=== PATIENT | female | born 1985 | race Two or more races ===

== ENCOUNTER 2021-04-28 13:37 | Outpatient (REF) | payer MEDICAID, SELFPAY ==
--- NOTE | ~2021-04-28 | XR_ITS ---
EXAMINATION: XR LUMBOSACRAL SPINE CLINICAL INFORMATION: Back strain, low back pain COMPARISON: None TECHNIQUE: Three views of the lumbosacral spine. FINDINGS: There is normal lumbar segmentation with 5 nonrib-bearing lumbar vertebrae of normal height and normal lumbar lordosis. There is no vertebral body compression, spondylolisthesis, or disc narrowing. No destructive process. Minor borderline anterior vertebral spurring present L3-L5. The SI joints and visualized sacrum are unremarkable. XR/XR lumbar spine 2-3V IMPRESSION: Unremarkable examination.
== END 2021-04-28 13:38 | disposition home or self-care (01) ==
LOC: HO.XRAY 13:37
PROVIDERS: PCP Internal Medicine Geriatric Medicine; Visit Provider Internal Medicine Geriatric Medicine
DX: S39.012S Strain of muscle, fascia and tendon of lower back, sequela (principal)
CPT/HCPCS: 72100

== ENCOUNTER 2022-01-18 15:03 | Emergency (ER) | payer MEDICAID, SELFPAY ==
--- NOTE | ~2022-01-18 | XR_ITS ---
EXAMINATION: XR CHEST CLINICAL INFORMATION: Chest pain, shortness of breath. COMPARISON: None TECHNIQUE: Frontal view of the chest was obtained. FINDINGS: No significant abnormality is noted involving the heart, lungs, mediastinum, bony thorax or soft tissues. XR/XR chest 1V IMPRESSION: No acute cardiopulmonary process.
--- NOTE | 2022-01-18 15:11 | ECG_ITS ---
Test Reason : CHEST PAIN Blood Pressure : / mmHG Vent. Rate : 092 BPM Atrial Rate : 092 BPM P-R Int : 140 ms QRS Dur : 080 ms QT Int : 344 ms P-R-T Axes : 056 014 001 degrees QTc Int : 425 ms Normal sinus rhythm Minimal voltage criteria for LVH, may be normal variant ( R in aVL ) RSR' or QR pattern in V1 suggests right ventricular conduction delay Borderline ECG When compared with ECG of 16-OCT-2014 18:25, No significant change was found Referred By: Gabriel Lopez Electronically Signed By:CAITLIN MCCOY MD
--- NOTE | 2022-01-18 15:12 | ED.GENADULT ---
HPI - General Adult General Chief complaint: Chest Pain <DINA Moser - Last Filed: 01/18/22 15:17> Stated complaint: CP, HIGH BP 170/[address] OFFICE PER EMS <DINA Moser - Last Filed: 01/18/22 15:17> Time Seen by Provider: 01/18/22 20:31 <DINA Moser - Last Filed: 01/18/22 15:17> Source: patient <Francine Goldstein YAEL Peña - Last Filed: 01/18/22 23:39> Mode of arrival: EMS <Francine Angelita YAEL Peña - Last Filed: 01/18/22 23:39> Limitations: no limitations <Francine Angelitanoy Peña CNP - Last Filed: 01/18/22 23:39> History of Present Illness HPI narrative: Patient is a 36-year-old female who presents to emergency department via EMS for evaluation of chest pain and hypertension coming from her doctor's office. Reports that she stopped taking her blood pressure medications during the pandemic , but recently over the past 10 days began taking them again. Received aspirin 325 mg and nitro from EMS without any change in her pain. Denies headache, dizziness, lightheadedness, vision changes, neck pain, neck stiffness, palpitations, shortness of breath, nausea, vomiting, abdominal pain, numbness or tingling of the extremities. <Francine Goldstein YAEL Peña - Last Filed: 01/18/22 23:39> Related Data Allergies/adverse reactions: Allergies Allergy/AdvReac Type Severity Reaction Status Date / Time acetaminophen [From PERCOCET] Allergy Unknown RAPID HR Verified 01/18/22 16:43 From PERCOCET Allergy Unknown RAPID HR Uncoded 01/18/22 16:43 <DINA Moser - Last Filed: 01/18/22 15:17> Review of Systems Review of Systems: Constitutional : No Weight loss, No Fever, No Chills ENT/Mouth :? No sore throat, No Rhinorrhea Eyes: No Eye Pain, No Swelling Cardiovascular : pos Chest Pain, pos SOB, no Dyspnea on Exertion, No Orthopnea, No Edema, No Palpitations Respiratory : No Cough, No Sputum Gastrointestinal : pos Nausea, No Vomiting, No Diarrhea, No abdominal Pain, No Hematochezia, No Melena Genitourinary : No Dysuria, No Urinary Frequency Musculoskeletal : No joint pain, No Myalgias, No Joint Swelling Skin : No Skin Lesions, No rash Neuro : No Weakness, No Numbness, No Dizziness, No Headache Psych : No Anxiety/Panic, No Depression Heme/Lymph: No Bruising, No Lymphadenopathy Endocrine : No Polyuria, No Polydipsia <Francine Peña CNP - Last Filed: 01/18/22 23:39> Yes all other systems are reviewed and are negative <Francine Peña CNP - Last Filed: 01/18/22 23:39> FORMERLY [facility] Past Medical History Attestation statement: The following information was validated with the patient. <Francine Peña CNP - Last Filed: 01/18/22 23:39> Source: old records reviewed <Francine Peña CNP - Last Filed: 01/18/22 23:39> Medical History: Medical History (Updated 01/18/22 @ 22:22 by Francine Peña CNP) Hypertension <DINA Moser - Last Filed: 01/18/22 15:17> Social History Social History: Social History Advance Directives: No Advance Directives Information Provided: Yes <DINA Moser - Last Filed: 01/18/22 15:17> Physical Exam ED Vital Signs: Vital Signs - 24 hr 01/18/22 16:37 01/18/22 21:28 Temperature 97.3 F 98.0 F Pulse Rate 99 85 Respiratory Rate 16 16 Blood Pressure 176/111 H 151/90 H Pulse Oximetry 100 Oxygen Delivery Method Room Air BMI result Body Mass Index 33.5 <DINA Moser - Last Filed: 01/18/22 15:17> Vital Signs - 24 hr 01/18/22 16:37 01/18/22 21:28 Temperature 97.3 F 98.0 F Pulse Rate 99 85 Respiratory Rate 16 16 Blood Pressure 176/111 H 151/90 H Pulse Oximetry 100 Oxygen Delivery Method Room Air BMI result Body Mass Index 33.5 <Francine Peña CNP - Last Filed: 01/18/22 23:39> Appearance: Alert.?Oriented to person, place and time. No acute distress.?Normal affect. Eyes: Pupils equal, round and reactive to light.? ENT: Pharynx normal.?? Neck: Normal inspection.? Neck supple.?? CVS: Heart sounds normal. Normal heart rate and rhythm.? Pulses normal.?? Respiratory: No respiratory distress.? Lung sounds clear to auscultation bilaterally?? Abdomen: Soft and non-tender. Normoactive bowel sounds. Skin: Skin warm and dry.? Normal skin color.? Extremities: No lower extremity edema.? No calf ttp? Neuro: Moves all extremities spontaneously. Sensation intact bilaterally. No focal neuro deficits. Ambulates with normal steady gait. <Francine Peña CNP - Last Filed: 01/18/22 23:39> Course Course Course Narrative: Patient is a 36-year-old female with a past medical history of HTN, presenting for evaluation from doctor's office. Review of [facility] as noted below. Labs reviewed. CBC is overall unremarkable. BMP overall unremarkable, mildly elevated LFTs with AST 34 an ALT 52. High sensitive troponin not detectable <3.5, EKG reveals normal sinus rhythm no acute ischemic findings, unlikely ACS. Chest x-ray without acute cardiopulmonary process. D-dimer remains pending at this time. Reports chest pain is still present currently 04/30 but improved. Hypertension has improved 151/90, she is due to take her evening dose of metoprolol which she will receive here. Without tachycardia, hypoxia, or tachypnea. She is overall well-appearing, nontoxic appearing. Acetaminophen ordered for pain. <Francine Peña CNP - Last Filed: 01/18/22 23:39> Reevaluation(s) Reevaluation #1: RME 36 year old female presents via ems w/ cp, sob and HTN ( pressure 179/93), coming from doctors office. Reports 08/30 substernal non radiating cp. No SOB, headache, vision changese, nausea, vomiting, abd pain, dizziness, vision changes. Reports she stopped her BP meds for a while but startted them up again regularly 10 days ago. No person or family significant cardiac hx. No hx of PE or DVT. Not on thinneres. PE: benign. Plan:labs, imaging, trop, dimer Got 325 asa and nitro prior to arrival w/o relief. <DINA Moser - Last Filed: 01/18/22 15:17> Time: 15:16 <DINA Moser - Last Filed: 01/18/22 15:17> Reevaluation #2: D-dimer <150, unlikely pulmonary embolism. Discussed with patient. Advised continue and management hypertension with current prescribed regimen, outpatient follow-up with her primary care provider. Reviewed worrisome signs and symptoms that she should return back to emergency department for. All questions were answered. She was discharged home in stable condition. <Francine Peña CNP - Last Filed: 01/18/22 23:39> Time: 22:19 <Francine Peña CNP - Last Filed: 01/18/22 23:39> Medications Administered Discontinued Medications Generic Name Dose Route Start Last Admin Trade Name Freq PRN Reason Stop Dose Admin Acetaminophen 975 mg 01/18/22 21:09 01/18/22 21:25 Acetaminophen 325 Mg Tablet PO 01/18/22 21:10 975 mg ONCE ONE Administration Metoprolol Tartrate 50 mg 01/18/22 21:16 01/18/22 21:26 Metoprolol Tartrate 50 Mg Tablet PO 01/18/22 21:17 50 mg ONCE ONE Administration Protocol <DINA Moser - Last Filed: 01/18/22 15:17> Medications Administered Discontinued Medications Generic Name Dose Route Start Last Admin Trade Name Freq PRN Reason Stop Dose Admin Acetaminophen 975 mg 01/18/22 21:09 01/18/22 21:25 Acetaminophen 325 Mg Tablet PO 01/18/22 21:10 975 mg ONCE ONE Administration Metoprolol Tartrate 50 mg 01/18/22 21:16 01/18/22 21:26 Metoprolol Tartrate 50 Mg Tablet PO 01/18/22 21:17 50 mg ONCE ONE Administration Protocol <Francine Peña CNP - Last Filed: 01/18/22 23:39> Medical Decision Making Medical Records Medical records reviewed: Yes I reviewed the patient's medical records. <Francine Peña CNP - Last Filed: 01/18/22 23:39> Lab Data Lab results reviewed: Yes I reviewed the patient's lab results. <Francine Peña CNP - Last Filed: 01/18/22 23:39> Result diagrams: : 01/18/22 18:11 01/18/22 18:22 <Gabriel Lopez PA - Last Filed: 01/18/22 15:17> Labs: Lab Results 01/18/22 01/18/22 01/18/22 Range/Units 17:18 17:18 17:18 WBC (4.8-10.8) X10*3/uL RBC (4.20-5.50) X10*6/uL Hgb (12.0-16.0) g/dl Hct (37.0-47.0) % MCV (80.0-98.0) fL MCH (27.0-33.0) pg MCHC (31.0-35.0) g/dl RDW (11.0-16.0) % Plt Count (160-400) X10*3/uL MPV (9.4-12.3) fL Immature Gran % (Auto) (0.0-0.4) % Neut % (Auto) (45-73) % Lymph % (Auto) (20-40) % Rhea % (Auto) (2-11) % Eos % (Auto) (0-4) % Baso % (Auto) (0-2) % Lymph # (Auto) (1.2-4.9) X10*3/uL Rhea # (Auto) (0.1-1.2) X10*3/uL Eos # (Auto) (0.0-0.4) X10*3/uL Baso # (Auto) (0.0-0.2) X10*3/uL Abs Immat Gran (auto) (0.00-0.03) X10*3/uL Absolute Neuts (auto) (2.0-8.3) x10*3/uL Absolute Nucleated RBC (0.0-0.012) X10*3/uL Nucleated RBC % (auto) (0.0-0.2) /100WBC D-Dimer High Sensitivty NG/ML Sodium (135-145) mmol/L Potassium (3.3-5.1) mmol/L Chloride (96-108) mmol/L Carbon Dioxide (22-29) mmol/L Anion Gap (12-20) BUN (9-16) mg/dL Creatinine (0.5-1.4) mg/dL Estim Creat Clear Calc Estimated GFR Random Glucose (60-115) mg/dL Calcium (8.4-10.2) mg/dL Total Bilirubin (0.0-1.0) mg/dL AST (5-31) U/L ALT (0-31) U/L Alkaline Phosphatase (39-117) U/L Troponin I High Sens (<3.5-17.0) ng/L Total Protein (6.5-8.0) g/dL Albumin (3.5-5.0) g/dL Urine Color Yellow Urine Appearance Clear Urine pH 7.5 (5.0-9.0) Ur Specific [place] 1.010 (1.005-1.025) Urine Protein Negative (Neg-Trace) mg/dL Urine Glucose (UA) Negative (Negative) mg/dL Urine Ketones Negative (Negative) mg/dL Urine Blood Negative (Negative) Urine Nitrite Negative (Negative) Ur Leukocyte Esterase Negative (Negative) Urine Test NEGATIVE (NEGATIVE) COVID-19 (AILYN) Negative (Negative) COVID-19 Clin Com See Note 01/18/22 01/18/22 01/18/22 Range/Units 18:11 18:22 18:32 WBC 6.4 (4.8-10.8) X10*3/uL RBC 3.97 L (4.20-5.50) X10*6/uL Hgb 13.2 (12.0-16.0) g/dl Hct 38.0 (37.0-47.0) % MCV 95.7 (80.0-98.0) fL MCH 33.2 H (27.0-33.0) pg MCHC 34.7 (31.0-35.0) g/dl RDW 11.7 (11.0-16.0) % Plt Count 259 (160-400) X10*3/uL MPV 10.8 (9.4-12.3) fL Immature Gran % (Auto) 0.3 (0.0-0.4) % Neut % (Auto) 50.2 (45-73) % Lymph % (Auto) 35.6 (20-40) % Rhea % (Auto) 9.9 (2-11) % Eos % (Auto) 2.8 (0-4) % Baso % (Auto) 1.2 (0-2) % Lymph # (Auto) 2.3 (1.2-4.9) X10*3/uL Rhea # (Auto) 0.6 (0.1-1.2) X10*3/uL Eos # (Auto) 0.2 (0.0-0.4) X10*3/uL Baso # (Auto) 0.1 (0.0-0.2) X10*3/uL Abs Immat Gran (auto) 0.02 (0.00-0.03) X10*3/uL Absolute Neuts (auto) 3.2 (2.0-8.3) x10*3/uL Absolute Nucleated RBC 0.000 (0.0-0.012) X10*3/uL Nucleated RBC % (auto) 0.0 (0.0-0.2) /100WBC D-Dimer High Sensitivty NG/ML Sodium 137 (135-145) mmol/L Potassium 4.6 (3.3-5.1) mmol/L Chloride 107 (96-108) mmol/L Carbon Dioxide 17 L (22-29) mmol/L Anion Gap 18 (12-20) BUN 11 (9-16) mg/dL Creatinine 0.68 (0.5-1.4) mg/dL Estim Creat Clear Calc 104.6 Estimated GFR > 60 Random Glucose 120 H (60-115) mg/dL Calcium 9.8 (8.4-10.2) mg/dL Total Bilirubin 0.4 (0.0-1.0) mg/dL AST 34 H (5-31) U/L ALT 52 H (0-31) U/L Alkaline Phosphatase 58 (39-117) U/L Troponin I High Sens < 3.5 (<3.5-17.0) ng/L Total Protein 8.2 H (6.5-8.0) g/dL Albumin 4.5 (3.5-5.0) g/dL Urine Color Urine Appearance Urine pH (5.0-9.0) Ur Specific [place] (1.005-1.025) Urine Protein (Neg-Trace) mg/dL Urine Glucose (UA) (Negative) mg/dL Urine Ketones (Negative) mg/dL Urine Blood (Negative) Urine Nitrite (Negative) Ur Leukocyte Esterase (Negative) Urine Test (NEGATIVE) COVID-19 (AILYN) (Negative) COVID-19 Clin Com 01/18/22 Range/Units 21:18 WBC (4.8-10.8) X10*3/uL RBC (4.20-5.50) X10*6/uL Hgb (12.0-16.0) g/dl Hct (37.0-47.0) % MCV (80.0-98.0) fL MCH (27.0-33.0) pg MCHC (31.0-35.0) g/dl RDW (11.0-16.0) % Plt Count (160-400) X10*3/uL MPV (9.4-12.3) fL Immature Gran % (Auto) (0.0-0.4) % Neut % (Auto) (45-73) % Lymph % (Auto) (20-40) % Rhea % (Auto) (2-11) % Eos % (Auto) (0-4) % Baso % (Auto) (0-2) % Lymph # (Auto) (1.2-4.9) X10*3/uL Rhea # (Auto) (0.1-1.2) X10*3/uL Eos # (Auto) (0.0-0.4) X10*3/uL Baso # (Auto) (0.0-0.2) X10*3/uL Abs Immat Gran (auto) (0.00-0.03) X10*3/uL Absolute Neuts (auto) (2.0-8.3) x10*3/uL Absolute Nucleated RBC (0.0-0.012) X10*3/uL Nucleated RBC % (auto) (0.0-0.2) /100WBC D-Dimer High Sensitivty < 150 NG/ML Sodium (135-145) mmol/L Potassium (3.3-5.1) mmol/L Chloride (96-108) mmol/L Carbon Dioxide (22-29) mmol/L Anion Gap (12-20) BUN (9-16) mg/dL Creatinine (0.5-1.4) mg/dL Estim Creat Clear Calc Estimated GFR Random Glucose (60-115) mg/dL Calcium (8.4-10.2) mg/dL Total Bilirubin (0.0-1.0) mg/dL AST (5-31) U/L ALT (0-31) U/L Alkaline Phosphatase (39-117) U/L Troponin I High Sens (<3.5-17.0) ng/L Total Protein (6.5-8.0) g/dL Albumin (3.5-5.0) g/dL Urine Color Urine Appearance Urine pH (5.0-9.0) Ur Specific [place] (1.005-1.025) Urine Protein (Neg-Trace) mg/dL Urine Glucose (UA) (Negative) mg/dL Urine Ketones (Negative) mg/dL Urine Blood (Negative) Urine Nitrite (Negative) Ur Leukocyte Esterase (Negative) Urine Test (NEGATIVE) COVID-19 (AILYN) (Negative) COVID-19 Clin Com <DINA Moser - Last Filed: 01/18/22 15:17> Lab Results 01/18/22 01/18/22 01/18/22 Range/Units 17:18 17:18 17:18 WBC (4.8-10.8) X10*3/uL RBC (4.20-5.50) X10*6/uL Hgb (12.0-16.0) g/dl Hct (37.0-47.0) % MCV (80.0-98.0) fL MCH (27.0-33.0) pg MCHC (31.0-35.0) g/dl RDW (11.0-16.0) % Plt Count (160-400) X10*3/uL MPV (9.4-12.3) fL Immature Gran % (Auto) (0.0-0.4) % Neut % (Auto) (45-73) % Lymph % (Auto) (20-40) % Rhea % (Auto) (2-11) % Eos % (Auto) (0-4) % Baso % (Auto) (0-2) % Lymph # (Auto) (1.2-4.9) X10*3/uL Rhea # (Auto) (0.1-1.2) X10*3/uL Eos # (Auto) (0.0-0.4) X10*3/uL Baso # (Auto) (0.0-0.2) X10*3/uL Abs Immat Gran (auto) (0.00-0.03) X10*3/uL Absolute Neuts (auto) (2.0-8.3) x10*3/uL Absolute Nucleated RBC (0.0-0.012) X10*3/uL Nucleated RBC % (auto) (0.0-0.2) /100WBC D-Dimer High Sensitivty NG/ML Sodium (135-145) mmol/L Potassium (3.3-5.1) mmol/L Chloride (96-108) mmol/L Carbon Dioxide (22-29) mmol/L Anion Gap (12-20) BUN (9-16) mg/dL Creatinine (0.5-1.4) mg/dL Estim Creat Clear Calc Estimated GFR Random Glucose (60-115) mg/dL Calcium (8.4-10.2) mg/dL Total Bilirubin (0.0-1.0) mg/dL AST (5-31) U/L ALT (0-31) U/L Alkaline Phosphatase (39-117) U/L Troponin I High Sens (<3.5-17.0) ng/L Total Protein (6.5-8.0) g/dL Albumin (3.5-5.0) g/dL Urine Color Yellow Urine Appearance Clear Urine pH 7.5 (5.0-9.0) Ur Specific [place] 1.010 (1.005-1.025) Urine Protein Negative (Neg-Trace) mg/dL Urine Glucose (UA) Negative (Negative) mg/dL Urine Ketones Negative (Negative) mg/dL Urine Blood Negative (Negative) Urine Nitrite Negative (Negative) Ur Leukocyte Esterase Negative (Negative) Urine Test NEGATIVE (NEGATIVE) COVID-19 (AILYN) Negative (Negative) COVID-19 Clin Com See Note 11/28/22 11/28/22 11/28/22 Range/Units 18:11 18:22 18:32 WBC 6.4 (4.8-10.8) X10*3/uL RBC 3.97 L (4.20-5.50) X10*6/uL Hgb 13.2 (12.0-16.0) g/dl Hct 38.0 (37.0-47.0) % MCV 95.7 (80.0-98.0) fL MCH 33.2 H (27.0-33.0) pg MCHC 34.7 (31.0-35.0) g/dl RDW 11.7 (11.0-16.0) % Plt Count 259 (160-400) X10*3/uL MPV 10.8 (9.4-12.3) fL Immature Gran % (Auto) 0.3 (0.0-0.4) % Neut % (Auto) 50.2 (45-73) % Lymph % (Auto) 35.6 (20-40) % Rhea % (Auto) 9.9 (2-11) % Eos % (Auto) 2.8 (0-4) % Baso % (Auto) 1.2 (0-2) % Lymph # (Auto) 2.3 (1.2-4.9) X10*3/uL Rhea # (Auto) 0.6 (0.1-1.2) X10*3/uL Eos # (Auto) 0.2 (0.0-0.4) X10*3/uL Baso # (Auto) 0.1 (0.0-0.2) X10*3/uL Abs Immat Gran (auto) 0.02 (0.00-0.03) X10*3/uL Absolute Neuts (auto) 3.2 (2.0-8.3) x10*3/uL Absolute Nucleated RBC 0.000 (0.0-0.012) X10*3/uL Nucleated RBC % (auto) 0.0 (0.0-0.2) /100WBC D-Dimer High Sensitivty NG/ML Sodium 137 (135-145) mmol/L Potassium 4.6 (3.3-5.1) mmol/L Chloride 107 (96-108) mmol/L Carbon Dioxide 17 L (22-29) mmol/L Anion Gap 18 (12-20) BUN 11 (9-16) mg/dL Creatinine 0.68 (0.5-1.4) mg/dL Estim Creat Clear Calc 104.6 Estimated GFR > 60 Random Glucose 120 H (60-115) mg/dL Calcium 9.8 (8.4-10.2) mg/dL Total Bilirubin 0.4 (0.0-1.0) mg/dL AST 34 H (5-31) U/L ALT 52 H (0-31) U/L Alkaline Phosphatase 58 (39-117) U/L Troponin I High Sens < 3.5 (<3.5-17.0) ng/L Total Protein 8.2 H (6.5-8.0) g/dL Albumin 4.5 (3.5-5.0) g/dL Urine Color Urine Appearance Urine pH (5.0-9.0) Ur Specific [place] (1.005-1.025) Urine Protein (Neg-Trace) mg/dL Urine Glucose (UA) (Negative) mg/dL Urine Ketones (Negative) mg/dL Urine Blood (Negative) Urine Nitrite (Negative) Ur Leukocyte Esterase (Negative) Urine Test (NEGATIVE) COVID-19 (AILYN) (Negative) COVID-19 Clin Com 01/18/22 Range/Units 21:18 WBC (4.8-10.8) X10*3/uL RBC (4.20-5.50) X10*6/uL Hgb (12.0-16.0) g/dl Hct (37.0-47.0) % MCV (80.0-98.0) fL MCH (27.0-33.0) pg MCHC (31.0-35.0) g/dl RDW (11.0-16.0) % Plt Count (160-400) X10*3/uL MPV (9.4-12.3) fL Immature Gran % (Auto) (0.0-0.4) % Neut % (Auto) (45-73) % Lymph % (Auto) (20-40) % Rhea % (Auto) (2-11) % Eos % (Auto) (0-4) % Baso % (Auto) (0-2) % Lymph # (Auto) (1.2-4.9) X10*3/uL Rhea # (Auto) (0.1-1.2) X10*3/uL Eos # (Auto) (0.0-0.4) X10*3/uL Baso # (Auto) (0.0-0.2) X10*3/uL Abs Immat Gran (auto) (0.00-0.03) X10*3/uL Absolute Neuts (auto) (2.0-8.3) x10*3/uL Absolute Nucleated RBC (0.0-0.012) X10*3/uL Nucleated RBC % (auto) (0.0-0.2) /100WBC D-Dimer High Sensitivty < 150 NG/ML Sodium (135-145) mmol/L Potassium (3.3-5.1) mmol/L Chloride (96-108) mmol/L Carbon Dioxide (22-29) mmol/L Anion Gap (12-20) BUN (9-16) mg/dL Creatinine (0.5-1.4) mg/dL Estim Creat Clear Calc Estimated GFR Random Glucose (60-115) mg/dL Calcium (8.4-10.2) mg/dL Total Bilirubin (0.0-1.0) mg/dL AST (5-31) U/L ALT (0-31) U/L Alkaline Phosphatase (39-117) U/L Troponin I High Sens (<3.5-17.0) ng/L Total Protein (6.5-8.0) g/dL Albumin (3.5-5.0) g/dL Urine Color Urine Appearance Urine pH (5.0-9.0) Ur Specific [place] (1.005-1.025) Urine Protein (Neg-Trace) mg/dL Urine Glucose (UA) (Negative) mg/dL Urine Ketones (Negative) mg/dL Urine Blood (Negative) Urine Nitrite (Negative) Ur Leukocyte Esterase (Negative) Urine Test (NEGATIVE) COVID-19 (AILYN) (Negative) COVID-19 Clin Com <Francine Peña CNP - Last Filed: 01/18/22 23:39> Imaging Data Chest x-ray: Radiologist's impression: XR/XR chest 1V IMPRESSION: No acute cardiopulmonary process. <Francine Peña CNP - Last Filed: 01/18/22 23:39> ECG Data Attestation: I personally reviewed and interpreted this ECG as follows: <Francine Peña CNP - Last Filed: 01/18/22 23:39> Prior ECG tracings: available for review <Francine Peña CNP - Last Filed: 01/18/22 23:39> Interpretation: Rate: 92 Rhythm:? Normal sinus rhythm [place]:? Normal Normal P waves.? Normal [place].?? Normal QRS complex.?? ST T wave :??No ST elevation, no ST depression, no T-wave inversion qTC: 425 prior studies:? September 2014 The study has been interpreted contemporaneously by me. <Francine Peña CNP - Last Filed: 01/18/22 23:39> Discharge Plan Discharge Clinical Impression: Chest pain, Hypertension <DINA Moser - Last Filed: 01/18/22 15:17> Patient Disposition: Home, Self-Care <DINA Moser - Last Filed: 01/18/22 15:17> Instructions: Chest Pain (ED), Hypertension (ED) <DINA Moser - Last Filed: 01/18/22 15:17> Additional Instructions: As discussed, please continue taking your current blood pressure medications as prescribed. Will need to follow-up with your primary care provider closely for continued management of your high blood pressure, they will determine whether dosages need to be adjusted. Return to emergency department with any new or worsening symptoms or concerns. You can take ibuprofen 200 mg, 3 tablets (600mg) every 6-8 hours as needed for pain, in addition to Tylenol 500 mg, 2 tablets (1,000mg) every 4-6 hours as needed for pain, but not to exceed 3 doses daily (3,000mg).? <DINA Moser - Last Filed: 01/18/22 15:17> Referrals: Name,MD Ulises [Primary Care Provider] - <DINA Moser - Last Filed: 01/18/22 15:17> Interventions: ED Discharge Assessment Last Done: 01/18/22 22:53 <DINA Moser - Last Filed: 01/18/22 15:17> Discharge Date/Time: 01/18/22 22:54 <DINA Moser - Last Filed: 01/18/22 15:17>
[2022-01-18 15:15] VITALS: BP 179/93; PULSE 108
[2022-01-18 16:37] VITALS: BP 176/111; PULSE 99; RESP 16; TEMP 36.3; O2SAT 100; BMI 33.5
[2022-01-18 17:49] LABS: COVID-19 Test Negative (Negative); IDNOW Serial# BCCEAD1C
[2022-01-18 17:53] LABS: UPreg QC Valid YES; Urine Pregnancy NEGATIVE (NEGATIVE)
[2022-01-18 17:54] LABS: Appearance Urine Clear; Color Urine Yellow; Glucose Urine UA Negative (Negative); Leukocyte Esterase Urine Negative (Negative); Nitrite Urine Negative (Negative); PH 7.5 (5.0-9.0); Urine Blood Negative (Negative); Urine Ketones Negative (Negative); Urine Protein Negative (Neg-Trace)
[2022-01-18 18:17] LABS: MANUAL DIFF FLAG NO
[2022-01-18 18:30] LABS: Basophils Absolute Auto 0.1 X10*3/uL (0.0-0.2); Basophils Percent Auto 1.2 % (0-2); Eosinophils Absolute Auto 0.2 X10*3/uL (0.0-0.4); Eosinophils Percent Auto 2.8 % (0-4); Hemoglobin 13.2 g/dl (12.0-16.0); Imm Gran Abs Auto 0.02 X10*3/uL (0.00-0.03); Imm Gran Pct Auto 0.3 % (0.0-0.4); Lymphocytes Absolute Auto 2.3 X10*3/uL (1.2-4.9); Lymphocytes Percent Auto 35.6 % (20-40); Mean Corpuscular HGB Conc 34.7 g/dl (31.0-35.0); Mean Corpuscular Hemoglobin 33.2 pg (27.0-33.0); Mean Corpuscular Volume 95.7 fL (80.0-98.0); Mean Platelet Volume 10.8 fL (9.4-12.3); Monocytes Absolute Auto 0.6 X10*3/uL (0.1-1.2); Monocytes Percent Auto 9.9 % (2-11); Neutrophils Absolute Auto 3.2 x10*3/uL (2.0-8.3); Neutrophils Percent Auto 50.2 % (45-73); Platelet Count 259 X10*3/uL (160-400); Red Blood Count 3.97 X10*6/uL (4.20-5.50); Red Cell Distribution Width 11.7 % (11.0-16.0); White Blood Count 6.4 X10*3/uL (4.8-10.8)
[2022-01-18 19:01] LABS: Alanine Aminotransferase 52 U/L (0-31); Albumin Level 4.5 g/dL (3.5-5.0); Alkaline Phosphatase 58 U/L (39-117); Anion Gap 18 (12-20); Aspartate Amino Transferase 34 U/L (5-31); Bilirubin Total 0.4 mg/dL (0.0-1.0); Blood Urea Nitrogen 11 mg/dL (9-16); Calcium 9.8 mg/dL (8.4-10.2); Carbon Dioxide 17 mmol/L (22-29); Chloride 107 mmol/L (96-108); Creatinine Clr Calc Pharmacy 104.6; Estimated Glomerular Filt Rate > 60; Glucose Random 120 mg/dL (60-115); Potassium 4.6 mmol/L (3.3-5.1); Sodium 137 mmol/L (135-145); Total Protein 8.2 g/dL (6.5-8.0)
[2022-01-18 19:05] LABS: Troponin-I High Sensitivity < 3.5 ng/L (<3.5-17.0)
[2022-01-18] MEDS: Acetaminophen 325 MG TABLET 975 MG PO (21:25)
[2022-01-18] MEDS: Metoprolol Tartrate 50 MG TABLET PO (21:26)
[2022-01-18 21:28] VITALS: BP 151/90; PULSE 85; RESP 16; TEMP 36.7
[2022-01-18 22:03] LABS: D Dimer High Sensitivity < 150 NG/ML
== END 2022-01-18 22:54 | disposition home or self-care (01) ==
PROVIDERS: Physician Assistant; Emergency Provider Internal Medicine; PCP Internal Medicine Geriatric Medicine
DX: R07.9 Chest pain, unspecified (principal); I10 Essential (primary) hypertension; Z20.822 Contact with and (suspected) exposure to COVID-19
CPT/HCPCS: 71045; 80053; 81003; 81025; 84484; 85025; 85379; 87635; 93005; 99283; 99284

== ENCOUNTER 2022-03-22 11:19 | Outpatient (REF) | payer MEDICAID, SELFPAY ==
--- NOTE | ~2022-03-22 | XR_ITS ---
EXAMINATION: XR CERVICAL SPINE CLINICAL INFORMATION: Acute back pain COMPARISON: None TECHNIQUE: 6 views of the cervical spine, inclusive of flexion and extension views, were obtained. FINDINGS: The vertebral alignment is normal. No intrinsic bony abnormality. The disc heights and neural foramina are well maintained. Throughout mid and lower cervical spine. No acute fracture or subluxation. There are bilateral C7 cervical ribs. There is mild ventral spondylosis The surrounding prevertebral soft tissues are unremarkable. XR/XR cervical spine 5V IMPRESSION: Bilateral C7 cervical ribs. No visible acute fracture or dislocation. Mild ventral C7 cervical ribs.
== END 2022-03-22 11:20 | disposition home or self-care (01) ==
LOC: HO.XRAY 11:19
PROVIDERS: Absent Provider Internal Medicine Geriatric Medicine; PCP Internal Medicine Geriatric Medicine; Visit Provider Registered Nurse
DX: M54.9 Dorsalgia, unspecified (principal)
CPT/HCPCS: 72050

== ENCOUNTER → 2022-05-24 09:03 | Outpatient (BNVA) | payer MEDICAID, SELFPAY | PROVIDERS: PCP Internal Medicine Geriatric Medicine; Visit Provider Physician Assistant ==

== ENCOUNTER 2022-05-24 09:53 | Outpatient (REF) | payer MEDICAID, SELFPAY ==
[2022-05-24 10:18] LABS: MANUAL DIFF FLAG NO
[2022-05-24 10:32] LABS: Basophils Absolute Auto 0.1 X10*3/uL (0.0-0.2); Basophils Percent Auto 1.7 % (0-2); Eosinophils Absolute Auto 0.2 X10*3/uL (0.0-0.4); Eosinophils Percent Auto 4.8 % (0-4); Hematocrit 36.9 % (37.0-47.0); Hemoglobin 12.9 g/dl (12.0-16.0); Imm Gran Abs Auto 0.01 X10*3/uL (0.00-0.03); Imm Gran Pct Auto 0.2 % (0.0-0.4); Lymphocytes Absolute Auto 1.6 X10*3/uL (1.2-4.9); Lymphocytes Percent Auto 38.1 % (20-40); Mean Corpuscular Hemoglobin 33.9 pg (27.0-33.0); Mean Corpuscular Volume 96.9 fL (80.0-98.0); Mean Platelet Volume 10.4 fL (9.4-12.3); Monocytes Absolute Auto 0.3 X10*3/uL (0.1-1.2); Monocytes Percent Auto 7.4 % (2-11); Neutrophils Percent Auto 47.8 % (45-73); Platelet Count 283 X10*3/uL (160-400); Red Blood Count 3.81 X10*6/uL (4.20-5.50); Red Cell Distribution Width 11.9 % (11.0-16.0); White Blood Count 4.2 X10*3/uL (4.8-10.8)
[2022-05-24 11:10] LABS: Alanine Aminotransferase 43 U/L (0-31); Albumin Level 4.3 g/dL (3.5-5.0); Alkaline Phosphatase 70 U/L (39-117); Anion Gap 10 (12-20); Aspartate Amino Transferase 21 U/L (5-31); Bilirubin Total 0.6 mg/dL (0.0-1.0); Blood Urea Nitrogen 12 mg/dL (9-16); C Reactive Protein 0.76 mg/dL (< or = 0.50); Carbon Dioxide 24 mmol/L (22-29); Chloride 110 mmol/L (96-108); Estimated Glomerular Filt Rate > 60; Glucose Random 141 mg/dL (60-115); Potassium 4.5 mmol/L (3.3-5.1); Sodium 139 mmol/L (135-145); Total Protein 7.2 g/dL (6.5-8.0)
[2022-05-24 11:14] LABS: Thyroid Stimulating Hormone 1.38 uIU/mL (0.32-4.0)
[2022-05-24 11:29] LABS: Erythrocyte Sedimentation Rate 6 MM/HR (0-20)
== END 2022-05-24 09:54 | disposition home or self-care (01) ==
LOC: HO.LAB 09:53
PROVIDERS: Visit Provider Physician Assistant
DX: R10.9 Unspecified abdominal pain (principal); K58.9 Irritable bowel syndrome, unspecified; K59.09 Other constipation; G89.29 Other chronic pain; R19.8 Other specified symptoms and signs involving the digestive system and abdomen; K21.9 Gastro-esophageal reflux disease without esophagitis
CPT/HCPCS: 36415; 80053; 84443; 85025; 85652; 86140; 99202

== ENCOUNTER 2022-06-28 07:57 | Outpatient (REF) | payer MEDICAID, SELFPAY ==
--- NOTE | ~2022-06-28 | CT_ITS ---
EXAMINATION: CT ABDOMEN AND PELVIS WITH CONTRAST CLINICAL INFORMATION: Unspecified abdominal pain. COMPARISON: None available. TECHNIQUE: Multidetector volumetric images were obtained from the superior aspect of the liver through the pubic symphysis following administration 85 mL of Omnipaque 350 intravenous contrast. Sagittal and coronal reformatted images were obtained on the technologist's workstation. Oral contrast: No This CT examination was performed using dose optimization techniques as appropriate, variously including the following: *Automated exposure control *Adjustment of mA and/or kV according to patient size (this includes techniques or standardized protocols for targeted exams where dose is matched to indication/reason for exam; i.e. extremities or head) *Use of iterative reconstruction technique DLP: 489 mGy-cm FINDINGS: LUNG BASES: The visualized lung bases are unremarkable. LIVER, GALLBLADDER, AND BILIARY TREE: The liver is normal in size, shape, and attenuation. No focal hepatic lesion or biliary ductal dilatation is present. The gallbladder is unremarkable with no evidence of radiopaque gallstones, gallbladder wall thickening, or obvious pericholecystic inflammatory changes. PANCREAS: Unremarkable. SPLEEN: Unremarkable. ADRENAL GLANDS: Unremarkable. KIDNEYS AND URETERS: The kidneys are normal in size, shape, and attenuation. No hydronephrosis, hydroureter, or calculi seen. No perinephric stranding. BLADDER: Unremarkable. GASTROINTESTINAL TRACT: There is scattered gas and stool seen in the colon without distention. The small bowel loops are opacified with oral contrast and are normal caliber. Appendix is normal caliber. ABDOMINAL WALL: No significant hernia is appreciated. LYMPH NODES: Normal. VASCULAR: Unremarkable. PELVIC VISCERA: Unremarkable. OSSEOUS STRUCTURES: No aggressive lytic or sclerotic process seen. CT/CT abdomen pelvis w IV con IMPRESSION: 1. No acute intra-abdominal process seen. 2. Mild constipation. Fleischner guidelines were followed.
[2022-06-28] MEDS: iohexoL 350 MG/ML 100 ML INFUS..BTL 85 ML IV (11:14)
[2022-06-28] MEDS: Barium Sulfate Oral (Berry) 450 ML ORAL.SUSP 900 ML PO (11:15)
== END 2022-06-28 07:58 | disposition home or self-care (01) ==
LOC: HO.CT 07:57
PROVIDERS: PCP Internal Medicine Geriatric Medicine; Visit Provider Physician Assistant
DX: R10.9 Unspecified abdominal pain (principal); G89.29 Other chronic pain
CPT/HCPCS: 74177; Q9967

== ENCOUNTER → 2022-07-05 09:40 | Outpatient (BNVA) | payer MEDICAID, SELFPAY | PROVIDERS: PCP Internal Medicine Geriatric Medicine; Visit Provider Physician Assistant | DX: K21.9 Gastro-esophageal reflux disease without esophagitis (principal); G89.29 Other chronic pain; R10.9 Unspecified abdominal pain | CPT/HCPCS: 99212 ==

== ENCOUNTER → 2022-07-27 10:48 | Outpatient (BNVA) | payer MEDICAID, SELFPAY | PROVIDERS: PCP Internal Medicine Geriatric Medicine; Visit Provider Physician Assistant | DX: Z11.0 Encounter for screening for intestinal infectious diseases (principal) | CPT/HCPCS: 99211 ==

== ENCOUNTER 2022-07-27 18:13 | Outpatient (REF) | payer MEDICAID, SELFPAY ==
[2022-07-29 16:12] LABS: H Pylori Breath Test Negative (Negative)
== END 2022-07-27 18:14 | disposition home or self-care (01) ==
LOC: HO.LNP 18:13
PROVIDERS: Visit Provider Physician Assistant
DX: A04.8 Other specified bacterial intestinal infections (principal)
CPT/HCPCS: 83013

== ENCOUNTER 2022-09-10 11:53 | Outpatient (REF) | payer MEDICAID, SELFPAY ==
[2022-09-10 15:52] LABS: Anion Gap 11 (12-20); Blood Urea Nitrogen 12 mg/dL (9-16); Calcium 9.5 mg/dL (8.4-10.2); Carbon Dioxide 24 mmol/L (22-29); Chloride 106 mmol/L (96-108); Estimated Glomerular Filt Rate > 60; Glucose Random 95 mg/dL (60-115); Potassium 3.8 mmol/L (3.3-5.1); Sodium 137 mmol/L (135-145)
== END 2022-09-10 11:54 | disposition home or self-care (01) ==
LOC: HO.HHCL 11:53
PROVIDERS: Visit Provider Internal Medicine Geriatric Medicine
DX: I10 Essential (primary) hypertension (principal)
CPT/HCPCS: 36415; 80048

== ENCOUNTER 2022-10-13 10:46 | Outpatient (AMB) | payer MEDICAID, SELFPAY ==
--- NOTE | 2022-10-13 10:56 | MHC.OFFVIS ---
Intake Vital Signs 10/13/22 10:58 Height 5 ft Weight 169 lb BMI 33.0 BP 148/98 H Blood Pressure Location Lt brachial Position Sitting Pulse 82 Intake Visit Reasons: NPV / NAME/ CP Intake Note: NPV w/ EKG Operations Tech Required: No Accompanied by: Daughter Allergies acetaminophen [From Percocet] Adverse Reaction (Verified 10/13/22 10:57) rapid heart rate oxycodone [From Percocet] Adverse Reaction (Verified 10/13/22 10:57) rapid heart rate Medication List - Last Reconciled 10/13/22 by Octavio Chow MD amitriptyline 25 mg PO BEDTIME amlodipine 10 mg PO DAILY bisacodyl (Dulcolax (bisacodyl)) 10 mg NC DAILY PRN cyclobenzaprine 10 mg PO TID docusate sodium (Colace) 200 mg (2 x 100 mg) PO BEDTIME losartan 25 mg PO DAILY methylcellulose (laxative) (Citrucel) 500 mg PO TID polyethylene glycol 3350 (Miralax) 17 grams PO DAILY PRN sucralfate 1 g PO QIDACHS 21 days tizanidine 2 mg PO Q8H PRN topiramate 50 mg PO BID HPI HPI Comments History of Present Illness Details Than you for referring Gaye in cardiology consultation today for chest discomfort. She has longstanding history of hypertension since her 1st at age of 20. She says a blood pressure is not been generally well controlled. She is currently taking amlodipine 10 mg and losartan 25 mg. Losartan was started recently although she is not very clear as to the sequence of medications. She says she is currently not on metoprolol therapy. She has never been worked up for secondary hypertension. Recently she has been getting episodes of retrosternal chest pressure and tightness which can happen randomly while she is exerting or even at rest. She has not measured a blood pressure during that time. A blood pressure is usually elevated and he current time. She has associated symptoms of shortness of breath and palpitations. She says she also has poor sleep pattern but has never been worked up for sleep apnea in the past. She does monitor for salt intake in her diet. She denies any lightheadedness, syncope. Denies any orthopnea, PND, leg edema. [facility] Medical History Hypertension Surgical History Hx of tubal ligation Family History Father No problems noted. Mother Thyroid condition Social History Household Members: Children Alcohol intake: current Alcohol intake frequency: holidays/special occasions only Patient Tobacco Use Status: Never used Tobacco Review of Systems Const Denies chills, Denies daytime sleepiness, Denies fatigue, Denies fever(s), Denies frequent falls, Denies night sweats, Denies snoring, Denies weakness, Denies weight gain and Denies weight loss Eyes Denies loss of vision ENT Denies dizziness and Denies hearing loss Card Denies chest pain, Denies chest pain with activity, Denies syncope, Denies rapid heart rate, Denies edema, Denies claudication, Denies leg edema, Denies lightheadedness, Denies palpitations, Denies dyspnea, Denies dyspnea on exertion and Denies orthopnea Resp Denies cough, Denies excessive phlegm production, Denies dyspnea, Denies dyspnea on exertion, Denies snoring and Denies wheezing GI Denies abdominal pain, Denies hematochezia, Denies change in bowel habits, Denies change in stool character, Denies heartburn, Denies nausea and Denies vomiting Denies hematuria, Denies urinary frequency and Denies dysuria Musc Denies arthralgias, Denies muscle weakness, Denies numbness and Denies tingling Skin/Breast Denies nail changes and Denies rash Neuro Denies Abnormal speech present, Denies dizziness, Denies syncope, Denies frequent falls, Denies loss of vision, Denies memory loss, Denies numbness, Denies tingling and Denies weakness Psych Denies depression and Denies memory loss Endo Denies fatigue and Denies palpitations Aller/Immun Denies wheezing Physical Exam Vital Signs: Last Vital Signs Pulse 82 10/13/22 10:58 BP 148/98 H 10/13/22 10:58 BMI result Body Mass Index 33.0 Const General: cooperative, comfortable, no acute distress, alert, awake and Physically active Nutritional Appearance: obese Orientation/consciousness: patient oriented x3 Limitations: no limitations HEENT Head: Yes normocephalic and Yes atraumatic Neck Neck: Yes trachea midline, Yes supple and Yes no JVD Resp Effort & Inspection: normal respiratory effort Auscultation: clear to auscultation bilaterally Cardio Jugular venous distension: no JVD Palpation: normal PMI Rate: regular rate Heart sounds: S1 normal heart sound present, S2 normal heart sound present, no click, no gallops, no murmurs and no rubs GI Inspection: Yes obesity Skin General skin exam: no rashes or lesions noted Neuro General: patient oriented x3 and no focal motor deficits Speech: No Abnormal speech present Extrem General: Yes no clubbing, cyanosis or edema Office Procedures EKG Details: EKG shows normal sinus rhythm sinus rhythm with normal EKG 65932-[id number], Complete Assessment & Plan Assessment & Plan (1) Chest pain: Code(s): R07.9 - Chest pain, unspecified Plan: Patient's symptoms intermittent chest tightness associated shortness of breath palpitations. Could be related to uncontrolled blood pressure her and/or hypertensive heart disease. Myocardial ischemia as ?less likely. However she has multiple risk factors. Will suggest to treadmill exercise stress test given her baseline normal EKG. Also suggest echocardiogram to assess LV systolic and diastolic function hypertensive heart disease. Further treatment based on the findings. (2) Palpitations: Code(s): R00.2 - Palpitations Plan: Patient recurrent symptoms of palpitations associated chest tightness. Arrhythmias such as SVT and/or atrial fibrillation need to be ruled out given her risk factors. Will obtain a 48 hour Holter monitor to further assess for the same. No pharmacotherapy is recommended at this point time. Follow-up after testing. (3) Uncontrolled hypertension: Code(s): I10 - Essential (primary) hypertension Plan: Uncontrolled hypertension this young woman and for long period time. Importance of aggressive blood pressure control was discussed with her. She understands. She has done lifestyle modification with low-salt diet. However is not participate in weight loss program. She also high likelihood of underlying obstructive sleep apnea. Would suggest her to undergo home sleep study. Also suggest her to have workup for endocrine as well as renal artery stenosis causes for secondary hypertension. These tests will be scheduled in near future. Meanwhile will up titrate losartan to 50 mg daily. Advised to monitor blood pressure at home maintain a log. Follow-up in 6 weeks time. Will follow up in the clinic in 6 weeks time, sooner p.r.n.. Thank you for allowing me to partake in her care Orders: Orders CA echo transthoracic complete Today I10 - Essential (primary) hypertension Aldosterone Today I10 - Essential (primary) hypertension Aldost/Renin Today I10 - Essential (primary) hypertension Cortisol Random Today I10 - Essential (primary) hypertension Metanephrines, Plasma Today I10 - Essential (primary) hypertension Renin Today I10 - Essential (primary) hypertension TSH reflex Free T4 Today I10 - Essential (primary) hypertension RT home sleep study Today I10 - Essential (primary) hypertension, R40.0 - Somnolence US renal doppler Today I10 - Essential (primary) hypertension CA stress test Today R07.9 - Chest pain, unspecified ECG holter monitor 48 hour Today R00.2 - Palpitations Medications: New losartan 50 mg PO DAILY 30 tabs 5RF I10 - Essential (primary) hypertension Coding Level of Care Code New Pt Level 4 (41216) Diagnoses Chest pain R07.9 Palpitations R00.2 Uncontrolled hypertension I10 CPT Codes EKG - CPT: 59504-[id number], Complete ([id number])
[2022-10-13 10:58] VITALS: BP 148/98; PULSE 82; BMI 33.0
== END 2022-10-13 11:29 | disposition home or self-care (01) ==
PROVIDERS: PCP Internal Medicine Geriatric Medicine; Referring Provider Internal Medicine Geriatric Medicine; Visit Provider Internal Medicine Cardiovascular Disease
DX: R07.9 Chest pain, unspecified (principal); R00.2 Palpitations; I10 Essential (primary) hypertension
CPT/HCPCS: 93010; 99204

== ENCOUNTER → 2022-10-13 10:46 | Outpatient (BNVA) | payer MEDICAID, SELFPAY | PROVIDERS: PCP Internal Medicine Geriatric Medicine; Referring Provider Internal Medicine Geriatric Medicine; Visit Provider Internal Medicine Cardiovascular Disease | DX: R07.9 Chest pain, unspecified (principal); R00.2 Palpitations; I10 Essential (primary) hypertension; Z79.899 Other long term (current) drug therapy | CPT/HCPCS: 93005; 99202 ==

== ENCOUNTER 2022-10-13 14:55 | Outpatient (REF) | payer MEDICAID, SELFPAY ==
--- NOTE | ~2022-10-13 | XR_ITS ---
EXAMINATION: XR SHOULDER, LEFT CLINICAL INFORMATION: Left shoulder pain for 2 months. COMPARISON: None available. TECHNIQUE: AP external rotation, Grashey, scapular Y, and axillary views of the left shoulder. FINDINGS: There is a small inferior spur of the distal clavicle the acromioclavicular joint. Acromioclavicular joint is otherwise normal. The glenohumeral joint is normal. There is no soft tissue calcification. XR/XR shoulder LT min 2V IMPRESSION: Small inferior spur of the distal clavicle at the acromioclavicular joint. This is unlikely to be causing impingement. No soft tissue calcification. Normal glenohumeral joint.
== END 2022-10-13 14:56 | disposition home or self-care (01) ==
LOC: HO.HHCX 14:55
PROVIDERS: Visit Provider Registered Nurse
DX: M25.512 Pain in left shoulder (principal); G89.29 Other chronic pain; R07.9 Chest pain, unspecified; R00.2 Palpitations; I10 Essential (primary) hypertension
CPT/HCPCS: 73030

== ENCOUNTER 2022-11-02 15:19 | Outpatient (REF) | payer MEDICAID, SELFPAY ==
[2022-11-02 16:34] LABS: Anion Gap 10 (12-20); Blood Urea Nitrogen 10 mg/dL (9-16); Calcium 9.4 mg/dL (8.4-10.2); Carbon Dioxide 24 mmol/L (22-29); Chloride 111 mmol/L (96-108); Estimated Glomerular Filt Rate > 60; Glucose Random 121 mg/dL (60-115); Sodium 141 mmol/L (135-145)
== END 2022-11-02 15:20 | disposition home or self-care (01) ==
LOC: HO.HHCL 15:19
PROVIDERS: Visit Provider Internal Medicine Geriatric Medicine
DX: I10 Essential (primary) hypertension (principal)
CPT/HCPCS: 36415; 80048

== ENCOUNTER 2022-11-03 10:26 | Outpatient (REF) | payer MEDICAID, SELFPAY ==
--- NOTE | ~2022-11-03 | US_ITS ---
EXAMINATION: US KIDNEYS WITH RENAL ARTERY DOPPLER CLINICAL INFORMATION: Hypertension. COMPARISON: CT abdomen and pelvis 06/28/2022. TECHNIQUE: Ultrasound of the kidneys was performed along with color flow Doppler imaging and velocity measurements in the proximal mid and distal renal arteries. Aortic velocities were measured and renal/aortic ratios were calculated. FINDINGS: The kidneys appeared normal with the right kidney measuring 9.8 x 4.1 x 4.8 cm and the left kidney measuring 10.6 x 4.9 x 4.8 cm. No renal masses, renal stones or hydronephrosis is seen. Renal cortical thickness appears normal. Velocity measurements in the proximal mid and distal renal arteries are normal with the exception of 1 area of velocity elevation in the mid right renal artery at 189 cm/s (upper limits 180 cm/s). Velocity in the aorta is normal at 72 cm/s. Renal aortic ratios are normal. The bladder appeared unremarkable. Incidental note made of an echogenic liver consistent with hepatic steatosis. US/US renal doppler IMPRESSION: 1. Borderline elevated velocity in the right mid renal artery. If clinical concern remains high, CT angiography could always be performed for further evaluation. 2. Incidentally noted hepatic steatosis.
--- NOTE | ~2022-11-03 | US_ITS ---
EXAMINATION: US KIDNEYS WITH RENAL ARTERY DOPPLER CLINICAL INFORMATION: Hypertension. COMPARISON: CT abdomen and pelvis 06/28/2022. TECHNIQUE: Ultrasound of the kidneys was performed along with color flow Doppler imaging and velocity measurements in the proximal mid and distal renal arteries. Aortic velocities were measured and renal/aortic ratios were calculated. FINDINGS: The kidneys appeared normal with the right kidney measuring 9.8 x 4.1 x 4.8 cm and the left kidney measuring 10.6 x 4.9 x 4.8 cm. No renal masses, renal stones or hydronephrosis is seen. Renal cortical thickness appears normal. Velocity measurements in the proximal mid and distal renal arteries are normal with the exception of 1 area of velocity elevation in the mid right renal artery at 189 cm/s (upper limits 180 cm/s). Velocity in the aorta is normal at 72 cm/s. Renal aortic ratios are normal. The bladder appeared unremarkable. Incidental note made of an echogenic liver consistent with hepatic steatosis. US/US renal BI IMPRESSION: 1. Borderline elevated velocity in the right mid renal artery. If clinical concern remains high, CT angiography could always be performed for further evaluation. 2. Incidentally noted hepatic steatosis.
== END 2022-11-03 10:27 | disposition home or self-care (01) ==
LOC: HO.US 10:26
PROVIDERS: PCP Internal Medicine Geriatric Medicine; Visit Provider Internal Medicine Cardiovascular Disease
DX: I10 Essential (primary) hypertension (principal)
CPT/HCPCS: 76775; 93975

== ENCOUNTER 2022-11-10 10:02 | Outpatient (REF) | payer MEDICAID, SELFPAY ==
--- NOTE | 2022-11-10 10:05 | EMG_ITS ---
Please see scanned EMG / Nerve Conduction Report. MTDD
== END 2022-11-10 10:03 | disposition home or self-care (01) ==
LOC: HO.NEURO 10:02
PROVIDERS: PCP Internal Medicine Geriatric Medicine; Visit Provider Registered Nurse
DX: M25.512 Pain in left shoulder (principal); G89.29 Other chronic pain
CPT/HCPCS: 95885; 95910

== ENCOUNTER → 2022-11-18 09:06 | Outpatient (REF) | payer MEDICAID, SELFPAY ==
--- NOTE | 2022-11-18 09:16 | CA_ITS ---
Transthoracic Echocardiogram Patient (Last, First, Middle): Gaye Arriaga Y Gender: Female Date of : 1985 Age: 37 Procedure Date: 11/18/2022 Procedure Type: Transthoracic Echocardiogram Location: OP Height: 152.4 cm Weight: 77.11 kg BSA: 1.74 m2 Heart Rate: bpm BP: 138 / 80 mmHg Sales Trader: TO Referring MD: Octavio Chow MD Shuttlecock Feather Trimmer: Octavio Chow MD Symptoms: I10 - Essential (primary) hypertension Study Quality: Fair, contrast ECG Rhythm: Sinus Conclusions: - Essentially normal study Findings Procedure Information Contrast agent, definity, is being given per protocol without apparent complications. Left Ventricle Normal left ventricular size, thickness, and systolic function. The visually estimated ejection fraction is between 60-65%. Spectral Doppler is indicative of a normal filling pattern. Right Ventricle Normal right ventricular cavity size and systolic function. Atria Both atria are normal in size. Interatrial shunt cannot be excluded. Aortic Valve Normal aortic valve structure and function. There is no aortic valve stenosis. There is no aortic valve regurgitation. Mitral Valve Normal mitral valve structure and function. There is trace mitral valve regurgitation. There is no mitral valve stenosis. Pulmonic Valve The pulmonic valve is likely normal. There is trace pulmonic valve regurgitation. Tricuspid Valve Normal tricuspid valve structure. There is trace tricuspid valve regurgitation. The right ventricular systolic pressure is normal. The right ventricular systolic pressure is 17 mmHg. Normal right atrial pressure. There is no evidence of pulmonary hypertension. Great Vessels All visible segments of the aorta are normal in size. The pulmonary artery was not well visualized. Venous The inferior vena cava is normal in size and collapses greater than 50% with inspiration. Pericardium/Pleural There is no evidence of pericardial effusion. Prior Study Comparison No prior study available for comparison. Measurements 2D Linear Measurements IVSd: 1.00 0.6-0.9/0.6-1.0 cm LVIDd: 3.90 3.9-5.3/4.2-5.9 cm LVIDd Index: 2.24 2.4-3.2/2.2-3.1 cm/m2 LVIDs: 2.20 2.0-3.6 cm LVPWd: 0.90 0.7-1.1 cm LA Diam: 2.60 2.7-3.8/3.0-4.0 cm LAIDs Index: 1.49 1.5-2.3 cm/m2 LV Mass: 141.22 67-162/88-224 g LV Mass Index: 81.16 43-95/49-115 g/m2 LVOT Diam: 1.80 3.0+(-)1.3 cm 2D Systolic Function EF 4C: 59.40 >55% EF 2C: 62.40 >55% EF BiP: 62.20 >55% Mitral Valve MV Pk E: 0.80 MV PK A: 0.59 MV Decel Time: 140.00 E/A: 1.40 E'Lateral: 10.20 E'Medial: 7.07 E/E' Med: 11.30 E/E' Lat: 7.80 PHT: 41.00 MVA PHT: 5.37 Decel [place]: 5.68 Aortic Valve AoV Pk Eric: 1.54 AoV Mn Eric: 0.96 AoV VTI: 0.26 AoV Pk Grad: 9.00 Aov Mn Grad: 4.00 SUZANNA Cont.VTI: 1.78 LVOT LVOT Pk Eric: 0.91 LVOT Mn Eric: 0.60 LVOT VTI: 0.18 LVOT Pk Grad: 3.00 LVOT Mn Grad: 2.00 LVOT Diam: 1.80 LVOT Area: 2.54 Diastolic Function MV Pk E: 0.80 MV Pk A: 0.59 E/A: 1.40 E'Medial: 7.07 E/E' Med: 11.30 E' Laterial: 10.20 E/E' Lat: 7.80 Right Ventricle TAPSE (mm): 17.30 TVS' Eric: 10.80 Tricuspid Valve TR Pk Eric: 1.89 TR Pk Grad: 14.00 RA Press: 3.00 RVSP: 17.00 Great Vessels Aorta Sinus of Valsalva: 2.50 2.0-3.5 cm Ao Asc: 2.90 2.1-3.4 cm Updated in Other Vendor System with Status of Final Octavio Chow MD electronically signed on 11/18/2022 1:48:01 PM with status of Final
--- NOTE | 2022-11-18 09:16 | CA_ITS ---
Acquisition Time: 2022-11-18 10:28:45 Total Exercise Time: 00:07:36 Test Indications: CP, SOB Medications: SEE H Protocol: HIEU Max HR: 157 BPM 86% of Pred: 182 BPM Max BP: 170/088 mmHG Max Work Load: 5.7 METS Exercise stress test exercise 7 min 36 sec of Hieu protocol stage 1 - max speed 2.2mph 86%, with mild to moderate SOB, 6/10 chest pressure in mid chest, with isolated PACs, with normotensive response to exercise, without EKG changes. Chest pain resolved with rest. Test reviewed with Dr. Chow. Referred By: Octavio Chow Overread By: Rosita Hale
[2022-11-18 12:04] LABS: Cortisol Random 3.7 ug/dL; TSH reflex Free T4 2.39 uIU/mL (0.32-4.0)
[2022-11-22 12:03] LABS: Metanephrine, Free <25 pg/mL (<=57); Normetanephrines, Free 78 pg/mL (<=148); Total Metanephrine, Free 78 pg/mL (<=205)
[2022-11-25 17:08] LABS: Renin 2.53 ng/mL/h (0.25-5.82)
[2022-11-29 15:44] LABS: Aldosterone/Renin Ratio 3.6 Ratio (0.9-28.9)
== END ==
LOC: HO.CARD 09:06
PROVIDERS: PCP Internal Medicine Geriatric Medicine; Visit Provider Internal Medicine Cardiovascular Disease
DX: R07.9 Chest pain, unspecified (principal); I10 Essential (primary) hypertension; R40.0 Somnolence
CPT/HCPCS: 36415; 82088; 82533; 83835; 84244; 84443; 93017; 93306; 95806; Q9957

== ENCOUNTER → 2022-11-18 09:16 | Outpatient (BNV) | payer MEDICAID, SELFPAY | PROVIDERS: PCP Internal Medicine Geriatric Medicine; Visit Provider Internal Medicine Cardiovascular Disease | DX: R07.89 Other chest pain (principal); R06.02 Shortness of breath | CPT/HCPCS: 93016; 93018; 93306 ==

== ENCOUNTER → 2022-11-18 11:21 | Outpatient (BNV) | payer MEDICAID, SELFPAY | PROVIDERS: PCP Internal Medicine Geriatric Medicine; Visit Provider Internal Medicine | DX: R06.83 Snoring (principal) | CPT/HCPCS: 95806 ==

== ENCOUNTER 2022-11-25 11:16 | Outpatient (REF) | payer MEDICAID, SELFPAY ==
[2022-11-25 13:19] LABS: Anion Gap 16 (12-20); Blood Urea Nitrogen 8 mg/dL (9-16); Calcium 9.6 mg/dL (8.4-10.2); Carbon Dioxide 22 mmol/L (22-29); Chloride 105 mmol/L (96-108); Estimated Glomerular Filt Rate > 60; Glucose Random 106 mg/dL (60-115); Potassium 4.6 mmol/L (3.3-5.1); Sodium 138 mmol/L (135-145)
== END 2022-11-25 11:17 | disposition home or self-care (01) ==
LOC: HO.HHCL 11:16
PROVIDERS: Visit Provider Internal Medicine Geriatric Medicine
DX: I10 Essential (primary) hypertension (principal)
CPT/HCPCS: 36415; 80048

== ENCOUNTER 2022-11-26 09:12 | Outpatient (AMB) | payer MEDICAID, SELFPAY ==
--- NOTE | 2022-11-26 09:19 | MHC.OFFVIS ---
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 Patient reports ongoing pain for 2 months. She states her pain started after she got 2 vaccines one for hep and tet. Patient is feeling a sore sensation and achy pain. 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 The patient reports ongoing pain for 2 months, since 09/2022. She states the pain began after she received 2 immunization, one for hepatitis and the other for tetanus. She states she has a sore sensation with achy pain in the left shoulder. 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 [facility] Medical History Hypertension Surgical History Hx of tubal ligation Family History Father No problems noted. Mother Thyroid condition Social History Household Members: Children Alcohol intake: current Alcohol intake frequency: holidays/special occasions only Patient Tobacco Use Status: Never used Tobacco Review of Systems Const All systems reviewed & are unremarkable except as noted in HPI and below Physical Exam Vital Signs: BMI result Body Mass Index 33.0 Const General: cooperative and no acute distress Orientation/consciousness: patient oriented x3 Resp Effort & Inspection: normal respiratory effort and able to speak in complete sentences Cardio Peripheral pulses: Peripheral pulses 2+ throughout Skin General skin exam: no rashes or lesions noted Neuro General: patient oriented x3 Extrem Other: Left shoulder: Normal to inspection. No ecchymosis, erythema, or edema. Forward flexion and abduction lacking 20 degrees. External rotation to 45 degrees. Able to reach T12. Positive cross-body reach. 4/5 strength with empty can. Negative drop arm. Positive O?Randy?s. NVI. Office Procedures Joint Injection/Drain Joint Injection/Drain Primary Site: left shoulder Prep: site was prepped using aseptic technique, ethochloride spray was applied and injection warnings given Injected: 80 mg of, DepoMedrol, with 8 mL of (2% plain lido ) and in the subcromial space Approach Used: posterolateral Procedure: The patient tolerated the procedure well, but had some pain with the injection and there was some relief with the local anesthesia Coding 98900 - Large joint Procedure code (CPT) selection complete Results Reviewed Results Reviewed: 11/26/22 09:42 Lidocaine HCl 2 % MPF [Xylocaine 2 % MPF] 5 ml .ROUTE .STK-MED ONE methylPREDNISolone acetate [DEPO-MedroL] 80 mg .ROUTE .STK-MED ONE Assessment & Plan Assessment & Plan (1) Painful arc syndrome of left shoulder: Code(s): M75.102 - Unspecified rotator cuff tear or rupture of left shoulder, not specified as traumatic Plan Ms. Vinay Mederos is a 37-year-old female who presents in the office today, as a new patient, for an evaluation of left shoulder pain. The patient reports ongoing pain for 2 months, since 09/2022. She states the pain began after she received 2 immunization, one for hepatitis B and the other for tetanus. She states she has a sore sensation with achy pain in the left shoulder. 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 She reports intermittent numbness and tingling. She confirms having an EMG done by her PCP, which she states was normal. She confirms participating in physical therapy. The patient was offered a cortisone injection in the left shoulder with 80 mg of DepoMedrol. The patient was explained the risk, benefits, and alternatives to receiving this injection. After receiving consent for the injection, the patient had the procedure done while in office today. The patient tolerated the procedure well with no complications. The patient will continue to work with physical therapy until her sessions are complete. I would like to see her after her physical therapy is completed and in the event her symptoms have not improved we can move forward with an MRI for further evaluation and treatment. Follow up will be after she has completed physical therapy, or sooner if needed. X-rays of the left shoulder, obtained on 10/13/2022, were negative for any acute fracture or dislocation. It did reveal some bone spurring off the AC joint. EMG of the left upper extremity, obtained on 11/10/2022, revealed: Normal motor and sensory nerve conduction study of the left upper extremity with no evidence of carpal tunnel syndrome or ulnar nerve entrapment. Normal EMG of the left C5-T1 innervated muscles. Patient Instructions: Scribed for Shana Winkler PA-C by Apple Thompson certified medical asst, on 11/26/2022 at 9:25 am, EST. Coding Level of Care Code New Pt Level 4 (30580) Diagnoses Painful arc syndrome of left shoulder M75.102 CPT Codes Coding - 07858 Large joint: 92047 - Large joint ([id number])
[2022-11-26 09:23] VITALS: BMI 33.0
== END 2022-11-26 10:15 | disposition home or self-care (01) ==
PROVIDERS: PCP Internal Medicine Geriatric Medicine; Visit Provider Physician Assistant
DX: M75.102 Unspecified rotator cuff tear or rupture of left shoulder, not specified as traumatic (principal)
CPT/HCPCS: 20610; 99204

== ENCOUNTER → 2022-11-26 09:12 | Outpatient (BNVA) | payer MEDICAID, SELFPAY | PROVIDERS: PCP Internal Medicine Geriatric Medicine; Visit Provider Physician Assistant | DX: M75.102 Unspecified rotator cuff tear or rupture of left shoulder, not specified as traumatic (principal) | CPT/HCPCS: 20610; 99212; J1040 ==

== ENCOUNTER 2022-12-03 10:03 | Outpatient (AMB) | payer MEDICAID, SELFPAY ==
--- NOTE | 2022-12-03 10:12 | A.OFFVIS_ITS ---
Intake Vital Signs 12/03/22 10:13 12/03/22 11:05 Height 5 ft Weight 169 lb 12.095 oz BMI 33.1 BP 140/82 H 122/80 Blood Pressure Location Lt brachial Lt brachial Position Sitting Sitting Intake Visit Reasons: 6 wk fu after ett/echo/renal duplex home study Intake Note: 6 wk f/u having some s/b and palpitations [employer] Required: No Allergies acetaminophen [From Percocet] Adverse Reaction (Verified 12/03/22 10:15) rapid heart rate oxycodone [From Percocet] Adverse Reaction (Verified 12/03/22 10:15) rapid heart rate Medication List - Last Reconciled 12/03/22 by RAINER Brewster amitriptyline 25 mg PO BEDTIME amlodipine 10 mg PO DAILY baclofen 10 mg PO TID bisacodyl (Dulcolax (bisacodyl)) 10 mg [place] DAILY PRN celecoxib 200 mg PO DAILY chlorthalidone 12.5 mg PO DAILY cyclobenzaprine 10 mg PO TID docusate sodium (Colace) 200 mg (2 x 100 mg) PO BEDTIME losartan 100 mg (2 x 50 mg) PO DAILY methylcellulose (laxative) (Citrucel) 500 mg PO TID polyethylene glycol 3350 (Miralax) 17 grams PO DAILY PRN sucralfate 1 g PO QIDACHS 21 days topiramate 50 mg PO BID HPI 6 wk fu after ett/echo/renal duplex home study HPI Details Gaye is a 37 year old female with past medical history of hypertension since her 1st who is being evaluated for hypertension, chest discomfort and heart palpitations. She recently underwent an exercise stress test, echocardiogram, renal artery ultrasound, sleep study. Holter monitor was done but not completed as of yet. Today she reports that she feels well overall. She will get some heart palpitations and chest tightness when she does activities like climbing 2 flights of stairs. She had this feeling when she did the stress test. She will notice heart palpitations at rest as well as with activities. It feels like her heart is going fast. No presyncope, syncope, falls. No significant shortness of breath, PND, orthopnea or edema. Reports being active throughout the day with her 3 children. No routine exercise. Takes meds as directed. PFSH Medical History Hypertension Surgical History Hx of tubal ligation Family History Father No problems noted. Mother Thyroid condition Social History Household Members: Children Alcohol intake: current Alcohol intake frequency: holidays/special occasions only Patient Tobacco Use Status: Never used Tobacco Review of Systems Const All systems reviewed & are unremarkable except as noted in HPI and below ENT Denies dizziness Card Reports chest pain, Denies chest pain at rest, Denies chest pain with activity, Reports rapid heart rate, Denies pedal edema, Denies edema, Denies leg edema, Denies lightheadedness, Denies palpitations, Denies dyspnea, Denies dyspnea on exertion and Denies orthopnea Resp Denies cough, Denies dyspnea and Denies dyspnea on exertion GI Denies hematochezia and Denies change in stool character Musc Denies abnormal gait, Denies limited range of motion, Denies muscle cramps, Denies muscle weakness, Denies numbness, Denies radiating pain into limb, Denies stiffness and Denies tingling Neuro Denies abnormal gait, Denies dizziness, Denies numbness and Denies tingling Endo Denies palpitations Physical Exam Vital Signs: Last Vital Signs BP 140/82 H 12/03/22 10:13 BMI result Body Mass Index 33.1 Const General: cooperative, healthy appearing, comfortable and no acute distress Orientation/consciousness: patient oriented x3 HEENT Head: Yes normal to inspection Resp Effort & Inspection: normal respiratory effort Auscultation: clear to auscultation bilaterally, no crackles, no rales, no rhonchi and no wheezes Cardio Jugular venous distension: no JVD Rate: regular rate Rhythm: regular rhythm Heart sounds: S1 normal heart sound present, S2 normal heart sound present, no murmurs and no rubs Neuro General: patient oriented x3 Extrem General: Yes normal to inspection Psych Appearance: grossly normal Mental Status: mental status grossly normal Speech and movement: Normal speech and movement present Assessment & Plan Assessment & Plan (1) Chest discomfort: Code(s): R07.89 - Other chest pain Plan: Reports of chest discomfort with tightness occurring during physical activity. Also noticing heart palpitations when that occurs. Cardiac risk factors of hypertension, obesity. Echocardiogram done 11/18/2022 was normal study. Exercise stress test done 11/18/2022 with exercise 7-1/2 minutes with report of 6/10 chest pressure, no EKG changes of ischemia. Stress echocardiogram ordered for further evaluation. Plan to call her with results. Signs and symptoms of angina reviewed. Emergency care if ever needed for symptoms. (2) Palpitations: Code(s): R00.2 - Palpitations Plan: Report of heart palpitations with physical activity and at times at rest. Describes it as her heart beating fast. No presyncope, syncope, falls. Exercise stress test without noted induced arrhythmia. Echocardiogram is normal. Holter monitor ordered however has not been completed as of yet. (3) Hypertension: Code(s): I10 - Essential (primary) hypertension Plan: History of hypertension since her 1st . She now has 3 children. She is currently on amlodipine, chlorthalidone and losartan. Blood pressure is controlled at this time. On last visit lab work was ordered to evaluate for causes of secondary hypertension. TSH, cortisol, renin, aldosterone, plasma free metanephrines, normetanephrines all normal. She had a renal artery ultrasound done which showed borderline elevated velocity in the right mid renal artery. CTA could be considered if clinical concern. Message sent to her [facility] compensation and benefits administrator Dr. Chow regarding CTA. A sleep study was done on 11/24/2022 showing no obstructive sleep apnea. At present will continue current med management. Reviewed low-salt diet, activity as tolerated. Cardiology follow- up in the office in 3 months. Coding Level of Care Code Est Pt Level 3 (22841) Diagnoses Chest discomfort R07.89 Palpitations R00.2 Hypertension I10 Time Spent (min) 24
[2022-12-03 10:13] VITALS: BP 140/82; BMI 33.1
[2022-12-03 11:05] VITALS: BP 122/80
== END 2022-12-03 10:54 | disposition home or self-care (01) ==
PROVIDERS: PCP Internal Medicine Geriatric Medicine; Visit Provider Nurse Practitioner Family
DX: R07.89 Other chest pain (principal); R00.2 Palpitations; I10 Essential (primary) hypertension
CPT/HCPCS: 99213

== ENCOUNTER → 2022-12-03 10:03 | Outpatient (BNVA) | payer MEDICAID, SELFPAY | PROVIDERS: PCP Internal Medicine Geriatric Medicine; Visit Provider Nurse Practitioner Family | DX: R00.2 Palpitations (principal); R07.89 Other chest pain; I10 Essential (primary) hypertension | CPT/HCPCS: 99212 ==

== ENCOUNTER → 2022-12-10 10:24 | Outpatient (REF) | payer MEDICAID, SELFPAY | LOC: HO.CARD 10:24 | PROVIDERS: PCP Internal Medicine Geriatric Medicine; Visit Provider Nurse Practitioner | DX: R07.9 Chest pain, unspecified (principal); I10 Essential (primary) hypertension | CPT/HCPCS: Q9957 ==

== ENCOUNTER → 2022-12-10 10:28 | Outpatient (BNV) | payer MEDICAID, SELFPAY | PROVIDERS: PCP Internal Medicine Geriatric Medicine; Visit Provider Nurse Practitioner | DX: R00.0 Tachycardia, unspecified (principal) | CPT/HCPCS: 93227; 93350 ==

== ENCOUNTER → 2022-12-10 | Outpatient (REF) | payer MEDICAID, SELFPAY ==
--- NOTE | 2022-12-10 10:28 | CA_ITS ---
Acquisition Time: 2022-12-10 10:54:06 Total Exercise Time: 00:07:14 Test Indications: htn, cp Medications: see h Protocol: HIEU Max HR: 169 BPM 92% of Pred: 182 BPM Max BP: 152/078 mmHG Max Work Load: 8.3 METS Exercise stress test exercise 7 min 14 sec of Hieu protocol stage 3 reduced speed to 3.1% achieving 92% MPHR,with request to stop due to chest pain, SOB, and fatigue, with 3/10 chest pressure/tightness, mild SOB, without arrythmias, with normotensive response to exercise, without EKG changes. Chest pressure/tightness resolved with rest. Echo images obtained by tech at rest and immedately post peak exercise. Definity contrast used. Test reviewe with Dr. White Referred By: Octavio Chow Overread By: Rosita Hale
--- NOTE | 2022-12-10 10:28 | HM_ITS ---
Conclusion: 1. Patient was monitored for total period of 2 days 2. Baseline was normal sinus rhythm with average heart of 100 beats per minute 3. No significant pauses noted 4. Frequent sinus tachycardia noted with 42% of time heart rate about 100 beats per minute 5. Patient marked 4 events with heart palpitations correlating with sinus rhythm MTDD
== END ==
LOC: HO.CARD
PROVIDERS: PCP Internal Medicine Geriatric Medicine; Visit Provider Nurse Practitioner Family
DX: R00.2 Palpitations (principal)
CPT/HCPCS: 93225; 93350; Q9957

== ENCOUNTER 2022-12-23 12:02 | Outpatient (REF) | payer MEDICAID, SELFPAY ==
[2022-12-23 13:34] LABS: Anion Gap 9 (12-20); Blood Urea Nitrogen 13 mg/dL (9-16); Calcium 9.7 mg/dL (8.4-10.2); Carbon Dioxide 25 mmol/L (22-29); Chloride 108 mmol/L (96-108); Estimated Glomerular Filt Rate > 60; Glucose Random 113 mg/dL (60-115); Sodium 138 mmol/L (135-145)
== END 2022-12-23 12:03 | disposition home or self-care (01) ==
LOC: HO.HHCL 12:02
PROVIDERS: Internal Medicine Cardiovascular Disease; Visit Provider Internal Medicine Geriatric Medicine
DX: I10 Essential (primary) hypertension (principal)
CPT/HCPCS: 36415; 80048; 82088

== ENCOUNTER 2023-01-04 13:08 | Outpatient (AMB) | payer MEDICAID, SELFPAY ==
[2023-01-04 13:10] VITALS: BMI 33.0
--- NOTE | 2023-01-04 13:10 | A.OFFVIS_ITS ---
Intake Vital Signs 01/04/23 13:10 Height 5 ft Weight 169 lb BMI 33.0 Intake Visit Reasons: OV-Left shoulder pain-F/U Intake Note: Gaye is a 37 year old right hand dominant female who presents today for a evaluation of her left shoulder, last injection 11/26/22. Patient reports still having a cramping sensation with leads to numbness. She states when she is going to pecan picker an item from the ground she get a sharp and discomfort in her shoulder. Last injection gave her about a week of relief. Allergies acetaminophen [From Percocet] Adverse Reaction (Verified 01/04/23 13:11) rapid heart rate oxycodone [From Percocet] Adverse Reaction (Verified 01/04/23 13:11) rapid heart rate HPI OV-Left shoulder pain-F/U HPI Details 37-year-old female who presents in the [facility] today for a follow up of left shoulder pain. The patient reports she is still having a cramping sensation with numbness. She states when she is picking up items from the ground she gets a sharp pain and discomfort in the left shoulder. She states the last injection gave her about a week of relief. [facility] Medical History Hypertension Surgical History Hx of tubal ligation Family History Father No problems noted. Mother Thyroid condition Social History Household Members: Children Alcohol intake: current Alcohol intake frequency: holidays/special occasions only Patient Tobacco Use Status: Never used Tobacco Review of Systems Const All systems reviewed & are unremarkable except as noted in HPI and below Physical Exam Vital Signs: BMI result Body Mass Index 33.0 Const General: cooperative, healthy appearing and no acute distress Resp Effort & Inspection: normal respiratory effort and able to speak in complete sentences Cardio Rate: regular rate Peripheral pulses: Peripheral pulses 2+ throughout GI Palpation (GI): Soft to palpation Skin Lesions: no lesions Rashes: no rashes Extrem Other: Left shoulder: Normal to inspection. No ecchymosis, erythema, or edema. Forward flexion and abduction lacking 20 degrees. External rotation to 45 degrees. Able to reach T12. Positive cross-body reach. 4/5 strength with empty can. Negative drop arm. Positive O?Randy?s. NVI. Assessment & Plan Assessment & Plan (1) Painful arc syndrome of left shoulder: Code(s): M75.102 - Unspecified rotator cuff tear or rupture of left shoulder, not specified as traumatic Plan Ms. Vinay Mederos is a 37-year-old female who presents in the office today for a follow up of left shoulder pain. The patient reports she is still having a cramping sensation with numbness. She states when she is picking up items from the ground she gets a sharp pain and discomfort in the left shoulder. She states the last injection gave her about a week of relief. The patient will be referred for an MRI to further evaluate the integrity of the left shoulder. Follow up will be after the MRI is obtained, or sooner if needed. EMG of the left shoulder, obtained on 11/10/2022, revealed: Normal motor and sensory nerve conduction study of the left upper extremity with no evidence of carpal tunnel syndrome or ulnar nerve entrapment. Normal EMG of the left C5-T1 innervated muscles. Patient Instructions: Scribed for Shana Winkler PA-C by Apple Thompson medical legal investigator, on 01/04/2023 at 1:10 pm, EST. Coding Level of Care Code Est Pt Level 4 (19570) Diagnoses Painful arc syndrome of left shoulder M75.102
== END 2023-01-04 13:41 | disposition home or self-care (01) ==
PROVIDERS: PCP Internal Medicine Geriatric Medicine; Visit Provider Physician Assistant
DX: M75.102 Unspecified rotator cuff tear or rupture of left shoulder, not specified as traumatic (principal)
CPT/HCPCS: 99214

== ENCOUNTER → 2023-01-04 13:08 | Outpatient (BNVA) | payer MEDICAID, SELFPAY | PROVIDERS: PCP Internal Medicine Geriatric Medicine; Visit Provider Physician Assistant | DX: M75.102 Unspecified rotator cuff tear or rupture of left shoulder, not specified as traumatic (principal) | CPT/HCPCS: 99212 ==

== ENCOUNTER 2023-03-28 10:16 | Outpatient (REF) | payer MEDICAID, SELFPAY ==
[2023-03-28 12:29] LABS: Alanine Aminotransferase 41 U/L (0-31); Albumin Level 4.5 g/dL (3.5-5.0); Alkaline Phosphatase 60 U/L (39-117); Anion Gap 14 (12-20); Aspartate Amino Transferase 17 U/L (5-31); Bilirubin Total 0.5 mg/dL (0.0-1.0); Blood Urea Nitrogen 11 mg/dL (9-16); Calcium 9.2 mg/dL (8.4-10.2); Carbon Dioxide 24 mmol/L (22-29); Chloride 104 mmol/L (96-108); Cholesterol 173 mg/dL (<200); Estimated Glomerular Filt Rate > 60; Glucose Random 120 mg/dL (60-115); HDL Cholesterol 52 mg/dL (>40); LDL Cholesterol Calculated 103 mg/dL (<100); Potassium 4.2 mmol/L (3.3-5.1); Sodium 138 mmol/L (135-145); Total Protein 7.8 g/dL (6.5-8.0); Triglycerides 90 mg/dL (<150)
== END 2023-03-28 10:17 | disposition home or self-care (01) ==
LOC: HO.HHCL 10:16
PROVIDERS: Visit Provider Internal Medicine Geriatric Medicine
DX: Z00.00 Encounter for general adult medical examination without abnormal findings (principal); Z13.220 Encounter for screening for lipoid disorders
CPT/HCPCS: 36415; 80053; 80061

== ENCOUNTER 2023-03-28 20:11 | Outpatient (REF) | payer MEDICAID, SELFPAY ==
--- NOTE | ~2023-03-28 | MR_ITS ---
EXAMINATION: MR SHOULDER WITHOUT CONTRAST, LEFT CLINICAL INFORMATION: Left shoulder pain and numbness. Evaluate for rotator cuff tendon tear. COMPARISON: Left shoulder radiographs dated 10/13/2022. TECHNIQUE: MRI of the shoulder without contrast was performed on a high-field scanner. FINDINGS: ROTATOR CUFF: Intact. No muscle atrophy or fatty infiltration. BICEPS: Normal. CORACOACROMIAL ARCH: The undersurface of the acromion is curved with no subacromial spur. Mild to moderate acromioclavicular osteoarthritis. LABRUM/CAPSULE: No labral tear. Intact joint capsule. GLENOHUMERAL JOINT/MARROW: Unremarkable. MR/MR shoulder LT wo con IMPRESSION: 1. No rotator cuff tendon tear. 2. Mild to moderate acromioclavicular osteoarthritis.
== END 2023-03-28 20:12 | disposition home or self-care (01) ==
LOC: HO.MRI 20:11
PROVIDERS: PCP Internal Medicine Geriatric Medicine; Visit Provider Physician Assistant
DX: M75.102 Unspecified rotator cuff tear or rupture of left shoulder, not specified as traumatic (principal)
CPT/HCPCS: 73221

== ENCOUNTER 2023-04-03 11:39 | Emergency (ER) | payer MEDICAID, SELFPAY ==
--- NOTE | ~2023-04-03 | CT_ITS ---
EXAMINATION: CT ABDOMEN AND PELVIS WITH CONTRAST CLINICAL INFORMATION: Left-sided tenderness COMPARISON: CT abdomen pelvis 06/28/2022 TECHNIQUE: Multidetector volumetric images were obtained from the superior aspect of the liver through the pubic symphysis following administration 85 mL of Omnipaque 350 intravenous contrast. Sagittal and coronal reformatted images were obtained on the technologist's workstation. Oral contrast: No This CT examination was performed using dose optimization techniques as appropriate, variously including the following: *Automated exposure control *Adjustment of mA and/or kV according to patient size (this includes techniques or standardized protocols for targeted exams where dose is matched to indication/reason for exam; i.e. extremities or head) *Use of iterative reconstruction technique DLP: 604 mGy-cm FINDINGS: LUNG BASES: Unremarkable. LIVER AND BILIARY TREE: Unremarkable. GALLBLADDER: Unremarkable. PANCREAS: Unremarkable. SPLEEN: Unremarkable. ADRENAL GLANDS: Unremarkable. KIDNEYS AND URETERS: Unremarkable. GASTROINTESTINAL TRACT: Unremarkable. VASCULAR: Unremarkable LYMPH NODES: No lymphadenopathy. PERITONEUM: No ascites. BLADDER: Unremarkable. PELVIC VISCERA: Unremarkable. ABDOMINAL AND PELVIC WALL: Unremarkable. OSSEOUS STRUCTURES: Unremarkable. CT/CT abdomen pelvis w IV con IMPRESSION: No acute abnormality of the abdomen or pelvis, or findings to explain left-sided tenderness.
[2023-04-03 11:50] VITALS: BP 139/96; PULSE 128; RESP 16; TEMP 36.7; O2SAT 99; BMI 31.4
--- NOTE | 2023-04-03 11:55 | ED_ITS ---
HPI - General Adult General Chief complaint: Abdominal Pain Stated complaint: abd pain Time Seen by Provider: 04/03/23 13:08 Source: patient Mode of arrival: ambulatory Limitations: no limitations History of Present Illness HPI narrative: Patient is a 37-year-old female with history of chronic abdominal pain, acid reflux, chronic constipation, HTN presenting to the emergency department with complaint of left-sided abdominal pain which she describes as severe since Tuesday. Patient reports that she has had this pain intermittently for over 4-5 years. States that she has seen GI but has been given no diagnosis for her symptoms. Reports episode of similar pain around 2 weeks ago which lasted 3-4 days. States since Tuesday has also had nausea and vomiting as well as intermittent diarrhea and constipation. She denies any fevers. Denies dysuria, frequency, hematuria or other urinary symptoms. Reports lower back pain, denies flank pain. Denies any vaginal bleeding or abnormal vaginal discharge, concern for STIs. Denies any hematochezia or melena. Reports emesis is nonbloody, nonbilious. MD complaint: Abdominal pain Onset (ago): day(s) Location: abdomen Radiation: non-radiation Severity: severe Quality: sharp Pain Consistency: intermittent Relieving factors: none Exacerbating factors: none Associated symptoms: nausea/vomiting and other Treatments prior to arrival: none Related Data Home Medications Medication Instructions Recorded Confirmed amitriptyline 25 mg tablet 25 mg PO BEDTIME 05/24/22 12/03/22 cyclobenzaprine 10 mg tablet 10 mg PO TID 05/24/22 12/03/22 topiramate 50 mg tablet 50 mg PO BID 05/24/22 12/03/22 amlodipine 10 mg tablet 10 mg PO DAILY 10/13/22 12/03/22 baclofen 10 mg tablet 10 mg PO TID 12/03/22 12/03/22 celecoxib 200 mg capsule 200 mg PO DAILY 12/03/22 12/03/22 chlorthalidone 25 mg tablet 12.5 mg PO DAILY 12/03/22 12/03/22 Previous Rx's Medication Instructions Recorded bisacodyl 10 mg rectal suppository 10 mg WA DAILY PRN constipation 05/24/22 (Dulcolax (bisacodyl)) #20 ea docusate sodium 100 mg capsule 200 mg (2 x 100 mg) PO BEDTIME #60 05/24/22 (Colace) caps methylcellulose (laxative) 500 mg 500 mg PO TID #90 tabs 05/24/22 tablet (Citrucel) polyethylene glycol 3350 17 17 g PO DAILY PRN laxative effect 05/24/22 gram/dose oral powder (Miralax) #510 grams sucralfate 1 gram tablet 1 g PO QIDACHS 21 days #90 tabs 07/05/22 losartan 50 mg tablet 100 mg (2 x 50 mg) PO DAILY #30 10/22/22 tabs dicyclomine 10 mg capsule 10 mg PO TID abdominal cramping 04/03/23 #14 caps nitrofurantoin macrocrystal 100 mg 100 mg PO BID 5 days #10 caps 04/03/23 capsule ondansetron 4 mg disintegrating 4 mg PO Q8H PRN nausea and 04/03/23 tablet vomiting #10 tabs Allergies Allergy/AdvReac Type Severity Reaction Status Date / Time No Known Allergies Allergy Verified 04/03/23 11:49 Review of Systems 2 Review of Systems: As per HPI. Yes all other systems are reviewed and are negative Constitutional: Constitutional: Reports as per HPI [facility] Past Medical History Medical History Hypertension Surgical History Hx of tubal ligation Family History Family History Father No problems noted. Mother Thyroid condition Social History Social History Household Members: Children Alcohol intake: current Alcohol intake frequency: holidays/special occasions only Patient Tobacco Use Status: Never used Tobacco Smoked in Last 30 Days: No Use of substances other than those prescribed or required for medical reasons: No Advance Directives: No Advance Directives Information Provided: No Physical Exam ED Vital Signs: Vital Signs - 24 hr 04/03/23 11:50 04/03/23 13:03 04/03/23 13:40 Temperature 98.0 F 98 F Pulse Rate 128 H 111 H 107 H Respiratory Rate 16 16 16 Blood Pressure 139/96 H 127/89 129/92 H Pulse Oximetry 99 98 98 Oxygen Delivery Method Room Air Room Air Room Air BMI result Body Mass Index 31.4 Vital signs have been reviewed and appear to be correct. Blood pressure normal. Heart rate tachycardic. Respiratory rate normal. Temperature normal. Oxygen saturation normal. Const General: cooperative, healthy appearing and no acute distress Orientation/consciousness: oriented to person, oriented to place, oriented to time and patient oriented x3 Limitations: no limitations HENMT Head: Yes normocephalic and Yes atraumatic Ears: external ears normal General nose exam: Normal external nose present Face and sinus: Yes face symmetric Mouth: oropharynx normal and moist mucous membranes Throat: Yes uvula midline Eyes Pupils: Equal, round and reactive pupils present Neck Neck: Yes normal visual inspection and Yes supple Resp Effort & Inspection: normal respiratory effort and able to speak in complete sentences Auscultation: clear to auscultation bilaterally Cardio Rate: regular rate Rhythm: regular rhythm Heart sounds: S1 normal heart sound present and S2 normal heart sound present GI Palpation (GI): Soft to palpation, Tenderness to palpation present (GI) in the LLQ and in the LUQ, no guarding and No Rebound tenderness present Auscultation: normoactive bowel sounds General: Yes no CVA tenderness Back/Spine/Pelvis Back: no CVA tenderness Skin General skin exam: elasticity normal and turgor normal Neuro General: oriented to person, oriented to place, oriented to time, patient oriented x3, moves all extremities, no focal motor deficits and CN's II-XI intact bilaterally Cranial nerves: Yes Equal, round and reactive pupils present Cognition (Neuro): normal cognition Extrem General: Yes full ROM, Yes no pedal edema and Yes no calf tenderness Psych Mental Status: mental status grossly normal Affect: normal affect Thought process: Normal thought process present Course Course Course Narrative: RME: 37 yold female presents to the ED for LLQ abdominal pain with nausea, diarrhea, and vomitting since . labs ordered Medications Administered Discontinued Medications Generic Name Dose Route Start Last Admin Trade Name Freq PRN Reason Stop Dose Admin Iohexol 85 ml 04/03/23 14:45 04/03/23 14:45 Iohexol 350 Mg/Ml 100 Ml Infus..Btl IV 04/03/23 14:46 85 ml ONCE ONE Administration Ketorolac Tromethamine 15 mg 04/03/23 14:10 04/03/23 14:50 Ketorolac Tromethamine 15 Mg/Ml Vial IVPUSH 04/03/23 14:11 15 mg ONCE ONE Administration Potassium Chloride 40 meq 04/03/23 13:49 04/03/23 14:50 Potassium Chloride Er 20 Meq Tab.Er.Prt PO 04/03/23 13:50 40 meq ONCE ONE Administration Medical Decision Making Medical Decision Making [facility] Narrative: Patient is a 37-year-old female with history of chronic abdominal pain, acid reflux, chronic constipation, HTN presenting to the emergency department with complaint of left-sided abdominal pain which she describes as severe since Tuesday. On exam patient is awake, A+Ox3, tachycardic, VS otherwise WNL, afebrile, normal neurological exam without focal deficits, physical exam findings as above. Given reported symptoms and physical exam findings, initial differential includes diverticulitis, ectopic, ovarian cyst, uterine fibroid, constipation, UTI, renal/ureteral calculi. Unlikely pneumonia, TOA, ovarian torsion as pain has been ongoing for years. Labs notable for no leukocytosis, no anemia, mild hypokalemia, no evidence of KASI, normal LFTs, slightly elevated lipase. CT is unremarkable for any acute abnormalities. My interpretation is in agreement with the radiologist's interpretation. Urinalysis notable for 2+ leukocytes, 21-50 WBCs, 1+ bacteria, 6-10 epithelials. Urinalysis results discussed with patient and she denies any urinary symptoms, given her abdominal pain, will send prescription for Macrobid and advised patient to begin taking these antibiotics if she develops urinary symptoms, patient is agreeable to this. Patient remains mildly tachycardic but is afebrile, normotensive, no leukocytosis so feel likely related to pain. Feel she is stable for discharge home. Will prescribe Bentyl for abdominal cramping as well as Zofran for nausea. Instructed patient to follow-up with her exhibit carpenter as well as her OBGYN for further evaluation of her symptoms. Return precautions discussed at bedside. Patient verbalized understanding of and agreement with plan. Differential Diagnosis Differential Diagnoses: The differential diagnosis associated with the presentation includes As per [facility]. Admission/Observation Consideration of admission/observation: Escalation of care including admission/observation considered Lab Data [facility] Lab Attestation statement: I reviewed the patient's lab results. As per MDM. 04/03/23 12:04 04/03/23 12:04 Labs: Lab Results 04/03/23 04/03/23 Range/Units 12:04 12:20 WBC 7.9 (4.8-10.8) X10*3/uL RBC 4.49 (4.20-5.50) X10*6/uL Hgb 14.5 (12.0-16.0) g/dl Hct 40.1 (37.0-47.0) % MCV 89.3 (80.0-98.0) fL MCH 32.3 (27.0-33.0) pg MCHC 36.2 H (31.0-35.0) g/dl RDW 11.9 (11.0-16.0) % Plt Count 382 D (160-400) X10*3/uL MPV 9.7 (9.4-12.3) fL Immature Gran % (Auto) 0.3 (0.0-0.4) % Neut % (Auto) 62.5 (45-73) % Lymph % (Auto) 25.9 (20-40) % [place] % (Auto) 7.1 (2-11) % Eos % (Auto) 3.4 (0-4) % Baso % (Auto) 0.8 (0-2) % Lymph # (Auto) 2.1 (1.2-4.9) X10*3/uL [place] # (Auto) 0.6 (0.1-1.2) X10*3/uL Eos # (Auto) 0.3 (0.0-0.4) X10*3/uL Baso # (Auto) 0.1 (0.0-0.2) X10*3/uL Abs Immat Gran (auto) 0.02 (0.00-0.03) X10*3/uL Absolute Neuts (auto) 4.9 (2.0-8.3) x10*3/uL Absolute Nucleated RBC 0.000 (0.0-0.012) X10*3/uL Nucleated RBC % (auto) 0.0 (0.0-0.2) /100WBC Sodium 134 L (135-145) mmol/L Potassium 3.0 L D (3.3-5.1) mmol/L Chloride 96 (96-108) mmol/L Carbon Dioxide 25 (22-29) mmol/L Anion Gap 16 (12-20) BUN 12 (9-16) mg/dL Creatinine 0.83 (0.5-1.4) mg/dL Estim Creat Clear Calc 85.3 Estimated GFR > 60 Random Glucose 140 H (60-115) mg/dL Calcium 9.4 (8.4-10.2) mg/dL Total Bilirubin 0.6 (0.0-1.0) mg/dL AST 11 (5-31) U/L ALT 22 (0-31) U/L Alkaline Phosphatase 61 (39-117) U/L Total Protein 8.1 H (6.5-8.0) g/dL Albumin 4.3 (3.5-5.0) g/dL Lipase 96 H (8-78) U/L Beta HCG, Quant < 2 mIU/mL Urine Color Yellow Urine Appearance Cloudy Urine pH 5.5 (5.0-9.0) Ur Specific [place] 1.015 (1.005-1.025) Urine Protein Trace (Neg-Trace) mg/dL Urine Glucose (UA) Negative (Negative) mg/dL Urine Ketones 40 (Negative) mg/dL Urine Blood Negative (Negative) Urine Nitrite Negative (Negative) Ur Leukocyte Esterase Moderate (2+) H (Negative) Urine RBC 0-2 (0-2) /HPF Urine WBC 21-50 H (0-5) /HPF Ur Squamous Epith Cells 6-10 (0-2) /HPF Urine Bacteria 1+ (None Seen) Hyaline Casts 6-10 (0-2) /LPF Urine Test NEGATIVE (NEGATIVE) COVID-19 (AILYN) Negative (Negative) COVID-19 Clin Com See Note Influenza Type A ([facility]) Negative (Negative) Influenza Type B ([facility]) Negative (Negative) Influenza A & B Note [id number] Independent Interpretation I performed an independent interpretation of an: CT Scan Interpretation: No acute abnormalities on CT scan Radiology Impression Discussion of test interpretation with radiology: I have reviewed the radiologist's reading. Radiologist Impression: CT/CT abdomen pelvis w IV con IMPRESSION: No acute abnormality of the abdomen or pelvis, or findings to explain left-sided tenderness. External Record Review External record reviewed: Inpatient record, Office record and Outpatient record Prescription Management I considered prescription management with: Other Discharge Plan Discharge Clinical Impression: Chronic abdominal pain Patient Disposition: Home, Self-Care Instructions: Abdominal Pain (ED), Chronic Abdominal Pain (ED) Additional Instructions: You have been evaluated in the emergency department today for abdominal pain. Your evaluation did not show evidence of medical conditions requiring emergent intervention at this time. Please schedule an appointment with your exhibit carpenter and SPEECH AND HEARING DIRECTOR for further evaluation of your symptoms. You are being prescribed ondansetron for nausea and dicyclomine for abdominal cramping, please take these as prescribed. Return to the emergency department if you experience worsening or uncontrolled pain, fevers 100.4? F or greater, recurrent vomiting, inability to tolerate food or fluids by mouth, bloody stools or vomit, black or tarry stools, or any other concerning symptoms. Prescriptions: New ondansetron 4 mg tablet,disintegrating 4 mg PO Q8H PRN (Reason: nausea and vomiting) Qty: 10 0RF dicyclomine 10 mg capsule 10 mg PO TID Qty: 14 0RF nitrofurantoin macrocrystal 100 mg capsule 100 mg PO BID 5 Days Qty: 10 0RF Rx Instructions: must administer with a meal/food No Action losartan 50 mg tablet 100 mg PO DAILY Qty: 30 5RF cyclobenzaprine 10 mg tablet 10 mg PO TID topiramate 50 mg tablet 50 mg PO BID amitriptyline 25 mg tablet 25 mg PO BEDTIME Citrucel 500 mg tablet 500 mg PO TID Qty: 90 5RF docusate sodium [Colace] 100 mg capsule 200 mg PO BEDTIME Qty: 60 5RF bisacodyl [Dulcolax (bisacodyl)] 10 mg suppository 10 mg WA DAILY PRN (Reason: constipation) Qty: 20 0RF polyethylene glycol 3350 [Miralax] 17 gram/dose powder 17 g PO DAILY PRN (Reason: laxative effect) Qty: 510 1RF Rx Instructions: 17 GM QD x 1 week prior to prep day sucralfate 1 gram tablet 1 g PO QIDACHS 21 Days Qty: 90 0RF amlodipine 10 mg tablet 10 mg PO DAILY baclofen 10 mg tablet 10 mg PO TID chlorthalidone 25 mg tablet 12.5 mg PO DAILY celecoxib 200 mg capsule 200 mg PO DAILY Interventions: ED Discharge Assessment Last Done: 04/03/23 16:08 Discharge Date/Time: 04/03/23 16:08
[2023-04-03 12:07] LABS: MANUAL DIFF FLAG NO
[2023-04-03 12:09] LABS: Basophils Absolute Auto 0.1 X10*3/uL (0.0-0.2); Basophils Percent Auto 0.8 % (0-2); Eosinophils Absolute Auto 0.3 X10*3/uL (0.0-0.4); Eosinophils Percent Auto 3.4 % (0-4); Hematocrit 40.1 % (37.0-47.0); Hemoglobin 14.5 g/dl (12.0-16.0); Imm Gran Abs Auto 0.02 X10*3/uL (0.00-0.03); Imm Gran Pct Auto 0.3 % (0.0-0.4); Lymphocytes Absolute Auto 2.1 X10*3/uL (1.2-4.9); Lymphocytes Percent Auto 25.9 % (20-40); Mean Corpuscular HGB Conc 36.2 g/dl (31.0-35.0); Mean Corpuscular Hemoglobin 32.3 pg (27.0-33.0); Mean Corpuscular Volume 89.3 fL (80.0-98.0); Mean Platelet Volume 9.7 fL (9.4-12.3); Monocytes Absolute Auto 0.6 X10*3/uL (0.1-1.2); Monocytes Percent Auto 7.1 % (2-11); Neutrophils Absolute Auto 4.9 x10*3/uL (2.0-8.3); Neutrophils Percent Auto 62.5 % (45-73); Platelet Count 382 X10*3/uL (160-400); Red Blood Count 4.49 X10*6/uL (4.20-5.50); Red Cell Distribution Width 11.9 % (11.0-16.0); White Blood Count 7.9 X10*3/uL (4.8-10.8)
[2023-04-03 12:22] LABS: COVID-19 Test Negative (Negative); IDNOW Serial# 152EDE1D
[2023-04-03 12:25] LABS: IDNOW Serial# 08D9AD1C; Influenza A Negative (Negative); Influenza B2 Negative (Negative)
[2023-04-03 12:28] LABS: Appearance Urine Cloudy; Color Urine Yellow; Glucose Urine UA Negative (Negative); Leukocyte Esterase Urine Moderate (2+) (Negative); Nitrite Urine Negative (Negative); PH 5.5 (5.0-9.0); Specific Gravity - Urine 1.015 (1.005-1.025); UMIC TRIGGER UACC YES; UPreg QC Valid YES; Urine Blood Negative (Negative); Urine Ketones 40 mg/dL (Negative); Urine Protein Trace mg/dL (Neg-Trace)
[2023-04-03 12:29] LABS: Alanine Aminotransferase 22 U/L (0-31); Albumin Level 4.3 g/dL (3.5-5.0); Alkaline Phosphatase 61 U/L (39-117); Anion Gap 16 (12-20); Aspartate Amino Transferase 11 U/L (5-31); Bilirubin Total 0.6 mg/dL (0.0-1.0); Blood Urea Nitrogen 12 mg/dL (9-16); Calcium 9.4 mg/dL (8.4-10.2); Carbon Dioxide 25 mmol/L (22-29); Chloride 96 mmol/L (96-108); Creatinine Clr Calc Pharmacy 85.3; Estimated Glomerular Filt Rate > 60; Glucose Random 140 mg/dL (60-115); Lipase 96 U/L (8-78); Sodium 134 mmol/L (135-145); Total Protein 8.1 g/dL (6.5-8.0)
[2023-04-03 12:29] LABS: Urine Pregnancy NEGATIVE (NEGATIVE)
[2023-04-03 12:30] LABS: HCG Quantitative < 2 mIU/mL
[2023-04-03 12:38] LABS: Bacteria Urine 1+ (None Seen); RBC Urine 0-2 /HPF (0-2); UACC Culture Trigger YES; WBC Urine 21-50 /HPF (0-5)
[2023-04-03 13:03] VITALS: BP 127/89; PULSE 111; RESP 16; O2SAT 98
[2023-04-03 13:40] VITALS: BP 129/92; PULSE 107; RESP 16; TEMP 36.6; O2SAT 98
[2023-04-03] MEDS: iohexoL 350 MG/ML 100 ML INFUS..BTL 85 ML IV (14:45)
[2023-04-03] MEDS: Potassium Chloride ER 20 MEQ TAB.ER.PRT 40 MEQ PO (14:50)
[2023-04-03] MEDS: Ketorolac Tromethamine 15 MG/ML VIAL IVPUSH (14:50)
== END 2023-04-03 16:08 | disposition home or self-care (01) ==
PROVIDERS: Physician Assistant; Emergency Provider Emergency Medicine Emergency Medical Services; PCP Internal Medicine Geriatric Medicine
DX: R10.32 Left lower quadrant pain (principal); R11.2 Nausea with vomiting, unspecified; K59.00 Constipation, unspecified; Z11.52 Encounter for screening for COVID-19; Z79.899 Other long term (current) drug therapy
CPT/HCPCS: 74177; 80053; 81001; 81025; 83690; 84702; 85025; 87086; 87088; 87186; 87502; 87635; 96374; 99284; J1885; Q9967

== ENCOUNTER 2023-04-07 13:03 | Outpatient (REF) | payer MEDICAID, SELFPAY ==
[2023-04-07 16:16] LABS: Estimated Average Glucose 108 mg/dL; Hemoglobin A1c % 5.4 % (<6.0)
[2023-04-07 16:20] LABS: Alanine Aminotransferase 56 U/L (0-31); Albumin Level 4.1 g/dL (3.5-5.0); Alkaline Phosphatase 60 U/L (39-117); Amylase 28 U/L (28-100); Anion Gap 10 (12-20); Aspartate Amino Transferase 29 U/L (5-31); Bilirubin Total 0.4 mg/dL (0.0-1.0); Blood Urea Nitrogen 9 mg/dL (9-16); C Reactive Protein 2.45 mg/dL (< or = 0.50); Calcium 9.1 mg/dL (8.4-10.2); Carbon Dioxide 27 mmol/L (22-29); Chloride 107 mmol/L (96-108); Estimated Glomerular Filt Rate > 60; Glucose Random 121 mg/dL (60-115); Lipase 71 U/L (8-78); Potassium 3.9 mmol/L (3.3-5.1); Sodium 140 mmol/L (135-145); Total Protein 7.3 g/dL (6.5-8.0)
[2023-04-08 04:07] LABS: HBS Num1 > 1000.00 mIU/mL (0-7.99); HBc Num1 0.12 S/CO (0.00-0.79); HBsAGNum1 0.37 S/CO (0.00-0.99); Hepatitis A Antibody IgM 0.27 Index (0-0.79); Hepatitis B Core Antibody Nonreactive (Nonreactive); Hepatitis B Surface Antigen Negative (Negative); ~HepC Num1 0.11 S/CO (0.00-0.79); ~Hepatitis A Antibody IgM Nonreactive (Nonreactive); ~Hepatitis B Surface Antibody REACTIVE (Nonreactive); ~Hepatitis C Antibody Nonreactive (Nonreactive)
[2023-04-11 21:28] LABS: Immunoglobulin A 234 mg/dL (47-310); Transglutaminase IgA <1.0 U/mL
== END 2023-04-07 13:04 | disposition home or self-care (01) ==
LOC: HO.HHCL 13:03
PROVIDERS: Visit Provider Emergency Medicine
DX: R10.32 Left lower quadrant pain (principal)
CPT/HCPCS: 36415; 80053; 82150; 82784; 83036; 83690; 86140; 86364; 86704; 86706; 86709; 86803; 87340

== ENCOUNTER 2023-04-15 10:02 | Outpatient (AMB) | payer MEDICAID, SELFPAY ==
[2023-04-15 10:16] VITALS: BP 110/78; PULSE 116; BMI 32.2
--- NOTE | 2023-04-15 10:16 | MHC.OFFVIS ---
Intake Vital Signs 04/15/23 10:16 Height 5 ft 1 in Weight 170 lb 10.205 oz BMI 32.2 BP 110/78 Blood Pressure Location Lt brachial Position Sitting Pulse 116 H Pulse Source Pulse Oximeter Intake Visit Reasons: follow up after testing Entry Level Programmer Required: No Missile Tracking Technician: Missile Tracking Technician Present Allergies No Known Allergies Allergy (Verified 04/15/23 10:18) Medication List - Last Reconciled 04/15/23 by Lissette Bae NP-C amitriptyline 25 mg PO BEDTIME amlodipine 10 mg PO DAILY baclofen 10 mg PO TID bisacodyl (Dulcolax (bisacodyl)) 10 mg FL DAILY PRN celecoxib 200 mg PO DAILY chlorthalidone 12.5 mg PO DAILY cyclobenzaprine 10 mg PO TID dicyclomine 10 mg PO TID docusate sodium (Colace) 200 mg (2 x 100 mg) PO BEDTIME losartan 100 mg (2 x 50 mg) PO DAILY methylcellulose (laxative) (Citrucel) 500 mg PO TID nitrofurantoin macrocrystal 100 mg PO BID 5 days ondansetron 4 mg PO Q8H PRN polyethylene glycol 3350 (Miralax) 17 grams PO DAILY PRN sucralfate 1 g PO QIDACHS 21 days sumatriptan succinate 50 mg PO DAILY topiramate 50 mg PO BID HPI follow up after testing HPI Details Gaye is a 37-year-old female with past medical history of hypertension since her 1st who has been evaluated recently for chest discomfort and heart palpitations. She now presents for follow-up after recent stress echo and Holter monitor. Today she reports that her chest tightness has improved some in the last few months. She is still noticing heart palpitations like her heart is beating fast. No lightheadedness, presyncope, syncope, falls. No concerning shortness of breath, PND, orthopnea or edema. She describes issues with migraines up to 4 times weekly. She also has been having issues with irritable bowel and constipation. She is taking her medications as directed. Her blood pressure is primarily managed by her PCP. [facility] Medical History Hypertension Surgical History Hx of tubal ligation Family History Father No problems noted. Mother Thyroid condition Social History Household Members: Children Alcohol intake: current Alcohol intake frequency: holidays/special occasions only Patient Tobacco Use Status: Never used Tobacco Review of Systems Const All systems reviewed & are unremarkable except as noted in HPI and below ENT Denies dizziness Card Denies chest pain, Denies chest pain at rest, Denies chest pain with activity, Reports rapid heart rate, Denies pedal edema, Denies edema, Denies leg edema, Denies lightheadedness, Denies palpitations, Reports dyspnea, Denies dyspnea on exertion and Denies orthopnea Resp Denies cough, Reports dyspnea and Denies dyspnea on exertion GI Denies hematochezia and Denies change in stool character Musc Denies abnormal gait, Denies limited range of motion, Denies muscle cramps, Denies muscle weakness, Denies numbness, Denies radiating pain into limb, Denies stiffness and Denies tingling Neuro Denies abnormal gait, Denies dizziness, Denies numbness and Denies tingling Endo Denies palpitations Physical Exam Vital Signs: Last Vital Signs Pulse 116 H 04/15/23 10:16 BP 110/78 04/15/23 10:16 BMI result Body Mass Index 32.2 Const General: cooperative, healthy appearing, comfortable and no acute distress Orientation/consciousness: patient oriented x3 HEENT Head: Yes normal to inspection Resp Effort & Inspection: normal respiratory effort Auscultation: clear to auscultation bilaterally, no crackles, no rales, no rhonchi and no wheezes Cardio Jugular venous distension: no JVD Rate: tachycardic Rhythm: regular rhythm Heart sounds: S1 normal heart sound present, S2 normal heart sound present, no murmurs and no rubs Neuro General: patient oriented x3 Extrem General: Yes normal to inspection Psych Appearance: grossly normal Mental Status: mental status grossly normal Speech and movement: Normal speech and movement present Assessment & Plan Assessment & Plan (1) Chest discomfort: Code(s): R07.89 - Other chest pain Plan: Reports of chest discomfort with tightness occurring during physical activity. Some improvement reported since last visit. Cardiac risk factors of hypertension, obesity. Echocardiogram done 11/18/2022 was normal study. Exercise stress test done 11/18/2022 with exercise 7-1/2 minutes with report of 6/10 chest pressure, no EKG changes of ischemia. Stress echocardiogram was done on 12/10/2022 with exercise 7 minutes 14 seconds, report of chest discomfort and no EKG or echo evidence of ischemia. Blood pressure response was documented as normal during each stress test. Test results reviewed with her in detail. Offered reassurance that her chest tightness symptom does not seem cardiac. Signs and symptoms of angina reviewed. Emergency care if ever needed for symptoms. Continue with good blood pressure control. (2) Palpitations: Code(s): R00.2 - Palpitations Plan: Report of heart palpitations with physical activity and at times at rest. Describes it as her heart beating fast. No presyncope, syncope, falls. Exercise stress test without noted induced arrhythmia. Echocardiogram is normal. Holter monitor done on 12/10/22 for 2 days shows sinus rhythm/sinus tach with average heart rate 100, 42% of the time heart rate greater than 100. Test results reviewed with her. Pulse is elevated at this visit, recheck done by me 105. Rate is regular and most consistent with sinus tachycardia. Patient does describe having issues with migraine headaches up to 4 times weekly. She also has been experiencing issues with irritable bowel syndrome/constipation. She will be seeing a GI provider in the near future. She reports good hydration, no recent illness. Her medical issues can contribute to sinus tachycardia. Will hold off on rate slowing medications at this time. Recommend further evaluation/treatment of her medical issues. Then will arrange cardiology follow-up in 3 months to reassess. She may have inappropriate sinus tachycardia and benefit from beta-gomez. Will reassess next visit. (3) Hypertension: Code(s): I10 - Essential (primary) hypertension Plan: History of hypertension since her 1st age 20. She now has 3 children. She is currently on amlodipine, chlorthalidone and losartan. Blood pressure is managed by her PCP. She did have lab work to evaluate for secondary causes of hypertension: TSH, cortisol, renin, aldosterone, plasma free metanephrines, normetanephrines all normal. She had a renal artery ultrasound done which showed borderline elevated velocity in the right mid renal artery. CTA could be considered if clinical concern. Reviewed with Dr. Chow and CTA not performed as blood pressure is currently well controlled. A sleep study was done on 11/24/2022 showing no obstructive sleep apnea. Blood pressure today 110/78. At present will continue current med management. Reviewed low-salt diet, activity as tolerated. Plan Time spent on chart review, documentation, interview and assessment Coding Level of Care Code Est Pt Level 4 (62669) Diagnoses Chest discomfort R07.89 Palpitations R00.2 Hypertension I10 Time Spent (min) 28
== END 2023-04-15 11:28 | disposition home or self-care (01) ==
PROVIDERS: PCP Internal Medicine Geriatric Medicine; Visit Provider Nurse Practitioner Family
DX: R07.89 Other chest pain (principal); R00.2 Palpitations; I10 Essential (primary) hypertension
CPT/HCPCS: 99214

== ENCOUNTER → 2023-04-15 10:02 | Outpatient (BNVA) | payer MEDICAID, SELFPAY | PROVIDERS: PCP Internal Medicine Geriatric Medicine; Visit Provider Nurse Practitioner Family | DX: R07.89 Other chest pain (principal); R00.2 Palpitations; I10 Essential (primary) hypertension | CPT/HCPCS: 99212 ==

== ENCOUNTER 2023-04-19 13:34 | Outpatient (REF) | payer MEDICAID, SELFPAY ==
[2023-04-20 11:49] LABS: CT PCR NOT DETECTED (Not Detect.); NG PCR NOT DETECTED (Not Detect.)
[2023-04-20 15:26] LABS: BV Int Neg Control Negative (Negative)
[2023-04-20 15:27] LABS: BV Int Pos Control Positive (Positive)
[2023-04-24 11:04] LABS: HPV mRNA E6/E7 rflx Not Detected (Not Detected)
== END 2023-04-19 13:35 | disposition home or self-care (01) ==
LOC: HO.LAB 13:34
PROVIDERS: PCP Internal Medicine Geriatric Medicine; Visit Provider Advanced Practice Midwife
DX: Z01.419 Encounter for gynecological examination (general) (routine) without abnormal findings (principal); R10.9 Unspecified abdominal pain; K59.09 Other constipation; I10 Essential (primary) hypertension; N94.4 Primary dysmenorrhea; Z98.51 Tubal ligation status; Z20.2 Contact with and (suspected) exposure to infections with a predominantly sexual mode of transmission; Z79.899 Other long term (current) drug therapy
CPT/HCPCS: 0353U; 87480; 87510; 87624; 87660; 88142; 99385

== ENCOUNTER 2023-04-19 13:34 | Outpatient (AMB) | payer MEDICAID, SELFPAY ==
--- NOTE | 2023-04-19 13:47 | A.OFFVIS_ITS ---
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 Allergies No Known Allergies Allergy (Verified 04/19/23 13:57) Medication List - Last Reconciled 04/19/23 by Allyn Pulido CNM amitriptyline 25 mg PO BEDTIME amlodipine 10 mg PO DAILY baclofen 10 mg PO TID bisacodyl (Dulcolax (bisacodyl)) 10 mg OR DAILY PRN celecoxib 200 mg PO DAILY chlorthalidone 12.5 mg PO DAILY cyclobenzaprine 10 mg PO TID dicyclomine 10 mg PO TID docusate sodium (Colace) 200 mg (2 x 100 mg) PO BEDTIME losartan 100 mg (2 x 50 mg) PO DAILY methylcellulose (laxative) (Citrucel) 500 mg PO TID nitrofurantoin macrocrystal 100 mg PO BID 5 days ondansetron 4 mg PO Q8H PRN polyethylene glycol 3350 (Miralax) 17 grams PO DAILY PRN sucralfate 1 g PO QIDACHS 21 days sumatriptan succinate 50 mg PO DAILY topiramate 50 mg PO BID Is last menstrual period known: Yes Last menstrual period: 03/30/23 Do you need a note to return to daycare/school/sports/work: No HPI Abd pain/PCP Referral HPI Details Patient 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 She has a problem with chronic constipation. She is on MiraLax and lots of other meds but they are not helping that much she can go 8 days as she did recently without a bowel movement. She gets lots of abdominal pain and bloating after eating and she has been told she needs to be gluten free and avoid red meat as well could she does not digest that well either. She is hypertensive and she also gets palpitations and she is on medication for her blood pressure but it is being re-evaluated. She is also told that her blood sugar is elevated she has follow-up with her primary care in about 6 weeks to review everything again. She had her tubes tied and she said ever since then her cramping both in the middle of her cycle and with her. The 1st 2 days is very bad. She had had a Mirena in the past as well as a ParaGard and she said that her periods were actually better on the ParaGard in terms of the cramps. But they took the ParaGard out when she had her tubes tied. She had her tubes tied in 2017 her last child was born in 2016 she has a 17-year-old a 14-year-old and 8-year-old. 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 She has not worried about any STDs she can always tell when she ovulates could she gets cramps and she thinks she is going to get her menses next week. She gets regular menses. [facility] Medical History (Updated 04/19/23 @ 15:07 by Allyn Pulido CNM) Hypertension Surgical History (Updated 04/19/23 @ 15:08 by Allyn Pulido CNM) Hx of tubal ligation Family History Father No problems noted. Mother Thyroid condition Social History Household Members: Children Alcohol intake: current Alcohol intake frequency: holidays/special occasions only Patient Tobacco Use Status: Never used Tobacco Female Reproductive History Menstrual Age of Menarche: 11 Duration of menses: <3 days Date of last menstrual period: 03/30/23 control method: permanent sterilization Total pregnancies: 4 Full term: 3 History of abnormal pap smear: Yes (previous pap 2016 neg.(per patient) also abnormal pap unsure date) Physical Exam Vital Signs: Last Vital Signs BP 120/70 04/19/23 14:09 BMI result Body Mass Index 32.7 Const General: healthy appearing, comfortable, no acute distress, well developed and alert Nutritional Appearance: average body habitus Orientation/consciousness: patient oriented x3 Limitations: no limitations HEENT Head: Yes normocephalic Neck Neck: Yes normal visual inspection Chest Chest palpation & inspection: normal inspection of the chest Breast/axilla inspection: normal inspection of the breasts and normal inspection of the axillae Breast/axilla palpation: normal palpation of the breasts and normal palpation of the axillae Resp Effort & Inspection: normal respiratory effort Cardio Other: Patient is wearing watch that is able to check her pulse on a frequent basis and she runs in the 120s consistently and did so during this visit. GI Inspection: Yes normal to inspection, No Abdominal wall edema and No distended Palpation (GI): Soft to palpation and nontender Other: Normal external exam vagina pink and moist cervix pink multiparous move healthy with clear mucus consistent with midcycle or just after it. Adnexa nontender uterus small anteverted mobile nontender good tone with Kegel General: Yes bladder normal to palpation External Female Exam: normal external appearance and normal appearance of the urethra Speculum Exam - Vagina: normal appearance of the vagina, normal palpation and normal vaginal discharge Speculum Exam - Cervix: normal appearance of the cervix, normal palpation and nontender Bimanual exam- vagina & uterus: normal bimanual exam, normal palpation, uterine size normal, bladder normal to palpation, consistency normal, normal palpation, uterine mobility normal, uterine shape normal, No Cervical tenderness present, non-tender and no cervical motion tenderness Bimanual Exam- Adnexa, other: normal adnexae, no masses, normal and No adnexal tenderness Neuro General: patient oriented x3 Assessment & Plan Assessment & Plan (1) Chronic abdominal pain: Comment: Multiple GI complaints-chronic abdominal pain, acid reflux, early satiety, chronic constipation, irregular menses Further evaluate, constipation, versus other underlying causes to include 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 No acute intra-abdominal process seen. 2. Mild constipation. Code(s): R10.9 - Unspecified abdominal pain; G89.29 - Other chronic pain (2) Chronic constipation: Code(s): K59.09 - Other constipation (3) Hypertension: Code(s): I10 - Essential (primary) hypertension (4) Well woman exam with routine gynecological exam: Code(s): Z01.419 - Encounter for gynecological examination (general) (routine) without abnormal findings (5) Cervical cancer screening: Comment: Patient states she had a remote history of abnormal Pap and biopsies were negative last Pap 2017ish Code(s): Z12.4 - Encounter for screening for malignant neoplasm of cervix (6) Primary dysmenorrhea: Code(s): N94.4 - Primary dysmenorrhea (7) Hx of tubal ligation: Comment: 2017; patient states her menstrual cramps got worse after her tubal ligation.... Code(s): Z98.51 - Tubal ligation status Plan -----Discussed in this visit the following: healthy balanced diet, regular and consistent exercise, getting recommended health screens, doing the best she can for her particular health concerns, kegel exercises, pap smear screening and followup recommendations, mammography screening and SBE, normal changes in cycles in her life stage--- . Discussed her other health challenges in this visit including her hypertension her history of preeclampsia her elevated blood sugar her efforts now to try and eat healthier and avoid gluten and be healthy for both for her got and for her hypertension and she is going to be also discussing the elevated blood sugar that she saw in her record with her primary care provider at her next visit she is awaiting further evaluation with GI discussed the role of fresh fruits and vegetables and suggested prune juice and MiraLax isn't doing anything for her she has it available at work but she does not like the smell of it. She is going to be seeing her primary and her other specialists as well she also will be seeing Neurology for migraines. Discussed the possible use of a Mirena IU S if she wanted to pursue that to deal with her painful crampy periods. She was sure that her periods have gotten better with the ParaGard IUD that she had after the of her last child however that might be more related to being recently than the ParaGard and the ParaGard in another itself would normally be used to decrease pain with menses. She decided she wanted a Mirena she would just need to call the office and we would try to arrange to place it on the 1st her 2nd day of her period. Orders: Orders Pap Smear Today Z01.419 - Encounter for gynecological examination (general) (routine) without abnormal findings Bacterial Vaginosis Panel Today Z20.2 - Contact with and (suspected) exposure to infections with a predominantly sexual mode of transmission CT NG by PCR Today Z01.419 - Encounter for gynecological examination (general) (routine) without abnormal findings Coding Level of Care Code New Pt Prev Care 18-39yr([id number] Diagnoses Chronic abdominal pain R10.9; G89.29 Chronic constipation K59.09 Hypertension I10 Well woman exam with routine gynecological exam Z01.419 Cervical cancer screening Z12.4 Primary dysmenorrhea N94.4 Hx of tubal ligation Z98.51
[2023-04-19 14:09] VITALS: BP 120/70; BMI 32.7
== END 2023-04-19 15:09 | disposition home or self-care (01) ==
PROVIDERS: PCP Internal Medicine Geriatric Medicine; Visit Provider Advanced Practice Midwife
DX: R10.9 Unspecified abdominal pain (principal); G89.29 Other chronic pain; K59.09 Other constipation; I10 Essential (primary) hypertension; Z01.419 Encounter for gynecological examination (general) (routine) without abnormal findings; Z12.4 Encounter for screening for malignant neoplasm of cervix; N94.4 Primary dysmenorrhea; Z98.51 Tubal ligation status
CPT/HCPCS: 99385

== ENCOUNTER 2023-04-28 11:08 | Outpatient (AMB) | payer MEDICAID, SELFPAY ==
--- NOTE | 2023-04-28 11:11 | A.OFFVIS_ITS ---
Intake Intake Visit Reasons: OV - left shoulder MRI review Intake Note: Gaye is a 37 year old right hand dominant female who presents today for a MRI review of her left shoulder. Patient reports she is feeling some increase of pain when she is over doing it with movement. Allergies No Known Allergies Allergy (Verified 04/28/23 11:12) HPI OV - left shoulder MRI review HPI Details 37-year-old right hand dominant female giorgi copeland presents in the office today for a follow up of left shoulder pain and MRI review. While in the office today the patient reports she is feeling some increase in pain when she is over doing it with movement. PFSH Medical History (Updated 04/28/23 @ 11:19 by Apple Thompson) Hypertension Surgical History (Updated 04/19/23 @ 15:08 by Allyn Pulido CNM) Hx of tubal ligation Family History Father No problems noted. Mother Thyroid condition Social History Household Members: Children Alcohol intake: current Alcohol intake frequency: holidays/special occasions only Patient Tobacco Use Status: Never used Tobacco Female Reproductive History Menstrual Age of Menarche: 11 Review of Systems Const All systems reviewed & are unremarkable except as noted in HPI and below Physical Exam Const General: cooperative, healthy appearing and no acute distress Resp Effort & Inspection: normal respiratory effort and able to speak in complete sentences Cardio Rate: regular rate Peripheral pulses: Peripheral pulses 2+ throughout GI Palpation (GI): Soft to palpation Skin Lesions: no lesions Rashes: no rashes Extrem Other: Left shoulder: Normal to inspection. No ecchymosis, erythema, or edema. Forward flexion and abduction lacking 20 degrees. External rotation to 45 degrees. Able to reach T12. Positive cross-body reach. 4/5 strength with empty can. Negative drop arm. Positive O?Randy?s. NVI. Assessment & Plan Assessment & Plan (1) Osteoarthritis of left AC (acromioclavicular) joint: Code(s): M19.012 - Primary osteoarthritis, left shoulder (2) Painful arc syndrome of left shoulder: Code(s): M75.102 - Unspecified rotator cuff tear or rupture of left shoulder, not specified as traumatic Plan Ms. Vinay Mederos is a 37-year-old right hand dominant female who presents in the office today for a follow up of left shoulder pain and MRI review. While in the office today the patient reports she is feeling some increase in pain when she is over doing it with movement. Patient continues to express pain, numbness, and tingling at the neck that radiates down the entire left upper extremity. She states this also radiates into her jaw at times. She has been seen by Cardiology and was found to have episodes of tachycardia and is follow up with them in 3-6 months for a repeat evaluation. I would like for the patient to be evaluated by Physiatry for further evaluation and treatment of her spine, to rule out any contributing factors that could be related to her symptoms. Follow up will be with Physiatry, or sooner if needed. MRI of the left shoulder, obtained on 03/28/2023, revealed: 1. No rotator cuff tendon tear. 2. Mild to moderate acromioclavicular osteoarthritis. Patient Instructions: Scribed by Apple Thompson medical technologist hematology, for Shana Winkler PA-C on 04/28/2023 at 11:11 am, EST. Coding Level of Care Code Est Pt Level 4 (47430) Diagnoses Osteoarthritis of left AC (acromioclavicular) joint M19.012 Painful arc syndrome of left shoulder M75.102
== END 2023-04-28 11:22 | disposition home or self-care (01) ==
LOC: HO.HOS 11:08
PROVIDERS: PCP Internal Medicine Geriatric Medicine; Visit Provider Physician Assistant
DX: M19.012 Primary osteoarthritis, left shoulder (principal); M75.102 Unspecified rotator cuff tear or rupture of left shoulder, not specified as traumatic
CPT/HCPCS: 99214

== ENCOUNTER → 2023-04-28 11:08 | Outpatient (BNVA) | payer MEDICAID, SELFPAY | PROVIDERS: PCP Internal Medicine Geriatric Medicine; Visit Provider Physician Assistant | DX: M19.012 Primary osteoarthritis, left shoulder (principal); M75.102 Unspecified rotator cuff tear or rupture of left shoulder, not specified as traumatic | CPT/HCPCS: 99212 ==

== ENCOUNTER 2023-05-06 09:39 | Outpatient (AMB) | payer MEDICAID, SELFPAY ==
[2023-05-06 09:49] VITALS: BP 120/70; BMI 32.3
--- NOTE | 2023-05-06 09:49 | A.OFFVIS_ITS ---
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 Present (Joaquin) Allergies No Known Allergies Allergy (Verified 05/06/23 09:50) Medication List - Last Reconciled 05/06/23 by Allyn Pulido CNM amitriptyline 25 mg PO BEDTIME amlodipine 10 mg PO DAILY baclofen 10 mg PO TID bisacodyl (Dulcolax (bisacodyl)) 10 mg MS DAILY PRN celecoxib 200 mg PO DAILY chlorthalidone 12.5 mg PO DAILY cyclobenzaprine 10 mg PO TID dicyclomine 10 mg PO TID docusate sodium (Colace) 200 mg (2 x 100 mg) PO BEDTIME losartan 100 mg (2 x 50 mg) PO DAILY methylcellulose (laxative) (Citrucel) 500 mg PO TID nitrofurantoin macrocrystal 100 mg PO BID 5 days ondansetron 4 mg PO Q8H PRN polyethylene glycol 3350 (Miralax) 17 grams PO DAILY PRN sucralfate 1 g PO QIDACHS 21 days sumatriptan succinate 50 mg PO DAILY topiramate 50 mg PO BID Is last menstrual period known: Yes Last menstrual period: 05/03/23 Post menopausal: No Patient : No HPI Mirena IUD insertion HPI Details IUD insertion. She does not need it for control she gets very bad cramps with her. And she wants it to help with that. We have discussed the options thoroughly at her last visit recently. Her periods started Tuesday at last about 3 days it is just about ending now but this was the soon as the appointment they were able to give her when she called the moment her period came she has had the Mirena IU S before so she is familiar with it and she never got her period with it so she would like to try that for that beneficial side effect again. 15-year-old daughter with her today. [facility] Medical History Hypertension Surgical History Hx of tubal ligation Family History Father No problems noted. Mother Thyroid condition Social History Household Members: Children Alcohol intake: current Alcohol intake frequency: holidays/special occasions only Patient Tobacco Use Status: Never used Tobacco Female Reproductive History Menstrual Age of Menarche: 11 Date of last menstrual period: 05/03/23 control method: other (tubal ligation) Date of last pap smear: 04/20/23 (negative) Physical Exam Vital Signs: Last Vital Signs BP 120/70 05/06/23 09:49 BMI result Body Mass Index 32.3 External Female Exam: normal external appearance Speculum Exam - Vagina: normal appearance of the vagina and normal vaginal discharge Speculum Exam - Cervix: normal appearance of the cervix Bimanual exam- vagina & uterus: normal bimanual exam, uterine size normal, consistency normal, uterine mobility normal, uterine shape normal and non-tender Bimanual Exam- Adnexa, other: normal adnexae, no masses and No adnexal tenderness Office Procedures IUD Insert/Removal Details Details: ---Patient is here for her IUD insertion. Bimanual exam was done. Her uterus is firm, nontender, and appropriate sized, and is . The cervix was swabbed with Betadine. The IUD strings were grasped with ring forceps, and as patient coughed the IUD was removed easily with 1 tug.. Tenaculum was placed on the cervix slowly to minimize cramping. The uterus was sounded slowly and gently she show a measurement of 7 1/4 cm. The IUD was removed from its package, after checking identifying information and lot dates and expiration dates and and gently inserted into the os, as per the IUD insertion procedure. The strings were then trimmed to 3-4 centimetres. The tenaculum was removed and gentle pressure applied with a swab, until any bleeding subsided from the tenaculum sites. The speculum was gently removed. The patient sat up. I Reviewed what to expect, and what indications would necessitate a call. Pt to call for fever, untoward pain or cramping. I reviewed any appropriate backup method. Pt to return for recheck as scheduled. 22043-TKM Insertion Procedure code (CPT) selection complete Office Meds Mirena 21 mcg/24 hours (8 yrs) 52 mg intrauterine device Performing Provider: Allyn Pulido CNM Performing Location: [facility] Administered by: AIDA Eaton on 05/06/23 11:06 Dose Route Admin Location Dispensed Lot Number Expiration Date [facility] Development Mechanic 1 device intrauterine [facility] 1 device [id number] 06/20/25 98081-758-40 NATAN,[employer] Results AMB Test Urine 2 AMB Test Urine Negative Last Edit by AIDA Eaton on 05/06/23 10:15 Results Reviewed Results Reviewed: Laboratory Last Values [facility] Negative 05/06/23 10:14 Assessment & Plan Assessment & Plan (1) Primary dysmenorrhea: Code(s): N94.4 - Primary dysmenorrhea (2) Hx of tubal ligation: Comment: 2017; patient states her menstrual cramps got worse after her tubal ligation.... Code(s): Z98.51 - Tubal ligation status (3) Cervical cancer screening: Comment: Patient states she had a remote history of abnormal Pap and biopsies were negative last Pap 2016ish. Pap done 04/19/2023= Code(s): Z12.4 - Encounter for screening for malignant neoplasm of cervix (4) Encounter for IUD insertion: Code(s): Z30.430 - Encounter for insertion of intrauterine contraceptive device Plan Reviewed what to expect and when to call in detail, including what would need urgent care. we'll see her in about 6w for a check up. Orders: Orders AMB HCG Urine Test Today Z32.02 - Encounter for test, result negative AMB IUD Insertion/Removal - Practice Supplied Today Z30.430 - Encounter for insertion of intrauterine contraceptive device Coding Level of Care Code Est Pt Level 3 (17741) Diagnoses Primary dysmenorrhea N94.4 Hx of tubal ligation Z98.51 Cervical cancer screening Z12.4 Encounter for IUD insertion Z30.430 CPT Codes Details - CPT: 37425-CNB Insertion ([id number])
== END 2023-05-06 11:11 | disposition home or self-care (01) ==
LOC: HO.HWSM 09:39
PROVIDERS: PCP Internal Medicine Geriatric Medicine; Visit Provider Advanced Practice Midwife
DX: Z30.430 Encounter for insertion of intrauterine contraceptive device (principal)
CPT/HCPCS: 58300

== ENCOUNTER → 2023-05-06 09:39 | Outpatient (BNVA) | payer MEDICAID, SELFPAY | PROVIDERS: PCP Internal Medicine Geriatric Medicine; Visit Provider Advanced Practice Midwife | DX: Z30.430 Encounter for insertion of intrauterine contraceptive device (principal); N94.4 Primary dysmenorrhea; Z98.51 Tubal ligation status | CPT/HCPCS: 58300; J7298 ==

== ENCOUNTER 2023-05-25 08:28 | Outpatient (AMB) | payer MEDICAID, SELFPAY ==
--- NOTE | 2023-05-25 08:33 | A.OFFVIS_ITS ---
Intake Intake Visit Reasons: Newprob-Neck pain Intake Note: Gaye is a 37 year old right hand dominant female who presents today for a evaluation of her neck pain. EMG done on 11/10/22. Patient reports having off and on pain since July. Patient has tried taking Tylenol and ibuprofen with no relief. 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 . Allergies No Known Allergies Allergy (Verified 05/06/23 09:50) Medication List - Last Reconciled 05/25/23 by Susi Lynch MD amitriptyline 25 mg PO BEDTIME amlodipine 10 mg PO DAILY baclofen 10 mg PO TID bisacodyl (Dulcolax (bisacodyl)) 10 mg SD DAILY PRN celecoxib 200 mg PO DAILY chlorthalidone 12.5 mg PO DAILY cyclobenzaprine 10 mg PO TID dicyclomine 10 mg PO TID docusate sodium (Colace) 200 mg (2 x 100 mg) PO BEDTIME losartan 100 mg (2 x 50 mg) PO DAILY methylcellulose (laxative) (Citrucel) 500 mg PO TID nitrofurantoin macrocrystal 100 mg PO BID 5 days ondansetron 4 mg PO Q8H PRN polyethylene glycol 3350 (Miralax) 17 grams PO DAILY PRN sucralfate 1 g PO QIDACHS 21 days sumatriptan succinate 50 mg PO DAILY topiramate 50 mg PO BID HPI HPI Comments History of Present Illness Details She says it started after a vaccination left deltoid in July 2022. It was not red or swollen after. 2 weeks after, started having pain, crampy, tingling, from left shoulder to fingers. This has continued since then, bothering her 4 times a week, lasting all day. She does sleep on left side which of course exacerbates the pain. No ROM change. No weakness if without pain. Started to feel tingling on chin twice a week. Started to feel in on right side, twice a week, still less than left side. Treatment done so far: flexeril, baclofen - didn't help physical therapy Reviewed x-ray images, 03/22/2022, showed preserved disc spaces. Reported b ilateral C7 ribs. Reviewed EMG done by Dr. Gottlieb 11/10/2022, normal left upper extremity. Reviewed MRI left shoulder, no signs of rotator cuff tear. Degenerative changes AC joint. [facility], [facility] Medical History Hypertension Surgical History Hx of tubal ligation Family History Father No problems noted. 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 Patient was appropriately conversant and oriented. Good historian. MSK: Inspection reveals appropriate head and neck positioning. No pain with palpation over the neck musculature. Cervical ROM was full. Spurling's sign positive left. Bilateral shoulder, elbow and wrist ROM WNL. No ligamentous laxity or c repitance. No increased effusion. Positive left Winslow sign. Negative empty can sign. Negative speed's test. Negative carpal compression. Negative Tinel sign. No specific abnormalities or instability found on inspection and palpation of the spine and extremities. Lumbar ROM was full. Strength is 5/5 in all muscle groups tested. No increased tone noted. Neurological: Neurologic examination of the upper and lower extremities was nonfocal with intact sensation, muscle stretch reflexes and without focal motor deficits . Bueno?s negative bilaterally. Babinski was down going bilaterally. Clonus was negative. Gait is non-antalgic without loss of balance. Patient was able to perform heel walk and toe walk. Results Reviewed Results Reviewed: Ordering Physician: Shana Winkler PA-C Date of Service: 03/28/23 Procedure(s): MR shoulder LT wo con Accession Number(s): [id number] cc: Shana Winkler PA-C; Name,Ulises YATES~ EXAMINATION: MR SHOULDER WITHOUT CONTRAST, LEFT CLINICAL INFORMATION: Left shoulder pain and numbness. Evaluate for rotator cuff tendon tear. COMPARISON: Left shoulder radiographs dated 10/13/2022. TECHNIQUE: MRI of the shoulder without contrast was performed on a high-field scanner. FINDINGS: ROTATOR CUFF: Intact. No muscle atrophy or fatty infiltration. BICEPS: Normal. CORACOACROMIAL ARCH: The undersurface of the acromion is curved with no subacromial spur. Mild to moderate acromioclavicular osteoarthritis. LABRUM/CAPSULE: No labral tear. Intact joint capsule. GLENOHUMERAL JOINT/MARROW: Unremarkable. MR/MR shoulder LT wo con IMPRESSION: 1. No rotator cuff tendon tear. 2. Mild to moderate acromioclavicular osteoarthritis. Ordering Physician: Leisa Daugherty Date of Service: 03/22/22 Procedure(s): XR cervical spine 5V Accession Number(s): [id number] cc: Leisa Daugherty~ EXAMINATION: XR CERVICAL SPINE CLINICAL INFORMATION: Acute back pain COMPARISON: None TECHNIQUE: 6 views of the cervical spine, inclusive of flexion and extension views, were obtained. FINDINGS: The vertebral alignment is normal. No intrinsic bony abnormality. The disc heights and neural foramina are well maintained. Throughout mid and lower cervical spine. No acute fracture or subluxation. There are bilateral C7 cervical ribs. There is mild ventral spondylosis The surrounding prevertebral soft tissues are unremarkable. XR/XR cervical spine 5V IMPRESSION: Bilateral C7 cervical ribs. No visible acute fracture or dislocation. Mild ventral C7 cervical ribs. I reviewed records from the following: Ortho Assessment & Plan Assessment & Plan (1) Brachial plexitis: Code(s): G54.0 - Brachial plexus disorders (2) Radiculitis of left cervical region: Code(s): M54.12 - Radiculopathy, cervical region Plan Differential diagnosis is brachial plexitis/[place] Agosto Syndrome (occured after a vaccination, severe pain left deltoid, affecting left shoulder) vs thoracic outlet surgeon (she has C7 ribs seen on xray) vs cervical radiculitis (positive spurling sign left?) We will repeat EMG to evaluate further for plexopathy or TOS. Patient had undergone adequate conservative management without improvement of condition. It would be reasonable to obtain further imaging such as MRI cervical spine. An MRI would help rule out any serious condition, guide treatment and assess prognosis for recovery. Specifically ruling out nerve root compression Assessment and plan discussed with patient, and patient was agreeable. All quest ions were answered thoroughly. Susi Lynch MD, SHAYNA Board Certified, [place] [employer] and Rehabilitation (ABPMR) Board Certified, [place] [employer] Electrodiagnostic Medicine (ABEM) . Orders: Orders NE electromyogram (EMG) Today G54.0 - Brachial plexus disorders NE nerve conduction velocity Today G54.0 - Brachial plexus disorders MR cervical spine wo con Today M54.12 - Radiculopathy, cervical region Coding Level of Care Code New Pt Level 4 (85158) Diagnoses Brachial plexitis G54.0 Radiculitis of left cervical region M54.12
== END 2023-05-25 09:20 | disposition home or self-care (01) ==
PROVIDERS: PCP Internal Medicine Geriatric Medicine; Visit Provider Physical Medicine & Rehabilitation
DX: G54.0 Brachial plexus disorders (principal)
CPT/HCPCS: 99213

== ENCOUNTER → 2023-05-25 08:28 | Outpatient (BNVA) | payer MEDICAID, SELFPAY | PROVIDERS: PCP Internal Medicine Geriatric Medicine; Visit Provider Physical Medicine & Rehabilitation | DX: G54.0 Brachial plexus disorders (principal); M54.12 Radiculopathy, cervical region | CPT/HCPCS: 99212 ==

== ENCOUNTER 2023-06-06 10:52 | Emergency (ER) | payer OTHER, MEDICAID, SELFPAY ==
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
[2023-06-06 11:31] VITALS: BP 157/107; PULSE 120; RESP 18; TEMP 36.6; O2SAT 100; BMI 34.4
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
[2023-06-06] MEDS: Acetaminophen 325 MG TABLET 975 MG PO (15:14)
[2023-06-06 15:57] VITALS: BP 132/93; PULSE 89; RESP 16; TEMP 36.8; O2SAT 97
[2023-06-06 16:29] VITALS: BP 132/93; PULSE 89; RESP 16; TEMP 36.8; O2SAT 97
== END 2023-06-06 16:29 | disposition home or self-care (01) ==
PROVIDERS: Emergency Provider Emergency Medicine; PCP Internal Medicine Geriatric Medicine
DX: S13.4XXA Sprain of ligaments of cervical spine, initial encounter (principal); I10 Essential (primary) hypertension; V89.2XXA Person injured in unspecified motor-vehicle accident, traffic, initial encounter; Y93.9 Activity, unspecified; Y92.481 Parking lot as the place of occurrence of the external cause; Y99.9 Unspecified external cause status
CPT/HCPCS: 70450; 72100; 73030; 99283; 99284

== ENCOUNTER 2023-06-22 09:39 | Outpatient (AMB) | payer MEDICAID, SELFPAY ==
[2023-06-22 10:06] VITALS: BP 142/88; BMI 35.0
--- NOTE | 2023-06-22 10:06 | MHC.OFFVIS ---
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 Educator: School Vocational Educator Present (Joaquin) Allergies No Known Allergies Allergy (Verified 06/22/23 10:07) Medication List - Last Reconciled 06/22/23 by Allyn Pulido CNM amitriptyline 25 mg PO BEDTIME amlodipine 10 mg PO DAILY baclofen 10 mg PO TID bisacodyl (Dulcolax (bisacodyl)) 10 mg [place] DAILY PRN celecoxib 200 mg PO DAILY chlorthalidone 12.5 mg PO DAILY cyclobenzaprine 10 mg PO TID PRN cyclobenzaprine 10 mg PO TID dicyclomine 10 mg PO TID docusate sodium (Colace) 200 mg (2 x 100 mg) PO BEDTIME ibuprofen 600 mg PO TID PRN levonorgestrel (Mirena) intrauterine lidocaine 5% (Lidoderm) 1 patch topical DAILY losartan 100 mg (2 x 50 mg) PO DAILY methylcellulose (laxative) (Citrucel) 500 mg PO TID nitrofurantoin macrocrystal 100 mg PO BID 5 days ondansetron 4 mg PO Q8H PRN polyethylene glycol 3350 (Miralax) 17 grams PO DAILY PRN sucralfate 1 g PO QIDACHS 21 days sumatriptan succinate 50 mg PO DAILY topiramate 50 mg PO BID Is last menstrual period known: Yes Last menstrual period: 06/16/23 Post menopausal: No Patient : No HPI HPI IUD check 6 weeks: Details: Patient is here to get her IUD checked she has had mild spotting and cramping since it was put in and night she got a period it was draw frame operator than usual but it lasted on the whole 3 days and she is now spotting. She has had sex with the IUD and it did not feel uncomfortable and it did not bother her in any way. She had the IUD placed to help with very heavy menses, though they were shorter. PFSH Medical History Hypertension Surgical History Hx of tubal ligation Family History Father No problems noted. 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 External Female Exam: normal external appearance and normal appearance of the urethra Speculum Exam - Vagina: normal appearance of the vagina and normal vaginal discharge Speculum Exam - Cervix: normal appearance of the cervix and Cervical os closed Assessment & Plan Assessment & Plan (1) Encounter for routine checking of intrauterine contraceptive device (IUD): Comment: Mirena IUD was inserted 05/06/2023 for menorrhagia. Code(s): Z30.431 - Encounter for routine checking of intrauterine contraceptive device Category: Medical Plan IUD in place she is gradually experiencing the effect of the levonorgestrel. She will see what happens patient call if she experiences any undue pain or heavy bleeding or has any problem with it whatsoever otherwise we will see her next year. She will be seeing a help desk intern for her high blood pressure tomorrow. Coding Level of Care Code Est Pt Level 3 (77866) Diagnoses Encounter for routine checking of intrauterine contraceptive device (IUD) Z30.431
== END 2023-06-22 11:19 | disposition home or self-care (01) ==
PROVIDERS: PCP Internal Medicine Geriatric Medicine; Visit Provider Advanced Practice Midwife
DX: Z30.431 Encounter for routine checking of intrauterine contraceptive device (principal)
CPT/HCPCS: 99213

== ENCOUNTER → 2023-06-22 09:39 | Outpatient (BNVA) | payer MEDICAID, SELFPAY | PROVIDERS: PCP Internal Medicine Geriatric Medicine; Visit Provider Advanced Practice Midwife | DX: Z30.431 Encounter for routine checking of intrauterine contraceptive device (principal) | CPT/HCPCS: 99212 ==

== ENCOUNTER 2023-06-24 09:56 | Outpatient (REF) | payer MEDICAID, SELFPAY ==
--- NOTE | 2023-06-24 10:01 | EMG_ITS ---
Chief complaint: Left shoulder pain Reason for referral: Repeat NCS/EMG to evaluate for brachial plexopathy Last EMG done left upper extremity by Dr. Brand 11/10/2022 was normal. Procedure done: Left upper extremity NCS/EMG Precautions and/or limitations: None The limb temperature was monitored continuously and remained between 32-36 degrees C during the performance of the NCS. Nerve Conduction Studies Anti Sensory Summary Table ?Stim Site NR Onset (ms) Norm Onset (ms) Peak (ms) Norm Peak (ms) O-P Amp (?V) Norm O-P Amp Site1 Site2 Delta-0 (ms) Dist (cm) Eric (m/s) Norm Eric (m/s) Left Lat Ante Brach Cutan Anti Sensory (Lat Forearm) Lat Biceps ? 0.4 0.5 1.6 Lat Biceps Lat Forearm 0.4 0.0 Left Med Ante Brach Cutan Anti Sensory (Med Forearm) Elbow ? 0.3 0.6 6.9 Elbow Med Forearm 0.3 0.0 Left Median Anti Sensory (2nd Digit) Wrist ? 2.6 3.4 <3.6 12.6 >10 Wrist 2nd Digit 2.6 14.0 54 Left Ulnar Anti Sensory (5th Digit) Wrist ? 2.6 3.3 <3.7 30.6 >15.0 Wrist 5th Digit 2.6 14.0 54 Motor Summary Table ?Stim Site NR Onset (ms) Norm Onset (ms) O-P Amp (mV) Norm O-P Amp iAmp (mV) Amp (1st) (%) Site1 Site2 Delta-0 (ms) Dist (cm) Eric (m/s) Norm Eric (m/s) Left Median Motor (Abd Poll Brev) Wrist ? 3.0 <3.9 12.9 >4.5 15.1 100.0 Elbow Wrist 3.5 18.0 51 >45 Elbow ? 6.5 12.7 14.9 98.4 Left Ulnar Motor (Abd Dig Minimi) Wrist ? 2.7 <3.0 11.9 >5 14.1 100.0 B Elbow Wrist 2.9 16.0 55 >45 B Elbow ? 5.6 11.1 13.5 93.3 A Elbow B Elbow 1.4 10.0 71 >45 A Elbow ? 7.0 10.7 13.2 89.9 EMG ?Side Muscle Nerve Root Ins Act Fibs Psw Amp Dur Poly Recrt Int Pat Comment Left 1stDorInt Ulnar C8-T1 Nml Nml Nml Nml Nml 0 Nml Complete Left FlexCarRad Median C6-7 Nml Nml Nml Nml Nml 0 Nml Complete Left Biceps Musculocut C5-6 Nml Nml Nml Nml Nml 0 Nml Complete Left Triceps Radial C6-7-8 Nml Nml Nml Nml Nml 0 Nml Complete Left Deltoid Axillary C5-6 Nml Nml Nml Nml Nml 0 Nml Complete Paraspinal EMG ?Side Muscle Nerve Root Ins Act Fibs Psw Comment Left Cervical Upper Rami Nml Nml Nml Left Cervical Mid Rami Nml Nml Nml Left Cervical Lower Rami Nml Nml Nml FINDINGS: All motor and sensory nerves tested, including MAC and LAC, showed normal latencies, amplitudes and conduction velocities. Concentric needle EMG was performed in selected muscles of the left upper extremity and cervical paraspinals. Study did not reveal signs of electric abnormalities as shown in the table below. IMPRESSION: 1. This is a normal study. 2. There is no electrodiagnostic evidence for median neuropathy, ulnar neuropathy, brachial plexopathy, or cervical radiculopathy. Thank you for your kind referral. Susi Lynch MD, SHAYNA Board Certified, [place] Board [employer] and [employer] (ABPMR) Board Certified, [place] Board of Electrodiagnostic Medicine (ABEM) CODIN [id number] MTDD
== END 2023-06-24 09:57 | disposition home or self-care (01) ==
LOC: HO.NEURO 09:56
PROVIDERS: PCP Internal Medicine Geriatric Medicine; Visit Provider Physical Medicine & Rehabilitation
DX: G54.0 Brachial plexus disorders (principal)
CPT/HCPCS: 95886; 95909

== ENCOUNTER → 2023-06-24 10:01 | Outpatient (BNV) | payer MEDICAID, SELFPAY | PROVIDERS: PCP Internal Medicine Geriatric Medicine; Visit Provider Physical Medicine & Rehabilitation | DX: M25.512 Pain in left shoulder (principal) | CPT/HCPCS: 95886; 95909 ==

== ENCOUNTER 2023-06-27 11:01 | Outpatient (AMB) | payer MEDICAID, SELFPAY ==
[2023-06-27 11:03] VITALS: BP 120/80; PULSE 68; BMI 34.9
--- NOTE | 2023-06-27 11:03 | A.OFFVIS_ITS ---
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 Required: No Allergies No Known Allergies Allergy (Verified 06/22/23 10:07) Medication List - Last Reconciled 06/27/23 by Octavio Chow MD amitriptyline 50 mg PO BEDTIME amlodipine 10 mg PO DAILY bisacodyl (Dulcolax (bisacodyl)) 10 mg [place] DAILY PRN celecoxib 200 mg PO DAILY chlorthalidone 12.5 mg PO DAILY cyclobenzaprine 10 mg PO TID PRN dicyclomine 10 mg PO TID docusate sodium (Colace) 200 mg (2 x 100 mg) PO BEDTIME ibuprofen 600 mg PO TID PRN levonorgestrel (Mirena) intrauterine lidocaine 5% (Lidoderm) 1 patch topical DAILY losartan 100 mg (2 x 50 mg) PO DAILY methylcellulose (laxative) (Citrucel) 500 mg PO TID nitrofurantoin macrocrystal 100 mg PO BID 5 days ondansetron 4 mg PO Q8H PRN polyethylene glycol 3350 (Miralax) 17 grams PO DAILY PRN sucralfate 1 g PO QIDACHS 21 days sumatriptan succinate 50 mg PO DAILY topiramate 50 mg PO BID HPI Comments Details: aGye comes for follow-up. Last week she was in pain and a blood pressure is elevated. Otherwise a blood pressure remains well controlled. She denies any exertional symptoms. Overall doing well. Taking all her medications. [facility] Medical History Hypertension Surgical History Hx of tubal ligation Family History Father No problems noted. 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 History Menstrual Age of Menarche: 11 Review of Systems Const Denies chills, Denies fatigue, Denies fever(s), Denies frequent falls, Denies weakness, Denies weight gain and Denies weight loss ENT Denies dizziness Card Denies chest pain, Denies leg edema, Denies lightheadedness, Denies palpitations, Denies dyspnea, Denies dyspnea on exertion, Denies orthopnea and Denies other (loss of consciousness) Resp Denies cough, Denies dyspnea and Denies dyspnea on exertion GI Denies hematochezia and Denies change in stool character Musc Denies abnormal gait, Denies muscle weakness, Denies numbness, Denies radiating pain into limb and Denies tingling Neuro Denies abnormal gait, Denies dizziness, Denies frequent falls, Denies numbness, Denies tingling and Denies weakness Endo Denies fatigue and Denies palpitations Physical Exam Vital Signs: Last Vital Signs Pulse 68 06/27/23 11:03 BP 120/80 06/27/23 11:03 BMI result Body Mass Index 34.9 Const General: cooperative, healthy appearing, comfortable and no acute distress Orientation/consciousness: patient oriented x3 HEENT Head: Yes normal to inspection Resp Effort & Inspection: normal respiratory effort Auscultation: clear to auscultation bilaterally, no crackles, no rales, no rhonchi and no wheezes Cardio Jugular venous distension: no JVD Rate: regular rate Rhythm: regular rhythm Heart sounds: S1 normal heart sound present, S2 normal heart sound present, no murmurs and no rubs Neuro General: patient oriented x3 Extrem General: Yes normal to inspection Psych Appearance: grossly normal Mental Status: mental status grossly normal Speech and movement: Normal speech and movement present Assessment & Plan Assessment & Plan (1) Uncontrolled hypertension: Code(s): I10 - Essential (primary) hypertension Category: Medical Plan: Uncontrolled hypertension the past currently doing well on current therapy. Importance of good blood pressure control was discussed. Discussed that there will be episodes when she is under lot of stress a blood pressure will be elevated. She had been participate in stress mitigation strategies. Strongly encouraged to continue to do the same. Low-salt diet was discussed. Importance of good blood pressure control was discussed and she understands. Advise regular physical activity and weight loss program which should help overall with her blood pressure control. Follow up in the clinic in 1 year's time, sooner p.r.n.. Thank you for allowing me to partake in the care Coding Level of Care Code Est Pt Level 3 (88788) Diagnoses Uncontrolled hypertension I10
== END 2023-06-27 11:18 | disposition home or self-care (01) ==
PROVIDERS: PCP Internal Medicine Geriatric Medicine; Referring Provider Internal Medicine Geriatric Medicine; Visit Provider Internal Medicine Cardiovascular Disease
DX: I10 Essential (primary) hypertension (principal)
CPT/HCPCS: 99213

== ENCOUNTER → 2023-06-27 11:01 | Outpatient (BNVA) | payer MEDICAID, SELFPAY | PROVIDERS: PCP Internal Medicine Geriatric Medicine; Visit Provider Internal Medicine Cardiovascular Disease | DX: I10 Essential (primary) hypertension (principal) | CPT/HCPCS: 99212 ==

== ENCOUNTER → 2023-06-30 11:33 | Outpatient (BNVA) | payer MEDICAID, SELFPAY | PROVIDERS: PCP Internal Medicine Geriatric Medicine; Visit Provider Physician Assistant Surgical ==

== ENCOUNTER 2023-08-26 08:11 | Outpatient (AMB) | payer MEDICAID, SELFPAY ==
--- NOTE | 2023-08-26 10:12 | A.OFFVIS_ITS ---
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 Allergies No Known Allergies Allergy (Verified 08/26/23 10:14) Medication List - Last Reconciled 08/26/23 by Daquan Morris MD amitriptyline 75 mg PO BEDTIME amlodipine 10 mg PO DAILY bisacodyl (Dulcolax (bisacodyl)) 10 mg [place] DAILY PRN celecoxib 200 mg PO DAILY chlorthalidone 12.5 mg PO DAILY cyclobenzaprine 10 mg PO TID PRN dicyclomine 10 mg PO TID docusate sodium (Colace) 200 mg (2 x 100 mg) PO BEDTIME ibuprofen 600 mg PO TID PRN levonorgestrel (Mirena) intrauterine lidocaine 5% (Lidoderm) 1 patch topical DAILY losartan 100 mg (2 x 50 mg) PO DAILY methylcellulose (laxative) (Citrucel) 500 mg PO TID ondansetron 4 mg PO Q8H PRN polyethylene glycol 3350 (Miralax) 17 grams PO DAILY PRN sucralfate 1 g PO QIDACHS 21 days sumatriptan succinate 50 mg PO DAILY topiramate 50 mg PO BID HPI HPI 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 35.3: Details: Start time: 10.09am, End time: 10.54am ?I spent 40 minutes speaking with the patient on the phone plus an additional 5 minutes reviewing and updating records for a total of 45 minutes HPI Comments Details: Previous weight loss efforts: self diets Wakes up: 5am, Sleeps: 9pm Breakfast: skips Lunch: 12pm (eggs with hashbrown, soups) Dinner: 6pm (rice, beans, chicken, pork chops) Snacks: 9am (banana, or yogurt), 3pm (cheese sticks with crackers), 7-8pm (sweets) Exercise: has home treadmill Fluids: coffee/tea: none, soda (Regular Coke daily), juice: 2/wk (Pashion fruit, orange juice), ETOH: 2/wk (wine: 3 glasses per day) [facility] Medical History (Updated 08/26/23 @ 10:36 by Daquan Morris MD) IBS (irritable bowel syndrome) Migraines BMI 35.0-35.9,adult Obesity Hypertension Surgical History Hx of tubal ligation Family History Father No problems noted. 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 History Menstrual Age of Menarche: 11 Telehealth Telehealth Telehealth Platform: Telephone Location of provider rendering services: practice address Location of patient: address on file Patient Identification confirmed using: Name, : Yes Telehealth method: voice only Patient verbally consented to treatment: Yes Patient verbally consented to billing insurance company: Yes Patient informed of any privacy concerns related to visit: Yes Minutes spent on Phone/Video with Pt.: 45 Assessment & Plan Assessment & Plan (1) Obesity: Code(s): E66.9 - Obesity, unspecified Category: Medical Qualifiers: Obesity type: due to excess calories Obesity classification: adult class 2 (BMI 35 - 39.9) Serious obesity comorbidity presence: with serious comorbidity Body mass index: BMI 35.0-35.9 Qualified Code(s): E66.01 - Morbid (severe) obesity due to excess calories; Z68.35 - Body mass index [BMI] 35.0- 35.9, adult Plan: 1.? Plan for lap sleeve gastrectomy. If diaphragmatic or ventral hernias are present at time of surgery, these will be repaired laparoscopically as well. Risks and complications were discussed in detail including possible conversion to an open procedure, anastomotic leak, bleeding requiring transfusion, small bowel obstruction, , DVT and pulmonary embolism, cardiac, or pulmonary complications, as ballast cleaning machine operator complications such as anastomotic ulcer, insufficient weight loss and vitamin deficiencies. I emphasized the importance of close follow-up, adherence to instructions and good communication. 2. You will receive a link of our software gin to generate an individualized nutritional and exercise plan specific for you. Please send me a screenshot of the plans you will generate Meal to include lean meat (beef, fish, pork, turkey, chicken), or sami yogurt, or egg whites, or beans with a salad with olive oil and fruits (berries, pears, apples, kiwi). Avoid salt, breads, potatoes, rice, pasta, desserts. ?3. If you choose shakes, each shake would be drunk slowly, like coffee in a period of 2 hours. ?4. If you choose bars, cut each bar in 4 pieces and eat each piece in 30min ?to make each bar last 2 hours. ?5. I emphasized the importance of measuring accurately the food portion and measure it when serving the food in plate ?6. The meal portions include a specific number of forks of meat and salad. You always eat the meat portion but you can replace up to half of salad/vegetables portion with rice, potatoes or pasta, or a fruit ?if you like. The less you do it the better weight loss will be. ?7. One full-size fork is what it can be scooped on the fork without falling aside and not what can be bit with the fork. Use regular forks like those you find in a typical restaurant. ?8.? Please send me weight measurements as soon as possible and then once a week. Always include your diet and exercise plan. 9. The best choice would be to purchase a stationary bike, elliptical or treadmill at home that can track calories. Let me know if you do so I can give you an exercise plan. ?10.?It is important of avoiding and for at least 18 months postoperatively and has been discussed at the infosession. ?11. Goal is to lose at least 1.5-2lbs per week ?12. Goal to lose 10% of your weight before surgery, which is about 18lbs. Ultimate weight goal: 162lbs before surgery 13. Please follow the diet plan exactly without any change. If you don't like something about the plan or you feel hungry you need to communicate with me so I can help you revise the plan. You should not change the plan yourself. 14. To be scheduled for EGD due to history of GERD. The possibility of biopsies was discussed. Patient needs to avoid use of NSAIDs and aspirin for 1 week prior to EGD. Risks of perforation and bleeding was discussed with the patient. This will be an outpatient procedure with IV sedation. Orders: Orders Insulin Today E66.9 - Obesity, unspecified, I10 - Essential (primary) hypertension, Z68.35 - Body mass index [BMI] 35.0-35.9, adult Complete Blood Count Auto Diff Today E66.9 - Obesity, unspecified, I10 - Essential (primary) hypertension, Z68.35 - Body mass index [BMI] 35.0-35.9, adult Comprehensive Met. Panel Today E66.9 - Obesity, unspecified, I10 - Essential (primary) hypertension, Z68.35 - Body mass index [BMI] 35.0-35.9, adult Vitamin B12 and Folate Today E66.9 - Obesity, unspecified, I10 - Essential (primary) hypertension, Z68.35 - Body mass index [BMI] 35.0-35.9, adult C Reactive Protein Today E66.9 - Obesity, unspecified, I10 - Essential (primary) hypertension, Z68.35 - Body mass index [BMI] 35.0-35.9, adult Vitamin B1 Today E66.9 - Obesity, unspecified, I10 - Essential (primary) hypertension, Z68.35 - Body mass index [BMI] 35.0-35.9, adult Vitamin A Today E66.9 - Obesity, unspecified, I10 - Essential (primary) hypertension, Z68.35 - Body mass index [BMI] 35.0-35.9, adult Vitamin D 25-OH Total Today E66.9 - Obesity, unspecified, I10 - Essential (primary) hypertension, Z68.35 - Body mass index [BMI] 35.0-35.9, adult US abdomen comp w elastography Today E66.9 - Obesity, unspecified, I10 - Essential (primary) hypertension, Z68.35 - Body mass index [BMI] 35.0-35.9, adult ECG 12 lead EKG Today E66.9 - Obesity, unspecified, I10 - Essential (primary) hypertension, Z68.35 - Body mass index [BMI] 35.0-35.9, adult FL upper GI w air Today E66.9 - Obesity, unspecified, I10 - Essential (primary) hypertension, Z68.35 - Body mass index [BMI] 35.0-35.9, adult Hemoglobin A1c Today E66.9 - Obesity, unspecified, I10 - Essential (primary) hypertension, Z68.35 - Body mass index [BMI] 35.0-35.9, adult H Pylori Breath Test Today E66.9 - Obesity, unspecified, I10 - Essential (primary) hypertension, Z68.35 - Body mass index [BMI] 35.0-35.9, adult Lipid Panel Today E66.9 - Obesity, unspecified, I10 - Essential (primary) hypertension, Z68.35 - Body mass index [BMI] 35.0-35.9, adult IRON PROFILE Today E66.9 - Obesity, unspecified, I10 - Essential (primary) hypertension, Z68.35 - Body mass index [BMI] 35.0-35.9, adult Zinc Today E66.9 - Obesity, unspecified, I10 - Essential (primary) hypertension, Z68.35 - Body mass index [BMI] 35.0-35.9, adult TSH reflex Free T4 Today E66.9 - Obesity, unspecified, I10 - Essential (primary) hypertension, Z68.35 - Body mass index [BMI] 35.0-35.9, adult Ferritin Today E66.9 - Obesity, unspecified, I10 - Essential (primary) hypertension, Z68.35 - Body mass index [BMI] 35.0-35.9, adult XR chest 2V Today E66.9 - Obesity, unspecified, I10 - Essential (primary) hypertension, Z68.35 - Body mass index [BMI] 35.0-35.9, adult Referrals Behavioral Health Referral E66.9 - Obesity, unspecified, I10 - Essential (primary) hypertension, Z68.35 - Body mass index [BMI] 35.0-35.9, adult Nutrition/Dietitian Referral E66.9 - Obesity, unspecified, I10 - Essential (primary) hypertension, Z68.35 - Body mass index [BMI] 35.0-35.9, adult
[2023-08-26 10:34] VITALS: BMI 35.2
== END 2023-08-26 10:56 | disposition home or self-care (01) ==
LOC: HO.HBS 08:11
PROVIDERS: PCP Internal Medicine Geriatric Medicine; Visit Provider Surgery
DX: E66.01 Morbid (severe) obesity due to excess calories (principal); Z68.35 Body mass index [BMI] 35.0-35.9, adult
CPT/HCPCS: 99204

== ENCOUNTER → 2023-08-26 08:11 | Outpatient (BNVA) | payer MEDICAID, SELFPAY | PROVIDERS: PCP Internal Medicine Geriatric Medicine; Visit Provider Surgery ==

== ENCOUNTER 2023-09-08 08:45 | Outpatient (REF) | payer MEDICAID, SELFPAY ==
--- NOTE | ~2023-09-08 | US_ITS ---
EXAMINATION: US COMPLETE ABDOMEN WITH LIVER ELASTOGRAPHY CLINICAL INFORMATION: Obesity. COMPARISON: None available. TECHNIQUE: Real-time imaging of the abdominal viscera. Noninvasive ultrasound liver fibrosis assessment is performed using Sharif ElastPQ point quantification shear wave elastography (2D-SWE) with a C5-2 MHz transducer. Multiple elastography samples are obtained. FINDINGS: PANCREAS: Normal. The visualized pancreatic head and body are normal in appearance. The remainder of the pancreas is obscured from visualization by the overlying bowel gas. ABDOMINAL AORTA: The proximal, middle, and distal aortic segments are normal in caliber. INFERIOR VENA CAVA: Visualized portions are normal. LIVER: Normal. The liver demonstrates normal size, contour and echogenicity. No focal lesion or intrahepatic biliary duct dilatation. The right lobe measures 12.7 cm in length. The left lobe measures 7.7 cm in length. Portal flow is towards the liver (hepatopetal). Shear wave liver elastography median stiffness is 1.36 m/s (reference: normal median stiffness is 1.3 m/s or less). IQR/median stiffness to assess sampling precision is 0.15 (reference: good quality data set is IQR/median stiffness of 0.15 or less). GALLBLADDER: Normal. The gallbladder is physiologically distended without evidence of stones, sludge, polyps, wall thickening or pericholecystic fluid. COMMON BILE DUCT: Normal in caliber measuring 0.3 cm in diameter. RIGHT KIDNEY: Normal. No hydronephrosis. No renal calculi or focal parenchymal lesions. The kidney measures 10.2 cm in maximum dimension. LEFT KIDNEY: Normal. No hydronephrosis. No renal calculi or focal parenchymal lesions. The kidney measures 11.1 cm in maximum dimension. SPLEEN: Normal. The spleen measures 10.8 cm in maximum dimension. FREE FLUID: None. US/US abdomen comp w elastography IMPRESSION: 1. There is generalized increase in hepatic echotexture, consistent with fatty infiltration or hepatocellular disease. Please correlate clinically. No focal hepatic mass or intrahepatic biliary dilatation is seen. 2. Liver elastography: In the absence of other known clinical signs, measurements rule out compensated advanced chronic liver disease. If there are known clinical signs, further testing may be needed for confirmation. REFERENCE: Society of Radiologists in Ultrasound Liver Stiffness Thresholds (2020): LIVER STIFFNESS THRESHOLDS: *Liver Stiffness equal or less than 1.3 m/s: High probability of being normal. *Liver Stiffness less than 1.7 m/s: In the absence of other known clinical signs, rules out compensated advanced chronic liver disease. *Liver Stiffness 1.7-2.1 m/s: Suggestive of compensated advanced chronic liver disease but need further test for confirmation. *Liver Stiffness over 2.1 m/s: Rules in compensated advanced chronic liver disease. *Liver Stiffness over 2.4 m/s: Suggestive of clinically significant portal hypertension. QUALITY OF DATA SET: *IQR/Median value equal or less than 0.15 implies a quality data set. *IQR/Median value over 0.15 implies a poor quality data set. SIGNIFICANT CHANGE FROM PRIOR EXAM: Significant change if liver stiffness measurement is 10% or greater from prior exam. OTHER CONSIDERATIONS: The stage of liver fibrosis may be overestimated in the setting of acute hepatitis, liver inflammation, elevated liver function tests, hepatic vascular congestion, obstructive cholestasis, non-fasting state, and infiltrative diseases such as amyloidosis and lymphoma. In some patients with NAFLD, the liver stiffness thresholds for compensated advanced chronic liver disease may be lower. In causes other than viral hepatitis and NAFLD, liver stiffness thresholds are not well established.
--- NOTE | ~2023-09-08 | XR_ITS ---
EXAMINATION: XR CHEST CLINICAL INFORMATION: Obesity COMPARISON: December 2021 TECHNIQUE: 2 views of the chest were obtained. FINDINGS: No significant abnormality is noted involving the heart, lungs, mediastinum, bony thorax or soft tissues. XR/XR chest 2V IMPRESSION: Unremarkable examination, without interval change.
--- NOTE | 2023-09-08 09:41 | ECG_ITS ---
Test Reason : E66.9 - Obesity, unspecified Blood Pressure : / mmHG Vent. Rate : 088 BPM Atrial Rate : 088 BPM P-R Int : 124 ms QRS Dur : 092 ms QT Int : 354 ms P-R-T Axes : -07 018 004 degrees QTc Int : 428 ms Normal sinus rhythm Normal ECG When compared with ECG of 18-JAN-2022 16:49, No significant change was found Referred By: Daquan Morris Electronically Signed By:GEOVANI HART MD
[2023-09-08 09:58] LABS: MANUAL DIFF FLAG NO
[2023-09-08 10:29] LABS: Basophils Percent Auto 0.8 % (0-2); Eosinophils Absolute Auto 0.2 X10*3/uL (0.0-0.4); Eosinophils Percent Auto 6.1 % (0-4); Hematocrit 37.2 % (37.0-47.0); Imm Gran Abs Auto 0.01 X10*3/uL (0.00-0.03); Imm Gran Pct Auto 0.3 % (0.0-0.4); Lymphocytes Absolute Auto 1.5 X10*3/uL (1.2-4.9); Lymphocytes Percent Auto 38.1 % (20-40); Mean Corpuscular HGB Conc 34.9 g/dl (31.0-35.0); Mean Corpuscular Hemoglobin 33.5 pg (27.0-33.0); Mean Corpuscular Volume 95.9 fL (80.0-98.0); Mean Platelet Volume 10.2 fL (9.4-12.3); Monocytes Absolute Auto 0.3 X10*3/uL (0.1-1.2); Monocytes Percent Auto 7.3 % (2-11); Neutrophils Absolute Auto 1.9 x10*3/uL (2.0-8.3); Neutrophils Percent Auto 47.4 % (45-73); Platelet Count 277 X10*3/uL (160-400); Red Blood Count 3.88 X10*6/uL (4.20-5.50); Red Cell Distribution Width 12.5 % (11.0-16.0)
[2023-09-08 10:39] LABS: Estimated Average Glucose 108 mg/dL; Hemoglobin A1c % 5.4 % (<6.0)
[2023-09-08 10:58] LABS: Alanine Aminotransferase 47 U/L (0-31); Albumin Level 4.6 g/dL (3.5-5.0); Alkaline Phosphatase 51 U/L (39-117); Anion Gap 14 (12-20); Aspartate Amino Transferase 24 U/L (5-31); Bilirubin Total 0.6 mg/dL (0.0-1.0); Blood Urea Nitrogen 11 mg/dL (9-16); C Reactive Protein 0.84 mg/dL (< or = 0.50); Calcium 9.8 mg/dL (8.4-10.2); Carbon Dioxide 22 mmol/L (22-29); Chloride 107 mmol/L (96-108); Cholesterol 128 mg/dL (<200); Estimated Glomerular Filt Rate > 60; Glucose Random 104 mg/dL (60-115); HDL Cholesterol 40 mg/dL (>40); Iron 79 mcg/dL (30-160); LDL Cholesterol Calculated 74 mg/dL (<100); Percent Iron Saturation 27 % (15-50); Potassium 3.9 mmol/L (3.3-5.1); Sodium 139 mmol/L (135-145); Total Iron Binding Capacity 297 mcg/dL (228-428); Total Protein 7.6 g/dL (6.5-8.0); Triglycerides 71 mg/dL (<150); Unsaturated Iron Binding 218 ug/dL
[2023-09-08 11:29] LABS: Ferritin 90 ng/mL (10-122); Insulin 8 uU/mL (2-29); TSH reflex Free T4 2.54 uIU/mL (0.32-4.0); Vitamin D 25-OH Total 30.6 ng/mL (>30)
[2023-09-08 11:44] LABS: Folate 9.7 ng/mL (> or = 4.0); Vitamin B12 354 pg/mL (200-900)
[2023-09-13 01:38] LABS: Zinc 60 mcg/dL (60-130)
[2023-09-13 18:19] LABS: Vitamin A 49 mcg/dL (38-98)
[2023-09-15 14:07] LABS: Vitamin B1 9 nmol/L (8-30)
== END 2023-09-08 08:46 | disposition home or self-care (01) ==
LOC: HO.US 08:45
PROVIDERS: PCP Internal Medicine Geriatric Medicine; Visit Provider Surgery
DX: E66.9 Obesity, unspecified (principal); Z68.35 Body mass index [BMI] 35.0-35.9, adult; I10 Essential (primary) hypertension
CPT/HCPCS: 36415; 71046; 76700; 76981; 80053; 80061; 82306; 82607; 82728; 82746; 83036; 83525; 83540; 84425; 84443; 84590; 84630; 85025; 86140; 93005

== ENCOUNTER → 2023-09-08 09:41 | Outpatient (BNV) | payer MEDICAID, SELFPAY | PROVIDERS: PCP Internal Medicine Geriatric Medicine; Visit Provider Internal Medicine Cardiovascular Disease | DX: E66.9 Obesity, unspecified (principal) | CPT/HCPCS: 93010 ==

== ENCOUNTER 2023-09-12 08:35 | Outpatient (AMB) | payer OTHER, SELFPAY ==
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
== END 2023-09-12 08:59 | disposition home or self-care (01) ==
LOC: HO.HBST 08:35
PROVIDERS: PCP Internal Medicine Geriatric Medicine; Visit Provider Counselor Mental Health
DX: F33.1 Major depressive disorder, recurrent, moderate (principal); E66.01 Morbid (severe) obesity due to excess calories; Z68.35 Body mass index [BMI] 35.0-35.9, adult
CPT/HCPCS: 90834

== ENCOUNTER → 2023-09-12 08:35 | Outpatient (BNVA) | payer MEDICAID, SELFPAY | PROVIDERS: PCP Internal Medicine Geriatric Medicine; Visit Provider Counselor Mental Health ==

== ENCOUNTER 2023-09-19 13:08 | Outpatient (AMB) | payer MEDICAID, SELFPAY ==
--- NOTE | 2023-09-19 12:50 | A.OFFVIS_ITS ---
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 Allergies No Known Allergies Allergy (Verified 08/26/23 10:14) Medication List - Last Reconciled 09/19/23 by DINA Hatch amitriptyline 75 mg PO BEDTIME amlodipine 10 mg PO DAILY bisacodyl (Dulcolax (bisacodyl)) 10 mg MN DAILY PRN celecoxib 200 mg PO DAILY chlorthalidone 12.5 mg PO DAILY cyclobenzaprine 10 mg PO TID PRN dicyclomine 10 mg PO TID docusate sodium (Colace) 200 mg (2 x 100 mg) PO BEDTIME ibuprofen 600 mg PO TID PRN levonorgestrel (Mirena) intrauterine lidocaine 5% (Lidoderm) 1 patch topical DAILY losartan 100 mg (2 x 50 mg) PO DAILY methylcellulose (laxative) (Citrucel) 500 mg PO TID ondansetron 4 mg PO Q8H PRN polyethylene glycol 3350 (Miralax) 17 grams PO DAILY PRN sucralfate 1 g PO QIDACHS 21 days sumatriptan succinate 50 mg PO DAILY topiramate 50 mg PO BID HPI Comments Details: Patient is a pleasant 38-year-old female who returns to the office today in follow-up for preoperative planning in our Surgical weight loss pathway. She was initially seen on 08/26/2023 with a weight of 180.8 lb and a BMI of 35.2. She states she has been following the meal plan from [employer] BMI gin. She states she is eating off the plan on Sundays when she is out with her family. Weight today is 176 pounds with a BMI of 34.4. Meal plan: Orgain 1/2 scoop in 8 oz almond milk, 6-8, 8-10 1/2 atikins bar at 12-2 1/2 bar 3-5 meal 6 pm 6 forks protein and 6 forks veg 1/2 bar drinking 80 oz water Exercise walking outside, 300-350 calories, 3 days Treadmill, 400-425 calories, 2 days PFS Medical History (Updated 09/12/23 @ 08:54 by Gemini Guerrero) IBS (irritable bowel syndrome) Migraines BMI 35.0-35.9,adult Obesity Hypertension Surgical History Hx of tubal ligation Family History Father No problems noted. 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 History Menstrual Age of Menarche: 11 Telehealth Telehealth Telehealth Platform: Telephone Location of provider rendering services: practice address Location of patient: address on file Patient Identification confirmed using: Name, : Yes Telehealth method: voice only Patient verbally consented to treatment: Yes Patient verbally consented to billing insurance company: Yes Patient informed of any privacy concerns related to visit: Yes Minutes spent on Phone/Video with Pt.: 15 Assessment & Plan Assessment & Plan (1) Obesity: Code(s): E66.9 - Obesity, unspecified Category: Medical Qualifiers: Obesity type: due to excess calories Obesity classification: adult class 2 (BMI 35 - 39.9) Serious obesity comorbidity presence: with serious comorbidity Body mass index: BMI 35.0-35.9 Qualified Code(s): E66.01 - Morbid (severe) obesity due to excess calories; Z68.35 - Body mass index [BMI] 35.0- 35.9, adult Plan: Patient states that she has been communicating with Dr. Morris and following the meal plan as outlined by the [employer] except on Sundays. I suggested that she have at least her shakes on Sundays and then follow the number of forks for her meal on those days. Encouraged her to increase her time on the treadmill to 4 or 5 days a week and then walking outside 3-4 days a week with an ultimate goal of 2000 calories burned or more per week. We will have her follow-up with Dr. Morris in approximately 1 month.
[2023-09-19 13:01] VITALS: BMI 34.4
== END 2023-09-19 13:27 | disposition home or self-care (01) ==
LOC: HO.HBS 13:08
PROVIDERS: PCP Internal Medicine Geriatric Medicine; Visit Provider Physician Assistant Surgical
DX: E66.01 Morbid (severe) obesity due to excess calories (principal); Z68.35 Body mass index [BMI] 35.0-35.9, adult
CPT/HCPCS: 99213

== ENCOUNTER → 2023-09-19 13:08 | Outpatient (BNVA) | payer OTHER, SELFPAY | PROVIDERS: PCP Internal Medicine Geriatric Medicine; Visit Provider Physician Assistant Surgical ==

== ENCOUNTER 2023-10-11 13:32 | Outpatient (REF) | payer MEDICAID, SELFPAY ==
[2023-10-11 16:32] LABS: Anion Gap 13 (12-20); Blood Urea Nitrogen 13 mg/dL (9-16); Calcium 10.2 mg/dL (8.4-10.2); Carbon Dioxide 35 mmol/L (22-29); Chloride 90 mmol/L (96-108); Estimated Glomerular Filt Rate 56; Glucose Random 180 mg/dL (60-115); Potassium 3.4 mmol/L (3.3-5.1); Sodium 135 mmol/L (135-145)
== END 2023-10-11 13:33 | disposition home or self-care (01) ==
LOC: HO.HHCL 13:32
PROVIDERS: Visit Provider Internal Medicine Geriatric Medicine
DX: R05.9 Cough, unspecified (principal); R06.2 Wheezing
CPT/HCPCS: 36415; 80048

== ENCOUNTER 2023-10-17 08:02 | Outpatient (AMB) | payer MEDICAID, SELFPAY ==
[2023-10-16 18:53] VITALS: BMI 32.1
--- NOTE | 2023-10-16 18:53 | A.OFFVIS_ITS ---
VS Expanded 10/16/23 18:53 Height 5 ft Weight 164 lb 6 oz BMI 32.1 Body Fat % 40 Body Fat Mass 65.8 Fat Free Mass 98.8 Visceral Fat Rating 15 Body Water % 41.2 Body Water Mass 67.8 Basal Metabolic Rate/Score 1,338 Intake Visit Reasons: TV Follow Up SWL Allergies No Known Allergies Allergy (Verified 08/26/23 10:14) HPI HPI TV Follow Up SWL: Details: Start time: 10.15, End time: 10.30am and an additional 5 min earlier today to review the records. I spent a total of 20min with the patient our of which 15min I spoke to the patient and 5min to prepare my note and review previous tests HPI Comments Details: Overall weight loss: 16.2lbs or 9% TBWL Feels a little bloated Is doing 2 Orgain protein shakes with half scoop each in 8oz almond milk, 1 Atkins protein bar and one meal (6 forks of protein and 6 forks of salad or vegetables) Exercise: is doing treadmill 4 days per week for 500 calories [facility] Medical History (Updated 09/12/23 @ 08:54 by Gemini Guerrero) IBS (irritable bowel syndrome) Migraines BMI 35.0-35.9,adult Obesity Hypertension Surgical History Hx of tubal ligation Family History Father No problems noted. 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 History Menstrual Age of Menarche: 11 Physical Exam Vital Signs: BMI result Body Mass Index 32.1 Telehealth Telehealth Telehealth Platform: Telephone Location of provider rendering services: practice address Location of patient: address on file Patient Identification confirmed using: Name, : Yes Telehealth method: voice only Patient verbally consented to treatment: Yes Patient verbally consented to billing insurance company: Yes Patient informed of any privacy concerns related to visit: Yes Minutes spent on Phone/Video with Pt.: 20 Assessment & Plan Assessment & Plan (1) Obesity: Code(s): E66.9 - Obesity, unspecified Category: Medical Qualifiers: Body mass index: BMI 35.0-35.9 Obesity classification: adult class 2 (BMI 35 - 39.9) Obesity type: due to excess calories Serious obesity comorbidity presence: with serious comorbidity Qualified Code(s): E66.01 - Morbid (severe) obesity due to excess calories; Z68.35 - Body mass index [BMI] 35.0-35.9, adult Plan: 1. Plan for lap sleeve gastrectomy including upper GI endoscopy. All tests has been completed and reviewed and the patient is cleared for the surgery. ?If diaphragmatic or ventral hernias are present at time of surgery, these will be r epaired laparoscopically as well. 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 I emphasized the importance of close follow-up, adherence to instructions and good communication. So far she has proven to be an excellent communicator and very compliant with all our directions accomplishing a great weight loss. I believe that she is an excellent candidate and she is ready. 2. The patient participated in a structured preoperative lifestyle intervention program supervised by a physician the 7 weeks preceding the surgical procedure. The lifestyle intervention included a structured nutritional plan with a specific daily protein intake goal, an exercise plan with a 2000 calorie burn weekly goal, weekly behavior modification guidance and completion of eight 1- hour online nutritional classes and passing successfully the corresponding quizzes. Adherence to preoperative care plan was demonstrated by completing an extensive preoperative work-up. Program participation was demonstrated by completing 4 visits with our medical team and by sharing weekly weight measurements weekly for 7 consecutive weeks via an approved body composition scale. Compliance to the lifestyle intervention was demonstrated by achieving a 16.2lbs weight-loss or 9% total body weight loss (TBWL). No medications were used to achieve this weight loss. In our published experience an over 7% preoperative TBWL, achieved by meeting the diet and exercise goals of our program improves surgical outcomes, reduces the potential for surgical complications, and predicts a statistically significant higher weight loss up to 6 years postoperatively. 3. Change present nutritional plan to 3 Orgain protein shakes with half scoop each in 8oz water and, 1 Atkins protein bar. Avoid the meal (6 forks of protein and 6 forks of salad or vegetables) 4. Exercise: continue treadmill 4 days per week for 500 calories 5. Continue to send me weight measurements weekly on Mondays 6. Plan for endoscopy this to assess the anatomy of her stomach. Risks of bleeding or perforation were discussed with the patient and she is in agreement with the plan
== END 2023-10-17 10:30 | disposition home or self-care (01) ==
LOC: HO.HBS 08:02
PROVIDERS: PCP Internal Medicine Geriatric Medicine; Visit Provider Surgery
DX: E66.09 Other obesity due to excess calories (principal); Z68.32 Body mass index [BMI] 32.0-32.9, adult
CPT/HCPCS: 99213

== ENCOUNTER → 2023-10-17 08:02 | Outpatient (BNVA) | payer MEDICAID, SELFPAY | PROVIDERS: PCP Internal Medicine Geriatric Medicine; Visit Provider Surgery ==

== ENCOUNTER 2023-10-20 08:21 | Day surgery (SDC) | payer MEDICAID, SELFPAY ==
--- NOTE | 2023-10-18 14:43 | HO.ANESPROP2 ---
Documented by User: Edith Willson NP 10/18/23 14:46 HPI - Anesthesia Eval Consult details Narrative: 38yo F for Upper Endoscopy PMFSH Active Problems Active Problems: All Active Problems Major depressive disorder, recurrent, moderate (Acute) IBS (irritable bowel syndrome) (Acute) Migraines (Acute) BMI 35.0-35.9,adult (Acute) Obesity (Acute) Encounter for routine checking of intrauterine contraceptive device (IUD) (Acute) Radiculitis of left cervical region (Acute) Brachial plexitis (Acute) Encounter for IUD insertion (Acute) Osteoarthritis of left AC (acromioclavicular) joint (Acute) Primary dysmenorrhea (Acute) Hx of tubal ligation (Acute) Cervical cancer screening (Acute) Well woman exam with routine gynecological exam (Acute) Palpitations (Acute) Chest discomfort (Acute) Painful arc syndrome of left shoulder (Acute) Uncontrolled hypertension (Acute) Acid reflux (Acute) Chronic abdominal pain (Acute) Chronic constipation (Acute) Hypertension (Acute) Past Medical History Medical History IBS (irritable bowel syndrome) Migraines BMI 35.0-35.9,adult Obesity Hypertension Family History Family History Father No problems noted. Mother Thyroid condition Surgical History Surgical History Hx of tubal ligation Social History Social History Household Members: Children Are you a primary workforce investment act career manager to a significant other at home: No Do you presently have visiting nurse or other home services: No Alcohol intake: current Alcohol intake frequency: holidays/special occasions only Patient Tobacco Use Status: Never used Tobacco Have you been hit, kicked, punched, or otherwise hurt by someone within the past year? 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 Allergies Allergy/AdvReac Type Severity Reaction Status Date / Time No Known Allergies Allergy Verified 08/26/23 10:14 Home Medications ?Medication ?Instructions ?Recorded ?Confirmed ?Last Taken ?Type topiramate 50 mg tablet 50 mg PO BID 05/24/22 10/20/23 Unknown History amlodipine 10 mg tablet 10 mg PO DAILY 10/13/22 10/20/23 10/19/23 History celecoxib 200 mg capsule 200 mg PO DAILY 12/03/22 10/20/23 10/19/23 History chlorthalidone 25 mg tablet 12.5 mg PO DAILY 12/03/22 10/20/23 10/19/23 History sumatriptan succinate 50 mg tablet 50 mg PO DAILY 04/15/23 10/20/23 Unknown History levonorgestrel 21 mcg/24 hr (up to intrauterine 06/22/23 09/19/23 Unknown History 8 years) 52 mg intrauterine device (Mirena) amitriptyline 25 mg tablet 75 mg PO BEDTIME 08/24/23 10/20/23 Unknown History Exam Pertinent Lab Results Pertinent Lab Results: Laboratory Tests 09/08/23 10/11/23 09:56 13:35 WBC 4.0 L Hgb 13.0 Hct 37.2 Plt Count 277 D Sodium 135 Potassium 3.4 Chloride 90 L Carbon Dioxide 35 H BUN 13 Creatinine 1.08 Narrative Narrative: EKG 08/2023 Vent. Rate : 088 BPM Atrial Rate : 088 BPM P-R Int : 124 ms QRS Dur : 092 ms QT Int : 354 ms P-R-T Axes : -07 018 004 degrees QTc Int : 428 ms Normal sinus rhythm Normal ECG When compared with ECG of 18-JAN-2022 16:49, No significant change was found Stress ECHO 11/2022 Protocol: DARON Max HR: 169 BPM 92% of Pred: 182 BPM Max BP: 152/078 mmHG Max Work Load: 8.3 METS Exercise stress test exercise 7 min 14 sec of Daron protocol stage 3 reduced speed to 3.1% achieving 92% MPHR,with request to stop due to chest pain, SOB, and fatigue, with 3/10 chest pressure/tightness, mild SOB, without arrythmias, with normotensive response to exercise, without EKG changes. Chest pressure/tightness resolved with rest. Echo images obtained by tech at rest and immedately post peak exercise. Definity contrast used. Test reviewe with Dr. White Exercise stress echocardiogram was reviewed. At rest, there is normal LVEF and wall motion. With peak exercise, there is appropriate augmentation of wall thickening and contractility. There is normal decrease in end-systolic volume. Overall, normal study. Assessment and Plan Assessment Anesthesia Assessment: Chart Reviewed Documented by User: Traci Salinas MD 10/20/23 10:56 [facility] Active Problems Active Problems: All Active Problems Major depressive disorder, recurrent, moderate (Acute) IBS (irritable bowel syndrome) (Acute) Migraines (Acute) BMI 32.2 Obesity (Acute) Encounter for routine checking of intrauterine contraceptive device (IUD) (Acute) Radiculitis of left cervical region (Acute) Brachial plexitis (Acute) Encounter for IUD insertion (Acute) Osteoarthritis of left AC (acromioclavicular) joint (Acute) Primary dysmenorrhea (Acute) Hx of tubal ligation (Acute) Cervical cancer screening (Acute) Well woman exam with routine gynecological exam (Acute) Palpitations (Acute) Chest discomfort (Acute) Painful arc syndrome of left shoulder (Acute) Uncontrolled hypertension (Acute) Acid reflux (Acute) Chronic abdominal pain (Acute) Chronic constipation (Acute) Hypertension (Acute) Past Medical History Medical History IBS (irritable bowel syndrome) Migraines BMI 35.0-35.9,adult Obesity Hypertension Family History Family History Father No problems noted. Mother Thyroid condition Family history of problems with anesthesia: No Surgical History Surgical History Hx of tubal ligation History of Problems with Anesthesia: No Social History Social History Household Members: Children Are you a primary workforce investment act career manager to a significant other at home: No Do you presently have visiting nurse or other home services: No Alcohol intake: current Alcohol intake frequency: holidays/special occasions only Patient Tobacco Use Status: Never used Tobacco Have you been hit, kicked, punched, or otherwise hurt by someone within the past year? 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 Allergies Allergy/AdvReac Type Severity Reaction Status Date / Time No Known Allergies Allergy Verified 08/26/23 10:14 Home Medications ?Medication ?Instructions ?Recorded ?Confirmed ?Last Taken ?Type topiramate 50 mg tablet 50 mg PO BID 05/24/22 10/20/23 Unknown History amlodipine 10 mg tablet 10 mg PO DAILY 10/13/22 10/20/23 10/19/23 History celecoxib 200 mg capsule 200 mg PO DAILY 12/03/22 10/20/23 10/19/23 History chlorthalidone 25 mg tablet 12.5 mg PO DAILY 12/03/22 10/20/23 10/19/23 History sumatriptan succinate 50 mg tablet 50 mg PO DAILY 04/15/23 10/20/23 Unknown History levonorgestrel 21 mcg/24 hr (up to intrauterine 06/22/23 09/19/23 Unknown History 8 years) 52 mg intrauterine device (Mirena) amitriptyline 25 mg tablet 75 mg PO BEDTIME 08/24/23 10/20/23 Unknown History Exam Height,Weight and Vital Signs: Height 5 ft Weight 74.843 kg Vital Signs Temp Pulse Resp BP Pulse Ox O2 Del Method 10/20/23 09:00 97.9 F 102 H 18 129/88 98 Room Air Airway Mallampati Class: II TM Dist: >3cm Neck ROM: Full (Neck pain radiating to Left shoulder ) Loose/Missing/Broken Teeth: No Heart: RRR Lungs: CTAB Assessment and Plan Assessment Anesthesia Assessment: Anesthesia Plan Discussed and Chart Reviewed Final Anesthetic Review Family History of Problems with Anesthesia: No History of Problems with Anesthesia: No NPO: Yes ASA Class: II Final Preanesthetic Review: No Changes in Pt Med Stat, Meds/Allgs Chart Reviewed, Consent Obtained/Reviewed and Anes Risks/Benef Reviewed Patient Risk: Intermediate Procedure Risk: Low Assessment/Block/Sedation in SS: Assess/Block/Sedation-SS Anesthetic Plan Anesthetic Plan: TIVA Disposition: Standard PACU
[2023-10-20 08:52] VITALS: BMI 32.2
[2023-10-20 09:00] VITALS: BP 129/88; PULSE 102; RESP 18; TEMP 36.6; O2SAT 98
[2023-10-20] MEDS: Lactated Ringers 1,000 ML 100 ML IVCONT (09:12)
--- NOTE | 2023-10-20 10:59 | PM.OP ---
Brief Operative Note Date of Service: 10/20/23 Pre-op diagnosis: GERD Post-op diagnosis: same Procedure: PROCEDURE DATE: 10/20/2023 PREOPERATIVE DIAGNOSIS: GERD POSTOPERATIVE DIAGNOSIS: ?Same as above. Normal endoscopy PROCEDURE: [id number] with biopsies Surgeon: Ainsley Morris M.D.. Ph.D. Telephone Information Supervisor: None ? Anesthesia: IV sedation Estimated blood loss: ?Minimal FINDINGS AND PROCEDURE: ? OPERATIVE INDICATIONS: ?The patient is a 38 year old female known to me who is interested in bariatric surgery. The patient has GERD. Based on this information I recommended an upper endoscopy to evaluate the patient's symptoms. Risks and complications of the surgery were discussed with the patient in advance particularly the possibility of perforation or bleeding that may require surgical intervention. The patient understood the risks and was in agreement with the plan. ? PROCEDURE: After informed consent was obtained by the patient, the patient was ?transferred to the Operating Room and was placed in the supine position.? After successful induction of IV sedation, a mouth block was inserted and the patient was placed in the left lateral decubitus position. An upper endoscopy was performed next, the oropharynx and esophagus appeared within the normal limits. There was no hiatal hernia. The z-line was smooth. Two biopsies were obtained from the distal esophagus 2-3 cm proximal to the GE junction and two additional biopsies from the GE junction. The stomach was entered and it appeared to be of normal size. There was no gastritis. There was no stricture or ulcer. A biopsy was obtained from the gastric fundus and the antrum. No significant bleeding was noted from any of the biopsy sites. Retroflexion of the scope revealed a normal GE junction. The scope was then advanced into the duodenum which appeared to be normal as well. At that point the duodenum ?and the stomach were decompressed and the scope was withdrawn from the patient's mouth. The patient extubated and was transferred in stable condition to the Recovery Room for further care. I was present and performed all steps of the procedure. There were no residents to assist with this case. Dandy Morris M.D., Ph.D. Surgeon: Daquan Morris MD Anesthesia: MAC Was an Telephone Information Supervisor used for this Procedure?: No Estimated blood loss (mL): 0 IV fluids (mL): 400 Urine output (mL): 0 (No Watkins to record output) Pathology: other (1) antrum x1, 2) fundus x1, 3) GE junction x2, 4) distal esophagus x2) Condition: stable Disposition: PACU
--- NOTE | 2023-10-20 11:00 | MHC.SHP ---
Pre-Procedural Eval Section A - 24 Hr Update-Section A only Date of Service: 10/20/23 The patient is an INPATIENT: No The patient has been examined within 24 hours of the surgical procedure. The History & Physical has been completed within 30 days and I have reviewed it.: Yes Section B - Complete if H&P > 30 days Chief Complaint: Obesity, unspecified Details of Present Illness: GERD Relevant Family History (Specify if Yes): No Relevant Social History: None Present Medications: None Medical History: No relevant PMH History of Previous Operations: No relevant previous surgery Allergies: Allergies Allergy/AdvReac Type Severity Reaction Status Date / Time No Known Allergies Allergy Verified 08/26/23 10:14 Review of Systems Sugical H&P ROS: Negative: Constitution, Cardiovascular, Respiratory, Neurological, Psychiatric, Hem-Onc, Allergic/Immunologic, Gastrointestinal, Genitourinary, Musculoskeletal, Integumentary, Endocrine and Eyes/Ears/Nose/Throat Exam Surgical H&P Exam: Normal: HEENT, Normal: Heart, Normal: Lungs, Normal: Extremities, Normal: Abdomen, Normal: Skin and Normal: Neurological Plan Diagnosis/Plan: Unchanged (EGD to assess etiology of GERD. Risks of bleeding and perforation were discussed with the patient and she is in agreement with the plan.) I have reviewed the history and physical and performed a pertinent physical examination on my patient. No changes have occurred unless specified. Time Spent With Patient Time: Total time managing care of this patient today ____ minutes.
[2023-10-20 12:16] VITALS: BP 128/88; PULSE 102; RESP 18; TEMP 36.4; O2SAT 100
[2023-10-20 12:21] VITALS: BP 126/86; PULSE 95; RESP 16; O2SAT 100
[2023-10-20 12:26] VITALS: BP 120/93; PULSE 96; RESP 15; O2SAT 100
[2023-10-20 12:31] VITALS: BP 117/82; PULSE 93; RESP 14; O2SAT 100
[2023-10-20 12:45] VITALS: BP 128/86; PULSE 86; RESP 18; TEMP 36.6; O2SAT 100
== END 2023-10-20 12:55 | disposition home or self-care (01) ==
PROVIDERS: PCP Internal Medicine Geriatric Medicine; Visit Provider Surgery
PROC: 0DJ08ZZ Inspection of Upper Intestinal Tract, Via Natural or Artificial Opening Endoscopic (ICD-10-PCS; CPT 43235; principal; 2023-10-20 11:10)
DX: K21.9 Gastro-esophageal reflux disease without esophagitis (principal); E66.01 Morbid (severe) obesity due to excess calories; Z68.35 Body mass index [BMI] 35.0-35.9, adult; R14.0 Abdominal distension (gaseous); K58.9 Irritable bowel syndrome, unspecified; I10 Essential (primary) hypertension; G43.909 Migraine, unspecified, not intractable, without status migrainosus; Z79.899 Other long term (current) drug therapy; Z98.51 Tubal ligation status
CPT/HCPCS: 43239; 88305; 88313; 88342; J1596; J2704

== ENCOUNTER → 2023-10-20 08:21 | Outpatient (BNV) | payer MEDICAID, SELFPAY | PROVIDERS: PCP Internal Medicine Geriatric Medicine; Visit Provider Surgery | DX: K21.9 Gastro-esophageal reflux disease without esophagitis (principal) | CPT/HCPCS: 43239 ==

== ENCOUNTER 2023-10-28 08:01 | Outpatient (AMB) | payer MEDICAID, SELFPAY ==
--- NOTE | 2023-10-28 09:43 | A.OFFVIS_ITS ---
VS Expanded 10/28/23 09:50 Height 5 ft Weight 164 lb BMI 32.0 Body Fat % 39.8 Body Fat Mass 65. Fat Free Mass 98.8 Visceral Fat Rating 15 Body Water % 41.3 Body Water Mass 67.7 Basal Metabolic Rate/Score 1,334 Intake Visit Reasons: TV Pre Op LSG 11/09/23 *SEE COMMENTS* Allergies No Known Allergies Allergy (Verified 10/28/23 09:43) Medication List - Last Reconciled 10/28/23 by Daquan Morris MD amitriptyline 75 mg PO BEDTIME amlodipine 10 mg PO DAILY bisacodyl (Dulcolax (bisacodyl)) 10 mg SC DAILY PRN celecoxib 200 mg PO DAILY chlorthalidone 12.5 mg PO DAILY cyclobenzaprine 10 mg PO TID PRN dicyclomine 10 mg PO TID docusate sodium (Colace) 200 mg (2 x 100 mg) PO BEDTIME ibuprofen 600 mg PO TID PRN levonorgestrel (Mirena) intrauterine lidocaine 5% (Lidoderm) 1 patch topical DAILY losartan 100 mg (2 x 50 mg) PO DAILY methylcellulose (laxative) (Citrucel) 500 mg PO TID ondansetron 4 mg PO Q8H PRN ondansetron 4 mg PO Q12H pantoprazole 40 mg PO DAILY polyethylene glycol 3350 (Miralax) 17 grams PO DAILY PRN polyethylene glycol 3350 17 grams PO DAILY sucralfate 1 g PO QIDACHS 21 days sucralfate 10 mL PO BID sumatriptan succinate 50 mg PO DAILY topiramate 50 mg PO BID HPI HPI TV Pre Op LSG 11/09/23 *SEE COMMENTS*: Details: Start time: 9.35am, End time: 10.02 ?I spent 22 minutes speaking with the patient on the phone plus an additional 5 minutes reviewing and updating records for a total of 27 minutes HPI Comments Details: Overall weight loss: 16.8lbs, or 9.3% TBWL Is doing 5 premade Premier protein shakes per day (1/2 bottle mixed in 4oz almond milk) PFSH Medical History IBS (irritable bowel syndrome) Migraines BMI 35.0-35.9,adult Obesity Hypertension Surgical History Hx of tubal ligation Family History Father No problems noted. 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 Female Reproductive History Menstrual Age of Menarche: 11 Telehealth Telehealth Telehealth Platform: Telephone Location of provider rendering services: practice address Location of patient: address on file Patient Identification confirmed using: Name, : Yes Telehealth method: voice only Patient verbally consented to treatment: Yes Patient verbally consented to billing insurance company: Yes Patient informed of any privacy concerns related to visit: Yes Minutes spent on Phone/Video with Pt.: 27 Assessment & Plan Assessment & Plan (1) Obesity: Code(s): E66.9 - Obesity, unspecified Category: Medical Qualifiers: Obesity type: due to excess calories Obesity classification: adult class 2 (BMI 35 - 39.9) Serious obesity comorbidity presence: with serious comorbidity Body mass index: BMI 35.0-35.9 Qualified Code(s): E66.01 - Morbid (severe) obesity due to excess calories; Z68.35 - Body mass index [BMI] 35.0- 35.9, adult Plan: 1. Plan for lap sleeve gastrectomy including upper GI endoscopy. All tests has been completed and reviewed and the patient is cleared for the surgery. ?If diaphragmatic or ventral hernias are present at time of surgery, these will be repaired laparoscopically as well. Risks and complications were discussed in detail including possible conversion to an open procedure, anastomotic leak, bleeding requiring transfusion, small bowel obstruction, , DVT and pulmonary embolism, cardiac, or pulmonary complications, as termite exterminator helper complications such as anastomotic ulcer, insufficient weight loss and vitamin deficiencies. I emphasized the importance of close follow-up, adherence to instructions and good communication. So far she has proven to be an excellent communicator and very compliant with all our directions accomplishing a great weight loss. I believe that she is an excellent candidate and she is ready. 2. Preop prescriptions were provided and explained the purpose of each one. Need to be purchased preop. Start Pantoprazole now as you get it from the pharmacy, 1 pill per day. Sucralfate and Zofran are for after surgery as needed. 3. Bowel prep: please do 7 packets ?of Miralax mixing each one with a an 8oz glass of water, crystal light, gatorade zero, or propel ?on 11/07/23 and the same amount on 11/08/23. The Miralax you begin with one packet at a time in 8oz water or crystal light, gatorade zero, or propel ?as early in the day as you can and you do them back to back until you finish them. Continue the protein shakes during ?the bowel prep. 4. Needs to purchase 1oz medicine cups . 5. Needs to purchase Children's liquid Tylenol for postop pain control. 6. She needs to stop as of tomorrow the Celexocib, Cyclobenzaprine and Iburpofen. Avoid aspirin, motrin, Advil, Aleve, Ibuprofen, Naproxyn. Tylenol is OK. 7. She needs to purchase the Celebrate 4:1 protein shakes from the hospital's gift shop. 8. Will do basic preop blood work-up any day between Tuesday10/31/23 and Tuesday11/05/23 fasting for 12 hours and is scheduled to see the Anesthesiologist prior to the day of surgery. 9. Importance of adherence to postop folllow-up and recommendations was underscored and she understands that. 10. Continue to avoid food and bars and continue with 6 Atkins premade protein shakes (1/2 bottle each mixed in 4oz almond milk) at 6am-8am, 9am-11am, 12pm- 2pm, 3pm-5pm, 6pm-8pm and at 9pm-11pm 11. No soups, broths or V8 12. The patient's?medical?history has been reviewed and they are considered low risk for post op DVT and therefore DVT prophylaxis is not considered necessary. Travel after surgery was reviewed. The patient has not disclosed any travel plans during the first 30 days after surgery and they have been advised that within the first 30 days after surgery any bus, plane, train or car travel over 2 hours in duration is contraindicated due to the possibility of developing blood clots from immobility. Any travel, needs to include periods of ambulation of 10 minutes in duration every 2 hours.? Patient was instructed to discuss any plans for travel during this period with their bariatric surgeon.? 13. Please measure as of tomorrow your blood pressure daily in the morning. If blood pressure is: Below 120/70: do not take the Amlodipine, Losartan, or Chlorthallidone 121/71 to 130/80: Take the Chlorthalidone only 131/81 to 140/90: Take the Chlorthalidone and Amlodipine Over 141/91: take the Amlodipine, Losartan, or Chlorthallidone 14. Please take at the day of surgery the following medications: Only the Amlodipine, Losartan, or Chlorthallidone based on the parameters explained in #13 15. Stop any control pills and don't use them for one month after surgery 16. Absolutely no smoking or vaping, or marijuana until the surgery and for at least the first 4 weeks. Only nicotine patches are allowed. 17. Send me weight measurements on Tuesday10/31/23 and then on Tuesday, the day of surgery before you go to the hospital. 18. Avoid any steroids by mouth for any reason. Let me know if someone prescribes them to you 19. These instructions supersede anything else you read in the handbook, anything you watched in videos or classes or you were told by any other provider. If there is any conflict, you follow the above instructions and nothing else. Orders: Orders Hemoglobin A1c Today E66.01 - Morbid (severe) obesity due to excess calories, I10 - Essential (primary) hypertension, K21.9 - Gastro-esophageal reflux disease without esophagitis, Z68.35 - Body mass index [BMI] 35.0-35.9, adult Type and Screen Today E66.01 - Morbid (severe) obesity due to excess calories, I10 - Essential (primary) hypertension, K21.9 - Gastro-esophageal reflux disease without esophagitis, Z68.35 - Body mass index [BMI] 35.0-35.9, adult Comprehensive Met. Panel Today E66.01 - Morbid (severe) obesity due to excess calories, I10 - Essential (primary) hypertension, K21.9 - Gastro-esophageal reflux disease without esophagitis, Z68.35 - Body mass index [BMI] 35.0-35.9, ad ult TSH reflex Free T4 Today E66.01 - Morbid (severe) obesity due to excess calories, I10 - Essential (primary) hypertension, K21.9 - Gastro-esophageal reflux disease without esophagitis, Z68.35 - Body mass index [BMI] 35.0-35.9, adult Prothrombin Time INR Today E66.01 - Morbid (severe) obesity due to excess calories, I10 - Essential (primary) hypertension, K21.9 - Gastro-esophageal reflux disease without esophagitis, Z68.35 - Body mass index [BMI] 35.0-35.9, adult Lipid Panel Today E66.01 - Morbid (severe) obesity due to excess calories, I10 - Essential (primary) hypertension, K21.9 - Gastro-esophageal reflux disease without esophagitis, Z68.35 - Body mass index [BMI] 35.0-35.9, adult Partial Thromboplastin Time Today E66.01 - Morbid (severe) obesity due to excess calories, I10 - Essential (primary) hypertension, K21.9 - Gastro- esophageal reflux disease without esophagitis, Z68.35 - Body mass index [BMI] 35.0-35.9, adult C Reactive Protein Today E66.01 - Morbid (severe) obesity due to excess calories, I10 - Essential (primary) hypertension, K21.9 - Gastro-esophageal reflux disease without esophagitis, Z68.35 - Body mass index [BMI] 35.0-35.9, adult Complete Blood Count Auto Diff Today E66.01 - Morbid (severe) obesity due to excess calories, I10 - Essential (primary) hypertension, K21.9 - Gastro- esophageal reflux disease without esophagitis, Z68.35 - Body mass index [BMI] 35.0-35.9, adult Insulin Today E66.01 - Morbid (severe) obesity due to excess calories, I10 - Essential (primary) hypertension, K21.9 - Gastro-esophageal reflux disease without esophagitis, Z68.35 - Body mass index [BMI] 35.0-35.9, adult Medications: New pantoprazole 40 mg PO DAILY 90 tabs 0RF K21.9 - Gastro-esophageal reflux disease without esophagitis polyethylene glycol 3350 Mix each measuring cup with 8oz of water, Crystal light, or Gatorade zero, or Propel and do 7 measuring cups on 11/07/23 and another 7 measuring cups on 11/08/23 17 grams PO DAILY 238 grams 0RF Z01.818 - Encounter for other preprocedural examination sucralfate 10 mL PO BID 600 mL 2RF K21.9 - Gastro-esophageal reflux disease without esophagitis ondansetron Only take one every 12 hours as needed if you have nausea 4 mg PO Q12H 20 tabs 0RF nausea and vomiting R11.0 - Nausea
[2023-10-28 09:50] VITALS: BMI 32.0
== END 2023-10-28 10:03 | disposition home or self-care (01) ==
LOC: HO.HBS 08:01
PROVIDERS: PCP Internal Medicine Geriatric Medicine; Visit Provider Surgery
DX: E66.01 Morbid (severe) obesity due to excess calories (principal); Z68.35 Body mass index [BMI] 35.0-35.9, adult
CPT/HCPCS: 99499

== ENCOUNTER → 2023-10-28 08:01 | Outpatient (BNVA) | payer MEDICAID, SELFPAY | PROVIDERS: PCP Internal Medicine Geriatric Medicine; Visit Provider Surgery ==

== ENCOUNTER 2023-11-02 08:31 | Outpatient (REF) | payer MEDICAID, SELFPAY ==
--- NOTE | ~2023-11-02 | FL_ITS ---
EXAMINATION: XR FLUOROSCOPY UPPER GI WITH AIR CLINICAL INFORMATION: Preoperative evaluation prior to surgery COMPARISON: None TECHNIQUE: Fluoroscopic air contrast upper GI examination was performed utilizing standard techniques with thin and thick barium and effervescent granules. Numerous spot images were obtained. FINDINGS: Dual and single contrast images of the esophagus demonstrate normal caliber, contour, and mucosal pattern. No evidence of stricture, mass, or ulcerations identified. Esophageal peristalsis was normal. No evidence of hiatus hernia identified. No significant gastroesophageal reflux was seen during the course of the examination and on reflux views. Dual contrast and single contrast images of the stomach demonstrated a normal contour. The areae gastrica have a prominent appearance suggestive of gastritis. No masses or ulcerations are seen. Contrast freely passed into the gastric antrum and duodenal bulb without delay. Single and air-contrast images of the duodenal bulb demonstrate no abnormality. The duodenal sweep has a normal appearance, course, and mucosal fold appearance. The imaged proximal jejunum has a normal fold pattern and caliber. FLUOROSCOPY TIME: 3 minutes 41 seconds Number of Spot Images: 10 Number of Cine: 13 DOSE AREA PRODUCT: 2565 uGy-m2 (microgray-meter squared) FL/FL upper GI w air IMPRESSION: 1. Prominent appearance of the areae gastricae, suggestive of gastritis. Otherwise, unremarkable upper GI series. This procedure was performed by Sánchez Zavaleta PA-C, and supervised by Dr. Hale Electronically signed by: Edgar Hale MD 11/02/2023 04:50 PM EDT
[2023-11-02 09:32] LABS: MANUAL DIFF FLAG NO
[2023-11-02 10:36] LABS: Prothrombin Time 12.6 SEC (11.1-13.3)
[2023-11-02 10:38] LABS: Partial Thromboplastin Time 30.7 SEC (26.0-36.8)
[2023-11-02 10:49] LABS: Basophils Absolute Auto 0.1 X10*3/uL (0.0-0.2); Basophils Percent Auto 1.3 % (0-2); Eosinophils Absolute Auto 0.1 X10*3/uL (0.0-0.4); Eosinophils Percent Auto 2.1 % (0-4); Hematocrit 41.9 % (37.0-47.0); Hemoglobin 14.9 g/dl (12.0-16.0); Imm Gran Abs Auto 0.01 X10*3/uL (0.00-0.03); Imm Gran Pct Auto 0.3 % (0.0-0.4); Lymphocytes Absolute Auto 1.5 X10*3/uL (1.2-4.9); Lymphocytes Percent Auto 39.1 % (20-40); Mean Corpuscular HGB Conc 35.6 g/dl (31.0-35.0); Mean Corpuscular Hemoglobin 33.3 pg (27.0-33.0); Mean Corpuscular Volume 93.5 fL (80.0-98.0); Mean Platelet Volume 10.3 fL (9.4-12.3); Monocytes Absolute Auto 0.4 X10*3/uL (0.1-1.2); Monocytes Percent Auto 9.4 % (2-11); Neutrophils Absolute Auto 1.8 x10*3/uL (2.0-8.3); Neutrophils Percent Auto 47.8 % (45-73); Platelet Count 336 X10*3/uL (160-400); Red Blood Count 4.48 X10*6/uL (4.20-5.50); White Blood Count 3.8 X10*3/uL (4.8-10.8)
[2023-11-02 10:57] LABS: Estimated Average Glucose 111 mg/dL; Hemoglobin A1c % 5.5 % (<6.0)
[2023-11-02 11:21] LABS: Alanine Aminotransferase 73 U/L (0-31); Alkaline Phosphatase 55 U/L (39-117); Anion Gap 17 (12-20); Aspartate Amino Transferase 32 U/L (5-31); Bilirubin Total 0.8 mg/dL (0.0-1.0); Blood Urea Nitrogen 11 mg/dL (9-16); C Reactive Protein 1.32 mg/dL (< or = 0.50); Calcium 10.8 mg/dL (8.4-10.2); Carbon Dioxide 29 mmol/L (22-29); Chloride 99 mmol/L (96-108); Cholesterol 126 mg/dL (<200); Estimated Glomerular Filt Rate > 60; Glucose Random 129 mg/dL (60-115); HDL Cholesterol 39 mg/dL (>40); LDL Cholesterol Calculated 74 mg/dL (<100); Potassium 3.6 mmol/L (3.3-5.1); Sodium 141 mmol/L (135-145); Total Protein 8.6 g/dL (6.5-8.0); Triglycerides 68 mg/dL (<150)
[2023-11-02 11:29] LABS: Insulin 16 uU/mL (2-29); TSH reflex Free T4 2.04 uIU/mL (0.32-4.0)
== END 2023-11-02 08:32 | disposition home or self-care (01) ==
LOC: HO.XRAY 08:31
PROVIDERS: PCP Internal Medicine Geriatric Medicine; Visit Provider Surgery
DX: E66.01 Morbid (severe) obesity due to excess calories (principal); Z68.35 Body mass index [BMI] 35.0-35.9, adult; K21.9 Gastro-esophageal reflux disease without esophagitis; I10 Essential (primary) hypertension; E66.9 Obesity, unspecified
CPT/HCPCS: 36415; 74246; 80053; 80061; 83036; 83525; 84443; 85025; 85610; 85730; 86140; 86850; 86900; 86901

== ENCOUNTER → 2023-11-02 08:34 | Outpatient (BNV) | payer MEDICAID, SELFPAY | PROVIDERS: PCP Internal Medicine Geriatric Medicine; Visit Provider Radiology Diagnostic Radiology | DX: Z01.818 Encounter for other preprocedural examination (principal); E66.9 Obesity, unspecified | CPT/HCPCS: 74246 ==

== ENCOUNTER 2023-11-02 12:23 | Outpatient (REF) | payer MEDICAID, SELFPAY | END 2023-11-02 12:24 | disposition home or self-care (01) | LOC: HO.HHCL 12:23 | PROVIDERS: Visit Provider Internal Medicine Geriatric Medicine | DX: I10 Essential (primary) hypertension (principal) | CPT/HCPCS: 36415; 80048 ==

== ENCOUNTER 2023-11-08 06:48 | Inpatient (IN) | payer MEDICAID, SELFPAY ==
[2023-11-02 08:35] VITALS: BMI 32.0
--- NOTE | 2023-11-03 13:28 | HO.ANESPROP2 ---
Documented by User: Edith Willson NP 11/03/23 13:31 HPI - Anesthesia Eval Consult details Narrative: 38yo F for Gastrectomy Sleeve- EGD, possible diaphragmatic hernia, possible ventral hernia, possible open PMFSH Active Problems Active Problems: All Active Problems Major depressive disorder, recurrent, moderate (Acute) Encounter for routine checking of intrauterine contraceptive device (IUD) (Acute) Radiculitis of left cervical region (Acute) Brachial plexitis (Acute) Encounter for IUD insertion (Acute) Osteoarthritis of left AC (acromioclavicular) joint (Acute) Primary dysmenorrhea (Acute) Cervical cancer screening (Acute) Well woman exam with routine gynecological exam (Acute) Palpitations (Acute) Chest discomfort (Acute) Painful arc syndrome of left shoulder (Acute) Uncontrolled hypertension (Acute) Acid reflux (Acute) Chronic abdominal pain (Acute) Chronic constipation (Acute) IBS (irritable bowel syndrome) (Acute) Migraines (Acute) BMI 35.0-35.9,adult (Acute) Obesity (Acute) Hx of tubal ligation (Acute) Hypertension (Acute) Past Medical History Medical History Palpitations Osteoarthritis GERD (gastroesophageal reflux disease) IBS (irritable bowel syndrome) Migraines BMI 35.0-35.9,adult Obesity Hypertension Family History Family History Father No problems noted. Mother Thyroid condition Family history of problems with anesthesia: No Surgical History Surgical History History of esophagogastroduodenoscopy (EGD) Hx of tubal ligation History of Problems with Anesthesia: No Social History Social History Household Members: Children Household Members Other:: minor children Are you a primary residential care facility manager to a significant other at home: Yes (minor children) Do you presently have visiting nurse or other home services: No Alcohol intake: current Alcohol intake frequency: holidays/special occasions only Patient Tobacco Use Status: Never used Tobacco Use of substances other than those prescribed or required for medical reasons: No Are you DNR?: No Advance Directives: No (mother is primary contact) Advance Directives Information Provided: Yes Advance Directives on File: No Recently lost weight without trying: No Eating poorly because of decreased appetite: No Nutrition Risks: No Nutritional Risk Patient : No (has IUD/spots occasionally-no full periods) FDLMP: 11/01/23-spotting : No Poor oral hygiene: No Current occupational status: employed 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 Allergies Allergy/AdvReac Type Severity Reaction Status Date / Time No Known Allergies Allergy Verified 11/08/23 07:09 Home Medications ?Medication ?Instructions ?Recorded ?Confirmed ?Last Taken ?Type topiramate 50 mg tablet 50 mg PO DAILY 05/24/22 10/28/23 Unknown History amlodipine 10 mg tablet 10 mg PO DAILY 10/13/22 11/01/23 11/05/23 History celecoxib 200 mg capsule 200 mg PO DAILY PRN Pain 12/03/22 11/01/23 10/19/23 History chlorthalidone 25 mg tablet 12.5 mg PO DAILY 12/03/22 11/01/23 11/05/23 History sumatriptan succinate 50 mg tablet 50 mg PO DAILY 04/15/23 11/01/23 Unknown History levonorgestrel 21 mcg/24 hr (up to 1 device intrauterine ONCE 06/22/23 11/01/23 Unknown History 8 years) 52 mg intrauterine device (Mirena) amitriptyline 25 mg tablet 75 mg PO BEDTIME 08/24/23 11/01/23 11/03/23 History albuterol sulfate 90 mcg/actuation 2 puff inhalation Q6H PRN wheezing 11/08/23 Unknown History aerosol inhaler (Ventolin HFA) fluticasone furoate 100 1 inh inhalation DAILY 11/08/23 Unknown History mcg/actuation blister powder for inhalation (Arnuity Ellipta) spironolactone 25 mg tablet PO 11/08/23 Unknown History Exam Height,Weight and Vital Signs: Height 5 ft Weight 74.389 kg Pertinent Lab Results Pertinent Lab Results: Laboratory Tests 11/02/23 09:21 Blood Type A Positive Antibody Screen NEGATIVE Laboratory Tests 11/02/23 09:30 WBC 3.8 L Hgb 14.9 Hct 41.9 Plt Count 336 Sodium 141 Potassium 3.6 Chloride 99 Carbon Dioxide 29 BUN 11 Creatinine 0.92 Narrative Narrative: EKG 08/2023 Vent. Rate : 088 BPM Atrial Rate : 088 BPM P-R Int : 124 ms QRS Dur : 092 ms QT Int : 354 ms P-R-T Axes : -07 018 004 degrees QTc Int : 428 ms Normal sinus rhythm Normal ECG When compared with ECG of 18-JAN-2022 16:49, No significant change was found Assessment and Plan Assessment Anesthesia Assessment: Chart Reviewed Final Anesthetic Review Family History of Problems with Anesthesia: No History of Problems with Anesthesia: No Documented by User: Traci Salinas MD 11/08/23 10:22 HPI - Anesthesia Eval Consult details Narrative: 38yo F for EGD, Laparoscopic Sleeve Gastrectomy, possible diaphragmatic hernia repair, possible ventral hernia repair, possible open PMFSH Active Problems Active Problems: All Active Problems Major depressive disorder, recurrent, moderate (Acute) Encounter for routine checking of intrauterine contraceptive device (IUD) (Acute) Radiculitis of left cervical region (Acute) Brachial plexitis (Acute) Encounter for IUD insertion (Acute) Osteoarthritis of left AC (acromioclavicular) joint (Acute) Primary dysmenorrhea (Acute) Cervical cancer screening (Acute) Well woman exam with routine gynecological exam (Acute) Palpitations (Acute) Chest discomfort (Acute) Painful arc syndrome of left shoulder (Acute) Uncontrolled hypertension (Acute) Acid reflux (Acute) Chronic abdominal pain (Acute) Chronic constipation (Acute) IBS (irritable bowel syndrome) (Acute) Migraines (Acute) BMI 32 Obesity (Acute) Hx of tubal ligation (Acute) Hypertension (Acute) Past Medical History Medical History Palpitations Osteoarthritis GERD (gastroesophageal reflux disease) IBS (irritable bowel syndrome) Migraines BMI 35.0-35.9,adult Obesity Hypertension Family History Family History Father No problems noted. Mother Thyroid condition Family history of problems with anesthesia: No Surgical History Surgical History History of esophagogastroduodenoscopy (EGD) Hx of tubal ligation History of Problems with Anesthesia: No Social History Social History Household Members: Children Household Members Other:: minor children Are you a primary residential care facility manager to a significant other at home: Yes (minor children) Do you presently have visiting nurse or other home services: No Alcohol intake: current Alcohol intake frequency: holidays/special occasions only Patient Tobacco Use Status: Never used Tobacco Use of substances other than those prescribed or required for medical reasons: No Are you DNR?: No Advance Directives: No (mother is primary contact) Advance Directives Information Provided: Yes Advance Directives on File: No Recently lost weight without trying: No Eating poorly because of decreased appetite: No Nutrition Risks: No Nutritional Risk Patient : No (has IUD/spots occasionally-no full periods) FDLMP: 11/01/23-spotting : No Poor oral hygiene: No Current occupational status: employed 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 Allergies Allergy/AdvReac Type Severity Reaction Status Date / Time No Known Allergies Allergy Verified 11/08/23 07:09 Home Medications ?Medication ?Instructions ?Recorded ?Confirmed ?Last Taken ?Type topiramate 50 mg tablet 50 mg PO DAILY 05/24/22 10/28/23 Unknown History amlodipine 10 mg tablet 10 mg PO DAILY 10/13/22 11/01/23 11/05/23 History celecoxib 200 mg capsule 200 mg PO DAILY PRN Pain 12/03/22 11/01/23 10/19/23 History chlorthalidone 25 mg tablet 12.5 mg PO DAILY 12/03/22 11/01/23 11/05/23 History sumatriptan succinate 50 mg tablet 50 mg PO DAILY 04/15/23 11/01/23 Unknown History levonorgestrel 21 mcg/24 hr (up to 1 device intrauterine ONCE 06/22/23 11/01/23 Unknown History 8 years) 52 mg intrauterine device (Mirena) amitriptyline 25 mg tablet 75 mg PO BEDTIME 08/24/23 11/01/23 11/03/23 History albuterol sulfate 90 mcg/actuation 2 puff inhalation Q6H PRN wheezing 11/08/23 Unknown History aerosol inhaler (Ventolin HFA) fluticasone furoate 100 1 inh inhalation DAILY 11/08/23 Unknown History mcg/actuation blister powder for inhalation (Arnuity Ellipta) spironolactone 25 mg tablet PO 11/08/23 Unknown History Exam Height,Weight and Vital Signs: Height 5 ft Weight 74.389 kg Vital Signs Temp Pulse Resp BP Pulse Ox O2 Del Method 11/08/23 06:50 98.3 F 114 H 15 129/87 97 Room Air Narrative Narrative: EKG 08/2023 Vent. Rate : 088 BPM Atrial Rate : 088 BPM P-R Int : 124 ms QRS Dur : 092 ms QT Int : 354 ms P-R-T Axes : -07 018 004 degrees QTc Int : 428 ms Normal sinus rhythm Normal ECG When compared with ECG of 18-JAN-2022 16:49, No significant change was found 11/18/22, 12/10/22- Normal echo, stress test, stress echo. EF 60-65% Airway Mallampati Class: II TM Dist: >3cm Neck ROM: Full (Neck pain radiating to Left shoulder ) Loose/Missing/Broken Teeth: No (Denies broken, loose, missing teeth) Heart: RRR Lungs: CTAB Assessment and Plan Assessment Anesthesia Assessment: Anesthesia Plan Discussed and Chart Reviewed Final Anesthetic Review Family History of Problems with Anesthesia: No History of Problems with Anesthesia: No NPO: Yes ASA Class: II Final Preanesthetic Review: No Changes in Pt Med Stat, Meds/Allgs Chart Reviewed, Consent Obtained/Reviewed and Anes Risks/Benef Reviewed Patient Risk: Intermediate Procedure Risk: Intermediate Assessment/Block/Sedation in SS: Assess/Block/Sedation-SS Anesthetic Plan Anesthetic Plan: GA Disposition: Inp. Admit - Standard Bed
[2023-11-08] VITALS (18 sets, daily range): BP systolic 118–142; BP diastolic 78–89; PULSE 100–116; RESP 15–18; TEMP 36.1–36.8; O2SAT 96–100; BMI 32.0
[2023-11-08] MEDS: Aprepitant 32 MG/4.4 ML VIAL IVPUSH (07:02)
[2023-11-08] MEDS: Lactated Ringers 1,000 ML 999 ML IV (07:04)
--- NOTE | 2023-11-08 07:19 | MHC.SHP ---
Pre-Procedural Eval Section A - 24 Hr Update-Section A only Date of Service: 11/08/23 The patient is an INPATIENT: Yes The patient has been examined within 24 hours of the surgical procedure. The History & Physical has been completed within 30 days and I have reviewed it.: Yes Section B - Complete if H&P > 30 days Chief Complaint: Obesity Relevant Family History (Specify if Yes): No Relevant Social History: None Present Medications: None Medical History: No relevant PMH History of Previous Operations: No relevant previous surgery Allergies: Allergies Allergy/AdvReac Type Severity Reaction Status Date / Time No Known Allergies Allergy Verified 11/08/23 07:09 Review of Systems Sugical H&P ROS: Negative: Constitution, Cardiovascular, Respiratory, Neurological, Psychiatric, Hem-Onc, Allergic/Immunologic, Gastrointestinal, Genitourinary, Musculoskeletal, Integumentary, Endocrine and Eyes/Ears/Nose/Throat Exam Surgical H&P Exam: Normal: HEENT, Normal: Heart, Normal: Lungs, Normal: Extremities, Normal: Abdomen, Normal: Skin and Normal: Neurological Plan Diagnosis/Plan: Unchanged I have reviewed the history and physical and performed a pertinent physical examination on my patient. No changes have occurred unless specified. Time Spent With Patient Time: Total time managing care of this patient today ____ minutes.
--- NOTE | 2023-11-08 08:09 | P.BOP_ITS ---
Brief Operative Note Date of Service: 11/08/23 Pre-op diagnosis: Severe obesity with comorbidities (see below) Post-op diagnosis: same Procedure: INITIAL PATIENT BMI ON PRESENTATION AT OUR OFFICE: 35.3 kg/m2 LAST BMI BEFORE SURGERY: 31.9 kg/m2 COMORBIDITIES: GERD, hypertension, migraines, DJD, IBS, constipation, liver steatosis ?The patient presented to the Weight Management Program with significant obesity that was negatively impacting the patient's comorbidities as listed above.? The program is a phased program with a special focus on preoperative medical weight management to promote substantial weight loss and prepare the patients for the second phase of the program: bariatric surgery. The patient participated in an intensive weekly lifestyle ?intervention and exercise program during which the patient ?has lost between the initial office visit and the last preoperative visit 18.6 lbs, or 10.3% of initial actual body weight. It was deemed appropriate for the patient to now have bariatric surgery. In light of the current Covid-19 pandemic and the well documented strong association of obesity and increased risk of worse outcomes if infected with Covid-19 (REFERENCES: https://pubmed.ncbi.nlm.nih.gov/68049180/ ,? https://pubmed.ncbi.nlm.nih.gov/11859349/ ), any delay in undergoing bariatric surgery may lead to the patient's worsening health condition and increased?risk of more severe Covid-19 disease if infected. In addition a recent?study from [facility] published in [facility] on 02/16/2021 ([email or web address]) found that, among patients with obesity, substantial weight loss achieved with surgery was associated with improved outcomes of COVID-19 infection. The findings suggest that obesity can be a modifiable risk factor for the severity of COVID-19 infection. In addition, the patient met the BMI-criteria for bariatric surgery based on the BMI on initial presentation. The patient should not be penalized for achieving such weight loss because ?it is not sustainable long-term without surgical intervention and it was achieved in preparation for bariatric surgery ?under my direction and based on my published research ([email or web address]).[email or web address] and? https://www.soard.org/article/[email or web address](58)05230-X/pdf ) ?that a 10% preope rative weight loss improves long-term weight loss after surgery and reduces perioperative complications.? Insurance carriers such as [facility] have endorsed my recommendations ?and have included in their policies criteria to include a 10% preoperative weight loss requirement. PROCEDURE: Esophago-gastroscopy laparoscopic lysis of adhesions, laparoscopic sleeve gastrectomy and laparoscopic gastropexy INDICATIONS: This is a 38 year-old female who was electively scheduled for laparoscopic, possibly open sleeve gastrectomy. The risks and complications of the procedure were discussed with the patient in advance, particularly the possibility of ; pulmonary embolism; staple line leak; bleeding; GERD; cardiac, pulmonary, or renal complications; as well as long-term problems such as insufficient weight loss, vitamin deficiency, strictures, or ulcers. The patient understood all the risks, and was in agreement to proceed with surgery. DESCRIPTION OF PROCEDURE: After informed consent was obtained from the patient, the patient was given preoperative antibiotics, and was transferred to the operating room. After successful induction of general anesthesia, pneumatic compression devices were placed on both lower extremities. An upper endoscopy was performed next. The oropharynx and esophagus appeared to be within normal limits. There was no diaphragmatic hernia present. The stomach was entered. Then after all fluid and air were suctioned and the stomach was fully decompressed, the scope was withdrawn and secured in the mid esophagus. The patient was then prepped and draped in the usual sterile manner, and abdominal access was established at the right upper quadrant with the Quan technique. A 12 mm blunt port was inserted, and the abdomen was insufflated with CO2 to a pressure of 15 mmHg. Under direct visualization, additional ports were placed, specifically two 5 mm Versi-step ports to the left upper quadrant, and a 5 mm Versi-Step port to the right upper quadrant. 1% lidocaine plain was used to infiltrate all port sites as well as all fascia defects. There were adhesions in the abdomen involving the omentum and the lef tliver lobe. Some of them interfering with our exposure were lysed with the ultrasonic device. Following that, the patient was placed in a steep reverse Trendelenburg position. An additional 5 mm port was placed to the right flank for the Mediflex retractor that was used to retract the left lobe of the liver. The gastro-esophageal fat pad was opened with the ultrasonic device (Thunderbeat, Olympus) and the anterior esophagus and hiatus were exposed. The angle of His was opened with the ultrasonic device the fundus of the stomach from any diaphragmatic and splenic attachments. I then opened the gastrocolic ligament between the transverse colon and the greater curvature of the stomach with the ultrasonic device to enter the lesser sac and facilitate the ligation of the short gastric vessels. I started at a mid-point along the greater curvature and using the Thunderbeat, all short gastric vessels were divided all the way to the angle of His until the left carisa was completely dissected at its entirety. I then divided the gastro-colic ligament distally to a distance of about 3-4 cm proximal to the pylorus. ? The stomach was then divided transversely with one Endo IRIS-45 purple, one IRIS- 60 purple load and three IRIS-60 articulating orange loads using the SIGNIA and AEON stapler and loads. Every effort was made that the gastric sleeve had a tubular shape and an even caliber throughout. Once the sleeve resection was completed, the staple line of the gastric sleeve was reinforced with Hemoclips. The resected stomach was retrieved without difficulty from the Quan port. A gastropexy was then performed in order to prevent postoperative GERD and partial gastric volvulus. Several interrupted 2.0 Surgidac sutures were placed between the sleeve's staple line and the previously divided greater omentum and gastro-colic ligament using the Endo-Stitch device. ?An upper endoscopy was performed. There was no narrowing at the GE junction. The scope was easily advanced all the way to the pylorus which was clearly visualized. There was no narrowing anywhere and the sleeve's caliber was even throughout. The sleeve's staple line was inspected and there was no evidence of ischemia, bleeding or dehiscence. At that point the gastroscope was withdrawn from the patient?s mouth while we were decompressing the bowel and the stomach from any remaining air. I looked into the lesser sac to see how the sleeve was situating and it was situating well. There was no bleeding from the staple line, spleen, or short gastric vessels. The Mediflex retractor was removed, and the undersurface of the liver was inspected and there was no bleeding. The patient was placed in supine position. I closed the fascial defect of the 12 mm port site with a figure of eight #1 Polysorb suture. Then 30cc Ropivacaine plain with 10 mg of Dexamethasone were used to infiltrate the fascial closure as well as all skin incisions. At this point, the abdomen was deflated, all ports were removed under direct vision, and no bleeding was noted from any of the port sites. The skin incisions were irrigated with saline and were closed with 4-0 absorbable monofilament sutures. Steri-Strips and OpSites were used to cover all incisions. The patient was e xtubated and was transferred in stable condition to the recovery room for further care. I was present and performed all zurita parts of the procedure. Shawn Cruz was the nurse's assistant. There were no residents to assist with this case. Danyd Morris MD, PhD, FACS Surgeon: Daquan Morris MD Was an Cigar Head Perforator used for this Procedure?: No Estimated blood loss (mL): 10 IV fluids (mL): 1,800 Urine output (mL): 0 (No Watkins to record output) Pathology: other (Stomach) Condition: stable Disposition: PACU
--- NOTE | 2023-11-08 08:11 | PM.PNGS ---
Subjective Subjective Date of Service: 11/09/23 Interval history: Feels well. Mild incisional pain. She is tolerating phase 1 bariatric diet Physical Exam Vital Signs: Vital Signs: Last Vital Signs Temp 98.3 F 11/08/23 06:50 Pulse 114 H 11/08/23 06:50 Resp 15 11/08/23 06:50 BP 129/87 11/08/23 06:50 Pulse Ox 97 11/08/23 06:50 O2 Del Method Room Air 11/08/23 06:50 BMI result Body Mass Index 32.0 GI: Inspection: Yes normal to inspection, Yes incision (clean, dry and intact) and Yes obesity Palpation (GI): Soft to palpation Extrem: Right lower extremity: normal to inspection (no calf tenderness) Left lower extremity: normal to inspection (no calf tenderness) Objective Data Active Medications Lactated Ringer's (Lr) 1,000 mls @ 999 mls/hr IV .Q1H1M DAMARI Stop: 11/08/23 09:00 Last Admin: 11/08/23 07:04 Dose: 999 mls/hr Documented By: ANAMARIA Lactated Ringer's (Lr) 1,000 mls @ 100 mls/hr IVCONT .Q10H [facility] Labs 11/09/23 05:32 11/09/23 05:32 Labs: Laboratory Results - last 24 hr 11/02/23 09:21 Blood Type A Positive Antibody Screen NEGATIVE Procedures Date of Service Date of Service: 11/09/23 Progress Note: A&P Assessment and plan (1) Obesity: Status: Acute Assessment and Plan: s/p laparoscopic sleeve gastrectomy, lysis of adhesions and gastropexy Doing well Will check am labs and if OK the patient will be discharged home later today (2) BMI 31.0-31.9,adult: Status: Acute (3) Hypertension: Status: Acute (4) Migraines: Status: Acute (5) IBS (irritable bowel syndrome): Status: Acute (6) Chronic constipation: Status: Acute (7) Osteoarthritis: Status: Acute (8) Steatosis, liver: Status: Acute (9) S/P laparoscopic sleeve gastrectomy: Status: Acute (10) Intra-abdominal adhesions: Status: Acute (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 Quality Stroke Does the patient have a stroke diagnosis?: No VTE Prior VTE?: No VTE Risk Level:: Surgical - moderate VTE Device Contraindication: N/A - Device Ordered VTE Drug Contraindication: Treatment Not Indicated
[2023-11-08] MEDS: Lactated Ringers 1,000 ML 100 ML IVCONT ×2 (08:12→12:15)
--- NOTE | 2023-11-08 10:53 | PM.DS ---
DS: Providers Provider Date of Service: 11/09/23 Date of admission: 11/08/23 06:48 Primary care physician: Ulises Mcmillan MD DS: Diagnosis Discharge Diagnosis (1) Obesity: Status: Acute (2) BMI 31.0-31.9,adult: Status: Acute (3) Hypertension: Status: Acute (4) Migraines: Status: Acute (5) IBS (irritable bowel syndrome): Status: Acute (6) Chronic constipation: Status: Acute (7) Osteoarthritis: Status: Acute (8) Steatosis, liver: Status: Acute DS: Summary Hospital Course Hospital Course: ADMITTING DIAGNOSIS: obesity, depression, anxiety, gerd ? DISCHARGE DIAGNOSIS: same, s/p laparoscopic sleeve gastrectomy ? PAST SURGICAL HISTORY: tubal ligation ? PROCEDURE: upper endoscopy, laparoscopic sleeve gastrectomy ? DISCHARGE SUMMARY: ? History of Present Illness: ? The patient is a?38 year-old woman with a BMI of?35.2 kg/m2 and associated co-morbidities as described above. The patient had extensive work-up,lost?17.4 lbs preoperatively and was electively scheduled for laparoscopic, possible open sleeve gastrectomy and gastropexy. Risks and complications of the surgery were discussed with the patient in advance, particularly the possibility of , pulmonary embolism, anastomotic leak, bleeding, bowel injury, GERD, cardiac, renal or pulmonary complications. The patient understood all the risks and was in agreement with the surgical plan. ? Hospital Course: ? The patient underwent an uneventful laparoscopic sleeve gastrectomy with gastropexy on the day of admission. Postoperatively, the patient was transferred to the surgical floor. The patient received IV Acetaminophen and IV dilaudid for pain control. Patient was started on bariatric phase 1 diet POD #0. On postoperative day one, the patient was feeling well without nausea, vomiting, fevers, or tachycardia. The patient had some mild incisional pain and the abdomen was soft. ? On the morning of postoperative day one, the patient was continued on 1 ounce of water or ice every half hour. During the day, the patient did fairly well, having some incisional pain, but able to ambulate adequately and to tolerate liquids well. ? Since the patient is doing well, we decided that the patient was ready to be discharged. The patient was given instructions to follow-up with me next week and to call my office for any fever over 101, persistent abdominal pain, nausea, vomiting, GERD, symptoms of DVT such as calf tenderness, or leg swelling, or pulmonary embolism such as chest pain or shortness of breath. The patient was also instructed to drink 40-60 ounces of liquids per day using the 1-ounce cups. The patient had been given prescriptions for Tylenol for pain, Zofran prn for nausea, and pantoprazole and carafate previously. The patient was encouraged to ambulate and use the incentive spirometer. The patient was allowed to shower, but no baths, and encouraged to stay active at home. All of these instructions were given to the patient personally. All questions were answered and the patient understood all instructions, the instructions were also given to the patient in print. Time Attestation Total time managing care of this patient today: 25 mintues. Discharge Coordination Time (in mins): 25 Quality: Safe Use of Opioids Does Pt have an Active Cancer Diagnosis on the Problem List?: No Quality: Stroke Does the patient have a stroke diagnosis?: No Physical Exam Vital Signs: Vital Signs: Last Vital Signs Temp 97.8 F 11/08/23 10:45 Pulse 114 H 11/08/23 10:45 Resp 16 11/08/23 10:45 BP 132/84 11/08/23 10:45 Pulse Ox 100 11/08/23 10:45 O2 Del Method Nasal Cannula 11/08/23 10:45 O2 Flow Rate 2 11/08/23 10:45 BMI result Body Mass Index 32.0 DS: Data Data Completed and Pending Pending studies at discharge: Pending at discharge 11/08/23 09:55 Surgical [PTH] Routine Labs on day of discharge: Laboratory Results - last 24 hr 11/02/23 09:21 Blood Type A Positive Antibody Screen NEGATIVE Discharge Plan Discharge Anticipated Discharge Date/Time: 11/09/23 10:00 Patient Disposition: Home, Self-Care Discharge Diagnosis: s/p laparoscopic sleeve gastrectomy Referrals: Name,MD Ulises [Primary Care Provider] - 1 Week Discharge Medications: Continued losartan 50 mg tablet 100 mg PO DAILY Qty: 30 5RF sucralfate 100 mg/mL suspension 10 ml PO BID Qty: 600 2RF ondansetron 4 mg tablet,disintegrating 4 mg PO Q8H PRN (Reason: nausea and vomiting) Qty: 10 0RF lidocaine [Lidoderm] 5 % adhesive patch,medicated 1 patch topical DAILY Qty: 30 0RF Rx Instructions: leave on most painful area for up to 12 hrs Arnuity Ellipta 100 mcg/actuation blister with device 1 inh INHALATION DAILY spironolactone 25 mg tablet 12.5 mg PO DAILY albuterol sulfate [Ventolin HFA] 90 mcg/actuation HFA aerosol inhaler 2 puff inhalation Q6H PRN (Reason: wheezing) pantoprazole 40 mg tablet,delayed release (DR/EC) 40 mg PO DAILY@0630 acetaminophen [Tylenol Extra Strength] 500 mg Tablet 1,000 mg PO Q6H PRN (Reason: Pain) topiramate 50 mg tablet 50 mg PO DAILY docusate sodium [Colace] 100 mg capsule 200 mg PO BEDTIME Qty: 60 5RF bisacodyl [Dulcolax (bisacodyl)] 10 mg suppository 10 mg IN DAILY PRN (Reason: constipation) Qty: 20 0RF amitriptyline 25 mg tablet 75 mg PO BEDTIME sumatriptan succinate 50 mg tablet 50 mg PO DAILY PRN (Reason: Migraine Headache) amlodipine 10 mg tablet 10 mg PO DAILY chlorthalidone 25 mg tablet 50 mg PO DAILY Mirena 21 mcg/24 hours (8 yrs) 52 mg intrauterine device 1 device intrauterine ONCE Discontinued ibuprofen 600 mg tablet 600 mg PO TID PRN (Reason: pain) Qty: 30 0RF sucralfate 1 gram tablet 1 g PO QIDACHS 21 Days Qty: 90 0RF Discharge Orders: Discharge Order (Routine); Ordered 11/09/23 Ordered By: Oren Cruz Activity on Discharge: No heavy lifting Stand Alone Forms: Patient Portal Discharge page Print Language: Latvian Care Plan Goals: weight loss Health Concerns: obesity Plan of Treatment: No tub baths, sex or returning to work until discussed at first post op appointment. No exercise, alcohol, tobacco or illegal drug use. Continue to use incentive spirometer hourly while awake. Walk in home for 5- 10 minutes every 2 hours during the first week. Follow all instructions in the bariatric handbook and call with any questions.Discharge Instructions 1. Please call your doctor or come back to the emergency room should any new symptoms arise. 2. You will receive a courtesy call from [facility] 24-48 hours after discharge. 3. Activity: abstain from alcohol, practice limited stair climbing, no bending, no driving, no exercise, no illicit substances, no lifting, no sex, no tub bath, no work. 4. Diet: continue as discussed with Dr. Morris. 5. Dressing Change/Wound Care: Your incision is covered by clear bandages and guaze underneath. If the area is tender, you may apply an ice pack for short intervals (no more than 20 minutes on, followed by at least 20 minutes off). Do not apply heat. Do not use creams, lotions, or topical antibiotics unless instructed to do so by your surgeon. These can cause infection or allergic reaction. 6. Call your doctor if: - Your temperature exceeds 101.5 F - You experience excessive pain or swelling - You have an unexpected reaction to medication - You have excessive bleeding - You experience continued vomiting/nausea - Your incision begins to separate - Your incision shows signs of infection such as increased redness, swelling, excessive pain, heat, or drainage (light blood or clear fluid is normal) 7. General instructions: No lifting greater than 5 lbs for 1 week and not more than 20lbs the next 3?weeks. No driving until seen at the office in 5-7 days after surgery. If you do not move your bowels in the next 2 days, please tell?Dr. Morris. Please walk around your home every hour or two to prevent blood clots from forming in your legs. You do not need to wake from sleeping to walk. Please sleep in a bed or couch to prevent kinking at the hips and knees. Please take your incentive spirometer (your lung photostat operator) home with you and use it for the next few days to prevent pneumonia. You may shower, no hot tubs, baths or swimming pools.?Please follow the post op diet instructions you are?given by Dr Morris? and text me daily at 5-6pm for an update.?If you have any issues or concerns or questions please communicate this to him via text.? The Celebrate shakes have all of the bariatric vitamins you need if you consume these shakes. If you are drinking other protein shakes, you will need to purchase the Celebrate multivitamins and calcium that are available in the hospital gift shop on the first floor of the main hospital.??Do not take anything without first discussing with Dr Morris. Please make sure you are consuming at least 40 ounces of fluids per day starting the?day AFTER your discharge from the hospital. Always drink 1-2 ml per minute using the 5ml?syringe. If you drink faster you may experience?bloating,?gas pain, burping, nausea or heartburn. In that case please slow down your pace and use the syringe to?understand better the?proper?pace and volume of drinking. Do not hesitate to contact the office with any questions at . The patient's medical history has been reviewed and they are considered low risk for post op DVT and therefore DVT prophylaxis is not considered necessary. Travel after surgery was reviewed. The patient has not disclosed any travel plans during the first 30 days after surgery and they have been advised that within the first 30 days after surgery any bus, plane, train or car travel over 2 hours in duration is contraindicated due to the possibility of developing blood clots from immobility. Any travel, needs to include periods of ambulation of 10 minutes in duration every 2 hours.? The patient was instructed to discuss any plans for travel during this period with their bariatric surgeon. Assessment: stable s/p laparscopic sleeve gastrectomy
[2023-11-08] MEDS: HYDROmorphone HCl 0.5 MG/0.5 ML SYRINGE 0.25 MG IVPUSH ×2 (11:13→11:18)
[2023-11-08] MEDS: Promethazine HCL 25 MG/ML VIAL 6.25 MG IM (11:20)
[2023-11-08 11:36] LABS: Hematocrit 35.1 % (37.0-47.0); Hemoglobin 12.9 g/dl (12.0-16.0)
[2023-11-08] MEDS: fentaNYL citrate/PF 100 MCG/2 ML VIAL 25 MCG IVPUSH ×2 (11:45→11:50)
[2023-11-08 11:51] LABS: Anion Gap 14 (12-20); Blood Urea Nitrogen 10 mg/dL (9-16); Calcium 9.4 mg/dL (8.4-10.2); Carbon Dioxide 26 mmol/L (22-29); Chloride 100 mmol/L (96-108); Creatinine Clr Calc Pharmacy 87.2; Estimated Glomerular Filt Rate > 60; Glucose Random 147 mg/dL (60-115); Potassium 3.1 mmol/L (3.3-5.1); Sodium 137 mmol/L (135-145)
[2023-11-08] MEDS: Metoclopramide HCl 10 MG/2 ML VIAL IVPUSH (13:20)
--- NOTE | 2023-11-08 14:05 | PHA.MEDREC ---
Addendum entered by Brittany Tnieo RPh 11/08/23 14:14: reviewed by [facility]. Original Note: Pharmacy Consult ? Medication Reconciliation Pharmacy has reviewed the medication reconciliation done by nursing. Spoke to patient to confirm me list. patient states she is not taking Celecoxib 200 mg, Cyclobenzaprine 10 mg, Mrthylcellulose laxative. patient said last dose of Amlodipine 10 mg, Chlorthalidone 50 mg and Losartan 50 mg was yesterday and everything else was about a week ago.
[2023-11-08] MEDS: ceFAZolin Sodium/Dextrose,Iso 2 GM/50 ML PIGGYBACK IV (14:07)
[2023-11-08] MEDS: Acetaminophen 1,000 MG/100 ML PIGGYBACK 16.7 MG IV ×2 (15:20→22:06)
[2023-11-08] MEDS: Potassium Chloride/H20 10 MEQ/100 ML PIGGYBACK 100 MEQ IV ×2 (20:00→21:01)
[2023-11-08] MEDS: Famotidine/PF 20 MG/2 ML VIAL IVPUSH (20:00)
[2023-11-08] MEDS: 0.9 % Sodium Chloride Flush 3 ML SYRINGE IVFLUSH (20:00)
[2023-11-08] MEDS: Lactated Ringers 1,000 ML 150 ML IVCONT (21:01)
[2023-11-09] MEDS: HYDROmorphone HCl 0.5 MG/0.5 ML SYRINGE 0.25 MG IVPUSH (01:15)
[2023-11-09] MEDS: Lactated Ringers 1,000 ML 150 ML IVCONT ×2 (03:17→09:49)
[2023-11-09 03:47] VITALS: BP 138/82; PULSE 95; RESP 16; TEMP 36.1; O2SAT 99
[2023-11-09] MEDS: Acetaminophen 1,000 MG/100 ML PIGGYBACK 16.7 MG IV ×2 (03:58→09:47)
[2023-11-09 06:06] LABS: Basophils Percent Auto 0.1 % (0-2); Hematocrit 34.3 % (37.0-47.0); Hemoglobin 12.2 g/dl (12.0-16.0); Imm Gran Abs Auto 0.07 X10*3/uL (0.00-0.03); Imm Gran Pct Auto 0.5 % (0.0-0.4); Lymphocytes Absolute Auto 0.8 X10*3/uL (1.2-4.9); Lymphocytes Percent Auto 5.1 % (20-40); MANUAL DIFF FLAG SCAN; Mean Corpuscular HGB Conc 35.6 g/dl (31.0-35.0); Mean Corpuscular Hemoglobin 33.3 pg (27.0-33.0); Mean Corpuscular Volume 93.7 fL (80.0-98.0); Mean Platelet Volume 10.3 fL (9.4-12.3); Monocytes Absolute Auto 0.5 X10*3/uL (0.1-1.2); Monocytes Percent Auto 3.5 % (2-11); Neutrophils Absolute Auto 13.3 x10*3/uL (2.0-8.3); Neutrophils Percent Auto 90.8 % (45-73); Platelet Count 259 X10*3/uL (160-400); Red Blood Count 3.66 X10*6/uL (4.20-5.50); Red Cell Distribution Width 11.8 % (11.0-16.0); SCAN SMEAR FLAG 1; White Blood Count 14.6 X10*3/uL (4.8-10.8)
[2023-11-09 06:23] LABS: Anion Gap 15 (12-20); Blood Urea Nitrogen 7 mg/dL (9-16); Calcium 9.2 mg/dL (8.4-10.2); Carbon Dioxide 24 mmol/L (22-29); Chloride 103 mmol/L (96-108); Creatinine Clr Calc Pharmacy 98.5; Estimated Glomerular Filt Rate > 60; Glucose Random 115 mg/dL (60-115); Potassium 3.6 mmol/L (3.3-5.1); Sodium 138 mmol/L (135-145)
[2023-11-09 06:25] LABS: SLIDE REVIEW VERIFIED
[2023-11-09 07:15] VITALS: BP 130/80; PULSE 99; RESP 17; TEMP 36.1; O2SAT 97
[2023-11-09] MEDS: Famotidine/PF 20 MG/2 ML VIAL IVPUSH (07:31)
[2023-11-09] MEDS: amLODIPine Besylate 10 MG TABLET PO (07:39)
--- NOTE | 2023-11-09 09:06 | MHC.CM.PN ---
Addendum entered by Dominga Peguero 11/09/23 14:27: Patient discharge to home self care. She arranged for a family member to provide transportation home. Original Note: S/P gastric sleeve. She is independent. Lives with other family members. A HCP has been documented placed on chart and scanned into EMR. Patient will dc to home self care. She has arranged for a family member to provide transportation home.
[2023-11-09 10:21] VITALS: O2SAT 100
[2023-11-09 11:23] VITALS: BP 123/73; PULSE 100; RESP 16; TEMP 36.1; O2SAT 99
--- NOTE | 2023-11-10 09:09 | HO.POSTANES ---
Post Anesthesia Evaluation Post Anesthesia Evaluation Date of Service: 11/08/23 Anesthesia: General Mental Status: Awake Pain Control: Satisfactory Nausea/Vomiting: None Hydration: Adequate Anesthesia-Related Issues: No Anes. Related Issues
== END 2023-11-09 15:52 | disposition home or self-care (01) | DRG 403 ==
LOC: HO.SSSA 10:55 → HO.S3 10:58
PROVIDERS: Physician Assistant Surgical; Admitting Provider Surgery; PCP Internal Medicine Geriatric Medicine; Visit Provider Surgery
PROC: 0DB64Z3 Excision of Stomach, Percutaneous Endoscopic Approach, Vertical (ICD-10-PCS; CPT 43845; principal; 2023-11-08 08:10)
DX: E66.01 Morbid (severe) obesity due to excess calories (principal); K76.0 Fatty (change of) liver, not elsewhere classified; F32.A Depression, unspecified; G43.909 Migraine, unspecified, not intractable, without status migrainosus; K21.9 Gastro-esophageal reflux disease without esophagitis; F41.9 Anxiety disorder, unspecified; Z68.31 Body mass index [BMI] 31.0-31.9, adult; K59.09 Other constipation; I10 Essential (primary) hypertension; M19.90 Unspecified osteoarthritis, unspecified site; Z79.899 Other long term (current) drug therapy
CPT/HCPCS: 36415; 80048; 85014; 85018; 85025; 86850; 86900; 86901; 88304; 88305; 88307; 88342; A4649; C9088; C9145; J0131; J0690; J1100; J1170; J2250; J2371; J2405; J2550; J2704; J2765; J2795; J3010; J3480; J7120

== ENCOUNTER → 2023-11-08 06:48 | Outpatient (BNV) | payer MEDICAID, SELFPAY | PROVIDERS: Admitting Provider Surgery; PCP Internal Medicine Geriatric Medicine; Visit Provider Surgery | DX: E66.01 Morbid (severe) obesity due to excess calories (principal); Z68.31 Body mass index [BMI] 31.0-31.9, adult; Z98.84 Bariatric surgery status; K66.0 Peritoneal adhesions (postprocedural) (postinfection) | CPT/HCPCS: 43659; 43775; 99024; 99499 ==

== ENCOUNTER 2023-11-14 11:22 | Outpatient (AMB) | payer MEDICAID, SELFPAY ==
--- NOTE | 2023-11-14 11:24 | A.OFFVIS_ITS ---
VS Expanded 11/14/23 11:37 BP 129/81 Blood Pressure Location Rt brachial Blood Pressure Position Sitting Pulse 98 Pulse Source Pulse Oximeter Temp 96.9 F Temperature Source Temporal Artery Scan Pulse Oximetry 100 Oxygen Delivery Method Room Air Height 5 ft Weight 154 lb 12.8 oz BMI 30.2 Body Fat % 43.3 Body Fat Mass 67.0 Fat Free Mass 87.8 Visceral Fat Rating 8.0 Body Water % 40.6 Body Water Mass 62.8 Muscle Mass/Score 83.4 Basal Metabolic Rate/Score 1,260 Intake Visit Reasons: (OV) PO LSG 11/08/23 Motion Picture Commentator Required: No Allergies No Known Allergies Allergy (Verified 11/08/23 07:09) Medication List - Last Reconciled 11/14/23 by DINA Hatch acetaminophen (Tylenol Extra Strength) 1,000 mg PO Q6H PRN albuterol sulfate 90 mcg/actuation (Ventolin HFA) 2 puffs inhalation Q6H PRN amitriptyline 75 mg PO BEDTIME amlodipine 10 mg PO DAILY bisacodyl (Dulcolax (bisacodyl)) 10 mg [place] DAILY PRN chlorthalidone 50 mg PO DAILY docusate sodium (Colace) 200 mg (2 x 100 mg) PO BEDTIME fluticasone furoate 100 mcg/actuation (Arnuity Ellipta) 1 inh inhalation DAILY levonorgestrel (Mirena) 1 device intrauterine ONCE lidocaine 5% (Lidoderm) 1 patch topical DAILY losartan 100 mg (2 x 50 mg) PO DAILY pantoprazole 40 mg PO DAILY@0630 spironolactone 12.5 mg PO DAILY sucralfate 10 mL PO BID sumatriptan succinate 50 mg PO DAILY PRN topiramate 50 mg PO DAILY HPI Comments Details: Patient is a pleasant 38-year-old female who returns to the office today in follow-up. She is approximately 6 days post sleeve gastrectomy performed on 11/08/2023. She is tolerating 3 celebrate 4 in 1 shakes and 32 oz of water. She has moved her bowels. Offers no complaints at today's visit. [facility] Medical History (Updated 11/10/23 @ 00:01 by Saumya Segundo) Encounter for routine checking of intrauterine contraceptive device (IUD) Encounter for IUD insertion Cervical cancer screening Well woman exam with routine gynecological exam Palpitations Chest discomfort Uncontrolled hypertension Palpitations Osteoarthritis GERD (gastroesophageal reflux disease) IBS (irritable bowel syndrome) Migraines BMI 35.0-35.9,adult Obesity Hypertension Surgical History (Updated 11/14/23 @ 11:53 by Edwina Jolley CMA) Hx of laparoscopic partial gastrectomy History of esophagogastroduodenoscopy (EGD) Hx of tubal ligation Family History Father No problems noted. 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 Original weight on 08/26/2023 was 180.8 pounds and op weight was 163.4 pounds. Be sure to text Dr Morris exactly 1 week after surgery your weight from your home scale so he can adjust your meal plan. Continue meal plan until f/u giorgi Lott in 2 weeks May shower, no submersion in bath for another week Continue abdominal binder with activity and exercise for the next 2 weeks. Exercise prior to surgery was treadmill and may resume No abdominal exercises for 6 weeks post operatively Will be emailed link to post op video for review Reminded of the pace of drinking, 2 mL per minute, 1 oz/15 min.
[2023-11-14 11:37] VITALS: BP 129/81; PULSE 98; TEMP 36.1; O2SAT 100; BMI 30.2
== END 2023-11-14 13:26 | disposition home or self-care (01) ==
PROVIDERS: PCP Internal Medicine Geriatric Medicine; Visit Provider Physician Assistant Surgical
DX: Z98.84 Bariatric surgery status (principal)
CPT/HCPCS: 99024

== ENCOUNTER → 2023-11-14 11:22 | Outpatient (BNVA) | payer MEDICAID, SELFPAY | PROVIDERS: PCP Internal Medicine Geriatric Medicine; Visit Provider Physician Assistant Surgical | DX: E66.9 Obesity, unspecified (principal); Z98.84 Bariatric surgery status; Z68.30 Body mass index [BMI] 30.0-30.9, adult; Z71.3 Dietary counseling and surveillance | CPT/HCPCS: 99212 ==

== ENCOUNTER 2023-11-24 11:09 | Outpatient (AMB) | payer MEDICAID, SELFPAY ==
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
[2023-11-24 11:14] VITALS: BMI 30.2
== END 2023-11-24 12:00 | disposition home or self-care (01) ==
PROVIDERS: PCP Internal Medicine Geriatric Medicine; Visit Provider Physical Medicine & Rehabilitation
DX: M25.812 Other specified joint disorders, left shoulder (principal); M19.012 Primary osteoarthritis, left shoulder
CPT/HCPCS: 99214

== ENCOUNTER → 2023-11-24 11:09 | Outpatient (BNVA) | payer MEDICAID, SELFPAY | PROVIDERS: PCP Internal Medicine Geriatric Medicine; Visit Provider Physical Medicine & Rehabilitation | DX: M25.812 Other specified joint disorders, left shoulder (principal); M19.012 Primary osteoarthritis, left shoulder | CPT/HCPCS: 99212 ==

== ENCOUNTER 2023-12-08 10:23 | Outpatient (AMB) | payer MEDICAID, SELFPAY ==
--- NOTE | 2023-12-08 10:29 | MHC.OFFVISWM ---
VS Expanded 12/08/23 10:37 BP 130/85 Blood Pressure Location Rt brachial Blood Pressure Position Sitting Pulse 81 Pulse Source Pulse Oximeter Temp 98.2 F Temperature Source Temporal Artery Scan Pulse Oximetry 96 Oxygen Delivery Method Room Air Height 5 ft Weight 147 lb 6.4 oz BMI 28.8 Body Fat % 40.6 Body Fat Mass 59.8 Fat Free Mass 87.6 Visceral Fat Rating 7.0 Body Water % 42.5 Body Water Mass 62.6 Muscle Mass/Score 83.2 Basal Metabolic Rate/Score 1,246 Intake Visit Reasons: (OV) PO LSG 11/08/23 Allergies No Known Allergies Allergy (Verified 12/08/23 10:30) HPI Comments Details: This?a?38?yo female who is s/p LSG without hiatal hernia repair on?11/08/2023. Presents for 1 month post op visit. Weight today is 147.4 pounds, with a BMI of 28.8. There has been a 33.4 pound weight loss,(initial weight 180.8 pounds) since starting the program on 08/26/2023 reflecting a 18.4 % total body weight loss and a weight loss of 16 pounds since surgery (operative weight 163.4 pounds) reflecting a 9.7 % TBWL since surgery. No complaints of nausea, emesis, abdominal pain or reflux. Reports infrequent but normal bowel movements every 3-4 days and uses stool softeners regularly. Overall she is very satisfied with the results that she has gotten so far. She offers no significant complaints. Present meal plan includes: Three celebrate 4 in 1 shakes with 1 scoop each at 6-8, 10-12, 2-4. Celebrate protein bar at 5-8 ? Exercise routine includes: Treadmill daily for 300 calories PFSH Medical History (Updated 11/24/23 @ 11:57 by Susi Lynch MD) Encounter for routine checking of intrauterine contraceptive device (IUD) Encounter for IUD insertion Cervical cancer screening Well woman exam with routine gynecological exam Palpitations Chest discomfort Uncontrolled hypertension Palpitations Osteoarthritis GERD (gastroesophageal reflux disease) IBS (irritable bowel syndrome) Migraines BMI 35.0-35.9,adult Obesity Hypertension Surgical History (Updated 11/14/23 @ 11:53 by Edwina Jolley CMA) Hx of laparoscopic partial gastrectomy History of esophagogastroduodenoscopy (EGD) Hx of tubal ligation Family History Father No problems noted. 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 Communicating with Dr. Morris. Continue current meal plan. Continue exercise plan. Continue medications and follow-up in the office in 3 weeks.
[2023-12-08 10:37] VITALS: BP 130/85; PULSE 81; TEMP 36.8; O2SAT 96; BMI 28.8
== END 2023-12-08 10:50 | disposition home or self-care (01) ==
PROVIDERS: PCP Internal Medicine Geriatric Medicine; Visit Provider Physician Assistant Surgical
DX: Z98.84 Bariatric surgery status (principal)
CPT/HCPCS: 99024

== ENCOUNTER → 2023-12-08 10:23 | Outpatient (BNVA) | payer MEDICAID, SELFPAY | PROVIDERS: PCP Internal Medicine Geriatric Medicine; Visit Provider Physician Assistant Surgical | DX: Z48.815 Encounter for surgical aftercare following surgery on the digestive system (principal); Z71.3 Dietary counseling and surveillance; Z98.84 Bariatric surgery status | CPT/HCPCS: 99212 ==

== ENCOUNTER 2023-12-29 10:11 | Outpatient (AMB) | payer MEDICAID, SELFPAY ==
--- NOTE | 2023-12-29 10:13 | MHC.OFFVIS ---
Vital Signs 12/29/23 10:16 Height 5 ft Weight 143 lb BMI 27.9 Intake Visit Reasons: Inj-Tigger point/left shoulder inj # 1 Intake Note: Gaye is a 38 year old female who presents today for her first trigger point/left shoulder injection. Patient reports no questions or concerns. Allergies No Known Allergies Allergy (Verified 12/29/23 10:16) HPI Comments Details: If her scheduled left shoulder steroid injection and trigger point injection for trapezius. Patient informs me that the pain was severe 2 weeks ago that she went to [facility] walk-in clinic. Prescribed tramadol. MRI left shoulder was ordered. Given that she may have MRI done soon, we would defer steroid injection today. We will continue with trigger point injection. [facility] Medical History Encounter for routine checking of intrauterine contraceptive device (IUD) Encounter for IUD insertion Cervical cancer screening Well woman exam with routine gynecological exam Palpitations Chest discomfort Uncontrolled hypertension Palpitations Osteoarthritis GERD (gastroesophageal reflux disease) IBS (irritable bowel syndrome) Migraines BMI 35.0-35.9,adult Obesity Hypertension Surgical History Hx of laparoscopic partial gastrectomy History of esophagogastroduodenoscopy (EGD) Hx of tubal ligation Family History Father No problems noted. 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 Conset obtained. Trigger point, 1 x 1 cm, palpated on left upper trapezius. 1 ml of 2% Lidocaine injected in each site, total of 2 mL. Patient tolerated procedure well. Post-injection instructions given. 38823-[id number] Point Injection 1 or 2 sites All charges added?: Procedure code (CPT) selection complete Assessment & Plan Assessment & Plan (1) Myofascial pain: Code(s): M79.18 - Myalgia, other site Category: Medical Plan Steroid injection to shoulder deferred until MRI done. Tolerated left upper trapezius trigger point injection. Two more scheduled the next 2 weeks. Assessment and plan discussed with patient, and patient was agreeable. All questions were answered thoroughly. Susi Lynch MD, SHAYNA Board Certified, [place] Board [employer] Medicine and Rehabilitation (ABPMR) Board Certified, [place] [employer] Electrodiagnostic [employer] (ABEM) Orders: Orders AMB Trigger Point Injection Today M79.18 - Myalgia, other site Coding Level of Care Code Procedure Only Diagnoses Myofascial pain M79.18 CPT Codes Therapeutic Injection - Ther Injection 1: 15157-Jkfeamy Point Injection 1 or 2 sites ([id number])
[2023-12-29 10:16] VITALS: BMI 27.9
== END 2023-12-29 10:30 | disposition home or self-care (01) ==
LOC: HO.HOS 10:12
PROVIDERS: PCP Internal Medicine Geriatric Medicine; Visit Provider Physical Medicine & Rehabilitation
DX: M25.512 Pain in left shoulder (principal); M79.18 Myalgia, other site
CPT/HCPCS: 20552

== ENCOUNTER → 2023-12-29 10:11 | Outpatient (BNVA) | payer MEDICAID, SELFPAY | PROVIDERS: PCP Internal Medicine Geriatric Medicine; Visit Provider Physical Medicine & Rehabilitation | DX: M79.18 Myalgia, other site (principal) | CPT/HCPCS: 20552; J2003; J3301 ==

== ENCOUNTER 2024-01-05 10:06 | Outpatient (AMB) | payer MEDICAID, SELFPAY ==
[2024-01-05 10:21] VITALS: BMI 27.9
--- NOTE | 2024-01-05 10:21 | A.OFFVIS_ITS ---
Vital Signs 01/05/24 10:21 Height 5 ft Weight 143 lb BMI 27.9 Intake Visit Reasons: Inj-Trigger point injection #2 Intake Note: Gaye is 38 year old female who presents today for her second trigger point injection. Allergies No Known Allergies Allergy (Verified 01/05/24 10:21) Medication List - Last Reconciled 01/05/24 by Susi Lynch MD acetaminophen (Tylenol Extra Strength) 1,000 mg PO Q6H PRN albuterol sulfate 90 mcg/actuation (Ventolin HFA) 2 puffs inhalation Q6H PRN amitriptyline 75 mg PO BEDTIME amlodipine 10 mg PO DAILY bisacodyl (Dulcolax (bisacodyl)) [address] DAILY PRN docusate sodium (Colace) 200 mg (2 x 100 mg) PO BEDTIME fluticasone furoate 100 mcg/actuation (Arnuity Ellipta) 1 inh inhalation DAILY levonorgestrel (Mirena) 1 device intrauterine ONCE lidocaine 5% (Lidoderm) 1 patch topical DAILY ondansetron 4 mg PO Q6H PRN pantoprazole 40 mg PO DAILY@0630 sucralfate 10 mL PO BID topiramate 50 mg PO DAILY HPI Comments Details: Here for 2nd trigger point injection left upper trapezius. She had post injection pain for 1 enough days last week and then it relieved after. [facility] Medical History Encounter for routine checking of intrauterine contraceptive device (IUD) Encounter for IUD insertion Cervical cancer screening Well woman exam with routine gynecological exam Palpitations Chest discomfort Uncontrolled hypertension Palpitations Osteoarthritis GERD (gastroesophageal reflux disease) IBS (irritable bowel syndrome) Migraines BMI 35.0-35.9,adult Obesity Hypertension Surgical History Hx of laparoscopic partial gastrectomy History of esophagogastroduodenoscopy (EGD) Hx of tubal ligation Family History Father No problems noted. 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 Conset obtained. Trigger points palpated on left upper trapezius. Needling performed with gauge 27 needle, subsequently injecting 1 ml of 2% Lidocaine., total of 1 mL. Patient tolerated procedure well. Post-injection instructions given. 40871-[id number] Point Injection 1 or 2 sites All charges added?: Procedure code (CPT) selection complete Assessment & Plan Assessment & Plan (1) Myofascial pain: Code(s): M79.18 - Myalgia, other site Category: Medical Plan Tolerated procedure well. Last injection next week. Awaiting shoulder MRI. Assessment and plan discussed with patient, and patient was agreeable. All questions were answered thoroughly. Susi Lynch MD, SHAYNA Board Certified, [place] [employer] and Rehabilitation (ABPMR) Board Certified, [place] [employer] Electrodiagnostic Medicine (ABEM) Orders: Orders AMB Trigger Point Injection Today M79.18 - Myalgia, other site Coding Level of Care Code Procedure Only Diagnoses Myofascial pain M79.18 CPT Codes Therapeutic Injection - Ther Injection 1: 27675-[id number] Point Injection 1 or 2 sites ([id number])
== END 2024-01-05 10:52 | disposition home or self-care (01) ==
PROVIDERS: PCP Internal Medicine Geriatric Medicine; Visit Provider Physical Medicine & Rehabilitation
DX: M79.18 Myalgia, other site (principal)
CPT/HCPCS: 20552

== ENCOUNTER → 2024-01-05 10:06 | Outpatient (BNVA) | payer MEDICAID, SELFPAY | PROVIDERS: PCP Internal Medicine Geriatric Medicine; Visit Provider Physical Medicine & Rehabilitation | DX: M79.18 Myalgia, other site (principal); Z71.3 Dietary counseling and surveillance; Z98.84 Bariatric surgery status | CPT/HCPCS: 20552; 99212; J2003 ==

== ENCOUNTER 2024-01-05 16:00 | Outpatient (AMB) | payer MEDICAID, SELFPAY ==
[2024-01-05 10:32] VITALS: BMI 27.4
--- NOTE | 2024-01-05 10:32 | A.OFFVIS_ITS ---
VS Expanded 01/05/24 10:32 Height 5 ft Weight 140 lb 2 oz BMI 27.4 Body Fat % 32.4 Fat Free Mass 94.8 Visceral Fat Rating 10 Body Water % 46.4 Muscle Mass/Score 89 Basal Metabolic Rate/Score 1,306 Intake Visit Reasons: (TV) PO LSG 11/08/23 Allergies No Known Allergies Allergy (Verified 01/05/24 10:21) HPI Comments Details: This?a?38?yo female who is s/p LSG without hiatal hernia repair on?11/08/2023. Presents for 2 month post op visit. Weight today is 140.2 pounds, with a BMI of 27.4. There has been a 40.6 pound weight loss,(initial weight 180.8 pounds) since starting the program on 08/26/2023 reflecting a 22.4 % total body weight loss and a weight loss of 23.2 pounds since surgery (operative weight 163.4 pounds) reflecting a 14.1 % TBWL since surgery. No complaints of nausea, emesis, abdominal pain or reflux. Reports infrequent but normal bowel movements every 3-4 days and uses stool softeners regularly. Overall she is very satisfied with the results that she has gotten so far. She offers no significant complaints. No complaints of pain or nausea, although getting very tired of the protein bar Present meal plan includes: Three celebrate 4 in 1 shakes with 1 scoop each at 6-8, 10-12, 2-4. Celebrate protein bar at 5-8 Drinking 64 oz ? Exercise routine includes: Treadmill daily for 300 calories 5 days per week [facility] Medical History Encounter for routine checking of intrauterine contraceptive device (IUD) Encounter for IUD insertion Cervical cancer screening Well woman exam with routine gynecological exam Palpitations Chest discomfort Uncontrolled hypertension Palpitations Osteoarthritis GERD (gastroesophageal reflux disease) IBS (irritable bowel syndrome) Migraines BMI 35.0-35.9,adult Obesity Hypertension Surgical History Hx of laparoscopic partial gastrectomy History of esophagogastroduodenoscopy (EGD) Hx of tubal ligation Family History Father No problems noted. 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 Reproductive History Menstrual Age of Menarche: 11 Telehealth Telehealth Telehealth Platform: Telephone Location of provider rendering services: practice address Location of patient: address on file Patient Identification confirmed using: Name, : Yes Telehealth method: voice only Patient verbally consented to treatment: Yes Patient verbally consented to billing insurance company: Yes Patient informed of any privacy concerns related to visit: Yes Minutes spent on Phone/Video with Pt.: 15 Assessment & Plan Assessment & Plan (1) S/P laparoscopic sleeve gastrectomy: Code(s): Z98.84 - Bariatric surgery status Category: Surgical Plan: Using celebrate 4 in 1 protein powder Shake 1 scoop, 6-8 Shake 1 scoop, 10-12 Shake 2 scoops, 2-4 6 pm Meal, 4 forks protein, 4 forks vegetables Increase exercise to 400 calories per day, 5 days per week Return to clinic 3-4 weeks Encouraged to text weekly her weight and with any questions or concerns
== END 2024-01-05 16:19 | disposition home or self-care (01) ==
LOC: HO.HBS 16:13
PROVIDERS: PCP Internal Medicine Geriatric Medicine; Visit Provider Physician Assistant Surgical
DX: Z98.84 Bariatric surgery status (principal)
CPT/HCPCS: 99024

== ENCOUNTER 2024-01-12 10:02 | Outpatient (AMB) | payer MEDICAID, SELFPAY ==
--- NOTE | 2024-01-12 10:06 | A.OFFVIS_ITS ---
Vital Signs 01/12/24 10:17 Height 5 ft Weight 140 lb 2 oz BMI 27.4 Intake Visit Reasons: Inj-Tigger point/left shoulder inj # 3 Intake Note: Gaye is a 38 year old female who presents today for her 3rd trigger point/left shoulder injection. Patient reports no questions or concerns. Allergies No Known Allergies Allergy (Verified 01/12/24 10:17) HPI Comments Details: Here for 3rd trigger point injection PFSH Medical History Encounter for routine checking of intrauterine contraceptive device (IUD) Encounter for IUD insertion Cervical cancer screening Well woman exam with routine gynecological exam Palpitations Chest discomfort Uncontrolled hypertension Palpitations Osteoarthritis GERD (gastroesophageal reflux disease) IBS (irritable bowel syndrome) Migraines BMI 35.0-35.9,adult Obesity Hypertension Surgical History Hx of laparoscopic partial gastrectomy History of esophagogastroduodenoscopy (EGD) Hx of tubal ligation Family History Father No problems noted. 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 Consent obtained. Trigger points palpated on left upper trapezius. Needling performed with gauge 27 needle, subsequently injecting 1 ml of 2% Lidocaine., total of 3 mL. Patient tolerated procedure well. Post-injection instructions given. 24344-Bvodoft Point Injection 3 or more All charges added?: Procedure code (CPT) selection complete Assessment & Plan Assessment & Plan (1) Myofascial pain: Code(s): M79.18 - Myalgia, other site Category: Medical Plan Tolerated procedure well. Assessment and plan discussed with patient, and patient was agreeable. All questions were answered thoroughly. Susi Lynch MD, SHAYNA Board Certified, [place] [employer] and [employer] (ABPMR) Board Certified, [place] [employer] Electro[employer] (ABEM) Orders: Orders AMB Trigger Point Injection Today M79.18 - Myalgia, other site Coding Level of Care Code Procedure Only Diagnoses Myofascial pain M79.18 CPT Codes Therapeutic Injection - Ther Injection 2: 10227-Mjecrbz Point Injection 3 or more ([id number])
[2024-01-12 10:17] VITALS: BMI 27.4
== END 2024-01-12 10:17 | disposition home or self-care (01) ==
PROVIDERS: PCP Internal Medicine Geriatric Medicine; Visit Provider Physical Medicine & Rehabilitation
DX: M25.512 Pain in left shoulder (principal); M79.18 Myalgia, other site
CPT/HCPCS: 20553

== ENCOUNTER → 2024-01-12 10:02 | Outpatient (BNVA) | payer MEDICAID, SELFPAY | PROVIDERS: PCP Internal Medicine Geriatric Medicine; Visit Provider Physical Medicine & Rehabilitation | DX: M79.18 Myalgia, other site (principal) | CPT/HCPCS: 20553; J2003 ==

== ENCOUNTER 2024-01-29 | Outpatient (REF) | payer MEDICAID, SELFPAY ==
--- NOTE | ~2024-01-29 | MR_ITS ---
EXAMINATION: MR SHOULDER WITHOUT CONTRAST, LEFT CLINICAL INFORMATION: Chronic pain. Limited range of motion. COMPARISON: 03/28/2023 TECHNIQUE: MRI of the shoulder without contrast was performed on a high-field scanner. FINDINGS: ROTATOR CUFF: Intact. No muscle atrophy or fatty infiltration. BICEPS: Normal. CORACOACROMIAL ARCH: The undersurface of the acromion is curved with no subacromial spur. Mild to moderate acromioclavicular osteoarthritis with undersurface osteophytes upper is mild mass effect upon the myotendinous junction of the supraspinatus. Trace fluid in subacromial subdeltoid bursa without giuliana bursitis. LABRUM/CAPSULE: Diminutive posterior glenoid labrum is favored to be due to developmental variation. No discrete labral tears. Joint capsule is normal in thickness and signal intensity. GLENOHUMERAL JOINT/MARROW: Glenohumeral joint appears well preserved. No fracture or malalignment. Normal bone marrow signal. No joint effusion. MR/MR shoulder LT wo con IMPRESSION: Dyxq-cd-maxhesdl acromioclavicular osteoarthritis. Intact rotator cuff without significant tendinosis. No tears. Unremarkable glenohumeral joint. Normal glenohumeral joint capsule. Electronically signed by: Edgar Lenz MD 02/04/2024 01:06 AM TONO LÓPEZ
== END 2024-01-29 00:01 | disposition home or self-care (01) ==
LOC: HO.MRI
PROVIDERS: PCP Internal Medicine Geriatric Medicine; Visit Provider Nurse Practitioner
DX: M25.512 Pain in left shoulder (principal); G89.29 Other chronic pain
CPT/HCPCS: 73221

== ENCOUNTER 2024-02-01 11:00 | Outpatient (AMB) | payer MEDICAID, SELFPAY ==
--- NOTE | 2024-02-01 09:11 | A.OFFVIS_ITS ---
VS Expanded 02/01/24 09:13 Height 5 ft Weight 129 lb BMI 25.2 Body Fat % 29.1 Fat Free Mass 91.6 Visceral Fat Rating 8 Body Water % 48.7 Muscle Mass/Score 86 Basal Metabolic Rate/Score 1,277 Intake Visit Reasons: (TV) PO LSG 11/08/23 Inspector Open Die Required: No Allergies No Known Allergies Allergy (Verified 01/12/24 10:17) Medication List - Last Reconciled 02/01/24 by DINA Hatch acetaminophen (Tylenol Extra Strength) 1,000 mg PO Q6H PRN albuterol sulfate 90 mcg/actuation (Ventolin HFA) 2 puffs inhalation Q6H PRN amitriptyline 25 mg PO BEDTIME bisacodyl (Dulcolax (bisacodyl)) 10 mg [place] DAILY PRN docusate sodium (Colace) 200 mg (2 x 100 mg) PO BEDTIME fluticasone furoate 100 mcg/actuation (Arnuity Ellipta) 1 inh inhalation DAILY lactulose 10 grams PO DAILY levonorgestrel (Mirena) 1 device intrauterine ONCE sennosides-docusate sodium 8.6-50 mg (Senna Plus) 1 tab-cap PO BEDTIME topiramate 50 mg PO DAILY HPI Comments Details: This?a?38?yo female who is s/p LSG without hiatal hernia repair on?11/08/2023. Presents for 2.8 month post op visit. Weight today is 129 pounds, with a BMI of 25.2. There has been a 51.8 pound weight loss,(initial weight 180.8 pounds) since starting the program on 08/26/2023 reflecting a 28.6 % total body weight loss and a weight loss of 34.4 pounds since surgery (operative weight 163.4 pounds) reflecting a 21 % TBWL since surgery. No complaints of nausea, emesis, abdominal pain or reflux. Reports infrequent but normal bowel movements every 3- 4 days and uses stool softeners regularly. Overall she is very satisfied with the results that she has gotten so far. She offers no significant complaints. No complaints of pain or nausea, although getting very tired of the protein bar Has appointment with pcp on tuesday to help with constipation and ibs, now resolved She has not been hungry and has not been doing meal at night Present meal plan includes: Using celebrate 4 in 1 protein powder Shake 1 scoop, 6-8 Shake 1 scoop, 10-12 Shake 2 scoops, 2-4 6 pm Meal, 4 forks protein, 4 forks vegetables Drinking 50-60 oz ? Exercise routine includes: Treadmill daily for 300 calories 5 days per week PFSH Medical History Encounter for routine checking of intrauterine contraceptive device (IUD) Encounter for IUD insertion Cervical cancer screening Well woman exam with routine gynecological exam Palpitations Chest discomfort Uncontrolled hypertension Palpitations Osteoarthritis GERD (gastroesophageal reflux disease) IBS (irritable bowel syndrome) Migraines BMI 35.0-35.9,adult Obesity Hypertension Surgical History Hx of laparoscopic partial gastrectomy History of esophagogastroduodenoscopy (EGD) Hx of tubal ligation Family History Father No problems noted. 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 Menstrual Age of Menarche: 11 Physical Exam Vital Signs: BMI result Body Mass Index 25.2 Telehealth Telehealth Telehealth Platform: Telephone Location of provider rendering services: practice address Location of patient: address on file Patient Identification confirmed using: Name, : Yes Telehealth method: voice only Patient verbally consented to treatment: Yes Patient verbally consented to billing insurance company: Yes Patient informed of any privacy concerns related to visit: Yes Minutes spent on Phone/Video with Pt.: 15 Assessment & Plan Assessment & Plan (1) S/P laparoscopic sleeve gastrectomy: Code(s): Z98.84 - Bariatric surgery status Category: Surgical Plan: Doing well overall, achieved a healthy weight. She has been skipping meals as she felt too full in the evening. We will change her meal plans slightly: Shake 2 scoops, 6-8 Shake 1 scoop, 10-12 Shake 1 scoop, 2-4 6 pm Meal, 4 forks protein, 4 forks vegetables Plan on returning to the office in 1 month. Encouraged to text weekly with weights and with any questions or concerns.
[2024-02-01 09:13] VITALS: BMI 25.2
== END 2024-02-01 12:53 | disposition home or self-care (01) ==
LOC: HO.HBS 11:10
PROVIDERS: PCP Internal Medicine Geriatric Medicine; Visit Provider Physician Assistant Surgical
DX: Z98.84 Bariatric surgery status (principal)
CPT/HCPCS: 99024

== ENCOUNTER → 2024-02-01 11:00 | Outpatient (BNVA) | payer MEDICAID, SELFPAY | PROVIDERS: PCP Internal Medicine Geriatric Medicine; Visit Provider Physician Assistant Surgical | DX: E66.9 Obesity, unspecified (principal); Z68.25 Body mass index [BMI] 25.0-25.9, adult; Z90.3 Acquired absence of stomach [part of] | CPT/HCPCS: 99212 ==

== ENCOUNTER 2024-03-08 09:20 | Outpatient (AMB) | payer MEDICAID, SELFPAY ==
--- NOTE | 2024-03-08 07:59 | MHC.OFFVISWM ---
VS Expanded 03/08/24 08:01 Height 5 ft Weight 120 lb 8 oz BMI 23.5 Body Fat % 26.5 Fat Free Mass 88.8 Visceral Fat Rating 6 Body Water % 50.4 Muscle Mass/Score 83.4 Basal Metabolic Rate/Score 1,237 Intake Visit Reasons: (TV) PO LSG 11/08/23 Stemmer Machine Required: No Allergies No Known Allergies Allergy (Verified 01/12/24 10:17) Medication List - Last Reconciled 03/08/24 by DINA Hatch acetaminophen (Tylenol Extra Strength) 1,000 mg PO Q6H PRN albuterol sulfate 90 mcg/actuation (Ventolin HFA) 2 puffs inhalation Q6H PRN amitriptyline 25 mg PO BEDTIME bisacodyl (Dulcolax (bisacodyl)) 10 mg [place] DAILY PRN docusate sodium (Colace) 200 mg (2 x 100 mg) PO BEDTIME fluticasone furoate 100 mcg/actuation (Arnuity Ellipta) 1 inh inhalation DAILY lactulose 10 grams PO DAILY levonorgestrel (Mirena) 1 device intrauterine ONCE sennosides-docusate sodium 8.6-50 mg (Senna Plus) 1 tab-cap PO BEDTIME topiramate 50 mg PO DAILY HPI Comments Details: This?a?38?yo female who is s/p LSG without hiatal hernia repair on?11/08/2023. Presents for 4 month post op visit. Weight today is 120.8 pounds, with a BMI of 23.5. There has been a 60 pound weight loss,(initial weight 180.8 pounds) since starting the program on 08/26/2023 reflecting a 33.1 % total body weight loss and a weight loss of 42.6 pounds since surgery (operative weight 163.4 pounds) reflecting a 21 % TBWL since surgery. No complaints of nausea, emesis, abdominal pain or reflux. Reports infrequent but normal bowel movements every 3-4 days and uses stool softeners regularly. Overall she is very satisfied with the results that she has gotten so far. She feels really well. No complaints at this time. Does not wish to change her meal plan at this time Present meal plan includes: Using celebrate 4 in 1 protein powder Shake 2 scoops, 6-8 Shake 1 scoop, 10-12 Shake 1 scoop, 2-4 6 pm Meal, 4 forks protein, 4 forks vegetables Drinking 48-64 oz ? Exercise routine includes: Treadmill daily for 300-350 calories 5 days per week [facility] Medical History Encounter for routine checking of intrauterine contraceptive device (IUD) Encounter for IUD insertion Cervical cancer screening Well woman exam with routine gynecological exam Palpitations Chest discomfort Uncontrolled hypertension Palpitations Osteoarthritis GERD (gastroesophageal reflux disease) IBS (irritable bowel syndrome) Migraines BMI 35.0-35.9,adult Obesity Hypertension Surgical History Hx of laparoscopic partial gastrectomy History of esophagogastroduodenoscopy (EGD) Hx of tubal ligation Family History Father No problems noted. 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 Menstrual Age of Menarche: 11 Telehealth Telehealth Telehealth Platform: Telephone Location of provider rendering services: practice address Location of patient: address on file Patient Identification confirmed using: Name, : Yes Telehealth method: voice only Patient verbally consented to treatment: Yes Patient verbally consented to billing insurance company: Yes Patient informed of any privacy concerns related to visit: Yes Minutes spent on Phone/Video with Pt.: 15 Assessment & Plan Assessment & Plan (1) S/P laparoscopic sleeve gastrectomy: Code(s): Z98.84 - Bariatric surgery status Category: Surgical Plan: Patient has made excellent progress. She has achieved a healthy weight. She is very satisfied with her meal plan. Her exercise plan is consistent. She wishes to maintain current plans. We will have her return to the office for six-month follow-up. Encouraged to text weekly and with any questions
[2024-03-08 08:01] VITALS: BMI 23.5
== END 2024-03-08 09:33 | disposition home or self-care (01) ==
LOC: HO.HBS 09:20
PROVIDERS: PCP Internal Medicine Geriatric Medicine; Visit Provider Physician Assistant Surgical
DX: Z98.84 Bariatric surgery status (principal)
CPT/HCPCS: 99213

== ENCOUNTER → 2024-03-08 09:20 | Outpatient (BNVA) | payer MEDICAID, SELFPAY | PROVIDERS: PCP Internal Medicine Geriatric Medicine; Visit Provider Physician Assistant Surgical ==

== ENCOUNTER 2024-05-14 09:56 | Outpatient (REF) | payer MEDICAID, SELFPAY ==
[2024-05-14 11:02] LABS: MANUAL DIFF FLAG NO
[2024-05-14 11:23] LABS: Basophils Percent Auto 1.3 % (0-2); Eosinophils Absolute Auto 0.1 X10*3/uL (0.0-0.4); Eosinophils Percent Auto 3.6 % (0-4); Hematocrit 37.6 % (37.0-47.0); Hemoglobin 13.2 g/dl (12.0-16.0); Imm Gran Abs Auto 0.01 X10*3/uL (0.00-0.03); Imm Gran Pct Auto 0.3 % (0.0-0.4); Lymphocytes Absolute Auto 1.5 X10*3/uL (1.2-4.9); Lymphocytes Percent Auto 50.3 % (20-40); Mean Corpuscular HGB Conc 35.1 g/dl (31.0-35.0); Mean Corpuscular Hemoglobin 32.9 pg (27.0-33.0); Mean Corpuscular Volume 93.8 fL (80.0-98.0); Mean Platelet Volume 10.5 fL (9.4-12.3); Monocytes Absolute Auto 0.2 X10*3/uL (0.1-1.2); Monocytes Percent Auto 6.6 % (2-11); Neutrophils Absolute Auto 1.1 x10*3/uL (2.0-8.3); Neutrophils Percent Auto 37.9 % (45-73); Platelet Count 260 X10*3/uL (160-400); Red Blood Count 4.01 X10*6/uL (4.20-5.50); Red Cell Distribution Width 12.4 % (11.0-16.0)
[2024-05-14 11:30] LABS: Estimated Average Glucose 97 mg/dL
[2024-05-14 11:54] LABS: Anion Gap 11 (12-20)
[2024-05-14 11:59] LABS: Alanine Aminotransferase 19 U/L (0-31); Albumin Level 4.5 g/dL (3.5-5.0); Alkaline Phosphatase 66 U/L (39-117); Aspartate Amino Transferase 18 U/L (5-31); Bilirubin Total 0.8 mg/dL (0.0-1.0); Blood Urea Nitrogen 9 mg/dL (9-16); C Reactive Protein 0.31 mg/dL (< or = 0.50); Calcium 9.7 mg/dL (8.4-10.2); Carbon Dioxide 26 mmol/L (22-29); Chloride 109 mmol/L (96-108); Cholesterol 145 mg/dL (<200); Estimated Glomerular Filt Rate > 60; Glucose Random 94 mg/dL (60-115); HDL Cholesterol 45 mg/dL (>40); Iron 126 mcg/dL (30-160); LDL Cholesterol Calculated 87 mg/dL (<100); Percent Iron Saturation 52 % (15-50); Potassium 4.2 mmol/L (3.3-5.1); Sodium 142 mmol/L (135-145); Total Iron Binding Capacity 244 mcg/dL (228-428); Total Protein 7.5 g/dL (6.5-8.0); Triglycerides 68 mg/dL (<150); Unsaturated Iron Binding 118 ug/dL
[2024-05-14 12:07] LABS: Ferritin 184 ng/mL (10-122); TSH reflex Free T4 1.62 uIU/mL (0.32-4.0); Vitamin D 25-OH Total 29.8 ng/mL (>30)
[2024-05-14 12:23] LABS: Folate 5.8 ng/mL (> or = 4.0); Vitamin B12 274 pg/mL (200-900)
[2024-05-14 12:24] LABS: Insulin 2 uU/mL (2-29)
[2024-05-17 01:04] LABS: Vitamin A 29 mcg/dL (38-98)
[2024-05-17 05:23] LABS: Zinc 69 mcg/dL (60-130)
[2024-05-21 13:58] LABS: Vitamin B1 10 nmol/L (8-30)
== END 2024-05-14 09:57 | disposition home or self-care (01) ==
LOC: HO.LAB 09:56
PROVIDERS: PCP Internal Medicine Geriatric Medicine; Visit Provider Physician Assistant Surgical
DX: I10 Essential (primary) hypertension (principal); K76.0 Fatty (change of) liver, not elsewhere classified; Z98.84 Bariatric surgery status
CPT/HCPCS: 36415; 80053; 80061; 82306; 82607; 82728; 82746; 83036; 83525; 83540; 84425; 84443; 84590; 84630; 85025; 86140; 99212

== ENCOUNTER 2024-05-14 09:56 | Outpatient (AMB) | payer MEDICAID, SELFPAY ==
--- NOTE | 2024-05-14 09:59 | A.OFFVIS_ITS ---
VS Expanded 05/14/24 10:09 BP 139/94 H Blood Pressure Location Rt brachial Blood Pressure Position Sitting Pulse 97 Temp 97.2 F Temperature Source Temporal Artery Scan Pulse Oximetry 100 Height 5 ft Weight 108 lb 6 oz BMI 21.2 Body Fat % 25.8 Body Fat Mass 28. Fat Free Mass 80.4 Visceral Fat Rating 3.0 Body Water % 53.0 Body Water Mass 57.6 Muscle Mass/Score 76.2 Basal Metabolic Rate/Score 1,113 Intake Visit Reasons: (oV) PO LSG 11/08/23 Bee Tender Required: No Allergies No Known Allergies Allergy (Verified 01/12/24 10:17) Medication List - Last Reconciled 05/14/24 by DINA Hatch acetaminophen (Tylenol Extra Strength) 1,000 mg PO Q6H PRN albuterol sulfate 90 mcg/actuation (Ventolin HFA) 2 puffs inhalation Q6H PRN amitriptyline 25 mg PO BEDTIME bisacodyl (Dulcolax (bisacodyl)) 10 mg [place] DAILY PRN docusate sodium (Colace) 200 mg (2 x 100 mg) PO BEDTIME fluticasone furoate 100 mcg/actuation (Arnuity Ellipta) 1 inh inhalation DAILY lactulose 10 grams PO DAILY levonorgestrel (Mirena) 1 device intrauterine ONCE multivitamin 1 tab PO DAILY sennosides-docusate sodium 8.6-50 mg (Senna Plus) 1 tab-cap PO BEDTIME trazodone 50 mg PO BEDTIME HPI Comments Details: This?a?38?yo female who is s/p LSG without hiatal hernia repair on?11/08/2023. Presents for 6 month post op visit. Weight today is 108.6 pounds, with a BMI of 21.2. There has been a 72.2 pound weight loss,(initial weight 180.8 pounds) since starting the program on 08/26/2023 reflecting a 39.9 % total body weight loss and a weight loss of 54.8 pounds since surgery (operative weight 163.4 pounds) reflecting a 33.5 % TBWL since surgery. No complaints of nausea, emesis, abdominal pain or reflux. Reports infrequent but normal bowel movements every 3-4 days and uses stool softeners regularly. Overall she is very satisfied with the results that she has gotten so far. She feels really well. No complaints at this time. She does state that she is under significant stress lately as she found out her grandmothers have cancer. She is additionally caring for her aunt. It has been stressful at home however she is doing her best to take care of herself and maintain her healthy lifestyle. She does state that she has some excess skin of her abdomen. Given her 72.2 lb weight loss, this was somewhat expected. She has not experienced any rash at this point. Present meal plan includes: Using celebrate 4 in 1 protein powder Shake 2 scoops, 6-8 Shake 1 scoop, 10-12 Shake 1 scoop, 2-4 6 pm Meal, 4 forks protein, 4 forks vegetables Drinking 48-64 oz ? Exercise routine includes: Treadmill daily for 300-350 calories 5 days per week Any post op complications: None [place]: never DM: never HTN: resolved Hyperlipidemia: never GERD:?0-5 scale ??0 = no symptoms ??1 = symptoms noticeable but not bothersome 2 =symptoms bothersome but not daily ? 3 = symptoms bothersome and daily 4 = symptoms affect daily activities 5 = symptoms are incapacitating, unable to do daily activities ? How bad is the heartburn: 0 ? Heartburn while lying down: 0 ? Heartburn when standing up: 0 ? Heartburn after meals: 0 ? Does heartburn change your diet: 0 ? Does heartburn wake you up from sleep: 0 ? Do you have difficulty swallowin ? Do you have pain with swallowin ? If you take medicine for your reflux, does this affect your daily life: 0 Satisfaction with present condition - satisfied or not satisfied: satisfied [facility] Medical History Encounter for routine checking of intrauterine contraceptive device (IUD) Encounter for IUD insertion Cervical cancer screening Well woman exam with routine gynecological exam Palpitations Chest discomfort Uncontrolled hypertension Palpitations Osteoarthritis GERD (gastroesophageal reflux disease) IBS (irritable bowel syndrome) Migraines BMI 35.0-35.9,adult Obesity Hypertension Surgical History Hx of laparoscopic partial gastrectomy History of esophagogastroduodenoscopy (EGD) Hx of tubal ligation Family History Father No problems noted. 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 Menstrual Age of Menarche: 11 Physical Exam Const General: cooperative and no acute distress Orientation/consciousness: patient oriented x3 Resp Effort & Inspection: normal respiratory effort Auscultation: clear to auscultation bilaterally Cardio Rate: regular rate Rhythm: regular rhythm GI Inspection: Yes normal to inspection and Yes incision (well healed) Palpation (GI): Soft to palpation and no masses Neuro General: patient oriented x3 Assessment & Plan Assessment & Plan (1) S/P laparoscopic sleeve gastrectomy: Code(s): Z98.84 - Bariatric surgery status Category: Surgical Plan: Patient is doing well. She has achieved a healthy weight and healthy lifestyle. She does not wish to change her meal plan at this point. She will continue as such. We will check six-month postop labs. Return to clinic 3 months. Encouraged to text weekly with weights and with any questions or concerns. Orders: Orders Hemoglobin A1c Today I10 - Essential (primary) hypertension, K76.0 - Fatty (change of) liver, not elsewhere classified, Z98.84 - Bariatric surgery status Complete Blood Count Auto Diff Today I10 - Essential (primary) hypertension, K76.0 - Fatty (change of) liver, not elsewhere classified, Z98.84 - Bariatric surgery status Comprehensive Met. Panel Today I10 - Essential (primary) hypertension, K76.0 - Fatty (change of) liver, not elsewhere classified, Z98.84 - Bariatric surgery status C Reactive Protein Today I10 - Essential (primary) hypertension, K76.0 - Fatty (change of) liver, not elsewhere classified, Z98.84 - Bariatric surgery status TSH reflex Free T4 Today I10 - Essential (primary) hypertension, K76.0 - Fatty (change of) liver, not elsewhere classified, Z98.84 - Bariatric surgery status Ferritin Today I10 - Essential (primary) hypertension, K76.0 - Fatty (change of) liver, not elsewhere classified, Z. - Bariatric surgery status Vitamin D 25-OH Total Today I10 - Essential (primary) hypertension, K76.0 - Fatty (change of) liver, not elsewhere classified, Z.84 - Bariatric surgery status Insulin Today I10 - Essential (primary) hypertension, K76.0 - Fatty (change of) liver, not elsewhere classified, Z.84 - Bariatric surgery status Lipid Panel Today I10 - Essential (primary) hypertension, K76.0 - Fatty (change of) liver, not elsewhere classified, Z.84 - Bariatric surgery status IRON PROFILE Today I10 - Essential (primary) hypertension, K76.0 - Fatty (change of) liver, not elsewhere classified, Z. - Bariatric surgery status Vitamin B12 and Folate Today I10 - Essential (primary) hypertension, K76.0 - Fatty (change of) liver, not elsewhere classified, Z.84 - Bariatric surgery status Zinc Today I10 - Essential (primary) hypertension, K76.0 - Fatty (change of) liver, not elsewhere classified, Z.84 - Bariatric surgery status Vitamin B1 Today I10 - Essential (primary) hypertension, K76.0 - Fatty (change of) liver, not elsewhere classified, Z.84 - Bariatric surgery status Vitamin A Today I10 - Essential (primary) hypertension, K76.0 - Fatty (change of) liver, not elsewhere classified, Z.84 - Bariatric surgery status
[2024-05-14 10:09] VITALS: BP 139/94; PULSE 97; TEMP 36.2; O2SAT 100; BMI 21.2
== END 2024-05-14 10:23 | disposition home or self-care (01) ==
LOC: HO.HBS 09:57
PROVIDERS: PCP Internal Medicine Geriatric Medicine; Visit Provider Physician Assistant Surgical
DX: I10 Essential (primary) hypertension (principal); K76.0 Fatty (change of) liver, not elsewhere classified; Z90.3 Acquired absence of stomach [part of]; Z98.84 Bariatric surgery status
CPT/HCPCS: 99213

== ENCOUNTER 2024-06-26 12:30 | Outpatient (AMB) | payer MEDICAID, SELFPAY ==
[2024-06-26 12:48] VITALS: BP 120/80; PULSE 94; BMI 21.1
--- NOTE | 2024-06-26 12:48 | MHC.OFFVIS ---
Vital Signs 06/26/24 12:48 Height 5 ft Weight 108 lb 0.424 oz BMI 21.1 BP 120/80 Blood Pressure Location Lt brachial Position Sitting Pulse 94 Intake Visit Reasons: 1 yr follow up Intake Note: 1 year follow-up with ekg feeling good Senior Quality Control Technician Required: No Allergies No Known Allergies Allergy (Verified 01/12/24 10:17) Medication List - Last Reconciled 06/26/24 by Octavio Chow MD acetaminophen (Tylenol Extra Strength) 1,000 mg PO Q6H PRN albuterol sulfate 90 mcg/actuation (Ventolin HFA) 2 puffs inhalation Q6H PRN amitriptyline 25 mg PO BEDTIME bisacodyl (Dulcolax (bisacodyl)) 10 mg WA DAILY PRN docusate sodium (Colace) 200 mg (2 x 100 mg) PO BEDTIME fluticasone furoate 100 mcg/actuation (Arnuity Ellipta) 1 inh inhalation DAILY lactulose 10 grams PO DAILY levonorgestrel (Mirena) 1 device intrauterine ONCE multivitamin 1 tab PO DAILY sennosides-docusate sodium 8.6-50 mg (Senna Plus) 1 tab-cap PO BEDTIME trazodone 50 mg PO BEDTIME vitamin A palmitate 3,000 mcg PO DAILY 90 days HPI Comments Details: Gaye comes for follow-up. She underwent a gastric reduction surgery and since then she has lost significant amount of weight. She says she feels awesome. She is currently off all blood pressure medications. She has no exertional symptoms. Says the symptoms of shortness of breath and fatigue with exertion have improved. She is participate in regular physical activity. She drinks adequate amount of fluid. No cardiovascular symptoms PFSH Medical History Encounter for routine checking of intrauterine contraceptive device (IUD) Encounter for IUD insertion Cervical cancer screening Well woman exam with routine gynecological exam Palpitations Chest discomfort Uncontrolled hypertension Palpitations Osteoarthritis GERD (gastroesophageal reflux disease) IBS (irritable bowel syndrome) Migraines BMI 35.0-35.9,adult Obesity Hypertension Surgical History Hx of laparoscopic partial gastrectomy History of esophagogastroduodenoscopy (EGD) Hx of tubal ligation Family History Father No problems noted. 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 Female Reproductive History Menstrual Age of Menarche: 11 Review of Systems Const Denies chills, Denies fatigue, Denies fever(s), Denies frequent falls, Denies weakness, Denies weight gain and Denies weight loss ENT Denies dizziness Card Denies chest pain, Denies leg edema, Denies lightheadedness, Denies palpitations, Denies dyspnea, Denies dyspnea on exertion, Denies orthopnea and Denies other (loss of consciousness) Resp Denies cough, Denies dyspnea and Denies dyspnea on exertion GI Denies hematochezia and Denies change in stool character Musc Denies abnormal gait, Denies muscle weakness, Denies numbness, Denies radiating pain into limb and Denies tingling Neuro Denies abnormal gait, Denies dizziness, Denies frequent falls, Denies numbness, Denies tingling and Denies weakness Endo Denies fatigue and Denies palpitations Physical Exam Vital Signs: Last Vital Signs Pulse 94 06/26/24 12:48 BP 120/80 06/26/24 12:48 BMI result Body Mass Index 21.1 Const General: cooperative, healthy appearing, comfortable and no acute distress Orientation/consciousness: patient oriented x3 HEENT Head: Yes normal to inspection Resp Effort & Inspection: normal respiratory effort Auscultation: clear to auscultation bilaterally, no crackles, no rales, no rhonchi and no wheezes Cardio Jugular venous distension: no JVD Rate: regular rate Rhythm: regular rhythm Heart sounds: S1 normal heart sound present, S2 normal heart sound present, no murmurs and no rubs Neuro General: patient oriented x3 Extrem General: Yes normal to inspection Psych Appearance: grossly normal Mental Status: mental status grossly normal Speech and movement: Normal speech and movement present Office Procedures EKG Details: EKG shows normal sinus rhythm nonspecific T-wave changes 42156-[id number], Complete Assessment & Plan Assessment & Plan (1) Hypertension: Comment: being monitored by PCP-takes BP at home Code(s): I10 - Essential (primary) hypertension Category: Medical Plan: Patient with prior history of hypertension in the setting of obesity which is now completely normalized since losing significant amount of weight. She is feeling well. She is currently off all medications. At this point time advised her to continue lifestyle modification. Encouraged to maintain activity level and participate in continued weight maintenance therapy. Avoidance of salt loading was discussed. Advised to intermittently monitor blood pressure at home. Will follow up in the clinic if need be. Thank you for allowing me to partake in her care Coding Level of Care Code Est Pt Level 3 (08676) Complex EM visit Add On G2211 Diagnoses Hypertension I10 CPT Codes EKG - CPT: 41439-[id number], Complete ([id number])
--- OUTSIDE RECORDS SUMMARY | 2024-06-26 13:45 | XMS_ITS | Encounter Summary ---
Author Organization [employer] Address [address] [place] [address] [address] [place] [address] Care Team Providers Care Pharmacy Resource Tech Name Role Phone Name, Ulises YATES Primary Care Provider [phone] Tanya Lopez PharmD Unavailable [phone] Reason for Visit * Reason Comments Med Refill Encounter Details Date Type Department Care Team ([facility] Contact Info) Description 01/23/2024 Refill [facility] [address] [place], [place] [phone] Name, MD Ulises [address] [place] [address] Social History Tobacco Use Types Packs/Day Years Used Date Smoking Tobacco: Never Passive Smoke Exposure: Never Smokeless Tobacco: Never Alcohol Use Standard Drinks/Week Comments Yes 2 (1 standard drink = 0.6 oz pur e alcohol) Occassionally Alcohol Answer Date Recorded Frequency of Alcohol Consumption Not on file 10/12/2023 Average Number of Drinks Not on file 024 Frequency of Binge Drinking Not on file 09/22 Score 0 10/12/2023 Depression Answer Date Recorded Patient Health Questionnaire-9 Score 0 03/28/2023 Patient Health Questionnaire-9 Score 0 03/28/2023 Last PHQ-9: Questionnaire Data Not on file 0 03/28/2023 Housing Stability Answer Date Recorded What is your housing situation today? I have belkis goodman 03/21/[address] you li ve. Do you have problems with any of the following? None of the above 03/21/2023 Food Insecurity Answer Date Recorded Within the past 12 months, y ou worried that your food would run out before you got money to buy more: Never True 03/21/2023 Within the past 12 months,th e food you bought just didn't last and you didn't have enough money to get more: Never True Transportation Answer Date Recorded In the past 12 months, has l ack of transportation kept you from medical appts, meetings, work or from getting things needed for daily living? No 03/21/2023 Utilities Answer Date Recorded In the past 12 months, has t he electric, gas, oil or water company threatened to shut off services in your home? No 03/21/2023 Depression Answer Date Recorded Patient Health Questionnaire-2 Score 0 03/28/2023 Comments Unknown Sex and Gender Information Value Date Recorded Sex Assigned at Female 12/21/2021 10:18 AM EDT Legal Sex Female 10:18 AM EDT Gender Identity Female 06/22/2023 2:19 PM EDT Sexual Orientation Choose not to disclose 2021 10:18 AM EDT documented as of this encounter Plan of Treatment Upcoming Encounters Date Type Department Care Team (Late st Contact Info) Description 09/28/2024 9:15 AM EDT Office Visit [facility] [address] [place] [address] Name, MD Ulises [address] [place] [address] documented as of this encounter Goals Goal Patient Goal Type Associated Problems Recent Progress Patient-Stated? Author Blood Pressure < 140/90 Blood Pressure 132/98( 025 10:55 AM EDT) No Puia, Tanya, PharmD Record your blood pressure once per day Blood Pressure On track(08/07/19 23 4:38 PM EDT) No Puia, Tanya, PharmD documented as of this encounter Visit Diagnoses Not on filedocumented in this encounter Additional Health Concerns Assessment Noted Time PHQ-9 Depression Total Score: 0 03/28/19 24 9:31 AM EST documented as of this encounter Care Teams Pharmacy Resource Tech Relationship Specialty Start Date End Date Name, MD Ulises [address] [place] [address] PCP - General Family Medicine 11/26/15 Tanya Lopez, PharmD [address] [place] [address] Pharmacist Internal Medicine 08/06/22 documented as of this encounter
--- OUTSIDE RECORDS SUMMARY | 2024-06-26 13:45 | XMS_ITS | Encounter Summary ---
Author Organization [employer] Address [address] [place] [address] 7[address] [place] [address] Care Team Providers Care Construction Equipment Operator Name Role Phone Name, Ulises YATES Primary Care Provider [phone] Tanya Lopez PharmD Unavailable [phone] Reason for Visit * Reason Comments Med Refill Encounter Details Date Type Department Care Team ([facility] Contact Info) Description 11/24/2023 Refill [facility] [address] [place], [place] [phone] Name, MD Ulises [address] [place] [address] Social History Tobacco Use Types Packs/Day Years [...] Description 09/28/2024 9:15 AM EDT Office Visit [facility] [address] [place] [address] Name, MD Ulises [address] [place] [address] documented as of this encounter Goals Goal [...] documented as of this encounter Care Teams Construction Equipment Operator Relationship Specialty Start Date End Date Name, MD Ulises [address] [place] [phone] PCP - General Family Medicine 11/26/15 Tanya Lopez, PharmD [address] [place] [phone] Pharmacist Internal Medicine 08/06/22 documented as of this encounter
--- OUTSIDE RECORDS SUMMARY | 2024-06-26 13:45 | XMS_ITS | Encounter Summary ---
Author Organization [employer] Address [address] [place] [address] 7t [place] [address] Care Team Providers Care Light Rail Vehicle Operator Name Role Phone Name, Ulises YATES Primary Care Provider [phone] Tanya Lopez PharmD Unavailable [phone] Reason for Visit * Reason Comments Med Refill Encounter Details Date Type Department Care Team ([facility] Contact Info) Description 01/23/2024 Refill [facility] [address] [place], [place] [phone] Name, MD Ulises [address] [place] [address] Social History Tobacco Use Types Packs/Day Years [...] Description 09/28/2024 9:15 AM EDT Office Visit [facility] [address] [place] [address] Name, MD Ulises [address] [place] [address] documented as of this encounter Goals Goal [...] documented as of this encounter Care Teams Light Rail Vehicle Operator Relationship Specialty Start Date End Date Name, MD Ulises [address] [place] [phone] PCP - General Family Medicine 11/26/15 Tanya Lopez, PharmD [address] [place] [address] Pharmacist Internal Medicine 08/06/22 documented as of this encounter
--- OUTSIDE RECORDS SUMMARY | 2024-06-26 13:45 | XMS_ITS | Encounter Summary ---
Author Organization [employer] Address [address] [place] [address] 7t [place] [address] Care Team Providers Care Powerhouse Mechanic Helper Name Role Phone Name, Ulises YATES Primary Care Provider [phone] Tanya Lopez PharmD Unavailable [phone] Reason for Visit * Reason Comments Med Refill Encounter Details Date Type Department Care Team ([facility] st Contact Info) Description 02/17/2023 Refill [facility] [address] [place], [place] [phone] Edwina Shepard DO [address] [place] [address] Migraine without status migrainosus, not intractable, unspecified migraine type Social History Tobacco Use Types Packs/Day Years Used Date Smoking Tobacco: Never Passive Smoke Exposure: Past Smokeless Tobacco: Never Alcohol Use Standard Drinks/Week Comments Yes 2 (1 standard drink = 0.6 oz pur e alcohol) Occassionally Depression Answer Date Recorded Patient Health Questionnaire-9 Score 0 01/27/2022 Housing Stability Answer Date Recorded What is your housing situation today? I have belkis goodman 12/08/[address] you li ve. Do you have problems with any of the following? None of the above 12/08/2022 Food Insecurity Answer Date Recorded Within the past 12 months, y ou worried that your food would run out before you got money to buy more: Never True 12/08/2022 Within the past 12 months,th e food you bought just didn't last and you didn't have enough money to get more: Never True Transportation Answer Date Recorded In the past 12 months, has l ack of transportation kept you from medical appts, meetings, work or from getting things needed for daily living? No 12/08/2022 Utilities Answer Date Recorded In the past 12 months, has t he electric, gas, oil or water company threatened to shut off services in your home? No 12/08/2022 Depression Answer Date Recorded Patient Health Questionnaire-2 Score 0 01/27/2022 Comments Unknown Sex and Gender Information Value [...] Description 09/28/2024 9:15 AM EDT Office Visit [facility] [address] [place] [address] Name, MD Ulises [address] [place] [address] documented as of this encounter Goals Goal Patient Goal Type Associated Problems Recent Progress Patient-Stated? Author Blood Pressure < 140/90 Blood Pressure 132/98( 025 10:55 AM EDT) No Puia, Tanya, PharmD Record your blood pressure once per day Blood Pressure On track(08/07/19 23 4:38 PM EDT) No Puia, Tanya, PharmD documented as of this encounter Visit Diagnoses Diagnosis Migraine without status migrainosus, not intractable, unspecified migraine type documented in this encounter Additional Health Concerns Assessment Noted Time PHQ-9 Depression Total Score: 0 01/28/20 22 11:25 AM EST documented as of this encounter Care Teams Powerhouse Mechanic Helper Relationship Specialty Start Date End Date Name, MD Ulises [address] [place] [address] PCP - General Family Medicine 11/26/15 PuKirsten gutierrezsa, PharmD [address] [place] [address] Pharmacist Internal Medicine 08/06/22 documented as of this encounter
--- OUTSIDE RECORDS SUMMARY | 2024-06-26 13:45 | XMS_ITS | Clinical Summary ---
Author Organization [facility] Address [address] [place] [address] Care Team Providers Care Copra Processor Name Role Phone Name, Ulises YATES Primary Care Provider [phone] Medical History Medical History Date Comments Preeclampsia DX:Preeclampsia Hypertension DX:Hypertension Family History Medical History Relation Name Comments Thyroid disease Mother Relation Name Status Comments Mother Social History Tobacco Use Types Packs/Day Years Used Date Smoking Tobacco: Never Alcohol Use Standard Drinks/Week Comments Not Asked 0 (1 standard drink = 0.6 oz pur e alcohol) Comments Unknown Sex and Gender Information Value Date Recorded Sex Assigned at Not on file Legal Sex Female 2:33 PM EST Gender Identity Not on file Sexual Orientation Not on file Obstetrics History Plan of Treatment Health Maintenance Due Date Last Done Comments DTaP,Tdap,and Td Vaccines (1 - Tdap) 07/29/2003 Hepatitis B Vaccines (1 of 3 - 19+ 3-dose series) 07/29/2003 Cervical Cancer Screening: P ap Smear 2005 COVID-19 Vaccine (2023-2 5 season) 2023 Influenza Vaccine (Season Ended) 2024 HIB Vaccines Aged Out No longer eligi ble based on patient's age to complete this topic HPV Vaccines Aged Out No longer eligi ble based on patient's age to complete this topic Hepatitis A Vaccines Aged Out No long er eligible based on patient's age to complete this topic IPV Vaccines Aged Out No longer eligi ble based on patient's age to complete this topic MMR Vaccines Aged Out No longer eligi ble based on patient's age to complete this topic Meningococcal ACWY Vaccine Aged Out N o longer eligible based on patient's age to complete this topic Meningococcal B Vaccine Aged Out No l onger eligible based on patient's age to complete this topic Pneumococcal Vaccine: Pediat rics (0 to 5 Years) and At-Risk Patients (6 to 64 Years) Aged Out No longer eligible b ased on patient's age to complete this topic RSV Immunization Patients Un huy 20 months Aged Out No longer eligible b ased on patient's age to complete this topic Varicella Vaccines Aged Out No longer eligible based on patient's age to complete this topic Care Teams Copra Processor Relationship Specialty Start Date End Date Name, MD Ulises [address] [place], [place] PCP - General Internal Medicine 05/09/12
--- OUTSIDE RECORDS SUMMARY | 2024-06-26 13:45 | XMS_ITS | Encounter Summary ---
Author Organization [employer] Address [address] [place] [address] [address]t [place] [address] Care Team Providers Care Manager Heavy Duty Name Role Phone Name, Ulises YATES Primary Care Provider [phone] Tanya Lopez PharmD Unavailable [phone] Reason for Visit * Reason Comments Med Refill Encounter Details Date Type Department Care Team ([facility] st Contact Info) Description 04/25/[address] [facility] [address] [place], [place] [phone] Alicia Lowry FNP [address] [place] [address] Social History Tobacco Use Types Packs/Day Years [...] housing situation today? I have belkis goodman 04/26/[address] you li ve. Do you have problems with any of the following? None of the above 04/26/2024 Food Insecurity Answer Date Recorded Within the past 12 months, y ou worried that your food would run out before you got money to buy more: Never True 04/26/2024 Within the past 12 months,th e food you bought just didn't last and you didn't have enough money to get more: Never True 07/2024 Transportation Answer Date Recorded In the past 12 months, has l ack of transportation kept you from medical appts, meetings, work or from getting things needed for daily living? No 04/26/2024 Utilities Answer Date Recorded In the past 12 months, has t he electric, gas, oil or water company threatened to shut off services in your home? No 04/26/2024 Depression Answer Date Recorded Patient Health Questionnaire-2 Score 0 03/28/2023 Internet Access Answer Date Recorded Internet Access Q1 Yes 04/26/2024 Internet Access Q2 Not on file 04/26/2024 Comments Unknown Sex and Gender Information Value [...] Description 09/28/2024 9:15 AM EDT Office Visit [facility] [address] [place] [address] Ulises Mcmillan MD [address] [place] [address] documented as of this encounter Goals Goal [...] documented as of this encounter Care Teams Manager Heavy Duty Relationship Specialty Start Date End Date Ulises Mcmillan MD [address] [place] [address] [place] [address] PCP - General Family Medicine 11/26/15 Tanya Lopez PharmD [address] [place] [address] Pharmacist Internal Medicine 08/06/22 documented as of this encounter
--- OUTSIDE RECORDS SUMMARY | 2024-06-26 13:45 | XMS_ITS | Encounter Summary ---
Author Organization [employer] Address [address] [place] [address] [address]t [place] [address] Care Team Providers Care Beet Worker Name Role Phone Name, Ulises YATES Primary Care Provider [phone] Tanya Lopez PharmD Unavailable [phone] Reason for Visit * Reason Comments Med Refill Encounter Details Date Type Department Care Team ([facility] Contact Info) Description 09/21/2022 Refill [facility] [address] [place] [address] [phone] Ulises Mcmillan MD [address] [place] [address] [phone] Social History Tobacco Use Types Packs/Day Years Used Date Smoking Tobacco: Never Passive Smoke Exposure: Past Smokeless Tobacco: Never Alcohol Use Standard Drinks/Week Comments Yes 2 (1 standard drink = 0.6 oz pur e alcohol) Occassionally Depression Answer Date Recorded Patient Health Questionnaire-9 Score 0 01/27/2022 Depression Answer Date Recorded Patient Health Questionnaire-2 [...] Upcoming Encounters Date Type Department Care Team ([facility] Contact Info) Description 09/28/2024 9:15 AM EDT Office Visit [facility] [address] [place] [address] [phone] Ulises Mcmillan MD [address] [place] [address] [phone] documented as of this encounter Goals Goal Patient Goal Type Associated Problems Recent Progress Patient-Stated? Author Blood Pressure < 140/90 Blood Pressure 132/98( 025 10:55 AM EDT) No Tanya Lopez, PharmSterling Record your blood pressure once per day Blood Pressure On track(08/07/19 23 4:38 PM EDT) No Tanya Lopez PharmD documented as of this encounter Visit Diagnoses Not on filedocumented in this encounter Additional Health Concerns Assessment Noted Time PHQ-9 Depression Total Score: 0 01/28/20 22 11:25 AM EST documented as of this encounter Care Teams Beet Worker Relationship Specialty Start Date End Date Name, MD Ulises [address] [place] [address] PCP - General Family Medicine 11/26/15 Tanya Lopez PharmD [address] [place] [address] Pharmacist Internal Medicine 08/06/22 documented as of this encounter
--- OUTSIDE RECORDS SUMMARY | 2024-06-26 13:46 | XMS_ITS | Encounter Summary ---
Author Organization [employer] Address [address] [facility] 7t [place] [address] Care Team Providers Care Admitting Representative Name Role Phone Name, Ulises YATES Primary Care Provider Tanya Lopez PharmD Unavailable [phone] Reason for Visit * Reason Comments Med Refill Encounter Details Date Type Department Care Team ([facility] st Contact Info) Description 02/12/2024 Refill [facility] [address] [place], [place] [phone] Park Hernandez NP [address] [place] [address] Chronic left shoulder pain Social History Tobacco Use Types Packs/Day Years [...] AM EDT documented as of this encounter Miscellaneous Notes * Telephone Encounter - Ulises Mcmillan MD - 02/13/2024 10:17 AM EST I have never prescribed and she was dong good last time I saw her documented in this encounter Plan of Treatment Upcoming Encounters Date Type Department Care Team (Late st Contact Info) Description 09/28/2024 9:15 AM EDT Office Visit [facility] [address] [place] [address] Ulises Mcmillan MD [address] [place] [address] documented as of this encounter Goals Goal Patient Goal Type Associated Problems Recent Progress Patient-Stated? Author Blood Pressure < 140/90 Blood Pressure 132/98( 025 10:55 AM EDT) No Tanya Lopez, PharmD Record your blood pressure once per day Blood Pressure On track(08/07/19 23 4:38 PM EDT) No Tanya Lopez, PharmD documented as of this encounter Visit Diagnoses Diagnosis Chronic left shoulder pain Pain in joint, shoulder region documented in this encounter Additional Health Concerns Assessment Noted Time PHQ-9 Depression Total Score: 0 03/28/19 24 9:31 AM EST documented as of this encounter Care Teams Admitting Representative Relationship Specialty Start Date End Date Name, MD Ulises [address] [place] [address] PCP - General Family Medicine 11/26/15 Tanya Lopez PharmD [address] [place] [address] Pharmacist Internal Medicine 08/06/22 documented as of this encounter
--- OUTSIDE RECORDS SUMMARY | 2024-06-26 13:46 | XMS_ITS | Encounter Summary ---
Author Organization [employer] Address [address] [place] [address] [address] [place] [address] Care Team Providers Care Coroner Technician Name Role Phone Name, Ulises YATES Primary Care Provider [phone] Tanya Lopez PharmD Unavailable [phone] Reason for Visit * Reason Comments Med Refill Encounter Details Date Type Department Care Team ([facility] st Contact Info) Description 09/21/2023 Refill [facility] [address] [place], [place] [phone] PuiaTanya, PharmD [address] [place] [address] Primary hypertension Social History Tobacco Use Types Packs/Day Years [...] Description 09/28/2024 9:15 AM EDT Office Visit [facility] [address] [place] [phone] Name, MD Ulises [address] [place] [id number] documented as of this encounter Goals Goal Patient Goal Type Associated Problems Recent Progress Patient-Stated? Author Blood Pressure < 140/90 Blood Pressure 132/98( 025 10:55 AM EDT) No Puia, Tanya, PharmD Record your blood pressure once per day Blood Pressure On track(08/07/19 23 4:38 PM EDT) No Puia, Tanya, PharmD documented as of this encounter Visit Diagnoses Diagnosis Primary hypertension Unspecified essential hypertension documented in this encounter Additional Health Concerns Assessment Noted Time PHQ-9 Depression Total Score: 0 03/28/19 24 9:31 AM EST documented as of this encounter Care Teams Coroner Technician Relationship Specialty Start Date End Date Name, MD Ulises [address] [place] [id number] PCP - General Family Medicine 11/26/15 Puia, Tanya, PharmD [address] [place] [id number] Pharmacist Internal Medicine 08/06/22 documented as of this encounter
--- OUTSIDE RECORDS SUMMARY | 2024-06-26 13:46 | XMS_ITS | Encounter Summary ---
Author Organization [email or web address] Address [address] [place] [address] [address] [place] [address] Care Team Providers Care Fill Technician Name Role Phone Name, Ulises YATES Primary Care Provider [phone] Anita Skinner LUMBER LOADER Unavailable Tanya Lopez PharmD Unavailable [phone] Reason for Visit * Reason Comments Med Refill Encounter Details Date Type Department Care Team ([facility] st Contact Info) Description 03/26/2022 Refill [facility] [address] [place] [address] Leisa Daugherty FNP [address] [place], [place] [id number] Other acute back pain Social History Tobacco Use Types Packs/Day [...] not to disclose 2021 10:18 AM EDT COVID-19 Exposure Response Date Recorded In the last 10 days, have yo u been in contact with someone who was confirmed or suspected to have Coronavirus/COVID-19? No / Unsure 03/23/2022 11:03 AM EST documented as of this encounter Plan of Treatment Upcoming Encounters Date Type Department Care Team (Late st Contact Info) Description 09/28/2024 9:15 AM EDT Office Visit [facility] [address] [place] [address] Name, MD Ulises [address] [place] [address] documented as of this encounter Visit Diagnoses Diagnosis Other acute back pain documented in this encounter Additional Health Concerns Assessment Noted Time PHQ-9 Depression Total Score: 0 01/28/20 11:25 AM EST documented as of this encounter Care Teams Fill Technician Relationship Specialty Start Date End Date Name, MD Ulises [address] [place] [phone] PCP - General Family Medicine 11/26/15 AdamsAnita FNP [address] [place] [id number] Nurse Practitioner Family Medicine 01/19/22 08/05/22 Tanya Lopez PharmD [address] [place] [phone] Pharmacist Internal Medicine 08/06/22 documented as of this encounter
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
--- OUTSIDE RECORDS SUMMARY | 2024-06-26 13:46 | XMS_ITS | Encounter Summary ---
Author Organization [employer] Address [address] [place] [address] 7[address] [place] [address] Care Team Providers Care Drug Clerk Name Role Phone Name, Ulises YATES Primary Care Provider [phone] [place], Anita WILDLIFE CONSERVATION OFFICER Unavailable Tanya Lopez PharmD Unavailable Encounter Details Date Type Department Care Team ([facility] st Contact Info) Description 03/31/2022 Orders Only [facility] [address] [place], [place] [phone] Ledy Woo, RN [address] [place] [address] Screening for tuberculosis (Primary Dx) Social History Tobacco Use Types Packs/Day Years [...] suspected to have Coronavirus/COVID-19? No / Unsure 03/30/2022 1:51 PM EST documented as of this encounter Plan of Treatment Upcoming Encounters Date Type Department Care Team (Late st Contact Info) Description 09/28/2024 9:15 AM EDT Office Visit [facility] [address] [place] [address] Name, MD Ulises [address] [place] [address] documented as of this encounter Procedures Procedure Name Priority Date/Time Associated Diagnosis Comments BASIC METABOLIC PANEL Routine 09/10/2022 11:58 AM EDT Screening for tuberculosis HELICOBACTER PYLORI, UREA BREATH TEST Routine 07/27/2022 11:24 AM EDT Screening for tuberculosis CBC WITH AUTO DIFFERENTIAL Routine 05/24/2022 10:17 AM EDT Screening for tuberculosis SED RATE BY MODIFIED WESTERGREN Routine 05/24/2022 10:17 AM EDT Screening for tuberculosis C-REACTIVE PROTEIN Routine 05/24/2022 10 :17 AM EDT Screening for tuberculosis TSH Routine 05/24/2022 10:17 AM EDT Screening for tuberculosis COMPREHENSIVE METABOLIC PANEL Routine 05/24/2022 10:17 AM EDT Screening for tuberculosis QUANTIFERON(R)-TB GOLD PLUS, 1 TUBE Routine 04/01/2022 4:33 PM EST Screening for tuberculosis documented in this encounter Results * (ABNORMAL) Basic Metabolic Panel (09/10/2022 11:58 AM EDT) Sodium 137 135 - 145 mmol/L [facility] Potassium 3.8 3.3 - 5.1 mmol/L [facility] Chloride 106 96 - 108 mmol/L [facility] Carbon Dioxide 24 22 - 29 mmol/L [facility] Anion Gap 11(L) 12 - 20 [facility] Urea Nitrogen (BUN) 12 9 - 16 mg/dL [facility] Creatinine, Serum 0.76 0.5 - 1.4 mg/dL [facility] Estimated Glomerular Filt Rate >60 [facility] Comment:NOTE: For -Am erican individuals, multiply the result by 1.210.Chronic Kidney Disease: Estimated GFR < 60 mL/min/1.69q2Fwgctn Kidney Disease: Estimated GFR < 15 mL/min/1.73m2 Glucose 95 60 - 115 mg/dL [facility] Calcium 9.5 8.4 - 10.2 mg/dL [facility] 09/10/2022 11:5 8 AM EDT 09/10/2022 2:34 PM EDT Ulises Mcmillan MD LAB BLOOD ORDERABLES Final Resul t Performing Organization Address [facility]/ZIP Co de Phone Number [facility] [address] [place] [phone] * Helicobacter pylori, Urea Breath Test (07/27/2022 11:24 AM EDT) H. pylori Breath Test Negative Negative [facility] Comment:Antimicrobials, prot on pump inhibitors and bismuthpreparations are known to suppress H. pylori. Ingestingthese medications within two weeks prior to performing thebreath test may produce negative test results. A positiveresult is still clinically valid. 07/27/2022 11:2 4 AM EDT 07/27/2022 6:15 PM EDT [facility] External Provider LAB BLO OD ORDERABLES Final Result Performing Organization Address [facility]/ZIP Co de Phone Number [facility] [address] [place] [address] [phone] * Sed Rate by Torres Sahni (05/24/2022 10:17 AM EDT) Erythrocyte Sedimentation Rate 6 0 - 20 MM/HR [facility] Comment:Patients with polycy themia and many hemoglobin abnormalitiesmay have depressed sed rates whereas patients with anemiamay have elevated sed rates. 05/24/2022 10:1 7 AM EDT 05/24/2022 10:17 AM EDT [facility] External Provider LAB BLO OD ORDERABLES Final Result Performing Organization Address City/[facility]/ZIP Co de Phone Number [facility] [address] [place] [address] [phone] * TSH (05/24/2022 10:17 AM EDT) Thyroid Stimulating Hormone 1.38 0.32 - 4.0 uIU/mL [facility] Comment:TSH 3rd Generation ( [facility]) 05/24/2022 10:1 7 AM EDT 05/24/2022 10:17 AM EDT [facility] External Provider LAB BLO OD ORDERABLES Final Result Performing Organization Address [facility]/ZIP Co de Phone Number [facility] [address] [place] [address] [phone] * (ABNORMAL) C-reactive Protein (05/24/2022 10:17 AM EDT) C Reactive Protein 0.76(H) < or = 0.50 mg/dL [facility] 05/24/2022 10:1 7 AM EDT 05/24/2022 10:17 AM EDT [facility] External Provider LAB BLO OD ORDERABLES Final Result Performing Organization Address [facility]/ZIP Co de Phone Number [facility] [address] [place] [address] [phone] * (ABNORMAL) Comprehensive Metabolic Panel (05/24/2022 10:17 AM EDT) Sodium 139 135 - 145 mmol/L [facility] Potassium 4.5 3.3 - 5.1 mmol/L [facility] Chloride 110(H) 96 - 108 mmol/L [facility] Carbon Dioxide 24 22 - 29 mmol/L [facility] Anion Gap 10(L) 12 - 20 [facility] Urea Nitrogen (BUN) 12 9 - 16 mg/dL [facility] Creatinine, Serum 0.75 0.5 - 1.4 mg/dL [facility] Estimated Glomerular Filt Rate >60 [facility] Comment:NOTE: For -Am erican individuals, multiply the result by 1.210.Chronic Kidney Disease: Estimated GFR < 60 mL/min/1.11h5Qdpkog Kidney Disease: Estimated GFR < 15 mL/min/1.73m2 Glucose 141(H) 60 - 115 mg/dL [facility] Calcium 9.0 8.4 - 10.2 mg/dL [facility] Bilirubin, Total 0.6 0.0 - 1.0 mg/dL [facility] Aspartate Amino Transferase 21 5 - 31 U/L [facility] Alanine Aminotransferase 43(H) 0 - 31 U/L [facility] Total Protein 7.2 6.5 - 8.0 g/dL [facility] Albumin Level 4.3 3.5 - 5.0 g/dL [facility] Alkaline Phosphatase 70 39 - 117 U/L [facility] 05/24/2022 10:1 7 AM EDT 05/24/2022 10:17 AM EDT [facility] External Provider LAB BLO OD ORDERABLES Final Result [facility] [address] [place] [phone] [phone] * (ABNORMAL) CBC auto differential (05/24/2022 10:17 AM EDT) White Blood Count 4.2(L) 4.8 - 10.8 X10*3/uL [facility] Red Blood Count 3.81(L) 4.20 - 5.50 X10*6/uL [facility] Hemoglobin 12.9 12.0 - 16.0 g/dl [facility] Hematocrit 36.9(L) 37.0 - 47.0 % [facility] Mean Corpuscular Volume 96.9 80.0 - 98.0 fL [facility] Mean Corpuscular Hemoglobin 33.9(H) 27.0 - 33.0 pg [facility] Mean Corpuscular HGB Conc 35.0 31.0 - 35.0 g/dl [facility] Red Cell Distribution Width 11.9 11.0 - 16.0 % [facility] Platelet Count 283 160 - 400 X10*3/uL [facility] Mean Platelet Volume 10.4 9.4 - 12.3 fL [facility] Neutrophils Percent Auto 47.8 45 - 73 % [facility] Imm Gran Pct Auto 0.2 0.0 - 0.4 % [facility] Lymphocytes Percent Auto 38.1 20 - 40 % [facility] Monocytes Percent Auto 7.4 2 - 11 % [facility] Eosinophils Percent Auto 4.8(H) 0 - 4 % [facility] Basophils Percent Auto 1.7 0 - 2 % [facility] NRBC Pct Auto 0.0 0.0 - 0.2 /100WBC [facility] Neutrophils Absolute Auto 2.0 2.0 - 8.3 x10*3/uL [facility] Imm Gran Abs Auto 0.01 0.00 - 0.03 X10*3/uL [facility] Lymphocytes Absolute Auto 1.6 1.2 - 4.9 X10*3/uL [facility] Monocytes Absolute Auto 0.3 0.1 - 1.2 X10*3/uL [facility] Eosinophils Absolute Auto 0.2 0.0 - 0.4 X10*3/uL [facility] Basophils Absolute Auto 0.1 0.0 - 0.2 X10*3/uL [facility] NRBC Abs Auto 0.000 0.0 - 0.012 X10*3/uL [facility] 05/24/2022 10:1 7 AM EDT 05/24/2022 10:17 AM EDT [facility] External Provider LAB BLO OD ORDERABLES Final Result [facility] [address] [place] [address] [phone] * QuantiFERON??-TB Gold Plus, 1 Tube (04/01/2022 4:33 PM EST) Quantiferon ??-TB Gold Plus, 1 Tube NEGATIVE NEGATIVE [facility] [employer] Comment: Negative test result. M. tuberculosis complex infection unlikely. NIL 0.04 IU/mL [employer] [employer] [facility] [employer] MITOGEN-NIL >10.00 IU/mL [facility] [place] [employer] TB1-NIL <0.00 IU/mL [facility] [place] [employer] TB2-NIL 0.01 IU/mL [facility] [employer] Comment: The Nil tube value reflects the background interferon gamma immune response of the patient's blood sample. This value has been subtracted from the patient's displayed TB and Mitogen results. Lower than expected results with the Mitogen tube prevent false-negative Quantiferon readings by detecting a patient with a potential immune suppressive condition and/or suboptimal pre-analytical specimen handling. The TB1 Antigen tube is coated with the M. tuberculosis-specific antigens designed to elicit responses from TB antigen primed CD4+ helper T-lymphocytes. The TB2 Antigen tube is coated with the M. tuberculosis-specific antigens designed to elicit responses from TB antigen primed CD4+ helper and CD8+ cytotoxic T-lymphocytes. For additional information, please refer to https://education.Shoot it!/faq/USN769 (This link is being provided for informational/ educational purposes only.) Blood Venous blood specimen / Unknown 04/01/2022 4:33 PM EST 04/01/2022 4:33 PM EST Narrative [facility] - 04/07/2022 10:57 PM EST FASTING:NO FASTING: NO Ulises Mcmillan MD LAB BLOOD ORDERABLES Final Resul t [facility] [address] [place] [address], [place] [address] [facility] [address] [facility], ([address]) [place] [address] documented in this encounter Visit Diagnoses Diagnosis Screening for tuberculosis- Primary Screening examination for pulmonary tuberculosis documented in this encounter Additional Health Concerns Assessment Noted Time PHQ-9 Depression Total Score: 0 01/28/20 22 11:25 AM EST documented as of this encounter Care Teams Drug Clerk Relationship Specialty Start Date End Date Name, MD Ulises [address] [place] [address] PCP - General Family Medicine 11/26/15 LivingstonAnita FNP [address] [place] [phone] Nurse Practitioner Family Medicine 01/19/22 08/05/22 Tanya Lopez PharmD [address] [place] [phone] Pharmacist Internal Medicine 08/06/22 documented as of this encounter
== END 2024-06-26 13:02 | disposition home or self-care (01) ==
LOC: HO.HCS 12:31
PROVIDERS: PCP Internal Medicine Geriatric Medicine; Visit Provider Internal Medicine Cardiovascular Disease
DX: I10 Essential (primary) hypertension (principal)
CPT/HCPCS: 93010; 99213

== ENCOUNTER → 2024-06-26 12:30 | Outpatient (BNVA) | payer MEDICAID, SELFPAY | PROVIDERS: PCP Internal Medicine Geriatric Medicine; Visit Provider Internal Medicine Cardiovascular Disease | DX: I10 Essential (primary) hypertension (principal) | CPT/HCPCS: 93005; 99212 ==

== ENCOUNTER 2024-07-02 10:24 | Outpatient (AMB) | payer MEDICAID, SELFPAY ==
[2024-07-02 10:36] VITALS: BP 129/89; PULSE 84; BMI 21.1
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
--- OUTSIDE RECORDS SUMMARY | 2024-07-02 11:01 | XMS_ITS | Clinical Summary ---
Author Organization [facility] it[facility] Address [address] [place] [address] Care Team Providers Care Energy Audit Advisor Name Role Phone Name, Ulises YATES Primary Care Provider [phone] Medical History Medical History Date Comments Preeclampsia [...] age to complete this topic Care Teams Energy Audit Advisor Relationship Specialty Start Date End Date Name, MD Ulises [address] [place], [place] PCP - General Internal Medicine 05/09/12
--- OUTSIDE RECORDS SUMMARY | 2024-07-02 11:01 | XMS_ITS | Encounter Summary ---
Author Organization [employer] Address [address] [place] [address] 7t [place] [address] Care Team Providers Care Radiology Administrator Name Role Phone Name, Ulises YATES Primary Care Provider [phone] Tanya Lopez PharmD Unavailable [phone] Reason for Visit * Reason Comments Med Refill Encounter Details Date Type Department Care Team ([facility] Contact Info) Description 01/23/2024 Refill [facility] [address] [place], [place] [phone] Name, MD Ulises [address] [place] [address] Social History Tobacco Use Types Packs/Day Years [...] Description 09/28/2024 9:15 AM EDT Office Visit [facility] [address] [place] [address] Name, MD Ulises [address] [place] [address] documented as of this encounter Goals Goal [...] documented as of this encounter Care Teams Radiology Administrator Relationship Specialty Start Date End Date Name, MD Ulises [address] [place] [phone] PCP - General Family Medicine 11/26/15 Tanya Lopez, PharmD [address] [place] [phone] Pharmacist Internal Medicine 08/06/22 documented as of this encounter
--- OUTSIDE RECORDS SUMMARY | 2024-07-02 11:01 | XMS_ITS | Encounter Summary ---
Author Organization [employer] Address [address] [place] [address] 7t [place] [address] Care Team Providers Care Chlorination Operator Name Role Phone Name, Ulises YATES Primary Care Provider [phone] Tanya Lopez PharmD Unavailable [phone] Reason for Visit * Reason Comments Med Refill Encounter Details Date Type Department Care Team ([facility] st Contact Info) Description 02/17/2023 Refill [facility] [address] [place], [place] [phone] Edwina Shepard DO 230 [place] [address] Migraine without status migrainosus, not intractable, unspecified [...] Description 09/28/2024 9:15 AM EDT Office Visit [facility] [address] [place] [phone] Name, MD Ulises [address] [place] [address] documented as of this encounter Goals Goal [...] documented as of this encounter Care Teams Chlorination Operator Relationship Specialty Start Date End Date Name, MD Ulises [address] [place] [address] PCP - General Family Medicine 11/26/15 PuKirsten gutierrezsa, PharmD [address] [place] [address] Pharmacist Internal Medicine 08/06/22 documented as of this encounter
--- OUTSIDE RECORDS SUMMARY | 2024-07-02 11:01 | XMS_ITS | Encounter Summary ---
Author Organization [employer] Address [address] [place] [address] 7t [place] [address] Care Team Providers Care Science Manager Name Role Phone Name, Ulises YATES Primary Care Provider [phone] Tanya Lopez PharmD Unavailable Reason for Visit * Reason Comments Med Refill Encounter Details Date Type Department Care Team ([facility] Contact Info) Description 11/24/2023 Refill [facility] 230 [place], [place] [phone] Name, MD Ulises [address] [place] [address] Social History Tobacco Use Types Packs/Day Years [...] Description 09/28/2024 9:15 AM EDT Office Visit [facility] [address] [place] [address] Name, MD Ulises [address] [place] [address] documented as of this encounter Goals Goal [...] documented as of this encounter Care Teams Science Manager Relationship Specialty Start Date End Date Name, MD Ulises [address] [place] [address] PCP - General Family Medicine 11/26/15 Tanya Lopez, PharmD [address] [place] [address] Pharmacist Internal Medicine 08/06/22 documented as of this encounter
--- OUTSIDE RECORDS SUMMARY | 2024-07-02 11:01 | XMS_ITS | Encounter Summary ---
Author Organization [employer] Address [address] [place] [address] 7t [place] [address] Care Team Providers Care Filtering Machine Tender Name Role Phone Name, Ulises YATES Primary Care Provider [phone] Tanya Lopez PharmD Unavailable [phone] Reason for Visit * Reason Comments Med Refill Encounter Details Date Type Department Care Team ([facility] st Contact Info) Description 04/25/2024 Refill [facility] 230 [place], [place] [phone] Alicia Lowry FNP [address] [place] [address] Social History Tobacco Use Types Packs/Day Years [...] Description 09/28/2024 9:15 AM EDT Office Visit [facility] [address] [place] [address] Ulises Mcmillan MD [address] [place] [address] documented as of this encounter Goals Goal [...] documented as of this encounter Care Teams Filtering Machine Tender Relationship Specialty Start Date End Date Ulises Mcmillan MD [address] [place] [address] [place] [address] PCP - General Family Medicine 11/26/15 Tanya Lopez PharmD [address] [place] [address] Pharmacist Internal Medicine 08/06/22 documented as of this encounter
--- OUTSIDE RECORDS SUMMARY | 2024-07-02 11:01 | XMS_ITS | Encounter Summary ---
Author Organization [employer] Address [address] [place] [address] 7t [place] [address] Care Team Providers Care Assistant Refinery Operator Name Role Phone Name, Ulises YATES Primary Care Provider [phone] Tanya Lopez PharmD Unavailable [phone] Reason for Visit * Reason Comments Med Refill Encounter Details Date Type Department Care Team ([facility] st Contact Info) Description 09/21/2023 Refill [facility] 230 [place], [place] [phone] PuiaTanya, PharmD 230 [place] [address] Primary hypertension Social History Tobacco Use Types [...] Description 09/28/2024 9:15 AM EDT Office Visit [facility] [address] [place] [address] Name, MD Ulises [address] [place] [address] documented as of this encounter Goals Goal [...] documented as of this encounter Care Teams Assistant Refinery Operator Relationship Specialty Start Date End Date Name, MD Ulises [address] [place] [address] PCP - General Family Medicine 11/26/15 Puia, Tanya, PharmD [address] [place] [address] Pharmacist Internal Medicine 08/06/22 documented as of this encounter
--- OUTSIDE RECORDS SUMMARY | 2024-07-02 11:01 | XMS_ITS | Encounter Summary ---
Author Organization [employer] Address [address] [facility] 7t [place] [address] Care Team Providers Care Team Leader Surgery Name Role Phone Name, Ulises YATES Primary Care Provider [phone] Tanya Lopez PharmD Unavailable [phone] Reason for Visit * Reason Comments Med Refill Encounter Details Date Type Department Care Team ([facility] st Contact Info) Description 02/12/2024 Refill [facility] 230 [place], [place] [phone] Park Hernandez NP 230 [place] [address] Chronic left shoulder pain Social History Tobacco [...] Description 09/28/2024 9:15 AM EDT Office Visit [facility] 230 [place] [address] Ulises Mcmillan MD 230 [place] [address] documented as of this encounter Goals Goal [...] documented as of this encounter Care Teams Team Leader Surgery Relationship Specialty Start Date End Date Name, MD Ulises 230 [place] [address] PCP - General Family Medicine 11/26/15 Tanya Lopez PharmD 230 [place] [address] Pharmacist Internal Medicine 08/06/22 documented as of this encounter
--- OUTSIDE RECORDS SUMMARY | 2024-07-02 11:01 | XMS_ITS | Encounter Summary ---
Author Organization [employer] Address [address] [place] [address] 7t [place] [address] Care Team Providers Care Rail Car Repairer Name Role Phone Name, Ulises YATES Primary Care Provider [phone] Tanya Lopez PharmD Unavailable [phone] Reason for Visit * Reason Comments Med Refill Encounter Details Date Type Department Care Team ([facility] Contact Info) Description 09/21/2022 Refill [facility] [address] [place] [address] [phone] Ulises Mcmillan MD [address] [place] [address] [phone] Social History Tobacco Use Types Packs/Day Years [...] Upcoming Encounters Date Type Department Care Team ([facility] Contact Info) Description 09/28/2024 9:15 AM EDT Office Visit [facility] [address] [place] [address] [phone] Ulises Mcmillan MD [address] [place] [address] [phone] documented as of this encounter Goals Goal [...] documented as of this encounter Care Teams Rail Car Repairer Relationship Specialty Start Date End Date Name, MD Ulises 230 [place] [address] PCP - General Family Medicine 11/26/15 Tanya Lopez PharmD [address] [place] [address] Pharmacist Internal Medicine 08/06/22 documented as of this encounter
--- OUTSIDE RECORDS SUMMARY | 2024-07-02 11:01 | XMS_ITS | Encounter Summary ---
Author Organization [employer] Address [address] [place] [address] 7t [place] [address] Care Team Providers Care Mathematical Scientist Name Role Phone Name, Ulises YATES Primary Care Provider [phone] Tanya Lopez PharmD Unavailable [phone] Reason for Visit * Reason Comments Med Refill Encounter Details Date Type Department Care Team ([facility] Contact Info) Description 01/23/2024 Refill [facility] 230 [place], [place] [phone] Name, MD Ulises [address] [place] [address] Social History Tobacco Use Types Packs/Day Years [...] 09/28/2024 9:15 AM EDT Office Visit [facility] [address] [place] [address] Name, MD Ulises [address] [place] [address] documented as of this encounter Goals Goal [...] documented as of this encounter Care Teams Mathematical Scientist Relationship Specialty Start Date End Date Name, MD Ulises [address] [place] [address] PCP - General Family Medicine 11/26/15 Tanya Lopez, PharmD [address] [place] [phone] Pharmacist Internal Medicine 08/06/22 documented as of this encounter
--- OUTSIDE RECORDS SUMMARY | 2024-07-02 11:01 | XMS_ITS | Encounter Summary ---
Author Organization [employer] Address [address] [place] [address] 7t [place] [address] Care Team Providers Care Erp Engineer Name Role Phone Name, Ulises YATES Primary Care Provider [phone] Susanne, Anita TRAFFIC ASSISTANT Unavailable Tanya Lopez PharmD Unavailable Encounter Details Date Type Department Care Team ([facility] st Contact Info) Description 03/31/2022 Orders Only [facility] 230 [place], [place] [phone] Ledy Woo, RN 230 [place] [address] Screening for tuberculosis (Primary Dx) Social History [...] 9:15 AM EDT Office Visit [facility] [address] [place] [address] Name, MD Ulises [address] [place] [address] documented as of this encounter Procedures Procedure [...] EDT) Sodium 137 135 - 145 mmol/L [facility] Potassium 3.8 3.3 - 5.1 mmol/L [facility] Chloride 106 96 - 108 mmol/L [facility] Carbon Dioxide 24 22 - 29 mmol/L [facility] Anion Gap 11(L) 12 - 20 [facility] Urea Nitrogen (BUN) 12 9 - 16 mg/dL [facility] Creatinine, Serum 0.76 0.5 - 1.4 mg/dL [facility] Estimated Glomerular Filt Rate >60 [facility] Comment:NOTE: For -Am erican individuals, multiply the result by 1.210.Chronic Kidney Disease: Estimated GFR < 60 mL/min/[id number] Kidney Disease: Estimated GFR < 15 mL/min/1.73m2 Glucose 95 60 - 115 mg/dL [facility] Calcium 9.5 8.4 - 10.2 mg/dL [facility] 09/10/2022 11:5 8 AM EDT 09/10/2022 2:34 PM EDT Ulises Mcmillan MD LAB BLOOD ORDERABLES Final Resul t Performing Organization Address [facility]/ZIP Co de Phone Number [facility] [address] [place] [phone] * Helicobacter pylori, Urea Breath Test (07/27/2022 11:24 AM EDT) H. pylori Breath Test Negative Negative [facility] Comment:Antimicrobials, prot on pump inhibitors and bismuthpreparations are known to suppress H. pylori. Ingestingthese medications within two weeks prior to performing thebreath test may produce negative test results. A positiveresult is still clinically valid. 07/27/2022 11:2 4 AM EDT 07/27/2022 6:15 PM EDT [facility] External Provider LAB BLO OD ORDERABLES Final Result Performing Organization Address [facility]/ZIP Co de Phone Number [facility] [address] [place] [address] [phone] * Sed Rate by Torres Sahni (05/24/2022 10:17 AM EDT) Erythrocyte Sedimentation Rate 6 0 - 20 MM/HR [facility] Comment:Patients with polycy themia and many hemoglobin abnormalitiesmay have depressed sed rates whereas patients with anemiamay have elevated sed rates. 05/24/2022 10:1 7 AM EDT 05/24/2022 10:17 AM EDT [facility] External Provider LAB BLO OD ORDERABLES Final Result Performing Organization Address City/[facility]/ZIP Co de Phone Number [facility] [address] [place] [address] [phone] * TSH (05/24/2022 10:17 AM EDT) Thyroid Stimulating Hormone 1.38 0.32 - 4.0 uIU/mL [facility] Comment:TSH 3rd Generation ( [facility]) 05/24/2022 10:1 7 AM EDT 05/24/2022 10:17 AM EDT [facility] External Provider LAB BLO OD ORDERABLES Final Result Performing Organization Address [facility]/ZIP Co de Phone Number [facility] [address] [place] [address] [phone] * (ABNORMAL) C-reactive Protein (05/24/2022 10:17 AM EDT) C Reactive Protein 0.76(H) < or = 0.50 mg/dL [facility] 05/24/2022 10:1 7 AM EDT 05/24/2022 10:17 AM EDT [facility] External Provider LAB BLO OD ORDERABLES Final Result Performing Organization Address [facility]/ZIP Co de Phone Number [facility] [address] [place] [address] [phone] * (ABNORMAL) Comprehensive Metabolic Panel (05/24/2022 10:17 AM EDT) Sodium 139 135 - 145 mmol/L [facility] Potassium 4.5 3.3 - 5.1 mmol/L [facility] Chloride 110(H) 96 - 108 mmol/L [facility] Carbon Dioxide 24 22 - 29 mmol/L [facility] Anion Gap 10(L) 12 - 20 [facility] Urea Nitrogen (BUN) 12 9 - 16 mg/dL [facility] Creatinine, Serum 0.75 0.5 - 1.4 mg/dL [facility] Estimated Glomerular Filt Rate >60 [facility] Comment:NOTE: For -Am erican individuals, multiply the result by 1.210.Chronic Kidney Disease: Estimated GFR < 60 mL/min/[id number] Kidney Disease: Estimated GFR < 15 mL/min/1.73m2 Glucose 141(H) 60 - 115 mg/dL [facility] Calcium 9.0 8.4 - 10.2 mg/dL [facility] Bilirubin, Total 0.6 0.0 - 1.0 mg/dL [facility] Aspartate Amino Transferase 21 5 - 31 U/L [facility] Alanine Aminotransferase 43(H) 0 - 31 U/L [facility] Total Protein 7.2 6.5 - 8.0 g/dL [facility] Albumin Level 4.3 3.5 - 5.0 g/dL [facility] Alkaline Phosphatase 70 39 - 117 U/L [facility] 05/24/2022 10:1 7 AM EDT 05/24/2022 10:17 AM EDT [facility] External Provider LAB BLO OD ORDERABLES Final Result [facility] [address] [place] [address] [phone] * (ABNORMAL) CBC auto differential (05/24/2022 10:17 AM EDT) White Blood Count 4.2(L) 4.8 - 10.8 X10*3/uL [facility] Red Blood Count 3.81(L) 4.20 - 5.50 X10*6/uL [facility] Hemoglobin 12.9 12.0 - 16.0 g/dl [facility] Hematocrit 36.9(L) 37.0 - 47.0 % [facility] Mean Corpuscular Volume 96.9 80.0 - 98.0 fL [facility] Mean Corpuscular Hemoglobin 33.9(H) 27.0 - 33.0 pg [facility] Mean Corpuscular HGB Conc 35.0 31.0 - 35.0 g/dl [facility] Red Cell Distribution Width 11.9 11.0 - 16.0 % [facility] Platelet Count 283 160 - 400 X10*3/uL [facility] Mean Platelet Volume 10.4 9.4 - 12.3 fL [facility] Neutrophils Percent Auto 47.8 45 - 73 % [facility] Imm Gran Pct Auto 0.2 0.0 - 0.4 % [facility] Lymphocytes Percent Auto 38.1 20 - 40 % [facility] Monocytes Percent Auto 7.4 2 - 11 % [facility] Eosinophils Percent Auto 4.8(H) 0 - 4 % [facility] Basophils Percent Auto 1.7 0 - 2 % [facility] NRBC Pct Auto 0.0 0.0 - 0.2 /100WBC [facility] Neutrophils Absolute Auto 2.0 2.0 - 8.3 x10*3/uL [facility] Imm Gran Abs Auto 0.01 0.00 - 0.03 X10*3/uL [facility] Lymphocytes Absolute Auto 1.6 1.2 - 4.9 X10*3/uL [facility] Monocytes Absolute Auto 0.3 0.1 - 1.2 X10*3/uL [facility] Eosinophils Absolute Auto 0.2 0.0 - 0.4 X10*3/uL [facility] Basophils Absolute Auto 0.1 0.0 - 0.2 X10*3/uL [facility] NRBC Abs Auto 0.000 0.0 - 0.012 X10*3/uL [facility] 05/24/2022 10:1 7 AM EDT 05/24/2022 10:17 AM EDT [facility] External Provider LAB BLO OD ORDERABLES Final Result [facility] [address] [place] [address] [phone] * QuantiFERON??-TB Gold Plus, 1 Tube (04/01/2022 4:33 PM EST) Quantiferon ??-TB Gold Plus, 1 Tube NEGATIVE NEGATIVE [facility] [place] [employer] [facility] Comment: Negative test result. M. tuberculosis complex infection unlikely. NIL 0.04 IU/mL [facility] [place] [employer] [facility] MITOGEN-NIL >10.00 IU/mL [facility] [place] [employer] TB1-NIL <0.00 IU/mL [facility] [employer] [place] [employer] TB2-NIL 0.01 IU/mL [facility] [employer] [place] [employer] [facility] Comment: The Nil tube value reflects the [...] T-lymphocytes. For additional information, please refer to https://education.[employer]oServ/faq/FTS699 (This link is being provided for informational/ educational purposes only.) Blood Venous blood specimen / Unknown 04/01/2022 4:33 PM EST 04/01/2022 4:33 PM EST Narrative [facility] - 04/07/2022 10:57 PM EST FASTING:NO FASTING: NO Ulises Mcmillan MD LAB BLOOD ORDERABLES Final Resul t [facility] [address] [place] [address], [place] [address] [facility] [address] [facility], (Nl2) [place] [address] documented in this encounter Visit Diagnoses Diagnosis Screening for tuberculosis- Primary Screening examination for pulmonary tuberculosis documented in this encounter Additional Health Concerns Assessment Noted Time PHQ-9 Depression Total Score: 0 01/28/20 22 11:25 AM EST documented as of this encounter Care Teams Erp Engineer Relationship Specialty Start Date End Date Name, MD Ulises [address] [place] [address] PCP - General Family Medicine 11/26/15 [facility] FNP [address] [place] [address] Nurse Practitioner Family Medicine 01/19/22 08/05/22 Tanya Lopez PharmD [address] [place] [address] [phone] Pharmacist Internal Medicine 08/06/22 documented as of this encounter
--- OUTSIDE RECORDS SUMMARY | 2024-07-02 11:01 | XMS_ITS | Encounter Summary ---
Author Organization [employer] Address [address] [place] [address] 7t [place] [address] Care Team Providers Care Binder Roller Name Role Phone Name, Ulises YATES Primary Care Provider [phone] Anita Skinner ROD FINISHER Unavailable Tanya Lopez PharmD Unavailable [phone] Reason for Visit * Reason Comments Med Refill Encounter Details Date Type Department Care Team ([facility] st Contact Info) Description 03/26/2022 Refill [facility] [address] [place] [address] Leisa Daugherty FNP [address] [place], [place] [phone] Other acute back pain Social History Tobacco [...] Description 09/28/2024 9:15 AM EDT Office Visit [facility] [address] [place] [address] Name, MD Ulises [address] [place] [address] documented as of this encounter Visit Diagnoses Diagnosis Other acute back pain documented in this encounter Additional Health Concerns Assessment Noted Time PHQ-9 Depression Total Score: 0 01/28/20 11:25 AM EST documented as of this encounter Care Teams Binder Roller Relationship Specialty Start Date End Date Name, MD Ulises [address] [place] [address] PCP - General Family Medicine 11/26/15 ClioAnita FNP [address] [place] [address] 10784 Nurse Practitioner Family Medicine 01/19/22 08/05/22 Tanya Lopez PharmD [address] [place] [address] 87654 Pharmacist Internal Medicine 08/06/22 documented as of this encounter
--- OUTSIDE RECORDS SUMMARY | 2024-07-02 11:02 | XMS_ITS | Clinical Summary ---
Author Organization [employer] Address [address] [place] [address] [address] [place] [address] Care Team Providers Care Betting Agency Counter Clerk Name Role Phone Name, Ulises YATES Primary Care Provider [phone] Tanya Lopez PharmD Unavailable [phone] Allergies No known active allergies Medications [...] Department Care Team Description 06/12/2024 Orders Only [facility] [address] [place] [address] NameUlises MD Chronic left shoulder pain (Primary Dx) 06/07/2024 Telephone [facility] [address] [place] [address] Dolores Wallace MA august recalls 05/14/2024 Orders Only GENERIC EXTERNAL DATA DEPARTMENT Provider, Generic External Data 05/04/2024 10:30 AM EDT Office Visit [facility] [address] [place] [address] Ulises Mcmillan MD Migraine without status migrainosus, not intractable, unspecified migraine type (Primary Dx); History of bariatric surgery 05/04/2024 Population Health Risk Score [facility] ([facility]) Department [address] [phone] Provider, Population Health Generic 04/26/2024 Patient Outreach [facility] [address] [place] [address] Name, MD Ulises Pre-visit Planning (SDOH negative, Tobacco screening negative. ) 04/25/2024 Refill [facility] [address] [place] [address] [phone] Alicia Lowry FNP from Last 3 Months Immunizations Name Administration [...] your housing situation today? I have belkis sing 04/26/[address] you li [...] 9:15 AM EDT Office Visit [facility] [address] [place] [phone] Name, MD Ulises [address] [place] [address] Health Maintenance Due Date Last Done Comments HIV Screening 1985 Family Planning (PISQ) 07/29/1999 Hepatitis A Vaccines (1 of 2 - Risk 2-dose series) 07/29/2003 Pneumococcal Vaccine: Pediatrics (0 to 5 Years) and At-Risk Patients (6 to 49) Years) (1 of 2 - PCV) 07/29/2003 COVID-19 Vaccine (4 - season) 2023 03/26/2021, 10/09/2020, 09/18/2020 Alcohol/Substance Use Screening 10/11/2024 10/12/2023 SDOH Screening 04/26/2025 04/26/2024 Depression Screening 05/04/2025 05/04/2024, 05/05/19 Tobacco Screening 05/04/2025 05/04/2024 Cervical Cancer Screening [...] Pressure 132/98( 025 10:55 AM EDT) No Pubrenda, Tanya, PharmD Record your blood pressure once per day Blood Pressure On track(08/07/19 4:38 PM EDT) No Puia, Tanya, PharmD Procedures Procedure Name Priority Date/Time Associated Diagnosis [...] Vitamin D 25-OH Total 29.8(L) >30 ng/mL [facility] Comment: Health Based Reference Values*< 20 ??ng/mL ??Cvqedsekn60-05 ng/mL ??Insufficient> 30 ??ng/mL ??Sufficient*Deb KING. N [...] Provider LAB BLOOD ORDERAB LES Final Result [facility] [address] [place] [address] [phone] * Vitamin B12 (Cobalamin) and Folate Panel, Serum (05/14/2024 11:01 AM EDT) Vitamin B12 274 200 - 900 pg/mL [facility] Comment:NORMAL 200-900 PG/ML INDETERMINATE 160-199 PG/ML DEFICIENT < 160 PG/ML Folate 5.8 > or = 4.0 ng/mL [facility] Comment:Reference Values:> o r = 4.0 ng/mL< 4.0 ng/mL suggests folate deficiency Methotrexate, aminopterin and folinic acid(leucovorin) are chemotherapeutic agents whose molecularstructures are similar to folate; therefore, the Architectfolate assay cannot be used for patients using these drugs. 05/14/2024 11:0 1 AM EDT 05/14/2024 11:01 AM EDT Generic External Data Provider LAB BLOOD ORDERAB LES Final Result Performing Organization Address [facility] de Phone Number [facility] [address] [place] [phone] * TSH with Reflex to Free T4 (05/14/2024 11:01 AM EDT) Pathologist [facility] TSH reflex Free T4 1.62 0.32 - 4.0 uIU/mL [facility] 05/14/2024 11:0 1 AM EDT 05/14/2024 11:01 AM EDT Generic External Data Provider LAB BLOOD ORDERAB LES Final Result Performing Organization Address [facility] de Phone Number [facility] [address] [place] [phone] * (ABNORMAL) CBC auto differential (05/14/2024 11:01 AM EDT) White Blood Count 3.0(L) 4.8 - 10.8 X10*3/uL [facility] Red Blood Count 4.01(L) 4.20 - 5.50 X10*6/uL [facility] Hemoglobin 13.2 12.0 - 16.0 g/dl [facility] Hematocrit 37.6 37.0 - 47.0 % [facility] Mean Corpuscular Volume 93.8 80.0 - 98.0 fL [facility] Mean Corpuscular Hemoglobin 32.9 27.0 - 33.0 pg [facility] Mean Corpuscular HGB Conc 35.1(H) 31.0 - 35.0 g/dl [facility] Red Cell Distribution Width 12.4 11.0 - 16.0 % [facility] Platelet Count 260 160 - 400 X10*3/uL [facility] Mean Platelet Volume 10.5 9.4 - 12.3 fL [facility] Neutrophils Percent Auto 37.9(L) 45 - 73 % [facility] Imm Gran Pct Auto 0.3 0.0 - 0.4 % [facility] Lymphocytes Percent Auto 50.3(H) 20 - 40 % [facility] Monocytes Percent Auto 6.6 2 - 11 % [facility] Eosinophils Percent Auto 3.6 0 - 4 % [facility] Basophils Percent Auto 1.3 0 - 2 % [facility] NRBC Pct Auto 0.0 0.0 - 0.2 /100WBC [facility] Neutrophils Absolute Auto 1.1(L) 2.0 - 8.3 x10*3/uL [facility] Imm Gran Abs Auto 0.01 0.00 - 0.03 X10*3/uL [facility] Lymphocytes Absolute Auto 1.5 1.2 - 4.9 X10*3/uL [facility] Monocytes Absolute Auto 0.2 0.1 - 1.2 X10*3/uL [facility] Eosinophils Absolute Auto 0.1 0.0 - 0.4 X10*3/uL [facility] Basophils Absolute Auto 0.0 0.0 - 0.2 X10*3/uL [facility] NRBC Abs Auto 0.000 0.0 - 0.012 X10*3/uL [facility] 05/14/2024 11:0 1 AM EDT 05/14/2024 11:01 AM EDT us Generic External Data Provider LAB BLOOD ORDERAB LES Final Result [facility] [address] [place] [address] [phone] * (ABNORMAL) Iron And Total Iron Binding Capacity (05/14/2024 11:01 AM EDT) Pathologist [facility] Iron 126 30 - 160 mcg/dL [facility] Total Iron Binding Capacity 244 228 - 428 mcg/dL [facility] Percent Iron Saturation 52(H) 15 - 50 % [facility] Unsaturated Iron Binding 118 ug/dL [facility] 05/14/2024 11:0 1 AM EDT 05/14/2024 11:01 AM EDT Generic External Data Provider LAB BLOOD ORDERAB LES Final Result Performing Organization Address [facility] Co de Phone Number [facility] [address] [place] [phone] * Insulin (05/14/2024 11:01 AM EDT) [facility] Insulin 2 2 - 29 uU/mL [facility] Comment:This test was perfor med using the [employer] chemiluminescentmethod. Values obtained from different assay methods [...] ORDERAB LES Final Result Performing Organization Address [facility]/ZIP Co de Phone Number [facility] [address] [place] [address] [phone] * Zinc (05/14/2024 11:01 AM EDT) Pathologist [facility] Zinc 69 60 - 130 mcg/dL [facility] Comment:This test was develo ped and its analytical performancecharacteristics have been determined by [employer] [place]. It hasnot been cleared or approved by the U.S. Food and DrugAdministration. This assay has been validated pursuantto the CLIA regulations and is used for clinicalpurposes.THIS TEST WAS PERFORMED AT:[employer] [id number] [place] [id number] NIX MD,PHD 05/14/2024 11:0 1 AM EDT 05/14/2024 11:01 AM EDT Generic External Data Provider LAB BLOOD ORDERAB LES Final Result Performing Organization Address [facility]/ZIP Co de Phone Number [facility] [address] [place] [phone] * (ABNORMAL) Vitamin A (05/14/2024 11:01 AM EDT) Pathologist [facility] Vitamin A (Retinol) 29(A) 38 - 98 mcg/dL [facility] Comment:Vitamin supplementat ion within 24 hours prior toblood draw may affect the accuracy of the results.This test was developed and its analytical performancecharacteristics have been determined by [employer] [place], [place]. It hasnot been cleared or approved by the U.S. Food and DrugAdministration. This assay has been validated pursuantto the CLIA regulations and is used for clinicalpurposes.THIS TEST WAS PERFORMED AT:[employer] [id number] [place] [id number] NIX MD,PHD 05/14/2024 11:0 1 AM EDT 05/14/2024 11:01 AM EDT Generic External Data Provider LAB BLOOD ORDERAB LES Final Result Performing Organization Address [facility]/ZIP Co de Phone Number [facility] [address] [place] [phone] * C-reactive Protein (05/14/2024 11:01 AM EDT) C Reactive Protein 0.31 < or = 0.50 mg/dL [facility] 05/14/2024 11:0 1 AM EDT 05/14/2024 11:01 AM EDT Generic External Data Provider LAB BLOOD ORDERAB LES Final Result Performing Organization Address [facility] Co de Phone Number [facility] [address] [place] [phone] * Vitamin B1 (05/14/2024 11:01 AM EDT) [facility] Vitamin B1 10 8 - 30 nmol/L [facility] Comment:Vitamin supplementat ion within 24 hours prior toblood draw may affect the accuracy of the results.This test was developed and its analytical performancecharacteristics have been determined by [employer] [place], [place]. It hasnot been cleared or approved by the U.S. Food and DrugAdministration. This assay has been validated pursuantto the CLIA regulations and is used for clinicalpurposes.THIS TEST WAS PERFORMED AT:[id number] [place] [id number] NIX MD,PHD 05/14/2024 11:0 1 AM EDT 05/14/2024 11:01 AM EDT Generic External Data Provider LAB BLOOD ORDERAB LES Final Result Performing Organization Address [facility] Co de Phone Number [facility] [address] [place] [phone] * Hemoglobin A1c (05/14/2024 11:01 AM EDT) Pathologist [facility] Hemoglobin A1c 5.0 <6.0 % [facility] Comment:Hemoglobin A1C Refer ence Range Adults: 4.8 - 6.0 % Non diabetic: < 6.0 % Goal: < 7.0 %Additional Action Suggested: > 8.0 %Note: Hemoglobin A1c results are invalid for patients with abnormal amounts of HbF. Blood transfusions may impact the HbA1c concentration in the patient sample. Estimated Average Glucose 97 mg/dL [facility] Comment:eAG = Estimated ave rage glucose which is %A1C expressed asaverage glucose, using the formula of the [id number]-[id number] Glucose study (ADAG), Diabetes Care, Vol.31,#8,2007 05/14/2024 11:0 1 AM EDT 05/14/2024 11:01 AM EDT Generic External Data Provider LAB BLOOD ORDERAB LES Final Result Performing Organization Address [facility]/ZIP Co de Phone Number [facility] [address] [place] [phone] * (ABNORMAL) Ferritin (05/14/2024 11:01 AM EDT) Ferritin 184(H) 10 - 122 ng/mL [facility] 05/14/2024 11:0 1 AM EDT 05/14/2024 11:01 AM EDT Generic External Data Provider LAB BLOOD ORDERAB LES Final Result Performing Organization Address [facility] Co de Phone Number [facility] [address] [place] [phone] * Lipid Panel, Standard (05/14/2024 11:01 AM EDT) Triglycerides 68 <150 mg/dL [facility] Comment:Desirable Triglyceri de: less than 150 mg/dLBorderline High Triglyceride 150-199 mg/dLHigh Triglyceride: 200-499 mg/dLVery High Triglyceride: greater than or equal to 5OO mg/dL Cholesterol 145 <200 mg/dL [facility] Comment:Desirable Cholestero l: less than 200 mg/dLBorderline High Cholesterol: 200-239 mg/dLHigh Cholesterol: greater than 239 mg/dL LDL Cholesterol Calculated 87 <100 mg/dL [facility] Comment:Desirable LDL: less than 100 mg/dLNear Optimal/Above Optimal LDL: 110- 129 mg/dLBorderline High LDL: 130-159 mg/dLHigh LDL: 160-189 mg/dLVery High LDL: greater than or equal to 190 mg/dL HDL Cholesterol 45 >40 mg/dL [facility] Comment:Desirable HDL: great er than 40 mg/dL Note: This HDL assay may give artificially low results in patients with liver disease. 05/14/2024 11:0 1 AM EDT 05/14/2024 11:01 AM EDT us Generic External Data Provider LAB BLOOD ORDERAB LES Final Result [facility] [address] [place] [phone] [phone] * (ABNORMAL) Comprehensive Metabolic Panel (05/14/2024 11:01 AM EDT) Sodium 142 135 - 145 mmol/L [facility] Potassium 4.2 3.3 - 5.1 mmol/L [facility] Chloride 109(H) 96 - 108 mmol/L [facility] Carbon Dioxide 26 22 - 29 mmol/L [facility] Anion Gap 11(L) 12 - 20 [facility] Urea Nitrogen (BUN) 9 9 - 16 mg/dL [facility] Creatinine, Serum 0.68 0.5 - 1.4 mg/dL [facility] Estimated Glomerular Filt Rate >60 [facility] Comment:Chronic Kidney Disea se: Estimated GFR < 60 mL/min/1.04a6Psyuff Kidney Disease: Estimated GFR < 15 mL/min/1.73m2 Glucose 94 60 - 115 mg/dL [facility] Calcium 9.7 8.4 - 10.2 mg/dL [facility] Bilirubin, Total 0.8 0.0 - 1.0 mg/dL [facility] Aspartate Amino Transferase 18 5 - 31 U/L [facility] Alanine Aminotransferase 19 0 - 31 U/L [facility] Total Protein 7.5 6.5 - 8.0 g/dL [facility] Albumin Level 4.5 3.5 - 5.0 g/dL [facility] Alkaline Phosphatase 66 39 - 117 U/L [facility] 05/14/2024 11:0 1 AM EDT 05/14/2024 11:01 AM EDT us Generic External Data Provider LAB BLOOD ORDERAB LES Final Result Performing Organization Address City/State/[facility] Co de Phone Number [facility] [address] [place] [phone] * Pap Smear (04/19/2023 3:00 PM EST) 04/19/2023 3:00 PM EST 04/20/2023 7:45 AM EST Narrative [facility] - 05/02/2023 9:15 AM EDT ----- ------- Name: Gaye Arriaga ? Age/Sex: 37/F ? : 1985 Unit#: [id number] ?? Attend Dr: Allyn Pulido CNM ?Re04/19/23 ?Status: DEP REF ? Location: .LAB ?Disch: ? ----- ------- SPEC : [id number] ? RECD: 04/20/23 ? STATUS: ??SOUT ? REQ NUM: [id number] ? REGGIE: 04/19/23-1500 ? SUBM DR: Allyn Pulido CNM ? ENTERED: ??04/20/23 ?SP TYPE: Pap Smr ?OTHR DR: Name,Ulises YATES ? ORDERED: ??Pap Smear ? Interpretation ?? Satisfactory for evaluation. ?? Negative for intraepithelial lesion or malignancy. ?HPV mRNA E6/E7: ?NOT DETECTED ? This assay detects E6/E7 viral messenger RNA (mRNA) from 14 high-risk HPV types (16, 18, ?? 31, 33, 35, 39, 45, 51, 52, 56, 58, 59, 66, 68) ?? HPV testing performed by [email or web address], [place], [place]. ??See reference laboratory ?? portion of the EMR for entire report. ?Clinical Information LMP: 03/30/23 Previous PAP test: 2017, WNL ? Material Received ?? ThinPrep-Cervical Copies To: ?? Name,Ulises YATES ?? [address] ?? [place] [address] ?? [phone] ?? Allyn Pulido CNM ?? [address] [facility] ?? [place] [address] ?? [phone] ----- ------- Signed (signature on file) LEIGH Fajardo ([facility]) 05/02/239[address] ? ----- ------- ? END OF REPORT ? us Generic External Data Provider LAB CYTOLOGY FRANCHESCAOrion SANABRIA Final Result [facility] [address] [place] [phone] * Hepatitis Panel, General (04/07/2023 1:06 PM EST) Hepatitis A IgM Nonreactive Nonreactive [facility] Comment:IgM antibodies to JEFFRIES V not detected; does not exclude earlyacute or recovered HAV infection. ~Hepatitis B Surface Antibody REACTIVE Nonreactive [facility] Comment:REACTIVE: > 11.99 mI U/mL Hepatitis B Core Antibody Nonreactive Nonreactive [facility] Hepatitis C Antibody Nonreactive Nonreactive [facility] Comment:Antibodies to HCV no t detected; does not exclude early acuteHCV infection. Hepatitis B Surface Ag Negative Negative [facility] Blood 04/07/2023 1:06 PM EST 04/07/2023 3:58 PM EST us Leisa Loja [employer] LAB BLOOD ORDERABLES Final Res ult [facility] [address] [place] [address] [phone] from Last 3 Months or Most Recently Relevant to Health Maintenance Insurance [place] [id number] [facility] Care Teams Betting Agency Counter Clerk Relationship Specialty Start Date End Date Name, MD Ulises [address] [place] [address] PCP - General Family Medicine 11/26/15 Tanya Lopez PharmD [address] [place] [address] Pharmacist Internal Medicine 08/06/22
== END 2024-07-02 11:12 | disposition home or self-care (01) ==
LOC: HO.PMC 10:25
PROVIDERS: PCP Internal Medicine Geriatric Medicine; Referring Provider Internal Medicine Geriatric Medicine; Visit Provider Anesthesiology
DX: M47.812 Spondylosis without myelopathy or radiculopathy, cervical region (principal); M54.2 Cervicalgia
CPT/HCPCS: 99203

== ENCOUNTER → 2024-07-02 10:24 | Outpatient (BNVA) | payer MEDICAID, SELFPAY | PROVIDERS: PCP Internal Medicine Geriatric Medicine; Referring Provider Internal Medicine Geriatric Medicine; Visit Provider Anesthesiology | DX: M47.812 Spondylosis without myelopathy or radiculopathy, cervical region (principal); M54.2 Cervicalgia | CPT/HCPCS: 99202 ==

== ENCOUNTER 2024-07-03 10:38 | Outpatient (REF) | payer MEDICAID, SELFPAY ==
--- NOTE | ~2024-07-03 | XR_ITS ---
EXAMINATION: XR CERVICAL SPINE CLINICAL INFORMATION: M47.812 - Spondylosis without myelopathy or radiculopathy, cervical region COMPARISON: March 22, 2022. TECHNIQUE: 6 views of the cervical spine, inclusive of flexion and extension views, were obtained. FINDINGS: Marginal osteophyte formation and endplate sclerosis and decreased disc height at C5-6, C6-7 and C4-5 levels. No gross malalignment. No acute cortical disruption. Loss of the physiologic lordosis. Craniocervical junction is intact. No lytic or blastic lesions. Mild left neuroforamina narrowing C4-5 and C5-6 level. Small cervical ribs at C7. XR/XR cervical spine 5V IMPRESSION: Small cervical ribs, C7, bilaterally. Multilevel spondylosis C4 C7. Electronically signed by: Armand Palumbo MD 07/03/2024 11:15 AM EDT
--- OUTSIDE RECORDS SUMMARY | 2024-07-03 11:49 | XMS_ITS | Clinical Summary ---
Author Organization [facility] Address [address] [place] [address] Care Team Providers Care Secretary Receptionist Name Role Phone Name, Ulises YATES Primary Care Provider [phone] Medical History Medical History Date Comments Preeclampsia [...] age to complete this topic Care Teams Secretary Receptionist Relationship Specialty Start Date End Date Name, MD Ulises [address] [place], [place] PCP - General Internal Medicine 05/09/12
== END 2024-07-03 10:39 | disposition home or self-care (01) ==
LOC: HO.XRAY 10:38
PROVIDERS: PCP Internal Medicine Geriatric Medicine; Visit Provider Anesthesiology
DX: M47.812 Spondylosis without myelopathy or radiculopathy, cervical region (principal); M54.2 Cervicalgia
CPT/HCPCS: 72050

== ENCOUNTER → 2024-07-03 10:43 | Outpatient (BNV) | payer MEDICAID, SELFPAY | PROVIDERS: PCP Internal Medicine Geriatric Medicine; Visit Provider Radiology Diagnostic Radiology | DX: M47.812 Spondylosis without myelopathy or radiculopathy, cervical region (principal) | CPT/HCPCS: 72050 ==

== ENCOUNTER 2024-08-13 10:45 | Outpatient (AMB) | payer MEDICAID, SELFPAY ==
--- NOTE | 2024-08-13 09:26 | MHC.OFFVISWM ---
VS Expanded 08/13/24 09:27 Height 5 ft Weight 102 lb 8 oz BMI 20.0 Body Fat % 21.2 Fat Free Mass 81 Visceral Fat Rating 3 Body Water % 54.1 Muscle Mass/Score 76.2 Basal Metabolic Rate/Score 1,158 Intake Visit Reasons: (TV) PO LSG 11/08/23 Bingo Attendant Required: No Allergies No Known Allergies Allergy (Verified 07/02/24 10:37) Medication List - Last Reconciled 08/13/24 by DINA Hatch acetaminophen (Tylenol Extra Strength) 1,000 mg PO Q6H PRN albuterol sulfate 90 mcg/actuation (Ventolin HFA) 2 puffs inhalation Q6H PRN amitriptyline 25 mg PO BEDTIME bisacodyl (Dulcolax (bisacodyl)) 10 mg MO DAILY PRN docusate sodium (Colace) 200 mg (2 x 100 mg) PO BEDTIME fluticasone furoate 100 mcg/actuation (Arnuity Ellipta) 1 inh inhalation DAILY lactulose 10 grams PO DAILY levonorgestrel (Mirena) 1 device intrauterine ONCE multivitamin 1 tab PO DAILY sennosides-docusate sodium 8.6-50 mg (Senna Plus) 1 tab-cap PO BEDTIME trazodone 50 mg PO BEDTIME vitamin A palmitate 3,000 mcg PO DAILY 90 days HPI Comments Details: This?a?39?yo female who is s/p LSG without hiatal hernia repair on?11/08/2023. Presents for 9 month post op visit. Weight today is 102.8 pounds, with a BMI of 20. There has been a 78 pound weight loss,(initial weight 180.8 pounds) since starting the program on 08/26/2023 reflecting a 43.1 % total body weight loss and a weight loss of 60.6 pounds since surgery (operative weight 163.4 pounds) reflecting a 37 % TBWL since surgery. No complaints of nausea, emesis, abdominal pain or reflux. Reports infrequent but normal bowel movements every 3-4 days and uses stool softeners regularly. Overall she is very satisfied with the results that she has gotten so far. She feels really well. No complaints at this time. . She does state that she has some excess skin of her abdomen. Given her 72.2 lb weight loss, this was somewhat expected. She has not experienced any rash at this point. She states she stopped her celebrate protein powder. She stopped because she was getting tired of a shake in the morning. She would like to start with Premier protein RTD Present meal plan includes: Using celebrate 4 in 1 protein powder Shake 2 scoops, 6-8 Shake 1 scoop, 10-12 Shake 1 scoop, 2-4 6 pm Meal, 4 forks protein, 4 forks vegetables Drinking 48-64 oz ? Exercise routine includes: Treadmill for 300-400 calories 4-5 days per week PFSH Medical History Encounter for routine checking of intrauterine contraceptive device (IUD) Encounter for IUD insertion Cervical cancer screening Well woman exam with routine gynecological exam Palpitations Chest discomfort Uncontrolled hypertension Palpitations Osteoarthritis GERD (gastroesophageal reflux disease) IBS (irritable bowel syndrome) Migraines BMI 35.0-35.9,adult Obesity Hypertension Surgical History Hx of laparoscopic partial gastrectomy History of esophagogastroduodenoscopy (EGD) Hx of tubal ligation Family History Father No problems noted. 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 Female Reproductive History Menstrual Age of Menarche: 11 Telehealth Telehealth Telehealth Platform: Telephone Location of provider rendering services: practice address Location of patient: address on file Patient Identification confirmed using: Name, : Yes Telehealth method: voice only Patient verbally consented to treatment: Yes Patient verbally consented to billing insurance company: Yes Patient informed of any privacy concerns related to visit: Yes Minutes spent on Phone/Video with Pt.: 15 Assessment & Plan Assessment & Plan (1) S/P laparoscopic sleeve gastrectomy: Code(s): Z98.84 - Bariatric surgery status Category: Surgical Plan: Patient wanted to change her meal plan, she had used premier protein ready to drink shake previously and liked it. Premier protein ready to drink shake, 6 oz mixed with 2 oz of almond milk in the morning Another shake mid day Meal at 18:00 with 5 forks of protein and for forks of vegetables Tunisian yogurt She will text with any questions or concerns Return to clinic as scheduled in October for her 1 year follow-up
--- OUTSIDE RECORDS SUMMARY | 2024-08-13 13:03 | XMS_ITS | Encounter Summary ---
Author Organization [employer] Address [address] [place] [address] 7[address] [place] [address] Care Team Providers Care Asic Design Engineer Name Role Phone Name, Ulises YATES Primary Care Provider [phone] Tanya Lopez PharmD Unavailable [phone] Reason for Visit * Reason Comments Med Refill Encounter Details Date Type Department Care Team ([facility] st Contact Info) Description 02/17/2023 Refill [facility] [address] [place], [place] [phone] Edwina Shepard DO [address] [place] [address] Migraine without status migrainosus, not intractable, unspecified [...] Description 09/28/2024 9:15 AM EDT Office Visit [facility] [address] [place] [id number] Name, MD Ulises [address] [place] [phone] documented as of this encounter Goals Goal [...] documented as of this encounter Care Teams Asic Design Engineer Relationship Specialty Start Date End Date Name, MD Ulises [address] [place] [id number] PCP - General Family Medicine 11/26/15 Puia, Tanya, PharmD [address] [place] [phone] Pharmacist Internal Medicine 08/06/22 documented as of this encounter
== END 2024-08-13 11:36 | disposition home or self-care (01) ==
LOC: HO.HBS 11:23
PROVIDERS: PCP Internal Medicine Geriatric Medicine; Visit Provider Physician Assistant Surgical
DX: Z98.84 Bariatric surgery status (principal)
CPT/HCPCS: 99213

== ENCOUNTER 2024-09-11 06:06 | Outpatient (REF) | payer MEDICAID, SELFPAY ==
--- NOTE | ~2024-09-11 | FL_ITS ---
EXAMINATION: FL GUIDANCE ONLY HISTORY: M47.812 - Spondylosis without myelopathy or radiculopathy, cervical region COMPARISON: None available. TECHNIQUE: Fluoroscopy time: 0.2 minutes. Cumulative Dose: 0.561 mGy. DAP: 0.92289 mGym2 Images: 4. FINDINGS: Fluoroscopic spot films of the cervical spine demonstrate needles and contrast material in the left neck. FL/FL guidance in treatment room IMPRESSION: Fluoroscopy during procedure. Please see procedure report for additional information. Electronically signed by: Chapo Auguste MD 09/11/2024 09:53 AM EDT
--- OUTSIDE RECORDS SUMMARY | 2024-09-11 06:08 | XMS_ITS | Clinical Summary ---
Author Organization [facility] Address [address] [place] [address] Care Team Providers Care Battery Hand Name Role Phone Name, Ulises YATES Primary Care Provider [phone] Medical History Medical History Date Comments Preeclampsia [...] Health Maintenance Due Date Last Done Comments Breast Cancer Screening 1984 DTaP,Tdap,and Td Vaccines (1 - Tdap) 07/29/2003 Hepatitis B Vaccines (1 of 3 - 19+ 3-dose series) 07/29/2003 Cervical Cancer Screening: P ap Smear 2005 COVID-19 Vaccine ( - 2023-2 5 season) 2023 Depression Screening 02/22/2024 Influenza Vaccine (#1) 2024 HIB Vaccines Aged Out No longer [...] 5 Years) and At-Risk Patients (6 to 49 Years) Aged Out No longer eligible b ased on patient's age to complete this topic RSV Immunization Patients Un hyu 20 months Aged Out No longer eligible b ased on patient's age to complete this topic Varicella Vaccines Aged Out No longer eligible based on patient's age to complete this topic Care Teams Battery Hand Relationship Specialty Start Date End Date Name, MD Ulises [address] [place] [address] PCP - General Internal Medicine 05/09/12
== END 2024-09-11 06:07 | disposition home or self-care (01) ==
LOC: CF 06:06
PROVIDERS: Visit Provider Anesthesiology
DX: M47.812 Spondylosis without myelopathy or radiculopathy, cervical region (principal)
CPT/HCPCS: 64490; 64491; J2003; J2795; Q9967

== ENCOUNTER 2024-09-11 08:20 | Outpatient (AMB) | payer MEDICAID, SELFPAY ==
--- NOTE | 2024-09-11 08:27 | MHC.OFFVIS ---
Vital Signs 09/11/24 08:31 09/11/24 09:24 Weight 102 lb BP 115/93 H 141/83 H Blood Pressure Location Lt brachial Lt brachial Position Sitting Semi [place]'s Respiration 18 18 Pulse 86 68 Pulse Source Pulse Oximeter Pulse Oximeter Pulse Oximetry (%) 98 98 Oxygen Delivery Method Room Air Room Air Intake Visit Reasons: LEFT DIAGNOSTIC C4, C5, C6 MBB Physician Assistant Psychiatry Required: No Allergies No Known Allergies Allergy (Verified 07/02/24 10:37) PFSH Medical History Encounter for routine checking of intrauterine contraceptive device (IUD) Encounter for IUD insertion Cervical cancer screening Well woman exam with routine gynecological exam Palpitations Chest discomfort Uncontrolled hypertension Palpitations Osteoarthritis GERD (gastroesophageal reflux disease) IBS (irritable bowel syndrome) Migraines BMI 35.0-35.9,adult Obesity Hypertension Surgical History Hx of laparoscopic partial gastrectomy History of esophagogastroduodenoscopy (EGD) Hx of tubal ligation Family History Father No problems noted. 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 ? ?Informed consent was explained to the patient. All questions were explained and? answered.? The patient was taken inside the operating room where she was positioned prone on the operating table. Time-out was performed delineating correct site, side, the nature of the procedure, patient's allergy, . All operating room staff was participating in OR time-out procedure. ? ? The the upper back and posterior neck was prepped with ChloraPrep and draped with sterile towels.? C-arm was brought over the operating field and sq picture of C4, C5, C6 vertebra were delineated on the screen.? Point of interest were delineated as left lateral masses of the vertebras as above with the waist of each lateral mass as the target of the final needle position.? The projection of the point of interest to the skin were injected with the small amount of local anesthetic lidocaine 2% mixed with ropivacaine 0.5% 1-1 approximately 1 cc.? After that 22 gauge 3.5 inch spinal needles were driven sequentially to the points of interest in tunnel vision fashion. After needles gently contacted the bone at the point of interests the needle was injected with small amount of the contrast.? The injection of the contrast did not demonstrate any intravascular or intrathecal spread of the contrast.? After that injection of the? ropivacaine 0.5%-1cc was performed at each needle location.??after that the needles were removed and Bandaids were applied. ? Upon completion of the injections? needles were removed and sterile Band-Aids were applied.? The patient tolerated procedure very well. Coding Level of Care Code Procedure Only Diagnoses Spondylosis of cervical region without myelopathy or radiculopathy M47.812
[2024-09-11 08:31] VITALS: BP 115/93; PULSE 86; RESP 18; O2SAT 98
[2024-09-11 09:24] VITALS: BP 141/83; PULSE 68; RESP 18; O2SAT 98
== END 2024-09-11 09:30 | disposition home or self-care (01) ==
LOC: HO.PMCPRC 08:20
PROVIDERS: PCP Internal Medicine Geriatric Medicine; Visit Provider Anesthesiology
DX: M47.812 Spondylosis without myelopathy or radiculopathy, cervical region (principal)
CPT/HCPCS: 64490; 64491

== ENCOUNTER 2024-09-13 09:41 | Outpatient (AMB) | payer MEDICAID, SELFPAY ==
[2024-09-13 09:45] VITALS: BP 136/94; PULSE 88; RESP 18; O2SAT 98
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
--- OUTSIDE RECORDS SUMMARY | 2024-09-13 10:18 | XMS_ITS | Encounter Summary ---
Author Organization [employer] Address [address] [place] [address] [address] [place] [address] Care Team Providers Care Secretary Office Clerk Name Role Phone Name, Ulises YATES Primary Care Provider [phone] Tanya Lopez PharmD Unavailable [phone] Reason for Visit * Reason Comments Med Refill Encounter Details Date Type Department Care Team ([facility] st Contact Info) Description 02/17/2023 Refill [facility] [address] [place], [place] [phone] Edwina Shepard DO [address] [place] [address] Migraine without status migrainosus, not intractable, unspecified [...] Description 09/28/2024 9:15 AM EDT Office Visit [facility] [address] [place] [phone] Name, MD Ulises [address] [place] [address] documented as of this encounter Goals Goal [...] documented as of this encounter Care Teams Secretary Office Clerk Relationship Specialty Start Date End Date Name, MD Ulises [address] [place] [phone] PCP - General Family Medicine 11/26/15 Puia, Tanya, PharmD [address] [place] [id number] Pharmacist Internal Medicine 08/06/22 documented as of this encounter
--- OUTSIDE RECORDS SUMMARY | 2024-09-13 10:18 | XMS_ITS | Clinical Summary ---
Author Organization [facility] Address [address] [place] [address] Care Team Providers Care Industrial Engineering Professor Name Role Phone Name, Ulises YATES Primary Care Provider [phone] Medical History Medical History Date Comments Preeclampsia [...] age to complete this topic Care Teams Industrial Engineering Professor Relationship Specialty Start Date End Date Name, MD Ulises [address] [place] [address] PCP - General Internal Medicine 05/09/12
== END 2024-09-13 09:59 | disposition home or self-care (01) ==
LOC: HO.PMC 09:41
PROVIDERS: PCP Internal Medicine Geriatric Medicine; Visit Provider Anesthesiology
DX: M47.812 Spondylosis without myelopathy or radiculopathy, cervical region (principal); M54.2 Cervicalgia
CPT/HCPCS: 99213

== ENCOUNTER → 2024-09-13 09:41 | Outpatient (BNVA) | payer MEDICAID, SELFPAY | PROVIDERS: PCP Internal Medicine Geriatric Medicine; Visit Provider Anesthesiology | DX: M54.2 Cervicalgia (principal); M47.812 Spondylosis without myelopathy or radiculopathy, cervical region | CPT/HCPCS: 99212 ==

== ENCOUNTER 2024-10-25 09:54 | Outpatient (REF) | payer MEDICAID, SELFPAY ==
--- NOTE | ~2024-10-25 | MM_ITS ---
EXAMINATION: MM SCREENING DIGITAL BREAST TOMOSYNTHESIS, BILATERAL CLINICAL INFORMATION: Screening. Asymptomatic. COMPARISON: Mammography: Baseline. TECHNIQUE: Digital breast mammography with tomosynthesis is performed in both the craniocaudal and mediolateral oblique views along with computer-aided detection (CAD). FINDINGS: There are scattered areas of fibroglandular density (ACR BI-RADS breast composition Category b). There are no significant masses, abnormal calcifications, or other abnormalities. MM/MM tomosynthesis screening BI IMPRESSION: No mammographic evidence of malignancy. ASSESSMENT: BI-RADS BI-RADS 1 - Negative RECOMMENDATION: Routine annual mammography screening. 1 year F/U This examination should not preclude the clinical evaluation of a suspicious palpable abnormality. This patient's information was entered into a reminder system with a target due date for their next mammogram. Electronically signed by: Kayleen Kinney DO 10/29/2024 09:37 AM EDT
--- OUTSIDE RECORDS SUMMARY | 2024-10-25 11:00 | XMS_ITS | Encounter Summary ---
Author Organization [employer] Address [address] [place] [address] 7t [place] [address] Care Team Providers Care Sterile Supervisor Name Role Phone Name, Ulises YATES Primary Care Provider [phone] Tanya Lopez PharmD Unavailable [phone] Reason for Visit * Reason Comments Med Refill Encounter Details Date Type Department Care Team ([facility] st Contact Info) Description 01/23/2024 Refill [facility] [address] [place], [place] [phone] Name, MD Ulises [address] [place] [address] Social History Tobacco Use Types Packs/Day Years [...] Care Team (Late st Contact Info) Description 12/10/2024 11:30 AM EDT Office Visit [facility] [address] [place] [address] Name, MD Ulises [address] [place] [address] documented as of this encounter Goals Goal Patient Goal Type Associated Problems Recent Progress Patient-Stated? Author Blood Pressure < 140/90 Blood Pressure 128/84( 025 9:18 AM EDT) No Puia, Tanya, PharmD Record your blood pressure once per day Blood Pressure On track(08/07/19 23 4:38 PM EDT) No Puia, Tanya, PharmD documented as of this encounter Visit Diagnoses Not on filedocumented in this encounter Additional Health Concerns Assessment Noted Time PHQ-9 Depression Total Score: 0 03/28/19 24 9:31 AM EST documented as of this encounter Care Teams Sterile Supervisor Relationship Specialty Start Date End Date NameUlises MD [address] [place] [address] PCP - General Family Medicine 11/26/15 Tanya Lopez, PharmD [address] [place] [id number] Pharmacist Internal Medicine 08/06/22 documented as of this encounter
--- OUTSIDE RECORDS SUMMARY | 2024-10-25 11:00 | XMS_ITS | Clinical Summary ---
Author Organization [employer] Address [address] [place] [address] 7t [place] [address] Care Team Providers Care Precision Lens Generator Name Role Phone Name, Ulises YATES Primary Care Provider [phone] Tanya Lopez PharmD Unavailable [phone] Allergies No known active allergies Medications lidocaine (Lidoderm) 5 % patchIndications: Other acute back pain Apply 1 patch topically in the morning. Remove & discard patch within 12 hours or as directed by . 30 patch 3 03/16/19 23 Active docusate sodium (Colace) 100 MG capsule Take 2 capsules by mouth at bedtime. 05/25/19 23 Active polyethylene glycol, PEG, 3350 (Glycolax) 17 GM/SCOOP powder MIX AND TAKE 17 GRAMS BY MOUTH EVERY DAY NEEDED FOR LAXATIVE EFFECT. USE FOR ONE WEEK PRIOR TO PREP DAY 05/25/19 23 Active Citrucel 500 MG tablet Take 1 tablet by mouth 3 times daily. 05/25/19 23 Active Diclofenac Sodium (Voltaren) 1 % gelIndications:Ch ronic left shoulder pain Apply 2 g topically if needed in the morning and at bedtime (muscle pain). 100 g 3 10/14/19 23 Active ondansetron ODT (Zofran-ODT) 4 MG disintegrating tablet DISSOLVE 1 TABLET ON THE TONGUE EVERY 8 HOURS NEEDED FOR NAUSEA OR VOMITING 04/03/19 24 Active Blood Pressure Monitoring (Omron 3 Series BP Monitor) device USE TO CHECK BLOOD PRESSURE DAILY DIRECTED 05/04/19 24 Active fluticasone furoate (Arnuity Ellipta) 100 MCG/ACT inhaler Inhale 1 puff Once per day. Rinse mouth with water after use to reduce aftertaste and incidence of candidiasis. Do not swallow. 1 each 10/04/19 Active pantoprazole (ProtoNix) 40 MG EC tablet Take 40 mg by mouth Once per day. 10/28/19 Active sucralfate (Carafate) 1 GM/10ML suspension Take 10 mL by mouth 2 times daily. Active senna-docusate sodium (Senokot-S) 8.6-50 MG tablet Take 1 tablet by mouth Once per day. 30 tablet 01/30/20 24 2024 Active lactulose (Chronulac) 10 GM/15ML solution Take 15 mL (10 g) by mouth Once per day. 473 mL 01/30/20 24 2024 Active traZODone (Desyrel) 50 MG tablet Take 1 tablet (50 mg) by mouth at bedtime. 30 tablet 01/30/20 24 2024 Active SUMAtriptan (Imitrex) 50 MG tabletIndications :Migraine without status migrainosus, not intractable, unspecified migraine type TAKE 1 TABLET(50 MG) BY MOUTH 1 TIME AT EARLY ONSET OF HEADACHE. MAY REPEAT IN 2 HOURS 1 TIME IF NOT IMPROVED. DO NOT EXCEED 200 MG IN 24 HOURS 10 tablet 2 05/05/19 Active Multiple Vitamin (multivitamin) capsule Take 1 capsule by mouth Once per day. 30 capsule 05/05/192025 Active amitriptyline (Elavil) 10 MG tabletIndications :Migraine without status migrainosus, not intractable, unspecified migraine type TAKE 1 TABLET(10 MG) BY MOUTH AT BEDTIME 30 tablet 2 08/23/19 Active gabapentin (Neurontin) 100 MG capsule Take 1 capsule (100 mg) by mouth at bedtime for 3 days, THEN 1 capsule (100 mg) 2 times daily for 7 days, THEN 1 capsule (100 mg) 3 times daily. 107 capsule 2 09/29/19 25 2024 Active Ventolin HFA 108 (90 Base) MCG/ACT inhaler INHALE 2 PUFFS EVERY 6 HOURS NEEDED WHEEZING 18 g 10/18/19 25 Active albuterol 108 (90 Base) MCG/ACT inhaler Inhale 2 puffs every 6 (six) hours if needed for wheezing. 18 g 10/04/19 24 2024 Discontinued Active Problems Problem Noted Date Diagnosed Date [...] Encounters Date Type Department Care Team Description 10/16/2024 Refill [facility] [address] NameUlises MD 09/28/2024 9:15 AM EDT Office Visit [facility] [address] [facility] [place] [address] NameUlises MD Chronic left shoulder pain (Primary Dx); Encounter for screening mammogram for malignant neoplasm of breast 09/28/2024 Travel 09/27/2024 Telephone [facility] [address] [place] [address] Manuel Carter [place] CHARTPREP 09/21/2024 Travel 08/21/2024 Refill [facility] [address] [place] [address] Name, MD Ulises Migraine without status migrainosus, not intractable, unspecified migraine type from Last 3 Months Immunizations Immunization Administration Dates Next Due HepB-CpG 09/10/2022,08/06/2022 Influenza Injectable Quadriv alant Preservative Free IIV4 MDCK 12/19/2016 Influenza injectable quadriv alent IIV4 with preservative 11/10/2022,11/26/2015 Influenza injectable quadrivalent preservative f ree 03/26/2021 Influenza, IIV3, injectable 01/27/2022 Influenza, seasonal, injectable, preservative fr ee 11/22/2023 Pfizer Covid-19 Vaccine 1209/18/2020 Tdap 08/06/2022,06/12/2012 Family History Medical History Relation Name Comments Depression Father Breast cancer Maternal Grandmother Depression Mother Relation Name Status Comments Father Maternal Grandmother Alive Mother Alive Paternal Grandmother Social History Tobacco Use Types Packs/Day Years [...] Sign Reading Time Taken Comments Blood Pressure 128/84 09/28/2024 9:18 AM EDT Pulse 64 09/28/2024 9:18 AM EDT Temperature 35.6 C (96 F) 09/28/2024 9:18 AM EDT Respiratory Rate 18 09/28/2024 9:18 AM EDT Oxygen Saturation 97% 05/04/2024 10:55 AM EDT Inhaled Oxygen Concentration - - Weight 47.6 kg (105 lb) 09/28/2024 9:18 AM EDT Height 152.4 cm (5') 09/28/2024 9:18 AM EDT Body Mass Index 20.51 09/28/2024 9:18 AM EDT Plan of Treatment Upcoming Encounters Date Type Department Care Team (Late st Contact Info) Description 12/10/2024 11:30 AM EDT Office Visit [facility] [address] [place] [address] Name, MD Ulises [address] [place] [address] Health Maintenance Due Date Last Done Comments HIV Screening 1985 Alcohol/Substance Use Screening 1996 Family Planning (PISQ) 07/29/1999 HPV Vaccines (1 - 3-dose series) 07/29/1999 Hepatitis A Vaccines (1 of 2 - Risk 2-dose series) 07/29/2003 Mammogram 2024 COVID-19 Vaccine ( - season) 2024 03/26/2021, 10/09/2020, 09/18/2020 Influenza Vaccine (#1) 2024 , 11/10/2022, 01/27/2022, Additional history exists SDOH Screening 04/26/2025 04/26/2024 Depression Screening 05/04/2025 05/04/2024, 05/05/19 25 Disability Screening 09/28/2025 09/28/2024 Tobacco Screening 09/28/2025 09/28/2024 Cervical Cancer Screening 04/19/2028 HPV/Cotest 04/19/2028 Pap Smear 04/19/2028 04/19/2023 Lipid Panel 05/14/2029 05/14/2024, 10/22, 09/08/2023, Additional history exists DTaP/Tdap/Td Vaccines (3 - Td or Tdap) 08/06/2032 08/06/2022, 06/12/2012 Zoster Vaccines (1 of 2) 2034 RSV Patients and Patients Aged 60 years or older (1 - 1-dose 75+ series) 07/29/2059 Hepatitis B Vaccines Completed 09/10/2022, 08/07/19 Hepatitis C Screening Completed 04/07/2023 HIB Vaccines Aged Out No longer eligi [...] age to complete this topic Pneumococcal Vaccine: Pediatrics (0 to 5 Years) and At-Risk Patients (6 to 49) Years Aged Out No longer eligible based on [...] Pressure 128/84( 025 9:18 AM EDT) No Tanya Lopez PharmD Record your blood pressure once per day Blood Pressure On track(08/07/19 23 4:38 PM EDT) No Tanya Lopez PharmD Procedures Procedure Name Priority Date/Time Associated Diagnosis Comments LIPID PANEL, STANDARD Routine 05/14/2024 11:01 AM EDT PAP SMEAR Routine 04/19/2023 3:00 PM EST HEPATITIS PANEL, GENERAL Routine 04/07/2023 1:06 PM EST Abdominal pain, chronic, left lower quadrant from Last 3 Months or Most Recently Relevant to Health Maintenance Results * Lipid Panel, Standard (05/14/2024 11:01 AM EDT) Triglycerides 68 <150 mg/dL [facility] Comment:Desirable Triglyceri de: less than 150 [...] 190 mg/dL HDL Cholesterol 45 >40 mg/dL [facility] Comment:Desirable HDL: great er than 40 mg/dL Note: This HDL assay may give artificially low results in patients with liver disease. 05/14/2024 11:0 1 AM EDT 05/14/2024 11:01 AM EDT us Generic External Data Provider LAB BLOOD ORDERAB LES Final Result [facility] [address] [place] [address] [phone] * Pap Smear (04/19/2023 3:00 PM EST) 04/19/2023 3:00 PM EST 04/20/2023 7:45 AM EST Narrative [facility] - 05/02/2023 9:15 AM EDT ----- ------- Name: Gaye Arriaga Age/Sex: 37/F : 1985 Unit#: [id number] Attend Dr: Allyn Pulido CNM Re04/19/23 Status: DEP REF Location: .LAB Disch: ----- ------- SPEC : [id number] RECD: 04/20/23 STATUS: ANTHONY POLANCO NUM: [id number] REGGIE: 04/19/23-[address] [facility] [address]: Allyn Pulido CNM ENTERED: 04/20/23 SP TYPE: Pap Smr OTHR DR: Ulises Mcmillan MD ORDERED: Pap Smear Interpretation Satisfactory for evaluation. Negative for intraepithelial lesion or malignancy. HPV mRNA E6/E7: NOT DETECTED This assay detects E6/E7 viral messenger RNA (mRNA) from 14 high-risk HPV types (16, 18, 31, 33, 35, 39, 45, 51, 52, 56, 58, 59, 66, 68) HPV testing performed by [facility], [place], [place]. See reference laboratory portion of the EMR for entire report. Clinical Information LMP: 03/30/23 Previous PAP test: 2017, WNL Material Received ThinPrep-Cervical Copies To: Name,Ulises YATES [address] [place] [address] [place] [address] ----- ------- Signed (signature on file) LEIGH Fajardo (ASCP) 05/02/23 0915 ----- ------- END OF REPORT us Generic External Data Provider LAB CYTOLOGY JIMMY SANABRIA Final Result [facility] [address] [place] [address] [phone] * Hepatitis Panel, General (04/07/2023 1:06 [...] 04/07/2023 3:58 PM EST us Leisa Loja [employer] LAB BLOOD ORDERABLES Final Res ult [facility] [address] [place] [address] [phone] from Last 3 Months or Most Recently Relevant to Health Maintenance Insurance [facility] C[address]L[place] Care Teams Precision Lens Generator Relationship Specialty Start Date End Date Name, MD Ulises [address] [place] [address] PCP - General Family Medicine 11/26/15 Tanya Lopez PharmD [address] [place] [address] Pharmacist Internal Medicine 08/06/22
--- OUTSIDE RECORDS SUMMARY | 2024-10-25 11:00 | XMS_ITS | Encounter Summary ---
Author Organization [employer] Address [address] [place] [address] 7t [place] [address] Care Team Providers Care Organ Fixer Name Role Phone Name, Ulises YATES Primary Care Provider [phone] Tanya Lopez PharmD Unavailable [phone] Reason for Visit * Reason Comments Med Refill Encounter Details Date Type Department Care Team ([facility] st Contact Info) Description 04/25/2024 Refill [facility] [address] [place], [place] [phone] Alicia Lowry FNP [address] [place] [address] Social History Tobacco Use Types Packs/Day Years [...] Description 12/10/2024 11:30 AM EDT Office Visit [facility] [address] [place] [phone] Ulises Mcmillan MD [address] [place] [address] documented as of this encounter Goals Goal [...] documented as of this encounter Care Teams Organ Fixer Relationship Specialty Start Date End Date Ulises Mcmillan MD [address] [place] [address] PCP - General Family Medicine 11/26/15 Tanya Lopez, Joaquim [address] [place] [address] Pharmacist Internal Medicine 08/06/22 documented as of this encounter
--- OUTSIDE RECORDS SUMMARY | 2024-10-25 11:00 | XMS_ITS | Encounter Summary ---
Author Organization [employer] Address [address] [place] [address] 7t [place] [address] Care Team Providers Care Pipe Coverer And Insulator Name Role Phone Name, Ulises YATES Primary Care Provider [phone] Tanya Lopez PharmD Unavailable [phone] Reason for Visit * Reason Comments Med Refill Encounter Details Date Type Department Care Team ([facility] st Contact Info) Description 02/17/2023 Refill [facility] [address] [place], [place] [phone] Edwina Shepard DO [address] [place] [address] Migraine without status migrainosus, not intractable, unspecified [...] Description 12/10/2024 11:30 AM EDT Office Visit [facility] [address] [place] [address] Name, MD Ulises [address] [place] [address] documented as of this encounter Goals Goal [...] documented as of this encounter Care Teams Pipe Coverer And Insulator Relationship Specialty Start Date End Date Name, MD Ulises [address] [place] [address] PCP - General Family Medicine 11/26/15 Puia, Tanya, PharmD [address] [place] [phone] Pharmacist Internal Medicine 08/06/22 documented as of this encounter
--- OUTSIDE RECORDS SUMMARY | 2024-10-25 11:00 | XMS_ITS | Encounter Summary ---
Author Organization [employer] Address [address] [place] [address] 7t [place] [address] Care Team Providers Care Joint Terminal Attack Controller Name Role Phone Name, Ulises YATES Primary Care Provider [phone] [place] Anita SAFETY PERSON Unavailable [phone] Tanya Lopez PharmD Unavailable [phone] Encounter Details Date Type Department Care Team ([facility] st Contact Info) Description 03/31/2022 Orders Only [facility] [address] [place], [place] [phone] Ledy Woo, KAMINI [address] [place] [address] Screening for tuberculosis (Primary Dx) Social History [...] Office Visit [facility] [address] [facility] [place] [address] Name, MD Ulises [address] [facility] [place] [address] documented as of this encounter Procedures Procedure [...] EDT) Sodium 137 135 - 145 mmol/L [facility] Potassium 3.8 3.3 - 5.1 mmol/L [facility] Chloride 106 96 - 108 mmol/L [facility] Carbon Dioxide 24 22 - 29 mmol/L [facility] Anion Gap 11(L) 12 - 20 [facility] Urea Nitrogen (BUN) 12 9 - 16 mg/dL [facility] Creatinine, Serum 0.76 0.5 - 1.4 mg/dL [facility] Estimated Glomerular Filt Rate >60 [facility] Comment:NOTE: For -Am erican individuals, multiply the result by 1.210.Chronic Kidney Disease: Estimated GFR < 60 mL/min/1.27p0Syqoyl Kidney Disease: Estimated GFR < 15 mL/min/1.73m2 Glucose 95 60 - 115 mg/dL [facility] Calcium 9.5 8.4 - 10.2 mg/dL [facility] 09/10/2022 11:5 8 AM EDT 09/10/2022 2:34 PM EDT Ulises Mcmillan MD LAB BLOOD ORDERABLES Final Resul t Performing Organization Address City/[facility]/ZIP Co de Phone Number [facility] [address] [place] [phone] * Helicobacter pylori, Urea Breath Test (07/27/2022 11:24 AM EDT) H. pylori Breath Test Negative Negative [facility] Comment:Antimicrobials, prot on pump inhibitors and bismuthpreparations are known to suppress H. pylori. Ingestingthese medications within two weeks prior to performing thebreath test may produce negative test results. A positiveresult is still clinically valid. 07/27/2022 11:2 4 AM EDT 07/27/2022 6:15 PM EDT [facility] Exter nal Provider LAB BODY FLUIDS AND STOOLS ORDERABLES Final Result Performing Organization Address City/[facility]/ZIP Co de Phone Number [facility] [address] [place] [phone] * Sed Rate by Torres Sahni (05/24/2022 10:17 AM EDT) Erythrocyte Sedimentation Rate 6 0 - 20 MM/HR [facility] Comment:Patients with polycy themia and many hemoglobin abnormalitiesmay have depressed sed rates whereas patients with anemiamay have elevated sed rates. 05/24/2022 10:1 7 AM EDT 05/24/2022 10:17 AM EDT [facility] External Provider LAB BLO OD ORDERABLES Final Result Performing Organization Address [facility] Co de Phone Number [facility] [address] [place] [address] [phone] * TSH (05/24/2022 10:17 AM EDT) Thyroid Stimulating Hormone 1.38 0.32 - 4.0 uIU/mL [facility] Comment:TSH 3rd Generation ( [facility]) 05/24/2022 10:1 7 AM EDT 05/24/2022 10:17 AM EDT [facility] External Provider LAB BLO OD ORDERABLES Final Result Performing Organization Address [facility] Co de Phone Number [facility] [address] [place] [phone] * (ABNORMAL) C-reactive Protein (05/24/2022 10:17 AM EDT) Pathologist [facility] C Reactive Protein 0.76(H) < or = 0.50 mg/dL [facility] 05/24/2022 10:1 7 AM EDT 05/24/2022 10:17 AM EDT [facility] External Provider LAB BLO OD ORDERABLES Final Result Performing Organization Address [facility] de Phone Number [facility] [address] [place] [address] [phone] * (ABNORMAL) Comprehensive Metabolic Panel (05/24/2022 10:17 AM EDT) Sodium 139 135 - 145 mmol/L [facility] Potassium 4.5 3.3 - 5.1 mmol/L [facility] Chloride 110(H) 96 - 108 mmol/L [facility] Carbon Dioxide 24 22 - 29 mmol/L [facility] Anion Gap 10(L) 12 - 20 [facility] Urea Nitrogen (BUN) 12 9 - 16 mg/dL [facility] Creatinine, Serum 0.75 0.5 - 1.4 mg/dL [facility] Estimated Glomerular Filt Rate >60 [facility] Comment:NOTE: For -Am erican individuals, multiply the result by 1.210.Chronic Kidney Disease: Estimated GFR < 60 mL/min/1.82q3Vodklr Kidney Disease: Estimated GFR < 15 mL/min/1.73m2 Glucose 141(H) 60 - 115 mg/dL [facility] Calcium 9.0 8.4 - 10.2 mg/dL [facility] Bilirubin, Total 0.6 0.0 - 1.0 mg/dL [facility] Aspartate Amino Transferase 21 5 - 31 U/L [facility] Alanine Aminotransferase 43(H) 0 - 31 U/L [facility] Total Protein 7.2 6.5 - 8.0 g/dL [facility] Albumin Level 4.3 3.5 - 5.0 g/dL [facility] Alkaline Phosphatase 70 39 - 117 U/L [facility] 05/24/2022 10:1 7 AM EDT 05/24/2022 10:17 AM EDT us [facility] External Provider LAB BLO OD ORDERABLES Final Result [facility] [address] [place] [address] [phone] * (ABNORMAL) CBC auto differential (05/24/2022 10:17 AM EDT) White Blood Count 4.2(L) 4.8 - 10.8 X10*3/uL [facility] Red Blood Count 3.81(L) 4.20 - 5.50 X10*6/uL [facility] Hemoglobin 12.9 12.0 - 16.0 g/dl [facility] Hematocrit 36.9(L) 37.0 - 47.0 % [facility] Mean Corpuscular Volume 96.9 80.0 - 98.0 fL [facility] Mean Corpuscular Hemoglobin 33.9(H) 27.0 - 33.0 pg [facility] Mean Corpuscular HGB Conc 35.0 31.0 - 35.0 g/dl [facility] Red Cell Distribution Width 11.9 11.0 - 16.0 % [facility] Platelet Count 283 160 - 400 X10*3/uL [facility] Mean Platelet Volume 10.4 9.4 - 12.3 fL [facility] Neutrophils Percent Auto 47.8 45 - 73 % [facility] Imm Gran Pct Auto 0.2 0.0 - 0.4 % [facility] Lymphocytes Percent Auto 38.1 20 - 40 % [facility] Monocytes Percent Auto 7.4 2 - 11 % [facility] Eosinophils Percent Auto 4.8(H) 0 - 4 % [facility] Basophils Percent Auto 1.7 0 - 2 % [facility] NRBC Pct Auto 0.0 0.0 - 0.2 /100WBC [facility] Neutrophils Absolute Auto 2.0 2.0 - 8.3 x10*3/uL [facility] Imm Gran Abs Auto 0.01 0.00 - 0.03 X10*3/uL [facility] Lymphocytes Absolute Auto 1.6 1.2 - 4.9 X10*3/uL [facility] Monocytes Absolute Auto 0.3 0.1 - 1.2 X10*3/uL [facility] Eosinophils Absolute Auto 0.2 0.0 - 0.4 X10*3/uL [facility] Basophils Absolute Auto 0.1 0.0 - 0.2 X10*3/uL [facility] NRBC Abs Auto 0.000 0.0 - 0.012 X10*3/uL [facility] 05/24/2022 10:1 7 AM EDT 05/24/2022 10:17 AM EDT [facility] External Provider LAB BLO OD ORDERABLES Final Result Performing Organization Address City/[facility]/ZIP Co de Phone Number [facility] [address] [place] [address] [phone] * QuantiFERON??-TB Gold Plus, 1 Tube (04/01/2022 4:33 PM EST) [facility] Quantiferon -TB Gold Plus, 1 Tube NEGATIVE NEGATIVE [facility] [place] [employer] Comment: Negative test result. M. tuberculosis complex infection unlikely. NIL 0.04 IU/mL [employer] [place] [employer] MITOGEN-NIL >10.00 IU/mL [facility] [place] I3 Precisiont TB1-NIL <0.00 IU/mL [facility] [place] I3 Precisiont TB2-NIL 0.01 IU/mL [facility] [place] [facility] Comment: The Nil tube value reflects the [...] T-lymphocytes. For additional information, please refer to https://education.[employer]/faq/RQM235 (This link is being provided for informational/ educational purposes only.) Blood Venous blood specimen / Unknown 04/01/2022 4:33 PM EST 04/01/2022 4:33 PM EST Narrative [facility] - 04/07/2022 10:57 PM EST FASTING:NO FASTING: NO Ulises Mcmillan MD LAB BLOOD ORDERABLES Final Resul t [facility] [address] [place] [address], [place] [address] [employer] [facility] [address] [facility], ([address]) [place] [address] documented in this encounter Visit Diagnoses Diagnosis Screening for tuberculosis- Primary Screening examination for pulmonary tuberculosis documented in this encounter Additional Health Concerns Assessment Noted Time PHQ-9 Depression Total Score: 0 01/28/20 22 11:25 AM EST documented as of this encounter Care Teams Joint Terminal Attack Controller Relationship Specialty Start Date End Date Name, MD Ulises [address] [place] [address] PCP - General Family Medicine 11/26/15 SusanneAnita méndez FNP [address] [place] [address] Nurse Practitioner Family Medicine 01/19/22 08/05/22 Tanya Lopez PharmD [address] [place] [address] Pharmacist Internal Medicine 08/06/22 documented as of this encounter
--- OUTSIDE RECORDS SUMMARY | 2024-10-25 11:00 | XMS_ITS | Encounter Summary ---
Author Organization [employer] Address [address] [place] [address] 7[address] [place] [address] Care Team Providers Care Hardener Helper Name Role Phone Name, Ulises YATES Primary Care Provider [phone] Tanya Lopez PharmD Unavailable [phone] Reason for Visit * Reason Comments Med Refill Encounter Details Date Type Department Care Team ([facility] st Contact Info) Description 11/24/2023 Refill [facility] [address] [place], [place] [phone] Name, MD Ulises [address] [place] [address] Social History Tobacco Use Types Packs/Day Years [...] Description 12/10/2024 11:30 AM EDT Office Visit [facility] [address] [place] [address] Name, MD Ulises [address] [place] [address] documented as of this encounter Goals Goal [...] documented as of this encounter Care Teams Hardener Helper Relationship Specialty Start Date End Date NameUlises MD [address] [place] [address] PCP - General Family Medicine 11/26/15 Tanya Lopez, PharmD [address] [place] [phone] Pharmacist Internal Medicine 08/06/22 documented as of this encounter
--- OUTSIDE RECORDS SUMMARY | 2024-10-25 11:00 | XMS_ITS | Encounter Summary ---
Author Organization [employer] Address [address] [place] [address] 7t [place] [address] Care Team Providers Care Recovery Operator Name Role Phone Name, Ulises YATES Primary Care Provider [phone] Tanya Lopez PharmD Unavailable [phone] Reason for Visit * Reason Comments Med Refill Encounter Details Date Type Department Care Team ([facility] st Contact Info) Description 09/21/2023 Refill [facility] 230 [place], [place] [phone] Tanya Lopez, PharmD 230 [place] [address] Primary hypertension Social History Tobacco Use Types [...] Description 12/10/2024 11:30 AM EDT Office Visit [facility] [address] [place] [address] Name, MD Ulises [address] [place] [address] documented as of this encounter Goals Goal [...] documented as of this encounter Care Teams Recovery Operator Relationship Specialty Start Date End Date Name, MD Ulises [address] [place] [address] 99[address] PCP - General Family Medicine 11/26/15 Puia, Tanya, PharmD [address] [place] [address] Pharmacist Internal Medicine 08/06/22 documented as of this encounter
--- OUTSIDE RECORDS SUMMARY | 2024-10-25 11:00 | XMS_ITS | Encounter Summary ---
Author Organization [employer] Address [address] [place] [address] 7t [place] [address] Care Team Providers Care Rotary Soil Stabilizer Name Role Phone Name, Ulises YATES Primary Care Provider [phone] Tanya Lopez PharmD Unavailable [phone] Reason for Visit * Reason Comments Med Refill Encounter Details Date Type Department Care Team ([facility] st Contact Info) Description 01/23/2024 Refill [facility] 230 [place], [place] [phone] Name, MD Ulises [address] [place] [address] Social History Tobacco Use Types Packs/Day Years [...] Description 12/10/2024 11:30 AM EDT Office Visit [facility] [address] [place] [address] Name, MD Ulises [address] [place] [address] documented as of this encounter Goals Goal [...] documented as of this encounter Care Teams Rotary Soil Stabilizer Relationship Specialty Start Date End Date NameUlises MD [address] [place] [address] PCP - General Family Medicine 11/26/15 Tanya Lopez, PharmD [address] [place] [address] Pharmacist Internal Medicine 08/06/22 documented as of this encounter
--- OUTSIDE RECORDS SUMMARY | 2024-10-25 11:00 | XMS_ITS | Encounter Summary ---
Author Organization [employer] Address [address] [place] [address] 7t [place] [address] Care Team Providers Care Stunt Man Name Role Phone Name, Ulises YATES Primary Care Provider [phone] Tanya Lopez PharmD Unavailable [phone] Reason for Visit * Reason Comments Med Refill Encounter Details Date Type Department Care Team ([facility] Contact Info) Description 09/21/2022 Refill [facility] [address] [place] [address] [phone] Ulises Mcmillan MD [address] [place] [address] Social History Tobacco Use Types Packs/Day Years [...] Encounters Date Type Department Care Team (Late Contact Info) Description 12/10/2024 11:30 AM EDT Office Visit [facility] [address] [place] [address] [phone] Ulises Mcmillan MD [address] [place] [address] documented as of this encounter Goals Goal Patient Goal Type Associated Problems Recent Progress Patient-Stated? Author Blood Pressure < 140/90 Blood Pressure 128/84( 025 9:18 AM EDT) No Tanya Lopez, PharmD Record your blood pressure once per day Blood Pressure On track(08/07/19 23 4:38 PM EDT) No Tanya Lopez PharmSterling documented as of this encounter Visit Diagnoses Not on filedocumented in this encounter Additional Health Concerns Assessment Noted Time PHQ-9 Depression Total Score: 0 01/28/20 22 11:25 AM EST documented as of this encounter Care Teams Stunt Man Relationship Specialty Start Date End Date Name, MD Ulises [address] [place] [address] PCP - General Family Medicine 11/26/15 Tanya Lopez PharmD [address] [place] [address] Pharmacist Internal Medicine 08/06/22 documented as of this encounter
--- OUTSIDE RECORDS SUMMARY | 2024-10-25 11:00 | XMS_ITS | Encounter Summary ---
Author Organization [employer] Address [address] [place] [address] 7t [place] [address] Care Team Providers Care Repairer Controller Tester Name Role Phone Name, Ulises YATES Primary Care Provider [phone] Anita Skinner FUSE SPOOLER Unavailable [phone] Tanya Lopez PharmD Unavailable [phone] Reason for Visit * Reason Comments Med Refill Encounter Details Date Type Department Care Team (Late st Contact Info) Description 03/26/2022 Refill [facility] 230 [facility] [place] [address] Leisa Daugherty FNP [address] [place], [place] [phone] Other acute back pain Social History Tobacco [...] Description 12/10/2024 11:30 AM EDT Office Visit [facility] 230 [place] [address] Name, MD Ulises [address] [place] [address] documented as of this encounter Visit Diagnoses Diagnosis Other acute back pain documented in this encounter Additional Health Concerns Assessment Noted Time PHQ-9 Depression Total Score: 0 01/28/20 11:25 AM EST documented as of this encounter Care Teams Repairer Controller Tester Relationship Specialty Start Date End Date Name, MD Ulises [address] [place] [address] PCP - General Family Medicine 11/26/15 [place] FNP [address] [place] [address] Nurse Practitioner Family Medicine 01/19/22 08/05/22 Tanya Lopez PharmD [address] [place] [address] Pharmacist Internal Medicine 08/06/22 documented as of this encounter
--- OUTSIDE RECORDS SUMMARY | 2024-10-25 11:00 | XMS_ITS | Clinical Summary ---
Author Organization [facility] Address [address] [place] [address] Care Team Providers Care Ict Support Technicians Name Role Phone Name, Ulises YATES Primary Care Provider [phone] Medical History Medical History Date Comments Preeclampsia [...] age to complete this topic Care Teams Ict Support Technicians Relationship Specialty Start Date End Date Name, MD Ulises [address] [place] [address] PCP - General Internal Medicine 05/09/12
--- OUTSIDE RECORDS SUMMARY | 2024-10-25 11:00 | XMS_ITS | Encounter Summary ---
Author Organization [employer] Address [address] [place] [address] 7t [place] [address] Care Team Providers Care Landfill Grader Name Role Phone Name, Ulises YATES Primary Care Provider [phone] Tanya Lopez PharmD Unavailable [phone] Reason for Visit * Reason Comments Med Refill Encounter Details Date Type Department Care Team ([facility] st Contact Info) Description 02/12/2024 Refill [facility] [address] [place], [place] [phone] Park Hernandez NP 230 [place] [address] Chronic left shoulder pain Social History Tobacco [...] Description 12/10/2024 11:30 AM EDT Office Visit [facility] [address] [place] [address] Ulises Mcmillan MD [address] [place] [address] documented as of this encounter Goals Goal [...] documented as of this encounter Care Teams Landfill Grader Relationship Specialty Start Date End Date Name, MD Ulises [address] [place] [address] PCP - General Family Medicine 11/26/15 Tanya Lopez PharmD [address] [place] [address] Pharmacist Internal Medicine 08/06/22 documented as of this encounter
== END 2024-10-25 09:55 | disposition home or self-care (01) ==
LOC: HO.MAMMO 09:54
PROVIDERS: PCP Internal Medicine Geriatric Medicine; Visit Provider Internal Medicine Geriatric Medicine
DX: Z12.31 Encounter for screening mammogram for malignant neoplasm of breast (principal)
CPT/HCPCS: 77063; 77067

== ENCOUNTER → 2024-10-25 10:00 | Outpatient (BNV) | payer MEDICAID, SELFPAY | PROVIDERS: PCP Internal Medicine Geriatric Medicine; Visit Provider Internal Medicine | DX: Z12.31 Encounter for screening mammogram for malignant neoplasm of breast (principal) | CPT/HCPCS: 77063; 77067 ==

== ENCOUNTER 2024-11-20 07:39 | Outpatient (REF) | payer MEDICAID, SELFPAY ==
--- NOTE | ~2024-11-20 | FL_ITS ---
EXAMINATION: FL GUIDANCE ONLY HISTORY: M47.812 - Spondylosis without myelopathy or radiculopathy, cervical region COMPARISON: None available. TECHNIQUE: Fluoroscopy time: 0.3 minutes. Cumulative Dose: 0.814 mGy. DAP: 0.25857 mGym2 Images: 2. FINDINGS: Fluoroscopic spot films of the cervical spine demonstrate needles and contrast material place on the left. FL/FL guidance in treatment room IMPRESSION: Fluoroscopy during procedure. Please see procedure report for additional information. Electronically signed by: Chapo Auguste MD 11/20/2024 02:35 PM EDT
--- OUTSIDE RECORDS SUMMARY | 2024-11-20 07:45 | XMS_ITS | Encounter Summary ---
Author Organization [employer] Address [address] [place] [address] 7t [place] [address] Care Team Providers Care Inventory Management Specialist Name Role Phone Name, Ulises YATES Primary Care Provider [phone] Anita Skinner DIP DYER Unavailable [phone] Tanya Lopez PharmD Unavailable [phone] Reason for Visit * Reason Comments Med Refill Encounter Details Date Type Department Care Team (Late st Contact Info) Description 03/26/2022 Refill [facility] [place] [address] Leisa Daugherty FNP [address] [place], [place] [phone] Other acute back pain Social History Tobacco [...] Office Visit [facility] 230 [place] [address] Name, MD Ulises [address] [place] [address] documented as of this encounter Visit Diagnoses Diagnosis Other acute back pain documented in this encounter Additional Health Concerns Assessment Noted Time PHQ-9 Depression Total Score: 0 01/28/20 11:25 AM EST documented as of this encounter Care Teams Inventory Management Specialist Relationship Specialty Start Date End Date Name, MD Ulises [address] [place] [address] PCP - General Family Medicine 11/26/15 [place] FNP [address] [place] [address] Nurse Practitioner Family Medicine 01/19/22 08/05/22 Tanya Lopez PharmD [address] [place] [address] Pharmacist Internal Medicine 08/06/22 documented as of this encounter
--- OUTSIDE RECORDS SUMMARY | 2024-11-20 07:45 | XMS_ITS | Encounter Summary ---
Author Organization [employer] Address [address] [place] [address] 7t [place] [address] Care Team Providers Care Take Off Worker Name Role Phone Name, Ulises YATES Primary Care Provider [phone] Tanya Lopez PharmD Unavailable [phone] Reason for Visit * Reason Comments Med Refill Encounter Details Date Type Department Care Team ([facility] st Contact Info) Description 01/23/2024 Refill [facility] 230 [place], [place] [phone] Name, MD Ulises [address] [place] [address] Social History Tobacco Use Types Packs/Day Years [...] Description 12/10/2024 11:30 AM EDT Office Visit [facility] 230 [place] [address] Name, MD Ulises [address] [place] [address] documented as of this encounter Goals Goal [...] documented as of this encounter Care Teams Take Off Worker Relationship Specialty Start Date End Date NameUlises MD 230 [place] [address] PCP - General Family Medicine 11/26/15 Tanya Lopez, PharmD [address] [place] [address] Pharmacist Internal Medicine 08/06/22 documented as of this encounter
--- OUTSIDE RECORDS SUMMARY | 2024-11-20 07:45 | XMS_ITS | Encounter Summary ---
Author Organization [employer] Address [address] [place] [address] 7t [place] [address] Care Team Providers Care Heel Emery Buffer Name Role Phone Name, Ulises YATES Primary Care Provider [phone] Tanya Lopez PharmD Unavailable [phone] Reason for Visit * Reason Comments Med Refill Encounter Details Date Type Department Care Team ([facility] st Contact Info) Description 02/17/2023 Refill [facility] 230 [place], [place] [phone] Edwina Shepard DO 230 [place] [address] Migraine without status migrainosus, not intractable, unspecified [...] EDT Office Visit [facility] [address] [place] [address] Name, MD Ulises [address] [place] [place] [address] documented as of this encounter Goals Goal [...] documented as of this encounter Care Teams Heel Emery Buffer Relationship Specialty Start Date End Date Name, MD Ulises [address] [place] [address] PCP - General Family Medicine 11/26/15 Puia, Tanya, PharmD [address] [place] [place] [address] Pharmacist Internal Medicine 08/06/22 documented as of this encounter
--- OUTSIDE RECORDS SUMMARY | 2024-11-20 07:45 | XMS_ITS | Encounter Summary ---
Author Organization [employer] Address [address] [place] [address] 7t [place] [address] Care Team Providers Care Wildlife Removal Specialist Name Role Phone Name, Ulises YATES Primary Care Provider [phone] Tanya Lopez PharmD Unavailable [phone] Reason for Visit * Reason Comments Med Refill Encounter Details Date Type Department Care Team ([facility] st Contact Info) Description 11/24/2023 Refill [facility] 230 [place], [place] [phone] Name, MD Ulises [address] [place] [address] Social History Tobacco Use Types Packs/Day Years [...] Description 12/10/2024 11:30 AM EDT Office Visit [facility] 230 [place] [address] Name, MD Ulises [address] [place] [address] documented as of this encounter Goals Goal [...] documented as of this encounter Care Teams Wildlife Removal Specialist Relationship Specialty Start Date End Date NameUlises MD [address] [place] [address] PCP - General Family Medicine 11/26/15 Tanya Lopez, PharmD [address] [place] [address] Pharmacist Internal Medicine 08/06/22 documented as of this encounter
--- OUTSIDE RECORDS SUMMARY | 2024-11-20 07:45 | XMS_ITS | Encounter Summary ---
Author Organization [employer] Address [address] [place] [address] 7t [place] [address] Care Team Providers Care Melter Supervisor Name Role Phone Name, Ulises YATES Primary Care Provider [phone] Tanya Lopez PharmD Unavailable [phone] Reason for Visit * Reason Comments Med Refill Encounter Details Date Type Department Care Team ([facility] Contact Info) Description 09/21/2022 Refill [facility] [address] [place] [address] [phone] Ulises Mcmillan MD [address] [place] [address] [phone] Social History Tobacco Use Types Packs/Day Years [...] 12/10/2024 11:30 AM EDT Office Visit [facility] [address] [place] [address] [phone] Ulises Mcmillan MD [address] [place] [address] documented as of this encounter Goals Goal [...] documented as of this encounter Care Teams Melter Supervisor Relationship Specialty Start Date End Date Name, MD Ulises [address] [place] [address] PCP - General Family Medicine 11/26/15 Tanya Lopez PharmD [address] [place] [address] Pharmacist Internal Medicine 08/06/22 documented as of this encounter
--- OUTSIDE RECORDS SUMMARY | 2024-11-20 07:45 | XMS_ITS | Encounter Summary ---
Author Organization [employer] Address [address] [place] [address] 7t [place] [address] Care Team Providers Care Cycle Director Name Role Phone Name, Ulises YATES Primary Care Provider [place] [facility] OFFICE CLAIMS EXAMINER Unavailable [phone] Tanya Lopez PharmD Unavailable [phone] Encounter Details Date Type Department Care Team ([facility] st Contact Info) Description 03/31/2022 Orders Only [facility] MEDICINE [address] [place], [place] [phone] Ledy Woo, KAMINI [address] [place] [address] Screening for tuberculosis (Primary Dx) Social History [...] Description 12/10/2024 11:30 AM EDT Office Visit [facility] [address] [facility] [place] [address] Name, MD Ulises [address] [facility] [place] [address] documented as of this encounter Procedures Procedure [...] EDT) Sodium 137 135 - 145 mmol/L [facility] Potassium 3.8 3.3 - 5.1 mmol/L [facility] Chloride 106 96 - 108 mmol/L [facility] Carbon Dioxide 24 22 - 29 mmol/L [facility] Anion Gap 11(L) 12 - 20 [facility] Urea Nitrogen (BUN) 12 9 - 16 mg/dL [facility] Creatinine, Serum 0.76 0.5 - 1.4 mg/dL [facility] Estimated Glomerular Filt Rate >60 [facility] Comment:NOTE: For -Am erican individuals, multiply the result by 1.210.Chronic Kidney Disease: Estimated GFR < 60 mL/min/1.96b7Wollue Kidney Disease: Estimated GFR < 15 mL/min/1.73m2 Glucose 95 60 - 115 mg/dL [facility] Calcium 9.5 8.4 - 10.2 mg/dL [facility] 09/10/2022 11:5 8 AM EDT 09/10/2022 2:34 PM EDT Ulises Mcmillan MD LAB BLOOD ORDERABLES Final Resul t Performing Organization Address City/[facility]/ZIP Co de Phone Number [facility] [address] [place] [phone] * Helicobacter pylori, Urea Breath Test (07/27/2022 11:24 AM EDT) H. pylori Breath Test Negative Negative [facility] Comment:Antimicrobials, prot on pump inhibitors and bismuthpreparations are known to suppress H. pylori. Ingestingthese medications within two weeks prior to performing thebreath test may produce negative test results. A positiveresult is still clinically valid. 07/27/2022 11:2 4 AM EDT 07/27/2022 6:15 PM EDT [facility] Exter nal Provider LAB BODY FLUIDS AND STOOLS ORDERABLES Final Result Performing Organization Address City/[facility]/ZIP Co de Phone Number [facility] [address] [place] [phone] * Sed Rate by Torres Sahni (05/24/2022 10:17 AM EDT) Erythrocyte Sedimentation Rate 6 0 - 20 MM/HR [facility] Comment:Patients with polycy themia and many hemoglobin abnormalitiesmay have depressed sed rates whereas patients with anemiamay have elevated sed rates. 05/24/2022 10:1 7 AM EDT 05/24/2022 10:17 AM EDT [facility] External Provider LAB BLO OD ORDERABLES Final Result Performing Organization Address [facility] Co de Phone Number [facility] [address] [place] [address] [phone] * TSH (05/24/2022 10:17 AM EDT) Thyroid Stimulating Hormone 1.38 0.32 - 4.0 uIU/mL [facility] Comment:TSH 3rd Generation ( [facility]) 05/24/2022 10:1 7 AM EDT 05/24/2022 10:17 AM EDT [facility] External Provider LAB BLO OD ORDERABLES Final Result Performing Organization Address [facility] Co de Phone Number [facility] [address] [place] [phone] * (ABNORMAL) C-reactive Protein (05/24/2022 10:17 AM EDT) Pathologist [facility] Reactive Protein 0.76(H) < or = 0.50 mg/dL [facility] 05/24/2022 10:1 7 AM EDT 05/24/2022 10:17 AM EDT [facility] External Provider LAB BLO OD ORDERABLES Final Result Performing Organization Address [facility] de Phone Number [facility] [address] [place] [address] [phone] * (ABNORMAL) Comprehensive Metabolic Panel (05/24/2022 10:17 AM EDT) Sodium 139 135 - 145 mmol/L [facility] Potassium 4.5 3.3 - 5.1 mmol/L [facility] Chloride 110(H) 96 - 108 mmol/L [facility] Carbon Dioxide 24 22 - 29 mmol/L [facility] Anion Gap 10(L) 12 - 20 [facility] Urea Nitrogen (BUN) 12 9 - 16 mg/dL [facility] Creatinine, Serum 0.75 0.5 - 1.4 mg/dL [facility] Estimated Glomerular Filt Rate >60 [facility] Comment:NOTE: For -Am erican individuals, multiply the result by 1.210.Chronic Kidney Disease: Estimated GFR < 60 mL/min/1.02q2Svyxdl Kidney Disease: Estimated GFR < 15 mL/min/1.73m2 Glucose 141(H) 60 - 115 mg/dL [facility] Calcium 9.0 8.4 - 10.2 mg/dL [facility] Bilirubin, Total 0.6 0.0 - 1.0 mg/dL [facility] Aspartate Amino Transferase 21 5 - 31 U/L [facility] Alanine Aminotransferase 43(H) 0 - 31 U/L [facility] Total Protein 7.2 6.5 - 8.0 g/dL [facility] Albumin Level 4.3 3.5 - 5.0 g/dL [facility] Alkaline Phosphatase 70 39 - 117 U/L [facility] 05/24/2022 10:1 7 AM EDT 05/24/2022 10:17 AM EDT us [facility] External Provider LAB BLO OD ORDERABLES Final Result [facility] [address] [place] [address] [phone] * (ABNORMAL) CBC auto differential (05/24/2022 10:17 AM EDT) White Blood Count 4.2(L) 4.8 - 10.8 X10*3/uL [facility] Red Blood Count 3.81(L) 4.20 - 5.50 X10*6/uL [facility] Hemoglobin 12.9 12.0 - 16.0 g/dl [facility] Hematocrit 36.9(L) 37.0 - 47.0 % [facility] Mean Corpuscular Volume 96.9 80.0 - 98.0 fL [facility] Mean Corpuscular Hemoglobin 33.9(H) 27.0 - 33.0 pg [facility] Mean Corpuscular HGB Conc 35.0 31.0 - 35.0 g/dl [facility] Red Cell Distribution Width 11.9 11.0 - 16.0 % [facility] Platelet Count 283 160 - 400 X10*3/uL [facility] Mean Platelet Volume 10.4 9.4 - 12.3 fL [facility] Neutrophils Percent Auto 47.8 45 - 73 % [facility] Imm Gran Pct Auto 0.2 0.0 - 0.4 % [facility] Lymphocytes Percent Auto 38.1 20 - 40 % [facility] Monocytes Percent Auto 7.4 2 - 11 % [facility] Eosinophils Percent Auto 4.8(H) 0 - 4 % [facility] Basophils Percent Auto 1.7 0 - 2 % [facility] NRBC Pct Auto 0.0 0.0 - 0.2 /100WBC [facility] Neutrophils Absolute Auto 2.0 2.0 - 8.3 x10*3/uL [facility] Imm Gran Abs Auto 0.01 0.00 - 0.03 X10*3/uL [facility] Lymphocytes Absolute Auto 1.6 1.2 - 4.9 X10*3/uL [facility] Monocytes Absolute Auto 0.3 0.1 - 1.2 X10*3/uL [facility] Eosinophils Absolute Auto 0.2 0.0 - 0.4 X10*3/uL [facility] Basophils Absolute Auto 0.1 0.0 - 0.2 X10*3/uL [facility] NRBC Abs Auto 0.000 0.0 - 0.012 X10*3/uL [facility] 05/24/2022 10:1 7 AM EDT 05/24/2022 10:17 AM EDT [facility] External Provider LAB BLO OD ORDERABLES Final Result Performing Organization Address City/[facility]/ZIP Co de Phone Number [facility] [address] [place] [address] [phone] * QuantiFERON??-TB Gold Plus, 1 Tube (04/01/2022 4:33 PM EST) [facility] Quantiferon -TB Gold Plus, 1 Tube NEGATIVE NEGATIVE [facility] Comment: Negative test result. M. tuberculosis complex infection unlikely. NIL 0.04 IU/mL [facility] MITOGEN-NIL >10.00 IU/mL [facility] [place] [facility] TB1-NIL <0.00 IU/mL [facility] [place] [facility] TB2-NIL 0.01 IU/mL [facility] [place] [facility] Comment: The Nil tube value reflects the [...] T-lymphocytes. For additional information, please refer to https://education.Offbeat Guides.XunLight/faq/YML412 (This link is being provided for informational/ educational purposes only.) Blood Venous blood specimen / Unknown 04/01/2022 4:33 PM EST 04/01/2022 4:33 PM EST Narrative [facility] - 04/07/2022 10:57 PM EST FASTING:NO FASTING: NO Ulises Mcmillan MD LAB BLOOD ORDERABLES Final Resul t [facility] [address] [place] [address], [place] [address] [facility] [address] [facility], ([address]) [place] [phone] documented in this encounter Visit Diagnoses Diagnosis Screening for tuberculosis- Primary Screening examination for pulmonary tuberculosis documented in this encounter Additional Health Concerns Assessment Noted Time PHQ-9 Depression Total Score: 0 01/28/20 22 11:25 AM EST documented as of this encounter Care Teams Cycle Director Relationship Specialty Start Date End Date Name, MD Ulises [address] [place] [phone] PCP - General Family Medicine 11/26/15 RichmondAnita méndez FNP [address] [place] [phone] Nurse Practitioner Family Medicine 01/19/22 08/05/22 Tanya Lopez PharmD [address] [place] [phone] Pharmacist Internal Medicine 08/06/22 documented as of this encounter
--- OUTSIDE RECORDS SUMMARY | 2024-11-20 07:45 | XMS_ITS | Encounter Summary ---
Author Organization [employer] Address [address] [place] [address] 7t [place] [address] Care Team Providers Care Automation Engineer Name Role Phone Name, Ulises YATES Primary Care Provider [phone] Tanya Lopez PharmD Unavailable [phone] Reason for Visit * Reason Comments Med Refill Encounter Details Date Type Department Care Team ([facility] st Contact Info) Description 01/23/2024 Refill [facility] MEDICINE [address] [place], [place] [phone] Name, MD Ulises [address] [place] [address] Social History Tobacco Use Types Packs/Day Years [...] Description 12/10/2024 11:30 AM EDT Office Visit [facility] MEDICINE [address] [place] [address] Name, MD Ulises [address] [place] [address] documented as of this encounter Goals Goal [...] documented as of this encounter Care Teams Automation Engineer Relationship Specialty Start Date End Date NameUlises MD [address] [place] [address] PCP - General Family Medicine 11/26/15 Tanya Lopez, PharmD [address] [place] [phone] Pharmacist Internal Medicine 08/06/22 documented as of this encounter
--- OUTSIDE RECORDS SUMMARY | 2024-11-20 07:45 | XMS_ITS | Clinical Summary ---
Author Organization [employer] Address [address] [place] [address] 7t [place] [address] Care Team Providers Care Teacher Lip Reading Name Role Phone Name, Ulises YATES Primary Care Provider [phone] Tanya Lopez PharmD Unavailable [phone] Allergies No known active allergies Medications [...] CHECK BLOOD PRESSURE DAILY DIRECTED 4 Active fluticasone furoate (Arnuity Ellipta) 100 MCG/ACT [...] by mouth Once per day. 30 tablet 4 025 Active lactulose (Chronulac) 10 GM/15ML solution Take 15 mL (10 g) by mouth Once per day. 473 mL 4 025 Active traZODone (Desyrel) 50 MG tablet Take 1 tablet (50 mg) by mouth at bedtime. 30 tablet 4 025 Active SUMAtriptan (Imitrex) 50 MG tabletIndications: Migraine without status migrainosus, not intractable, unspecified migraine type TAKE 1 TABLET(50 MG) BY MOUTH 1 TIME AT EARLY ONSET OF HEADACHE. MAY REPEAT IN 2 HOURS 1 TIME IF NOT IMPROVED. DO NOT EXCEED 200 MG IN 24 HOURS 10 tablet 2 5 Active Multiple Vitamin (multivitamin) capsule Take 1 capsule by mouth Once per day. 30 capsule 5 026 Active amitriptyline (Elavil) 10 MG tabletIndications: Migraine without status migrainosus, not intractable, unspecified migraine type TAKE 1 TABLET(10 MG) BY MOUTH AT BEDTIME 30 tablet 2 5 Active gabapentin (Neurontin) 100 MG capsule Take 1 capsule (100 mg) by mouth at bedtime for 3 days, THEN 1 capsule (100 mg) 2 times daily for 7 days, THEN 1 capsule (100 mg) 3 times daily. 107 capsule 2 5 Active Ventolin HFA 108 (90 Base) MCG/ACT inhaler INHALE 2 PUFFS EVERY 6 HOURS NEEDED WHEEZING 18 g 11 5 Active Active Problems Problem Noted Date Diagnosed [...] Type Department Care Team Description 10/16/2024 Refill [facility] MEDICINE [address] [place] [address] Ulises Mcmillan MD 09/28/2024 9:15 AM EDT Office Visit [facility] MEDICINE [address] [place] [address] Ulises Mcmillan MD Chronic left shoulder pain (Primary Dx); Encounter for screening mammogram for malignant neoplasm of breast 09/28/2024 Travel 09/27/2024 Telephone [facility] MEDICINE [address] [place] [address] Manuel Carter [place] CHARTPREP 09/21/2024 Travel 08/21/2024 Refill [facility] MED[facility]INE [address] [place] [address] Ulises Mcmillan MD Migraine without status migrainosus, [...] Pfizer Covid-19 Vaccine 12+ 09/18/2020 Tdap 08/06/2022,06/12/2012 Family History Medical History Relation [...] 11:30 AM EDT Office Visit [facility] MEDICINE [address] [place] [address] Name, MD Ulises [address] [place] [address] Health Maintenance Due Date Last Done Comments HIV Screening 1985 Alcohol/Substance Use Screening 1996 Family Planning (PISQ) 07/29/1999 HPV Vaccines (1 - 3-dose series) 07/29/1999 Hepatitis A Vaccines (1 of 2 - Risk 2-dose series) 07/29/2003 COVID-19 Vaccine ( season) 2024 03/26/2021, 10/09/2020, 09/18/2020 Influenza Vaccine (#1) 2024 , 11/10/2022, 01/27/2022, Additional history exists SDOH Screening 04/26/2025 04/26/2024 Depression Screening 05/04/2025 05/04/2024, 05/05/19 25 Disability Screening 09/28/2025 09/28/2024 Tobacco Screening 09/28/2025 09/28/2024 Mammogram 10/25/2026 10/25/2024 Cervical Cancer Screening 04/19/2028 HPV/Cotest 04/19/2028 Pap Smear 04/19/2028 04/19/2023 Lipid Panel 05/14/2029 05/14/2024, 10/22, 09/08/2023, Additional history exists DTaP/Tdap/Td Vaccines (3 - Td or Tdap) 08/06/2032 08/06/2022, 06/12/2012 Zoster Vaccines (1 of 2) 2034 RSV Patients and Patients Aged 60 years or older (1 - 1-dose 75+ series) 07/29/2059 Hepatitis B Vaccines Completed 09/10/2022, 08/07/19 23 Hepatitis C Screening Completed 04/07/2023 HIB Vaccines [...] Pressure On track(08/07/19 4:38 PM EDT) No John, Tanya, Joaquim Procedures Procedure Name Priority Date/Time Associated Diagnosis Comments BI MAMMOGRAM SCREENING TOMOSYNTHESIS BILATERAL Routine 10/25/2024 10:00 AM EDT Encounter for screening mammogram for malignant neoplasm of breast LIPID PANEL, STANDARD Routine 05/14/2024 11:01 AM EDT PAP SMEAR Routine 04/19/2023 3:00 PM EST HEPATITIS PANEL, GENERAL Routine 04/07/2023 1:06 PM EST Abdominal pain, chronic, left lower quadrant from Last 3 Months or Most Recently Relevant to Health Maintenance Results * BI Mammogram Screening Tomosynthesis Bilateral (10/25/2024 10:00 AM EDT) Anatomical Region Laterality Modality Breast Bilateral Mammography 10/25/2024 10:0 0 AM EDT Narrative 10/29/2024 9:40 AM EDT [facility] [address] [place] [address] Mammography Report Signed Patient: Gaye Arriaga MR#: [id number] : 1985 Acct:[id number] Age/Sex: 39 / F ADM Date: 10/25/24 Loc: .MAMMO Attending Dr: Ulises Mcmillan MD Ordering Physician: Ulises Mcmillan MD Results: 1Negative Date of Service: 10/25/24 Follow Up: 1 Year From Orig ina Mammogram Procedure(s): MM tomosynthesis screening BI Accession Number(s): [id number] cc: Ulises Mcmillan MD EXAMINATION: MM SCREENING DIGITAL BREAST TOMOSYNTHESIS, BILATERAL CLINICAL INFORMATION: Screening. Asymptomatic. COMPARISON: Mammography: Baseline. TECHNIQUE: Digital breast mammography with tomosynthesis is performed in both the craniocaudal and mediolateral oblique views along with computer-aided detection (CAD). FINDINGS: There are scattered areas of fibroglandular density (ACR BI-RADS breast composition Category b). There are no significant masses, abnormal calcifications, or other abnormalities. MM/MM tomosynthesis screening BI IMPRESSION: No mammographic evidence of malignancy. ASSESSMENT: BI-RADS BI-RADS 1 - Negative RECOMMENDATION: Routine annual mammography screening. 1 year F/U This examination should not preclude the clinical evaluation of a suspicious palpable abnormality. This patient's information was entered into a reminder system with a target due date for their next mammogram. Electronically signed by: Kayleen Kinney DO 10/29/2024 09:37 AM EDT Dictated By: Kayleen Kinney DO Signed By: <Electronically signed by Kayleen Kinney DO in OV> 10/29/24 0937 DD/ 1000 TD/TT: 10/25/24 1010 Stenciler: Procedure Note Donotuseinterpreter, Image - 10/29/2024 [facility] [address] [place] [address] Mammography Report Signed Patient: Gaye Arriaga YMR#: [id number] : 1985Acct:[id number] Age/Sex: 39 / FADM Date: 10/25/24 Loc: HO.MAMMO Attending Dr: Ulises Mcmillan MD Ordering Physician: Ulises Mcmillan MDResults: 1Negative Date of Service: 10/25/24Follow Up: 1 Year From Orig inal Mammogram Procedure(s): MM tomosynthesis screening BI Accession Number(s): [id number] cc: Ulises Mcmillan MD EXAMINATION: MM SCREENING DIGITAL BREAST TOMOSYNTHESIS, BILATERAL CLINICAL INFORMATION: Screening. Asymptomatic. COMPARISON: Mammography: Baseline. TECHNIQUE: Digital breast mammography with tomosynthesis is performed in both the craniocaudal and mediolateral oblique views along with computer-aided detection (CAD). FINDINGS: There are scattered areas of fibroglandular density (ACR BI-RADS breast composition Category b). There are no significant masses, abnormal calcifications, or other abnormalities. MM/MM tomosynthesis screening BI IMPRESSION: No mammographic evidence of malignancy. ASSESSMENT: BI-RADS BI-RADS 1 - Negative RECOMMENDATION: Routine annual mammography screening. 1 year F/U This examination should not preclude the clinical evaluation of a suspicious palpable abnormality. This patient's information was entered into a reminder system with a target due date for their next mammogram. Electronically signed by: Kayleen Kinney DO 10/29/2024 09:37 AM EDT RP Dictated By: Kayleen Kinney DO Signed By: <Electronically signed by Kayleen Kinney DO in OV> 10/29/24 0937 DD/ 1000 TD/TT: 10/25/24 1010 Stenciler: us Ulises Name MD MORRIS BI PROCEDURES Edited Result - Final * Lipid Panel, Standard (05/14/2024 11:01 AM EDT) Triglycerides 68 <150 mg/dL [facility] Comment:Desirable Triglyceri de: less than 150 mg/dLBorderline High Triglyceride 150-199 mg/dLHigh Triglyceride: 200-499 mg/dLVery High Triglyceride: greater than or equal to 5OO mg/dL Cholesterol 145 <200 mg/dL [facility] Comment:Desirable Cholestero l: less than 200 mg/dLBorderline High Cholesterol: 200-239 mg/dLHigh Cholesterol: greater than 239 mg/dL LDL Cholesterol Calculated 87 <100 mg/dL [facility] Comment:Desirable LDL: less than 100 mg/dLNear Optimal/Above Optimal LDL: 110- 129 mg/dLBorderline High LDL: 130-159 mg/dLHigh LDL: 160-189 mg/dLVery High LDL: greater than or equal to 190 mg/dL HDL Cholesterol 45 >40 mg/dL [facility] Comment:Desirable HDL: great er than 40 mg/dL Note: This HDL assay may give artificially low results in patients with liver disease. 05/14/2024 11:0 1 AM EDT 05/14/2024 11:01 AM EDT us Generic External Data Provider LAB BLOOD ORDERAB LES Final Result [facility] [address] [place] [phone] * Pap Smear (04/19/2023 3:00 PM EST) 04/19/2023 3:00 PM EST 04/20/2023 7:45 AM EST [facility] - 05/02/2023 9:15 AM EDT ----- ------- Name: Gaye Arriaga Age/Sex: 37/F : 1985 Unit#: [id number] Attend Dr: Allyn Pulido CNM Re04/19/23 Status: DEP REF Location: .LAB Disch: ----- ------- SPEC : [id number] RECD: 04/20/23 STATUS: ANTHONY POLANCO NUM: [id number] REGGIE: 04/19/23-[address]: Allyn Pulido CNM ENTERED: 04/20/23 SP [...] 59, 66, 68) HPV testing performed by [facility], [place], [place]. See reference laboratory portion of the EMR for entire report. Clinical Information LMP: 03/30/23 Previous PAP test: 2017, WNL Material Received ThinPrep-Cervical Copies To: Name,Ulises YATES [address] [place] [address] Al[address] Pulido [address] Jie Castillo JOSE CARLOS [place] [address] ----- ------- Signed (signature on file) LEIGH Fajardo (ASCP) 05/02/23 0915 ----- ------- END OF REPORT us Generic External Data Provider LAB CYTOLOGY JIMMY SANABRIA Final Result [facility] [address] [place] [address] [phone] * Hepatitis Panel, General (04/07/2023 1:06 PM EST) Hepatitis A IgM Nonreactive Nonreactive [facility] Comment:IgM antibodies to JEFFRIES V not detected; does not exclude earlyacute or recovered HAV infection. ~Hepatitis B Surface Antibody REACTIVE Nonreactive [facility] Comment:REACTIVE: > 11.99 mI U/mL Hepatitis B Core Antibody Nonreactive Nonreactive [facility] Hepatitis C Antibody Nonreactive Nonreactive [facility] Comment:Antibodies to HCV no t detected; does not exclude early acuteHCV infection. Hepatitis B Surface Ag Negative Negative [facility] Blood 04/07/2023 1:06 PM EST 04/07/2023 3:58 PM EST us Leisa Loja NETWORK SUPPORT ANALYST LAB BLOOD ORDERABLES Final Res ult [facility] [address] [place] [address] [phone] from Last 3 Months or Most Recently Relevant to Health Maintenance Insurance [address] [place] [address] [place] [address] [place] [address] [employer] [address] [place] [address] Care Teams Teacher Lip Reading Relationship Specialty Start Date End Date Name, MD Ulises [address] [place] [address] PCP - General Family Medicine 11/26/15 Tanya Lopez PharmD [address] [place] [address] Pharmacist Internal Medicine 08/06/22
--- OUTSIDE RECORDS SUMMARY | 2024-11-20 07:45 | XMS_ITS | Encounter Summary ---
Author Organization [employer] Address [address] [place] [address] 7t [place] [address] Care Team Providers Care Tong Carrier Name Role Phone Name, Ulises YATES Primary Care Provider [phone] Tanya Lopez PharmD Unavailable [phone] Reason for Visit * Reason Comments Med Refill Encounter Details Date Type Department Care Team ([facility] st Contact Info) Description 04/25/2024 Refill [facility] [address] [place], [place] [phone] Alicia Lowry FNP [address] [place] [address] Social History Tobacco Use Types Packs/Day Years [...] Description 12/10/2024 11:30 AM EDT Office Visit [facility] [address] [place] [phone] Ulises Mcmillan MD [address] [place] [address] documented as of this encounter Goals Goal [...] documented as of this encounter Care Teams Tong Carrier Relationship Specialty Start Date End Date Ulises Mcmillan MD [address] [place] [address] PCP - General Family Medicine 11/26/15 Tanya Lopez, Joaquim [address] [place] [address] Pharmacist Internal Medicine 08/06/22 documented as of this encounter
--- OUTSIDE RECORDS SUMMARY | 2024-11-20 07:45 | XMS_ITS | Encounter Summary ---
Author Organization [employer] Address [address] [place] [address] [address]t [place] [address] Care Team Providers Care Internal Controls Consultant Name Role Phone Name, Ulises YATES Primary Care Provider [phone] Tanya Lopez PharmD Unavailable [phone] Reason for Visit * Reason Comments Med Refill Encounter Details Date Type Department Care Team ([facility] st Contact Info) Description 02/12/[address] [facility] [address] [place], [place] [phone] Park Hernandez NP 230 [place] [address] Chronic left shoulder pain Social History Tobacco [...] 11:30 AM EDT Office Visit [facility] [address] [place] [address] Ulises Mcmillan MD 230 [place] [address] documented as of this encounter Goals Goal [...] documented as of this encounter Care Teams Internal Controls Consultant Relationship Specialty Start Date End Date Name, MD Ulises [address] [place] [address] PCP - General Family Medicine 11/26/15 Tanya Lopez PharmD 230 [place] [address] Pharmacist Internal Medicine 08/06/22 documented as of this encounter
--- OUTSIDE RECORDS SUMMARY | 2024-11-20 07:45 | XMS_ITS | Clinical Summary ---
Author Organization [facility] Address [address] [place] [address] Care Team Providers Care Stonehand Name Role Phone Name, Ulises YATES Primary Care Provider [phone] Medical History Medical History Date Comments Preeclampsia [...] Cervical Cancer Screening: P ap Smear 2005 HPV Vaccines (1 - 3-dose SCD M series) 07/29/2011 Depression Screening 02/22/2024 COVID-19 Vaccine ( - 2023-2 5 season) 2024 Influenza Vaccine (#1) 2024 RSV Immunization Adult Patie nts (1 - 1-dose 75+ series) 07/29/2059 HIB Vaccines Aged Out No longer eligi [...] age to complete this topic Care Teams Stonehand Relationship Specialty Start Date End Date Name, MD Ulises [address] [place] [address] PCP - General Internal Medicine 05/09/12
--- OUTSIDE RECORDS SUMMARY | 2024-11-20 07:45 | XMS_ITS | Encounter Summary ---
Author Organization [employer] Address [address] [place] [address] 7t [place] [address] Care Team Providers Care Fish And Wildlife Biologist Name Role Phone Name, Ulises YATES Primary Care Provider [phone] Tanya Lopez PharmD Unavailable [phone] Reason for Visit * Reason Comments Med Refill Encounter Details Date Type Department Care Team ([facility] st Contact Info) Description 09/21/2023 Refill [facility] 230 [place], [place] [phone] Tanya Lopez, PharmD 230 [place] [address] Primary hypertension Social History Tobacco Use Types [...] Description 12/10/2024 11:30 AM EDT Office Visit [facility] [address] [place] [phone] Name, MD Ulises [address] [place] [address] documented as of this encounter Goals Goal [...] documented as of this encounter Care Teams Fish And Wildlife Biologist Relationship Specialty Start Date End Date Name, MD Ulises [address] [place] [address] PCP - General Family Medicine 11/26/15 Puia, Tanya, PharmD [address] [place] [address] Pharmacist Internal Medicine 08/06/22 documented as of this encounter
== END 2024-11-20 07:40 | disposition home or self-care (01) ==
LOC: CF 07:39
PROVIDERS: Visit Provider Anesthesiology
DX: M47.812 Spondylosis without myelopathy or radiculopathy, cervical region (principal)
CPT/HCPCS: 64490; 64491; J2003; J2795; Q9967

== ENCOUNTER 2024-11-20 11:10 | Outpatient (AMB) | payer MEDICAID, SELFPAY ==
[2024-11-20 11:23] VITALS: BP 141/87; PULSE 90; RESP 18; O2SAT 98
--- NOTE | 2024-11-20 11:23 | A.OFFVIS_ITS ---
Vital Signs 11/20/24 11:23 Weight 105 lb BP 141/87 H Blood Pressure Location Lt brachial Position Sitting Respiration 18 Pulse 90 Pulse Source Pulse Oximeter Pulse Oximetry (%) 98 Oxygen Delivery Method Room Air Intake Visit Reasons: Left Diagnostic C2-C3-C4-C5 MBB Rotary Soil Stabilizer Required: No Allergies No Known Allergies Allergy (Verified 09/13/24 09:45) PFSH Medical History Encounter for routine checking of intrauterine contraceptive device (IUD) Encounter for IUD insertion Cervical cancer screening Well woman exam with routine gynecological exam Palpitations Chest discomfort Uncontrolled hypertension Palpitations Osteoarthritis GERD (gastroesophageal reflux disease) IBS (irritable bowel syndrome) Migraines BMI 35.0-35.9,adult Obesity Hypertension Surgical History Hx of laparoscopic partial gastrectomy History of esophagogastroduodenoscopy (EGD) Hx of tubal ligation Family History Father No problems noted. 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 ? ?Informed consent was explained to the patient. All questions were explained and? answered.? The patient was taken inside the operating room where she was positioned prone on the operating table. Time-out was performed delineating correct site, side, the nature of the procedure, patient's allergy, . All operating room staff was participating in OR time-out procedure. ? ? The the upper back and posterior neck was prepped with ChloraPrep and draped with sterile towels.? C-arm was brought over the operating field and sq picture of C2, C3, C4 vertebra were delineated on the screen.? Point of interest were delineated as left lateral masses of the vertebras as above with the waist of each lateral mass as the target of the final needle position.? The projection of the point of interest to the skin were injected with the small amount of local anesthetic lidocaine 2% mixed with ropivacaine 0.5% 1-1 approximately 1 cc.? After that 22 gauge 3.5 inch spinal needles were driven sequentially to the points of interest in tunnel vision fashion. After needles gently contacted the bone at the point of interests the needle was injected with small amount of the contrast.? The injection of the contrast did not demonstrate any intravascular or intrathecal spread of the contrast.? After that injection of the? ropivacaine 0.5%-1cc was performed at each needle location.??after that the needles were removed and Bandaids were applied. ? Upon completion of the injections? needles were removed and sterile Band-Aids were applied.? The patient tolerated procedure very well. Orders: Orders FL guidance in treatment room Today M47.812 - Spondylosis without myelopathy or radiculopathy, cervical region Coding Level of Care Code Procedure Only Diagnoses Spondylosis of cervical region without myelopathy or radiculopathy M47.812
== END 2024-11-20 11:59 | disposition home or self-care (01) ==
LOC: HO.PMCPRC 11:10
PROVIDERS: PCP Internal Medicine Geriatric Medicine; Visit Provider Anesthesiology
DX: M47.812 Spondylosis without myelopathy or radiculopathy, cervical region (principal)
CPT/HCPCS: 64490; 64491

== ENCOUNTER 2024-11-22 09:34 | Outpatient (AMB) | payer MEDICAID, SELFPAY ==
[2024-11-22 09:42] VITALS: BP 142/78; PULSE 82; RESP 18
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
--- OUTSIDE RECORDS SUMMARY | 2024-11-22 10:34 | XMS_ITS | Encounter Summary ---
Author Organization [employer] Address [address] [place] [address] 7t [place] [address] Care Team Providers Care Storage Architect Name Role Phone Name, Ulises YATES Primary Care Provider [phone] Tanya Lopez PharmD Unavailable [phone] Reason for Visit * Reason Comments Med Refill Encounter Details Date Type Department Care Team ([facility] st Contact Info) Description 02/17/2023 Refill [facility] MED[facility] 230 [place], [place] [phone] Edwina Shepard DO [address] [place] [address] Migraine without status migrainosus, not intractable, unspecified [...] Description 12/10/2024 11:30 AM EDT Office Visit [facility] [address] [place] [address] Name, MD Ulises [address] [place] [address] documented as of this encounter Goals Goal [...] documented as of this encounter Care Teams Storage Architect Relationship Specialty Start Date End Date Name, MD Ulises [address] [place] [address] PCP - General Family Medicine 11/26/15 Puia, Tanya, PharmD [address] [place] [address] Pharmacist Internal Medicine 08/06/22 documented as of this encounter
--- OUTSIDE RECORDS SUMMARY | 2024-11-22 10:34 | XMS_ITS | Encounter Summary ---
Author Organization [employer] Address [address] [place] [address] 7t [place] [address] Care Team Providers Care Ground Support Equipment Assembler Name Role Phone Name, Ulises YATES Primary Care Provider [phone] Tanya Lopez PharmD Unavailable [phone] Reason for Visit * Reason Comments Med Refill Encounter Details Date Type Department Care Team ([facility] st Contact Info) Description 02/12/2024 Refill [facility] [address] [place], [place] [phone] Park Hernandez NP 230 [place] [address] Chronic left shoulder pain Social History Tobacco [...] 11:30 AM EDT Office Visit [facility] [address] [place] [address] Ulises Mcmillan MD [address] [place] [address] documented as of this encounter Goals Goal [...] documented as of this encounter Care Teams Ground Support Equipment Assembler Relationship Specialty Start Date End Date Name, MD Ulises [address] [place] [address] PCP - General Family Medicine 11/26/15 Tanya Lopez PharmD [address] [place] [address] Pharmacist Internal Medicine 08/06/22 documented as of this encounter
--- OUTSIDE RECORDS SUMMARY | 2024-11-22 10:34 | XMS_ITS | Encounter Summary ---
Author Organization [employer] Address [address] [place] [address] 7t [place] [address] Care Team Providers Care Rehab Services Aide Name Role Phone Name, Ulises YATES Primary Care Provider [phone] Tanya Lopez PharmD Unavailable [phone] Reason for Visit * Reason Comments Med Refill Encounter Details Date Type Department Care Team ([facility] Contact Info) Description 09/21/2022 Refill [facility] [address] [place] [phone] Ulises Mcmillan MD [address] [place] [phone] Social History Tobacco Use Types Packs/Day Years [...] Description 12/10/2024 11:30 AM EDT Office Visit [facility] [address] [place] [phone] Ulises Mcmillan MD [address] [place] [address] documented as of this encounter Goals Goal [...] documented as of this encounter Care Teams Rehab Services Aide Relationship Specialty Start Date End Date Name, MD Ulises [address] [place] [address] PCP - General Family Medicine 11/26/15 Tanya Lopez PharmD [address] [place] [address] Pharmacist Internal Medicine 08/06/22 documented as of this encounter
--- OUTSIDE RECORDS SUMMARY | 2024-11-22 10:34 | XMS_ITS | Encounter Summary ---
Author Organization [employer] Address [address] [place] [address] [address] [place] [address] Care Team Providers Care Wrapper And Preserver Name Role Phone Name, Ulises YATES Primary Care Provider [phone] Tanya Lopez PharmD Unavailable [phone] Reason for Visit * Reason Comments Med Refill Encounter Details Date Type Department Care Team ([facility] st Contact Info) Description 01/23/2024 Refill [facility] MED[facility] [address] [place], [place] [phone] Name, MD Ulises [address] [place] [address] Social History Tobacco Use Types Packs/Day Years [...] Description 12/10/2024 11:30 AM EDT Office Visit [facility] [address] [place] [address] Name, MD Ulises [address] [place] [address] documented as of this encounter Goals Goal [...] documented as of this encounter Care Teams Wrapper And Preserver Relationship Specialty Start Date End Date NameUlises MD [address] [place] [address] PCP - General Family Medicine 11/26/15 Tanya Lopez, PharmD [address] [place] [address] Pharmacist Internal Medicine 08/06/22 documented as of this encounter
--- OUTSIDE RECORDS SUMMARY | 2024-11-22 10:34 | XMS_ITS | Clinical Summary ---
Author Organization [employer] Address [address] [place] [address] 7t [place] [address] Care Team Providers Care Depilatory Painter Name Role Phone Name, Ulises YATES Primary Care Provider [phone] Tanya Lopez PharmD Unavailable [phone] Allergies No known active allergies Medications [...] Type Department Care Team Description 10/16/2024 Refill [facility] [address] [place] [address] Name, MD Ulises 09/28/2024 9:15 AM EDT Office Visit [facility] [address] [place] [address] Name, MD Ulises Chronic left shoulder pain (Primary Dx); Encounter for screening mammogram for malignant neoplasm of breast 09/28/2024 Travel 09/27/2024 Telephone [facility] [address] [place] [address] Manuel Carter MA CHARTPREP 09/21/2024 Travel from Last 3 Months Immunizations Immunization Administration [...] Description 12/10/2024 11:30 AM EDT Office Visit [facility] [address] [place] [address] Name, MD Ulises [address] [place] [address] Health Maintenance Due Date Last Done Comments [...] 025 9:18 AM EDT) No Tanya Lopez, Joaquim Record your blood pressure once per day [...] AM EDT Narrative 10/29/2024 9:40 AM EDT [facility] [address] [place] [address] Mammography Report Signed Patient: Gaye Arriaga MR#: [id number] : 1985 Acct:[id number] Age/Sex: 39 / F ADM Date: 10/25/24 Loc: HO.MAMMO Attending Dr: Ulises Mcmillan MD Ordering Physician: Ulises Mcmillan MD Results: 1Negative Date of Service: 10/25/24 Follow Up: 1 Year From [facility] ina Mammogram Procedure(s): MM tomosynthesis screening BI Accession Number(s): [id number] cc: Ulises Mcmillan MD EXAMINATION: MM SCREENING [...] 10/29/24 0937 DD/ 1000 TD/TT: 10/25/24 1010 Specimen Processor: Procedure Note Donotuseinterpreter, Image - 10/29/2024 [facility] [address] [place] [address] Mammography Report Signed Patient: Gaye Arriaga YMR#: [id number] : 1985Acct:[id number] Age/Sex: 39 / FADM Date: 10/25/24 Loc: HO.MAMMO Attending Dr: Ulises Mcmillan MD Ordering Physician: Ulises Mcmillan MDResults: 1Negative Date of Service: 10/25/24Follow Up: 1 Year From Orig inal Mammogram Procedure(s): MM tomosynthesis screening BI Accession Number(s): [id number] cc: Ulises Mcmillan MD EXAMINATION: MM SCREENING [...] 10/29/24 0937 DD/ 1000 TD/TT: 10/25/24 1010 Specimen Processor: us Ulises Name MD MORRIS BI PROCEDURES Edited Result - Final * Lipid Panel, Standard (05/14/2024 11:01 AM EDT) Triglycerides 68 <150 mg/dL [facility] Comment:Desirable Triglyceri de: less than 150 mg/dLBorderline High Triglyceride 150-199 mg/dLHigh Triglyceride: 200-499 mg/dLVery High Triglyceride: greater than or equal to 5OO mg/dL Cholesterol 145 <200 mg/dL [facility] Comment:Desirable Cholestero l: less than 200 mg/dLBorderline High Cholesterol: 200-239 mg/dLHigh Cholesterol: greater than 239 mg/dL LDL Cholesterol Calculated 87 <100 mg/dL [facility] Comment:Desirable LDL: less than 100 mg/dLNear Optimal/Above Optimal LDL: 110- 129 mg/dLBorderline High LDL: 130-159 mg/dLHigh LDL: 160-189 mg/dLVery High LDL: greater than or equal to 190 mg/dL HDL Cholesterol 45 >40 mg/dL [facility] Comment:Desirable HDL: great er than 40 mg/dL Note: This HDL assay may give artificially low results in patients with liver disease. 05/14/2024 11:0 1 AM EDT 05/14/2024 11:01 AM EDT us Generic External Data Provider LAB BLOOD ORDERAB LES Final Result [facility] [address] [place] [address] [phone] * Pap Smear (04/19/2023 3:00 PM EST) 04/19/2023 3:00 PM EST 04/20/2023 7:45 AM EST [facility] - 05/02/2023 9:15 AM EDT ----- ------- Name: Gaye Arriaga Age/Sex: 37/F : 1985 Unit#: [id number] Attend Dr: Allyn Pulido CNM Re04/19/23 Status: DEP [facility] Disch: ----- ------- SPEC : [id number] RECD: 04/20/23 STATUS: ANTHONY POLANCO NUM: [id number] REGGIE: 04/19/23-[address]: Allyn Pulido [facility] ENTERED: 04/20/23 SP TYPE: Pap Smr OTHR DR: Ulises Mcmillan MD ORDERED: Pap Smear Interpretation Satisfactory for evaluation. Negative for intraepithelial lesion or malignancy. HPV mRNA E6/E7: NOT DETECTED This assay detects E6/E7 viral messenger RNA (mRNA) from 14 high-risk HPV types (16, 18, 31, 33, 35, 39, 45, 51, 52, 56, 58, 59, 66, 68) HPV testing performed by [facility], [place], [place]. See reference laboratory portion of the EMR for entire report. Clinical Information LMP: 03/30/23 Previous PAP test: 2017, WNL Material Received ThinPrep-Cervical Copies To: Ulises Mcmillan MD [address] [place] [address] [place] [address] Allyn Pulido [address] Jie Castillo JOSE CARLOS [place] [address] ----- ------- Signed (signature on file) LEIGH Fajardo ([facility]) 05/02/23 0915 ----- ------- END OF REPORT us Generic External Data Provider LAB CYTOLOGY JIMMY SANABRIA Final Result [facility] [address] [place] [address] [phone] * Hepatitis Panel, General (04/07/2023 1:06 PM EST) Hepatitis A IgM Nonreactive Nonreactive [facility] Comment:IgM antibodies to JEFFRIES V not detected; does not exclude earlyacute or recovered HAV infection. ~Hepatitis B Surface Antibody REACTIVE Nonreactive [facility] Comment:REACTIVE: > 11.99 mI U/mL Hepatitis B Core Antibody Nonreactive Nonreactive [facility] Hepatitis C Antibody Nonreactive Nonreactive [facility] Comment:Antibodies to HCV no t detected; does not exclude early acuteHCV infection. Hepatitis B Surface Ag Negative Negative [facility] Blood 04/07/2023 1:06 PM EST 04/07/2023 3:58 PM EST us Leisa Loja SAFETY SUPERVISOR LAB BLOOD ORDERABLES Final Res ult [facility] [address] [place] [address] [phone] from Last 3 Months or Most Recently Relevant to Health Maintenance Insurance [facility] C[employer] [place] Care Teams Depilatory Painter Relationship Specialty Start Date End Date Name, MD Ulises [address] [place] [address] PCP - General Family Medicine 11/26/15 Tanya Lopez PharmD [address] [place] [address] Pharmacist Internal Medicine 08/06/22
--- OUTSIDE RECORDS SUMMARY | 2024-11-22 10:34 | XMS_ITS | Encounter Summary ---
Author Organization [employer] Address [address] [place] [address] 7t [place] [address] Care Team Providers Care Apprenticeship Training Representative Name Role Phone Name, Ulises YATES Primary Care Provider [phone] Tanya Lopez PharmD Unavailable [phone] Reason for Visit * Reason Comments Med Refill Encounter Details Date Type Department Care Team ([facility] st Contact Info) Description 11/24/2023 Refill [facility] MED[facility] [address] [place], [place] [phone] Name, MD Ulises [address] [place] [address] Social History Tobacco Use Types Packs/Day Years [...] 12/10/2024 11:30 AM EDT Office Visit [facility] MED[facility] [address] [place] [address] Name, MD Ulises [address] [place] [address] documented as of this encounter Goals Goal [...] documented as of this encounter Care Teams Apprenticeship Training Representative Relationship Specialty Start Date End Date NameUlises MD [address] [place] [address] PCP - General Family Medicine 11/26/15 Tanya Lopez, PharmD [address] [place] [address] Pharmacist Internal Medicine 08/06/22 documented as of this encounter
--- OUTSIDE RECORDS SUMMARY | 2024-11-22 10:34 | XMS_ITS | Encounter Summary ---
Author Organization [employer] Address [address] [place] [address] 7t [place] [address] Care Team Providers Care Technical Information Specialist Name Role Phone Name, Ulises YATES Primary Care Provider [phone] Tanya Lopez PharmD Unavailable [phone] Reason for Visit * Reason Comments Med Refill Encounter Details Date Type Department Care Team ([facility] st Contact Info) Description 04/25/2024 Refill [facility] [address] [place], [place] [phone] Alicia Lowry FNP [address] [place] [address] Social History Tobacco Use Types Packs/Day Years [...] 12/10/2024 11:30 AM EDT Office Visit [facility] [address] [place] [address] Ulises Mcmillan MD [address] [place] [address] documented as of this encounter Goals Goal [...] documented as of this encounter Care Teams Technical Information Specialist Relationship Specialty Start Date End Date Ulises Mcmillan MD [address] [place] [address] PCP - General Family Medicine 11/26/15 Tanya Lopez, Joaquim [address] [place] [address] Pharmacist Internal Medicine 08/06/22 documented as of this encounter
--- OUTSIDE RECORDS SUMMARY | 2024-11-22 10:34 | XMS_ITS | Encounter Summary ---
Author Organization [employer] Address [address] [place] [address] 7t [place] [address] Care Team Providers Care Fiber Optics Engineer Name Role Phone Name, Ulises YATES Primary Care Provider [phone] Anita Skinner TRANSPORTATION DISPATCH MANAGER Unavailable [phone] Tanya Lopez PharmD Unavailable [phone] Reason for Visit * Reason Comments Med Refill Encounter Details Date Type Department Care Team (Late st Contact Info) Description 03/26/2022 Refill [facility] [address] [facility] [place] [address] Leisa Daugherty FNP [address] [place], [place] [phone] Other acute back pain Social History Tobacco [...] Office Visit [facility] MED[facility] [address] [place] [address] Name, MD Ulises [address] [place] [address] documented as of this encounter Visit Diagnoses Diagnosis Other acute back pain documented in this encounter Additional Health Concerns Assessment Noted Time PHQ-9 Depression Total Score: 0 01/28/20 11:25 AM EST documented as of this encounter Care Teams Fiber Optics Engineer Relationship Specialty Start Date End Date Name, MD Ulises [address] [place] [address] PCP - General Family Medicine 11/26/15 DentonAnita FNP [address] [place] [address] Nurse Practitioner Family Medicine 01/19/22 08/05/22 Tanya Lopez PharmD [address] [place] [address] Pharmacist Internal Medicine 08/06/22 documented as of this encounter
--- OUTSIDE RECORDS SUMMARY | 2024-11-22 10:34 | XMS_ITS | Clinical Summary ---
Author Organization [facility] Address [address] [place] [address] Care Team Providers Care Yellow Pages Space Salesperson Name Role Phone Name, Ulises YATES Primary Care Provider [phone] Medical History Medical History Date Comments Preeclampsia [...] age to complete this topic Care Teams Yellow Pages Space Salesperson Relationship Specialty Start Date End Date Name, MD Ulises [address] [place] [address] PCP - General Internal Medicine 05/09/12
--- OUTSIDE RECORDS SUMMARY | 2024-11-22 10:34 | XMS_ITS | Encounter Summary ---
Author Organization [employer] Address [address] [place] [address] 7t [place] [address] Care Team Providers Care Court Assistant Name Role Phone Name, Ulises YATES Primary Care Provider [phone] Tanya Lopez PharmD Unavailable [phone] Reason for Visit * Reason Comments Med Refill Encounter Details Date Type Department Care Team ([facility] st Contact Info) Description 01/23/2024 Refill [facility] [address] [place], [place] [phone] Name, MD Ulises [address] [place] [address] Social History Tobacco Use Types Packs/Day Years [...] Description 12/10/2024 11:30 AM EDT Office Visit [facility] [address] [place] [address] Name, MD Ulises [address] [place] [address] documented as of this encounter Goals Goal [...] documented as of this encounter Care Teams Court Assistant Relationship Specialty Start Date End Date NameUlises MD [address] [place] [address] PCP - General Family Medicine 11/26/15 Tanya Lopez, PharmD [address] [place] [address] Pharmacist Internal Medicine 08/06/22 documented as of this encounter
--- OUTSIDE RECORDS SUMMARY | 2024-11-22 10:34 | XMS_ITS | Encounter Summary ---
Author Organization [employer] Address [address] [place] [address] 7t [place] [address] Care Team Providers Care Director Building Name Role Phone Name, Ulises YATES Primary Care Provider [place] Anita ASH HANDLER Unavailable [phone] Tanya Lopez PharmD Unavailable [phone] Encounter Details Date Type Department Care Team ([facility] st Contact Info) Description 03/31/2022 Orders Only [facility] [address] [place], [place] [phone] Ledy Woo, KAMINI [address] [place] [address] Screening for tuberculosis (Primary Dx) Social History [...] 11:30 AM EDT Office Visit [facility] [place] [address] Name, MD Ulises [address] [facility] [place] [address] documented as of this encounter Procedures Procedure [...] EDT) Sodium 137 135 - 145 mmol/L [facility] Potassium 3.8 3.3 - 5.1 mmol/L [facility] Chloride 106 96 - 108 mmol/L [facility] Carbon Dioxide 24 22 - 29 mmol/L [facility] Anion Gap 11(L) 12 - 20 [facility] Urea Nitrogen (BUN) 12 9 - 16 mg/dL [facility] Creatinine, Serum 0.76 0.5 - 1.4 mg/dL [facility] Estimated Glomerular Filt Rate >60 [facility] Comment:NOTE: For -Am erican individuals, multiply the result by 1.210.Chronic Kidney Disease: Estimated GFR < 60 mL/min/1.16f1Eyxbjz Kidney Disease: Estimated GFR < 15 mL/min/1.73m2 Glucose 95 60 - 115 mg/dL [facility] Calcium 9.5 8.4 - 10.2 mg/dL [facility] 09/10/2022 11:5 8 AM EDT 09/10/2022 2:34 PM EDT Ulises Mcmillan MD LAB BLOOD ORDERABLES Final Resul t Performing Organization Address City/[facility]/ZIP Co de Phone Number [facility] [address] [place] [phone] * Helicobacter pylori, Urea Breath Test (07/27/2022 11:24 AM EDT) H. pylori Breath Test Negative Negative [facility] Comment:Antimicrobials, prot on pump inhibitors and bismuthpreparations are known to suppress H. pylori. Ingestingthese medications within two weeks prior to performing thebreath test may produce negative test results. A positiveresult is still clinically valid. 07/27/2022 11:2 4 AM EDT 07/27/2022 6:15 PM EDT [facility] Exter nal Provider LAB BODY FLUIDS AND STOOLS ORDERABLES Final Result Performing Organization Address City/[facility]/ZIP Co de Phone Number [facility] [address] [place] [phone] * Sed Rate by Torres Sahni (05/24/2022 10:17 AM EDT) Erythrocyte Sedimentation Rate 6 0 - 20 MM/HR [facility] Comment:Patients with polycy themia and many hemoglobin abnormalitiesmay have depressed sed rates whereas patients with anemiamay have elevated sed rates. 05/24/2022 10:1 7 AM EDT 05/24/2022 10:17 AM EDT [facility] External Provider LAB BLO OD ORDERABLES Final Result Performing Organization Address [facility] Co de Phone Number [facility] [address] [place] [address] [phone] * TSH (05/24/2022 10:17 AM EDT) Thyroid Stimulating Hormone 1.38 0.32 - 4.0 uIU/mL [facility] Comment:TSH 3rd Generation ( [facility]) 05/24/2022 10:1 7 AM EDT 05/24/2022 10:17 AM EDT [facility] External Provider LAB BLO OD ORDERABLES Final Result Performing Organization Address [facility] Co de Phone Number [facility] [address] [place] [phone] * (ABNORMAL) C-reactive Protein (05/24/2022 10:17 AM EDT) Pathologist [facility] C Reactive Protein 0.76(H) < or = 0.50 mg/dL [facility] 05/24/2022 10:1 7 AM EDT 05/24/2022 10:17 AM EDT [facility] External Provider LAB BLO OD ORDERABLES Final Result Performing Organization Address [facility] de Phone Number [facility] [address] [place] [address] [phone] * (ABNORMAL) Comprehensive Metabolic Panel (05/24/2022 10:17 AM EDT) Sodium 139 135 - 145 mmol/L [facility] Potassium 4.5 3.3 - 5.1 mmol/L [facility] Chloride 110(H) 96 - 108 mmol/L [facility] Carbon Dioxide 24 22 - 29 mmol/L [facility] Anion Gap 10(L) 12 - 20 [facility] Urea Nitrogen (BUN) 12 9 - 16 mg/dL [facility] Creatinine, Serum 0.75 0.5 - 1.4 mg/dL [facility] Estimated Glomerular Filt Rate >60 [facility] Comment:NOTE: For -Am erican individuals, multiply the result by 1.210.Chronic Kidney Disease: Estimated GFR < 60 mL/min/1.72d8Psixfu Kidney Disease: Estimated GFR < 15 mL/min/1.73m2 Glucose 141(H) 60 - 115 mg/dL [facility] Calcium 9.0 8.4 - 10.2 mg/dL [facility] Bilirubin, Total 0.6 0.0 - 1.0 mg/dL [facility] Aspartate Amino Transferase 21 5 - 31 U/L [facility] Alanine Aminotransferase 43(H) 0 - 31 U/L [facility] Total Protein 7.2 6.5 - 8.0 g/dL [facility] Albumin Level 4.3 3.5 - 5.0 g/dL [facility] Alkaline Phosphatase 70 39 - 117 U/L [facility] 05/24/2022 10:1 7 AM EDT 05/24/2022 10:17 AM EDT us [facility] External Provider LAB BLO OD ORDERABLES Final Result [facility] [address] [place] [address] [phone] * (ABNORMAL) CBC auto differential (05/24/2022 10:17 AM EDT) White Blood Count 4.2(L) 4.8 - 10.8 X10*3/uL [facility] Red Blood Count 3.81(L) 4.20 - 5.50 X10*6/uL [facility] Hemoglobin 12.9 12.0 - 16.0 g/dl [facility] Hematocrit 36.9(L) 37.0 - 47.0 % [facility] Mean Corpuscular Volume 96.9 80.0 - 98.0 fL [facility] Mean Corpuscular Hemoglobin 33.9(H) 27.0 - 33.0 pg [facility] Mean Corpuscular HGB Conc 35.0 31.0 - 35.0 g/dl [facility] Red Cell Distribution Width 11.9 11.0 - 16.0 % [facility] Platelet Count 283 160 - 400 X10*3/uL [facility] Mean Platelet Volume 10.4 9.4 - 12.3 fL [facility] Neutrophils Percent Auto 47.8 45 - 73 % [facility] Imm Gran Pct Auto 0.2 0.0 - 0.4 % [facility] Lymphocytes Percent Auto 38.1 20 - 40 % [facility] Monocytes Percent Auto 7.4 2 - 11 % [facility] Eosinophils Percent Auto 4.8(H) 0 - 4 % [facility] Basophils Percent Auto 1.7 0 - 2 % [facility] NRBC Pct Auto 0.0 0.0 - 0.2 /100WBC [facility] Neutrophils Absolute Auto 2.0 2.0 - 8.3 x10*3/uL [facility] Imm Gran Abs Auto 0.01 0.00 - 0.03 X10*3/uL [facility] Lymphocytes Absolute Auto 1.6 1.2 - 4.9 X10*3/uL [facility] Monocytes Absolute Auto 0.3 0.1 - 1.2 X10*3/uL [facility] Eosinophils Absolute Auto 0.2 0.0 - 0.4 X10*3/uL [facility] Basophils Absolute Auto 0.1 0.0 - 0.2 X10*3/uL [facility] NRBC Abs Auto 0.000 0.0 - 0.012 X10*3/uL [facility] 05/24/2022 10:1 7 AM EDT 05/24/2022 10:17 AM EDT [facility] External Provider LAB BLO OD ORDERABLES Final Result Performing Organization Address City/[facility]/ZIP Co de Phone Number [facility] [address] [place] [address] [phone] * QuantiFERON??-TB Gold Plus, 1 Tube (04/01/2022 4:33 PM EST) [facility] Quantiferon -TB Gold Plus, 1 Tube NEGATIVE NEGATIVE [facility] Comment: Negative test result. M. tuberculosis complex infection unlikely. NIL 0.04 IU/mL [facility] MITOGEN-NIL >10.00 IU/mL [facility] TB1-NIL <0.00 IU/mL [facility] [place] [facility] TB2-NIL 0.01 IU/mL [facility] Comment: The Nil tube value reflects the [...] T-lymphocytes. For additional information, please refer to https://education.otelz.com.[employer]/faq/NNH042 (This link is being provided for informational/ educational purposes only.) Blood Venous blood specimen / Unknown 04/01/2022 4:33 PM EST 04/01/2022 4:33 PM EST Narrative [facility] - 04/07/2022 10:57 PM EST FASTING:NO FASTING: NO Ulises Mcmillan MD LAB BLOOD ORDERABLES Final Resul t [facility] [address] [place] [address], [place] [address] [facility] [address] [facility], ([address]) [place] [address] documented in this encounter Visit Diagnoses Diagnosis Screening for tuberculosis- Primary Screening examination for pulmonary tuberculosis documented in this encounter Additional Health Concerns Assessment Noted Time PHQ-9 Depression Total Score: 0 01/28/20 22 11:25 AM EST documented as of this encounter Care Teams Director Building Relationship Specialty Start Date End Date Name, MD Ulises [address] [place] [address] PCP - General Family Medicine 11/26/15 MalvernAnita méndez FNP [address] [place] [address] Nurse Practitioner Family Medicine 01/19/22 08/05/22 Tanya Lopez PharmD [address] [place] [address] Pharmacist Internal Medicine 08/06/22 documented as of this encounter
--- OUTSIDE RECORDS SUMMARY | 2024-11-22 10:34 | XMS_ITS | Encounter Summary ---
Author Organization [employer] Address [address] [place] [address] 7[address] [place] [address] Care Team Providers Care Line Server Name Role Phone Name, Ulises YATES Primary Care Provider [phone] Tanya Lopez PharmD Unavailable [phone] Reason for Visit * Reason Comments Med Refill Encounter Details Date Type Department Care Team ([facility] st Contact Info) Description 09/21/2023 Refill [facility]ICINE [address] [place], [place] [phone] Tanya Lopez, PharmD [address] [place] [address] Primary hypertension Social History Tobacco Use Types [...] Description 12/10/2024 11:30 AM EDT Office Visit [facility] [address] [place] [address] Name, MD Ulises [address] [place] [address] documented as of this encounter Goals Goal [...] documented as of this encounter Care Teams Line Server Relationship Specialty Start Date End Date Name, MD Ulises [address] [place] [address] PCP - General Family Medicine 11/26/15 Puia, Tanya, PharmD [address] [place] [address] Pharmacist Internal Medicine 08/06/22 documented as of this encounter
== END 2024-11-22 10:21 | disposition home or self-care (01) ==
LOC: HO.PMC 09:35
PROVIDERS: PCP Internal Medicine Geriatric Medicine; Visit Provider Anesthesiology
DX: M47.812 Spondylosis without myelopathy or radiculopathy, cervical region (principal); M79.18 Myalgia, other site
CPT/HCPCS: 20553; 99213

== ENCOUNTER → 2024-11-22 09:34 | Outpatient (BNVA) | payer MEDICAID, SELFPAY | PROVIDERS: PCP Internal Medicine Geriatric Medicine; Visit Provider Anesthesiology | DX: M79.18 Myalgia, other site (principal); M47.812 Spondylosis without myelopathy or radiculopathy, cervical region | CPT/HCPCS: 20553; 99212 ==

== ENCOUNTER 2024-11-23 10:38 | Outpatient (AMB) | payer MEDICAID, SELFPAY ==
--- NOTE | 2024-11-23 10:27 | A.OFFVIS_ITS ---
VS Expanded 11/23/24 10:29 Height 5 ft Weight 101 lb BMI 19.7 Intake Visit Reasons: (TV) PO LSG 11/08/23 Allergies No Known Allergies Allergy (Verified 09/13/24 09:45) Medication List - Last Reconciled 11/23/24 by DINA Hector acetaminophen (Tylenol Extra Strength) 1,000 mg PO Q6H PRN albuterol sulfate 90 mcg/actuation (Ventolin HFA) 2 puffs inhalation Q6H PRN amitriptyline 25 mg PO BEDTIME bisacodyl (Dulcolax (bisacodyl)) 10 mg FL DAILY PRN docusate sodium (Colace) 200 mg (2 x 100 mg) PO BEDTIME fluticasone furoate 100 mcg/actuation (Arnuity Ellipta) 1 inh inhalation DAILY lactulose 10 grams PO DAILY levonorgestrel (Mirena) 1 device intrauterine ONCE multivitamin 1 tab PO DAILY sennosides-docusate sodium 8.6-50 mg (Senna Plus) 1 tab-cap PO BEDTIME trazodone 50 mg PO BEDTIME vitamin A palmitate 3,000 mcg PO DAILY 90 days HPI Comments Details: This?is a?39?yo F who is s/p LSG 11/08/2023. Presents for 1 year post op visit. Weight stable since last OV. No complaints of nausea, emesis, abdominal pain or reflux, or constipation. She reports she would feel better if she were to gain some weight, feels she has lost too much. Present meal plan includes: Premier protein ready to drink shake, 6 oz mixed with 2 oz of almond milk in the morning Another shake mid day Meal at 18:00 with 5 forks of protein and for forks of vegetables Faroese yogurt MVI Exercise includes: Treadmill for 300-400 calories 4-5 days per week She does state that she has some excess skin of her abdomen. Given her 72.2 lb weight loss, this was somewhat expected. She has not experienced any rash at this point. This is not that bothersome at this time. Have you been diagnosed with reflux (GERD)? Score 0-5: 0=no symptoms, 1=noticeable but not bothersome (slight or occasio nal), 2=noticeable, bothersome but not daily, 3=bothersome and daily, 4=affects daily activities, 5=incapacitating, unable to do daily activities How bad is the heartburn: 0 Heartburn when lying down: 0 Heartburn when standing up: 0 Heartburn after meals: 0 Does heartburn change your diet: 0 Does heartburn wake you up from sleep: 0 Do you have difficulty swallowin Do you have pain with swallowin If you take medication for reflux, does this affect your daily life: 0 Total score: 0 PFSH Medical History Encounter for routine checking of intrauterine contraceptive device (IUD) Encounter for IUD insertion Cervical cancer screening Well woman exam with routine gynecological exam Palpitations Chest discomfort Uncontrolled hypertension Palpitations Osteoarthritis GERD (gastroesophageal reflux disease) IBS (irritable bowel syndrome) Migraines BMI 35.0-35.9,adult Obesity Hypertension Surgical History Hx of laparoscopic partial gastrectomy History of esophagogastroduodenoscopy (EGD) Hx of tubal ligation Family History Father No problems noted. 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 Female Reproductive History Menstrual Age of Menarche: 11 Telehealth Telehealth Telehealth Platform: Telephone Location of provider rendering services: other Location of patient: address on file Patient Identification confirmed using: Name, : Yes Telehealth method: voice only Patient verbally consented to treatment: Yes Patient verbally consented to billing insurance company: Yes Patient informed of any privacy concerns related to visit: Yes Minutes spent on Phone/Video with Pt.: 15 Assessment & Plan Assessment & Plan (1) S/P laparoscopic sleeve gastrectomy: Code(s): Z98.84 - Bariatric surgery status Category: Medical Plan Pt to continue above meal plan but I gave her options for maintenance. -Can add 1Tbsp PB to shake -Can swap 2 forks veg for 1/4 avocado -Can swap 2 forks veg for healthy carb like potatoes, pasta, rice -Can have some days with all veg and some days with all carb We will communciate weekly as she makes these changes and track weight. Labs ordered. RTC 3mo. Orders: Orders TSH reflex Free T4 Today Z98.84 - Bariatric surgery status C Reactive Protein Today Z98.84 - Bariatric surgery status Comprehensive Met. Panel Today Z98.84 - Bariatric surgery status Hemoglobin A1c Today Z98.84 - Bariatric surgery status Insulin Today Z98.84 - Bariatric surgery status Vitamin D 25-OH Total Today Z98.84 - Bariatric surgery status Ferritin Today Z98.84 - Bariatric surgery status Vitamin B1 Today Z98.84 - Bariatric surgery status Vitamin A Today Z98.84 - Bariatric surgery status Zinc Today Z98.84 - Bariatric surgery status Vitamin B12 and Folate Today Z98.84 - Bariatric surgery status Complete Blood Count Auto Diff Today Z98.84 - Bariatric surgery status Lipid Panel Today Z98.84 - Bariatric surgery status IRON PROFILE Today Z98.84 - Bariatric surgery status
[2024-11-23 10:29] VITALS: BMI 19.7
--- OUTSIDE RECORDS SUMMARY | 2024-11-23 11:34 | XMS_ITS | Encounter Summary ---
Author Organization [employer] Address [address] [place] [address] 7t [place] [address] Care Team Providers Care Care Mgr Name Role Phone Name, Ulises YATES Primary Care Provider [phone] Tanya Lopez PharmD Unavailable [phone] Reason for Visit * Reason Comments Med Refill Encounter Details Date Type Department Care Team ([facility] st Contact Info) Description 01/23/2024 Refill [facility] 230 [place], [place] [phone] Name, MD Ulises [address] [place] [address] Social History Tobacco Use Types Packs/Day Years [...] Description 12/10/2024 11:30 AM EDT Office Visit [facility] 230 [place] [address] Name, MD Ulises [address] [place] [address] documented as of this encounter Goals Goal [...] documented as of this encounter Care Teams Care Mgr Relationship Specialty Start Date End Date NameUlises MD [address] [place] [address] PCP - General Family Medicine 11/26/15 Tanya Lopez, PharmD [address] [place] [address] Pharmacist Internal Medicine 08/06/22 documented as of this encounter
--- OUTSIDE RECORDS SUMMARY | 2024-11-23 11:34 | XMS_ITS | Encounter Summary ---
Author Organization [employer] Address [address] [place] [address] 7t [place] [address] Care Team Providers Care Software Tester Name Role Phone Name, Ulises YATES Primary Care Provider Tanya Lopez PharmD Unavailable [phone] Reason for Visit * Reason Comments Med Refill Encounter Details Date Type Department Care Team ([facility] st Contact Info) Description 02/12/2024 Refill [facility] 230 [place], [place] [phone] Park Hernandez NP 230 [place] [address] Chronic left shoulder pain Social History Tobacco [...] Description 12/10/2024 11:30 AM EDT Office Visit [facility] 230 [place] [address] Ulises Mcmillan MD 230 [place] [address] documented as of this encounter Goals Goal [...] documented as of this encounter Care Teams Software Tester Relationship Specialty Start Date End Date Name, MD Ulises 230 [place] [address] PCP - General Family Medicine 11/26/15 Tanya Lopez PharmD 230 [place] [address] Pharmacist Internal Medicine 08/06/22 documented as of this encounter
--- OUTSIDE RECORDS SUMMARY | 2024-11-23 11:34 | XMS_ITS | Encounter Summary ---
Author Organization [employer] Address [address] [place] [address] 7t [place] [address] Care Team Providers Care Senior Technologist Name Role Phone Name, Ulises YATES Primary Care Provider [phone] Tanya Lopez PharmD Unavailable [phone] Reason for Visit * Reason Comments Med Refill Encounter Details Date Type Department Care Team ([facility] st Contact Info) Description 02/17/2023 Refill [facility] 230 [place], [place] [phone] Edwina Shepard DO [address] [place] [address] Migraine without status migrainosus, not intractable, unspecified [...] Description 12/10/2024 11:30 AM EDT Office Visit [facility] [address] [place] [address] Name, MD Ulises [address] [place] [address] documented as of this encounter Goals Goal [...] documented as of this encounter Care Teams Senior Technologist Relationship Specialty Start Date End Date Name, MD Ulises [address] [place] [address] PCP - General Family Medicine 11/26/15 Puia, Tanya, PharmD [address] [place] [address] Pharmacist Internal Medicine 08/06/22 documented as of this encounter
--- OUTSIDE RECORDS SUMMARY | 2024-11-23 11:34 | XMS_ITS | Encounter Summary ---
Author Organization [employer] Address [address] [place] [address] 7t [place] [address] Care Team Providers Care Collar Baster Name Role Phone Name, Ulises YATES Primary Care Provider Anita Skinner BIT SHARPENER OPERATOR Unavailable [phone] Tanya Lopez PharmD Unavailable [phone] Reason for Visit * Reason Comments Med Refill Encounter Details Date Type Department Care Team (Late st Contact Info) Description 03/26/2022 Refill [facility] 230 [facility] [place] [address] Leisa Daugherty FNP [address] [place], [place] [phone] Other acute back pain Social History Tobacco [...] 12/10/2024 11:30 AM EDT Office Visit [facility] 230 [place] [address] Name, MD Ulises [address] [place] [address] documented as of this encounter Visit Diagnoses Diagnosis Other acute back pain documented in this encounter Additional Health Concerns Assessment Noted Time PHQ-9 Depression Total Score: 0 01/28/20 11:25 AM EST documented as of this encounter Care Teams Collar Baster Relationship Specialty Start Date End Date Name, MD Ulises [address] [place] [address] PCP - General Family Medicine 11/26/15 ChicagoAnita FNP [address] [place] [address] Nurse Practitioner Family Medicine 01/19/22 08/05/22 Tanya Lopez PharmD [address] [place] [phone] Pharmacist Internal Medicine 08/06/22 documented as of this encounter
--- OUTSIDE RECORDS SUMMARY | 2024-11-23 11:34 | XMS_ITS | Encounter Summary ---
Author Organization [employer] Address [address] [place] [address] 7t [place] [address] Care Team Providers Care Cable Television Line Technician Name Role Phone Name, Ulises YATES Primary Care Provider [phone] Tanya Lopez PharmD Unavailable [phone] Reason for Visit * Reason Comments Med Refill Encounter Details Date Type Department Care Team ([facility] st Contact Info) Description 09/21/2023 Refill [facility] 230 [place], [place] [phone] Tanya Lopez, PharmD 230 [place] [address] Primary hypertension Social History Tobacco Use Types [...] Description 12/10/2024 11:30 AM EDT Office Visit [facility] [address] [place] [address] Name, MD Ulises [address] [place] [address] documented as of this encounter Goals Goal [...] documented as of this encounter Care Teams Cable Television Line Technician Relationship Specialty Start Date End Date Name, MD Ulises [address] [place] [address] PCP - General Family Medicine 11/26/15 Puia, Tanya, PharmD [address] [place] [address] Pharmacist Internal Medicine 08/06/22 documented as of this encounter
--- OUTSIDE RECORDS SUMMARY | 2024-11-23 11:34 | XMS_ITS | Encounter Summary ---
Author Organization [employer] Address [address] [place] [address] 7t [place] [address] Care Team Providers Care Ammunition And Explosives Handler Name Role Phone Name, Ulises YATES Primary Care Provider [phone] Tanya Lopez PharmD Unavailable [phone] Reason for Visit * Reason Comments Med Refill Encounter Details Date Type Department Care Team ([facility] st Contact Info) Description 04/25/2024 Refill [facility] 230 [place], [place] [phone] Alicia Lowry FNP [address] [place] [address] Social History Tobacco Use Types Packs/Day Years [...] Description 12/10/2024 11:30 AM EDT Office Visit [facility] [address] [place] [phone] Ulises Mcmillan MD [address] [place] [address] documented as of this encounter Goals Goal [...] documented as of this encounter Care Teams Ammunition And Explosives Handler Relationship Specialty Start Date End Date Ulises Mcmillan MD 230 [place] [address] PCP - General Family Medicine 11/26/15 Tanya Lopez, Joaquim [address] [place] [address] Pharmacist Internal Medicine 08/06/22 documented as of this encounter
--- OUTSIDE RECORDS SUMMARY | 2024-11-23 11:34 | XMS_ITS | Encounter Summary ---
Author Organization [employer] Address [address] [place] [address] 7t [place] [address] Care Team Providers Care Hotel General Manager Name Role Phone Name, Ulises YATES Primary Care Provider Hallock Anita LIFTER/DRIVER Unavailable [phone] Tanya Lopez PharmD Unavailable [phone] Encounter Details Date Type Department Care Team ([facility] st Contact Info) Description 03/31/2022 Orders Only [facility] 230 [place], [place] [phone] Ledy Woo, KAMINI 230 [place] [address] Screening for tuberculosis (Primary Dx) Social History [...] Office Visit [facility] [address] [facility] [place] [address] Name, MD Ulises [address] [facility] [facility] [place] [address] documented as of this encounter Procedures Procedure [...] EDT) Sodium 137 135 - 145 mmol/L [facility] Potassium 3.8 3.3 - 5.1 mmol/L [facility] Chloride 106 96 - 108 mmol/L [facility] Carbon Dioxide 24 22 - 29 mmol/L [facility] Anion Gap 11(L) 12 - 20 [facility] Urea Nitrogen (BUN) 12 9 - 16 mg/dL [facility] Creatinine, Serum 0.76 0.5 - 1.4 mg/dL [facility] Estimated Glomerular Filt Rate >60 [facility] Comment:NOTE: For -Am erican individuals, multiply the result by 1.210.Chronic Kidney Disease: Estimated GFR < 60 mL/min/1.48k5Axeuga Kidney Disease: Estimated GFR < 15 mL/min/1.73m2 Glucose 95 60 - 115 mg/dL [facility] Calcium 9.5 8.4 - 10.2 mg/dL [facility] 09/10/2022 11:5 8 AM EDT 09/10/2022 2:34 PM EDT Ulises Mcmillan MD LAB BLOOD ORDERABLES Final Resul t Performing Organization Address City/[facility]/ZIP Co de Phone Number [facility] [address] [place] [phone] * Helicobacter pylori, Urea Breath Test (07/27/2022 11:24 AM EDT) H. pylori Breath Test Negative Negative [facility] Comment:Antimicrobials, prot on pump inhibitors and bismuthpreparations are known to suppress H. pylori. Ingestingthese medications within two weeks prior to performing thebreath test may produce negative test results. A positiveresult is still clinically valid. 07/27/2022 11:2 4 AM EDT 07/27/2022 6:15 PM EDT [facility] Exter nal Provider LAB BODY FLUIDS AND STOOLS ORDERABLES Final Result Performing Organization Address City/[facility]/ZIP Co de Phone Number [facility] [address] [place] [phone] * Sed Rate by Torres Sahni (05/24/2022 10:17 AM EDT) Erythrocyte Sedimentation Rate 6 0 - 20 MM/HR [facility] Comment:Patients with polycy themia and many hemoglobin abnormalitiesmay have depressed sed rates whereas patients with anemiamay have elevated sed rates. 05/24/2022 10:1 7 AM EDT 05/24/2022 10:17 AM EDT [facility] External Provider LAB BLO OD ORDERABLES Final Result Performing Organization Address [facility] Co de Phone Number [facility] [address] [place] [address] [phone] * TSH (05/24/2022 10:17 AM EDT) Thyroid Stimulating Hormone 1.38 0.32 - 4.0 uIU/mL [facility] Comment:TSH 3rd Generation ( [facility]) 05/24/2022 10:1 7 AM EDT 05/24/2022 10:17 AM EDT [facility] External Provider LAB BLO OD ORDERABLES Final Result Performing Organization Address [facility] Co de Phone Number [facility] [address] [place] [phone] * (ABNORMAL) C-reactive Protein (05/24/2022 10:17 AM EDT) Pathologist [facility] C Reactive Protein 0.76(H) < or = 0.50 mg/dL [facility] 05/24/2022 10:1 7 AM EDT 05/24/2022 10:17 AM EDT [facility] External Provider LAB BLO OD ORDERABLES Final Result Performing Organization Address [facility] de Phone Number [facility] [address] [place] [address] [phone] * (ABNORMAL) Comprehensive Metabolic Panel (05/24/2022 10:17 AM EDT) Sodium 139 135 - 145 mmol/L [facility] Potassium 4.5 3.3 - 5.1 mmol/L [facility] Chloride 110(H) 96 - 108 mmol/L [facility] Carbon Dioxide 24 22 - 29 mmol/L [facility] Anion Gap 10(L) 12 - 20 [facility] Urea Nitrogen (BUN) 12 9 - 16 mg/dL [facility] Creatinine, Serum 0.75 0.5 - 1.4 mg/dL [facility] Estimated Glomerular Filt Rate >60 [facility] Comment:NOTE: For -Am erican individuals, multiply the result by 1.210.Chronic Kidney Disease: Estimated GFR < 60 mL/min/1.54j1Cbzswv Kidney Disease: Estimated GFR < 15 mL/min/1.73m2 Glucose 141(H) 60 - 115 mg/dL [facility] Calcium 9.0 8.4 - 10.2 mg/dL [facility] Bilirubin, Total 0.6 0.0 - 1.0 mg/dL [facility] Aspartate Amino Transferase 21 5 - 31 U/L [facility] Alanine Aminotransferase 43(H) 0 - 31 U/L [facility] Total Protein 7.2 6.5 - 8.0 g/dL [facility] Albumin Level 4.3 3.5 - 5.0 g/dL [facility] Alkaline Phosphatase 70 39 - 117 U/L [facility] 05/24/2022 10:1 7 AM EDT 05/24/2022 10:17 AM EDT [facility] External Provider LAB BLO OD ORDERABLES Final Result [facility] [address] [place] [address] [phone] * (ABNORMAL) CBC auto differential (05/24/2022 10:17 AM EDT) White Blood Count 4.2(L) 4.8 - 10.8 X10*3/uL [facility] Red Blood Count 3.81(L) 4.20 - 5.50 X10*6/uL [facility] Hemoglobin 12.9 12.0 - 16.0 g/dl [facility] Hematocrit 36.9(L) 37.0 - 47.0 % [facility] Mean Corpuscular Volume 96.9 80.0 - 98.0 fL [facility] Mean Corpuscular Hemoglobin 33.9(H) 27.0 - 33.0 pg [facility] Mean Corpuscular HGB Conc 35.0 31.0 - 35.0 g/dl [facility] Red Cell Distribution Width 11.9 11.0 - 16.0 % [facility] Platelet Count 283 160 - 400 X10*3/uL [facility] Mean Platelet Volume 10.4 9.4 - 12.3 fL [facility] Neutrophils Percent Auto 47.8 45 - 73 % [facility] Imm Gran Pct Auto 0.2 0.0 - 0.4 % [facility] Lymphocytes Percent Auto 38.1 20 - 40 % [facility] Monocytes Percent Auto 7.4 2 - 11 % [facility] Eosinophils Percent Auto 4.8(H) 0 - 4 % [facility] Basophils Percent Auto 1.7 0 - 2 % [facility] NRBC Pct Auto 0.0 0.0 - 0.2 /100WBC [facility] Neutrophils Absolute Auto 2.0 2.0 - 8.3 x10*3/uL [facility] Imm Gran Abs Auto 0.01 0.00 - 0.03 X10*3/uL [facility] Lymphocytes Absolute Auto 1.6 1.2 - 4.9 X10*3/uL [facility] Monocytes Absolute Auto 0.3 0.1 - 1.2 X10*3/uL [facility] Eosinophils Absolute Auto 0.2 0.0 - 0.4 X10*3/uL [facility] Basophils Absolute Auto 0.1 0.0 - 0.2 X10*3/uL [facility] NRBC Abs Auto 0.000 0.0 - 0.012 X10*3/uL [facility] 05/24/2022 10:1 7 AM EDT 05/24/2022 10:17 AM EDT [facility] External Provider LAB BLO OD ORDERABLES Final Result Performing Organization Address City/[facility]/ZIP Co de Phone Number [facility] [address] [place] [address] [phone] * QuantiFERON??-TB Gold Plus, 1 Tube (04/01/2022 4:33 PM EST) [facility] Quantiferon -TB Gold Plus, 1 Tube NEGATIVE NEGATIVE [facility] [place] [facility] Comment: Negative test result. M. tuberculosis complex infection unlikely. NIL 0.04 IU/mL [facility] MITOGEN-NIL >10.00 IU/mL [facility] [place] [employer] [employer] TB1-NIL <0.00 IU/mL [facility] [place] [employer] [employer] TB2-NIL 0.01 IU/mL [facility] [place] [facility] Comment: The Nil tube value reflects the [...] T-lymphocytes. For additional information, please refer to [email or web address]/KPZ121 (This link is being provided for informational/ educational purposes only.) Blood Venous blood specimen / Unknown 04/01/2022 4:33 PM EST 04/01/2022 4:33 PM EST Narrative [facility] - 04/07/2022 10:57 PM EST FASTING:NO FASTING: NO Ulises Mcmillan MD LAB BLOOD ORDERABLES Final Resul t [facility] [address] [place] [address], [place] [address] [facility] [address] [facility], ([address]) [place] [address] documented in this encounter Visit Diagnoses Diagnosis Screening for tuberculosis- Primary Screening examination for pulmonary tuberculosis documented in this encounter Additional Health Concerns Assessment Noted Time PHQ-9 Depression Total Score: 0 01/28/20 22 11:25 AM EST documented as of this encounter Care Teams Hotel General Manager Relationship Specialty Start Date End Date Name, MD Ulises [address] [place] [address] PCP - General Family Medicine 11/26/15 HallockAnita méndez FNP [address] [place] [address] Nurse Practitioner Family Medicine 01/19/22 08/05/22 Tanya Lopez PharmD [address] [place] [address] Pharmacist Internal Medicine 08/06/22 documented as of this encounter
--- OUTSIDE RECORDS SUMMARY | 2024-11-23 11:34 | XMS_ITS | Encounter Summary ---
Author Organization [employer] Address [address] [place] [address] 7t [place] [address] Care Team Providers Care Edge Worker Name Role Phone Name, Ulises YATES Primary Care Provider [phone] Tanya Lopez PharmD Unavailable [phone] Reason for Visit * Reason Comments Med Refill Encounter Details Date Type Department Care Team ([facility] st Contact Info) Description 01/23/2024 Refill [facility] [address] [place], [place] [phone] Name, MD Ulises [address] [place] [address] Social History Tobacco Use Types Packs/Day Years [...] EDT Office Visit [facility] [address] [place] [address] Name, MD Ulises [address] [place] [address] documented as of this encounter Goals Goal [...] documented as of this encounter Care Teams Edge Worker Relationship Specialty Start Date End Date NameUlises MD [address] [place] [address] PCP - General Family Medicine 11/26/15 Tanya Lopez, PharmD [address] [place] [address] Pharmacist Internal Medicine 08/06/22 documented as of this encounter
--- OUTSIDE RECORDS SUMMARY | 2024-11-23 11:34 | XMS_ITS | Clinical Summary ---
Author Organization [facility] Address [address] [place] [address] Care Team Providers Care Television Program Director Name Role Phone Name, Ulises YATES Primary Care Provider [phone] Medical History Medical History Date Comments Preeclampsia [...] age to complete this topic Care Teams Television Program Director Relationship Specialty Start Date End Date Name, MD Ulises [address] [place] [address] PCP - General Internal Medicine 05/09/12
--- OUTSIDE RECORDS SUMMARY | 2024-11-23 11:34 | XMS_ITS | Encounter Summary ---
Author Organization [employer] Address [address] [place] [address] 7t [place] [address] Care Team Providers Care Gold And Silver Assayer Name Role Phone Name, Ulises YATES Primary Care Provider [phone] Tanya Lopez PharmD Unavailable [phone] Reason for Visit * Reason Comments Med Refill Encounter Details Date Type Department Care Team ([facility] st Contact Info) Description 11/24/2023 Refill [facility] [address] [place], [place] [phone] Name, MD Ulises [address] [place] [address] Social History Tobacco Use Types Packs/Day Years [...] Description 12/10/2024 11:30 AM EDT Office Visit [facility] [address] [place] [address] Name, MD Ulises [address] [place] [address] documented as of this encounter Goals Goal [...] documented as of this encounter Care Teams Gold And Silver Assayer Relationship Specialty Start Date End Date NameUlises MD [address] [place] [address] PCP - General Family Medicine 11/26/15 Tanya Lopez, PharmD [address] [place] [address] Pharmacist Internal Medicine 08/06/22 documented as of this encounter
--- OUTSIDE RECORDS SUMMARY | 2024-11-23 11:34 | XMS_ITS | Encounter Summary ---
Author Organization [employer] Address [address] [place] [address] 7t [place] [address] Care Team Providers Care Machine Operator Packaging Name Role Phone Name, Ulises YATES Primary Care Provider [phone] Tanya Lopez PharmD Unavailable [phone] Reason for Visit * Reason Comments Med Refill Encounter Details Date Type Department Care Team ([facility] Contact Info) Description 09/21/2022 Refill [facility] MED[facility]INE [address] [place] [address] [phone] Ulises Mcmillan MD [address] [place] [phone] Social History Tobacco Use Types Packs/Day Years [...] 12/10/2024 11:30 AM EDT Office Visit [facility] [address] [place] [address] [phone] Ulises Mcmillan MD [address] [place] [phone] documented as of this encounter Goals Goal [...] documented as of this encounter Care Teams Machine Operator Packaging Relationship Specialty Start Date End Date Name, MD Ulises [address] [place] [address] PCP - General Family Medicine 11/26/15 Tanya Lopez PharmD [address] [place] [address] Pharmacist Internal Medicine 08/06/22 documented as of this encounter
--- OUTSIDE RECORDS SUMMARY | 2024-11-23 11:34 | XMS_ITS | Clinical Summary ---
Author Organization [employer] Address [address] [place] [address] 7t [place] [address] Care Team Providers Care Fixed Capital Clerk Name Role Phone Name, Ulises YATES Primary Care Provider [phone] Tanya Lopez PharmD Unavailable [phone] Allergies No known active allergies Medications [...] Type Department Care Team Description 10/16/2024 Refill [facility] [address] [place] [address] Name, MD Ulises 09/28/2024 9:15 AM EDT Office Visit [facility] [address] [place] [address] Name, MD Ulises Chronic left shoulder pain (Primary Dx); Encounter for screening mammogram for malignant neoplasm of breast 09/28/2024 Travel 09/27/2024 Telephone [facility] [address] [place] [address] Manuel Carter [place] CHARTPREP 09/21/2024 Travel from [...] Description 12/10/2024 11:30 AM EDT Office Visit [facility] [address] [place] [phone] Name, MD Ulises [address] [place] [address] Health Maintenance Due Date Last Done Comments [...] Narrative 10/29/2024 9:40 AM EDT [facility] [address] [place] [address] Mammography Report Signed Patient: Gaye Arriaga MR#: [id number] : 1985 Acct:[id number] Age/Sex: 39 / F ADM Date: 10/25/24 Loc: HO.MAMMO Attending Dr: Ulises Mcmillan MD Ordering Physician: Ulises Mcmillan MD Results: 1Negative Date of Service: 10/25/24 Follow Up: 1 Year From [facility] ina Mammogram Procedure(s): MM tomosynthesis screening BI Accession Number(s): [id number] cc: Ulises Mcmillan MD EXAMINATION: MM SCREENING [...] 10/29/24 0937 DD/ 1000 TD/TT: 10/25/24 1010 Electronics Scale Tester: Procedure Note Donotuseinterpreter, Image - 10/29/2024 [facility] [address] [place] [address] Mammography Report Signed Patient: Gaye Arriaga YMR#: [id number] : 1985Acct:[id number] Age/Sex: 39 / FADM Date: 10/25/24 Loc: HO.MAMMO Attending Dr: Ulises Mcmillan MD Ordering Physician: Ulises Mcmillan MDResults: 1Negative Date of Service: 10/25/24Follow Up: 1 Year From Orig inal Mammogram Procedure(s): MM tomosynthesis screening BI Accession Number(s): [id number] cc: Ulises Mcmillan MD EXAMINATION: MM SCREENING [...] 10/29/24 0937 DD/ 1000 TD/TT: 10/25/24 1010 Electronics Scale Tester: us Ulises Name MD MORRIS BI PROCEDURES Edited Result - Final * Lipid Panel, Standard (05/14/2024 11:01 AM EDT) Triglycerides 68 <150 mg/dL [facility] Comment:Desirable Triglyceri de: less than 150 mg/dLBorderline High Triglyceride 150-199 mg/dLHigh Triglyceride: 200-499 mg/dLVery High Triglyceride: greater than or equal to 5OO mg/dL Cholesterol 145 <200 mg/dL [facility] Comment:Desirable Cholestero l: less than 200 mg/dLBorderline High Cholesterol: 200-239 mg/dLHigh Cholesterol: greater than 239 mg/dL LDL Cholesterol Calculated 87 <100 mg/dL [facility] Comment:Desirable LDL: less than 100 mg/dLNear Optimal/Above Optimal LDL: 110- 129 mg/dLBorderline High LDL: 130-159 mg/dLHigh LDL: 160-189 mg/dLVery High LDL: greater than or equal to 190 mg/dL HDL Cholesterol 45 >40 mg/dL [facility] Comment:Desirable HDL: great er than 40 mg/dL Note: This HDL assay may give artificially low results in patients with liver disease. 05/14/2024 11:0 1 AM EDT 05/14/2024 11:01 AM EDT us Generic External Data Provider LAB BLOOD ORDERAB LES Final Result [facility] [address] [place] [phone] * Pap Smear (04/19/2023 3:00 PM EST) 04/19/2023 3:00 PM EST 04/20/2023 7:45 AM EST [facility] - 05/02/2023 9:15 AM EDT ----- ------- Name: Gaye Arriaga Age/Sex: 37/F : 1985 Unit#: [id number] Attend Dr: Allyn Pulido CNM Re04/19/23 Status: DEP [facility] Disch: ----- ------- SPEC : [id number] RECD: 04/20/23 STATUS: ANTHONY POLANCO NUM: [id number] REGGIE: 04/19/23-[address]: Allyn Pulido [facility] ENTERED: 04/20/23 SP TYPE: Pap Smr OTHR DR: Ulises Mcmillan MD ORDERED: Pap Smear Interpretation Satisfactory for evaluation. Negative for intraepithelial lesion or malignancy. HPV mRNA E6/E7: NOT DETECTED This assay detects E6/E7 viral messenger RNA (mRNA) from 14 high-risk HPV types (16, 18, 31, 33, 35, 39, 45, 51, 52, 56, 58, 59, 66, 68) HPV testing performed by [facility], [place], [place]. See reference laboratory portion of the EMR for entire report. Clinical Information LMP: 03/30/23 Previous PAP test: 2017, WNL Material Received ThinPrep-Cervical Copies To: Ulises Mcmillan MD [address] [place] [address] [place] [address] Allyn Pulido [address] Jie Castillo JOSE CARLOS [place] [address] ----- ------- Signed (signature on file) LEIGH Fajardo ([facility]) 05/02/23 0915 ----- ------- END OF REPORT us Generic External Data Provider LAB CYTOLOGY JIMMY SANABRIA Final Result [facility] [address] [place] [address] [phone] * Hepatitis Panel, General (04/07/2023 1:06 PM EST) Hepatitis A IgM Nonreactive Nonreactive [facility] Comment:IgM antibodies to JEFFRIES V not detected; does not exclude earlyacute or recovered HAV infection. ~Hepatitis B Surface Antibody REACTIVE Nonreactive [facility] Comment:REACTIVE: > 11.99 mI U/mL Hepatitis B Core Antibody Nonreactive Nonreactive [facility] Hepatitis C Antibody Nonreactive Nonreactive [facility] Comment:Antibodies to HCV no t detected; does not exclude early acuteHCV infection. Hepatitis B Surface Ag Negative Negative [facility] Blood 04/07/2023 1:06 PM EST 04/07/2023 3:58 PM EST us Leisa Loja APPLIANCE REPAIRER LAB BLOOD ORDERABLES Final Res ult [facility] [address] [place] [address] [phone] from Last 3 Months or Most Recently Relevant to Health Maintenance Insurance [facility] [employer] [place] Care Teams Fixed Capital Clerk Relationship Specialty Start Date End Date Name, MD Ulises [address] [place] [address] PCP - General Family Medicine 11/26/15 Tanya Lopez PharmD [address] [place] [address] Pharmacist Internal Medicine 08/06/22
== END 2024-11-23 10:50 | disposition home or self-care (01) ==
LOC: HO.HBS 10:38
PROVIDERS: PCP Internal Medicine Geriatric Medicine; Visit Provider Physician Assistant Surgical
DX: Z98.84 Bariatric surgery status (principal)
CPT/HCPCS: 99214

== ENCOUNTER 2024-11-29 10:31 | Outpatient (REF) | payer MEDICAID, SELFPAY ==
[2024-11-29 10:44] LABS: MANUAL DIFF FLAG NO
[2024-11-29 11:59] LABS: Hematocrit 38.7 % (37.0-47.0); Hemoglobin 13.5 g/dl (12.0-16.0); Imm Gran Abs Auto 0.01 X10*3/uL (0.00-0.03); Imm Gran Pct Auto 0.2 % (0.0-0.4); Lymphocytes Absolute Auto 1.7 X10*3/uL (1.2-4.9); Mean Corpuscular HGB Conc 34.9 g/dl (31.0-35.0); Mean Corpuscular Hemoglobin 33.3 pg (27.0-33.0); Mean Corpuscular Volume 95.3 fL (80.0-98.0); NRBC Abs Auto 0.000 X10*3/uL (0.0-0.012); NRBC Pct Auto 0.0 /100WBC (0.0-0.2); Platelet Count 297 X10*3/uL (160-400); Red Blood Count 4.06 X10*6/uL (4.20-5.50); White Blood Count 5.0 X10*3/uL (4.8-10.8)
[2024-11-29 12:25] LABS: Alanine Aminotransferase 17 U/L (0-31); Albumin Level 4.7 g/dL (3.5-5.0); Alkaline Phosphatase 72 U/L (39-117); Anion Gap 11 (12-20); Aspartate Amino Transferase 18 U/L (5-31); Blood Urea Nitrogen 9 mg/dL (9-16); Calcium 9.3 mg/dL (8.4-10.2); Carbon Dioxide 31 mmol/L (22-29); Chloride 105 mmol/L (96-108); Cholesterol 131 mg/dL (<200); Estimated Glomerular Filt Rate > 60; HDL Cholesterol 59 mg/dL (>40); Iron 167 mcg/dL (30-160); Percent Iron Saturation 59 % (15-50); Potassium 3.8 mmol/L (3.3-5.1); Sodium 143 mmol/L (135-145); Total Iron Binding Capacity 285 mcg/dL (228-428); Total Protein 7.5 g/dL (6.5-8.0); Triglycerides 43 mg/dL (<150); Unsaturated Iron Binding 118 ug/dL
[2024-11-29 12:42] LABS: Ferritin 135 ng/mL (10-250)
[2024-11-29 12:48] LABS: Folate 6.7 ng/mL (> or = 4.0); Vitamin B12 241 pg/mL (200-900)
== END 2024-11-29 10:32 | disposition home or self-care (01) ==
LOC: HO.LAB 10:31
PROVIDERS: PCP Internal Medicine Geriatric Medicine; Visit Provider Physician Assistant Surgical
DX: Z98.84 Bariatric surgery status (principal)
CPT/HCPCS: 36415; 80053; 80061; 82306; 82607; 82728; 82746; 83036; 83525; 83540; 84425; 84443; 84590; 84630; 85025; 86140

== ENCOUNTER 2024-12-19 12:12 | Outpatient (REF) | payer MEDICAID, SELFPAY ==
--- OUTSIDE RECORDS SUMMARY | 2024-12-19 18:40 | XMS_ITS | Encounter Summary ---
Author Organization [employer] Address [address] [facility] 7t [place] [address] Care Team Providers Care Colored Leather Setter Name Role Phone Name, Ulises YATES Primary Care Provider [phone] Tanya Lopez PharmD Unavailable [phone] Encounter Details Date Type Department Care Team ([facility] st Contact Info) Description 12/19/2024 6:40 PM EDT Office Visit [facility] [address] [place] [address] [phone] Mariann Sneed MD [address] [place] [address] Urinary frequency (Primary Dx) Social History Tobacco Use Types [...] AM EDT documented as of this encounter Last Filed Vital Signs Vital Sign Reading Time Taken Comments Blood Pressure 136/94 12/19/2024 6:33 PM EDT Pulse 88 12/19/2024 6:33 PM EDT Temperature 36.9 C (98.4 F) 12/19/2024 6:33 PM EDT Respiratory Rate 16 12/19/2024 6:33 PM EDT Oxygen Saturation - - Inhaled Oxygen Concentration - - Weight 46.3 kg (102 lb) 12/19/2024 6:33 PM EDT Height - - Body Mass Index 19.92 12/10/2024 11:37 AM EDT documented in this encounter Progress Notes * Mariann Sneed MD - 12/19/2024 6:40 PM EDT SUBJECTIVE: Gaye Mederos is a 39 y.o. female who presents for acute visit. Denies recent illness, ER visit, or hospitalization. Acute Concerns: 39 year old female who presents for concerns of increased urinary frequency for one day. She notes that she has felt thirsty and is drinking a lot of water. She also feels that she is having a littlebit of vulvar irritation when urinating. She denies any fever, chills, nausea, vomiting. She is eating and drinking as normal. She is not using any OTC supplements, medications. She did use a pharmacy strip to test for urinary tract infection, which was positive. Updated Procedure 12/19/241901 POCT Urinalysis Collected: 12/19/241900 Final result Specimen: Urine, Random Color, UA Yellow Protein, UA Negative Clarity, UA Clear Urobilinogen, UA 0.2 Glucose, UA Negative Leukocytes, UA Negative Bilirubin, UA Negative Nitrite, UA Negative Ketones, UA Negative Appearance, UA clear Spec Grav, UA 1.010 QC Media Lot # [id number] Blood, UA Negative Lot# Expiration Date 63,026 pH, UA 6.0 Patient Active Problem List Diagnosis Date Noted Uncomplicated asthma, unspecified asthma severity, unspecified whether persistent 12/19/2024 Bariatric surgery status 01/30/2024 Irritable bowel syndrome with constipation 01/30/2024 Chronic left shoulder pain 10/28/2023 Tubal ligation status 01/27/2022 Family history of diabetes mellitus (DM) 01/21/2022 Family history of thyroid disorder 01/21/2022 Irregular periods 01/09/2018 Hypertensive disorder 10/21/2017 Migraine 10/21/2017 Hepatic steatosis 11/04/2022 Surgical History[1] Social History Social History Narrative Not on file Review of Systems Constitutional: Negative. Respiratory: Negative. Cardiovascular: Negative. Gastrointestinal: Negative. Genitourinary: Positive for frequency. Negative for decreased urine volume, difficulty urinating, dyspareunia, dysuria, enuresis, flank pain, genital sores, hematuria, menstrual problem, urgency, vaginal bleeding, vaginal discharge and vaginal pain. Musculoskeletal: Negative. Skin: Negative. OBJECTIVE: Vitals: 12/19/24 1833 BP: (!) 136/94 BP Location: Left arm Patient Position: Sitting BP Cuff Size: Adult Pulse: 88 Resp: 16 Temp: 98.4 ??F (36.9 ??C) TempSrc: Oral Weight: 102 lb (46.3 kg) Physical Exam Vitals and nursing note reviewed. Constitutional: Appearance: Normal appearance. HENT: Head: Normocephalic and atraumatic. Cardiovascular: Rate and Rhythm: Normal rate and regular rhythm. Pulses: Normal pulses. Heart sounds: Normal heart sounds. Pulmonary: Effort: Pulmonary effort is normal. Breath sounds: Normal breath sounds. Abdominal: Tenderness: There is no right CVA tenderness or left CVA tenderness. Skin: General: Skin is warm and dry. Neurological: General: No focal deficit present. Mental Status: She is alert and oriented to person, place, and time. Psychiatric: Mood and Affect: Mood normal. Behavior: Behavior normal. ASSESSMENT/PLAN Problem List Items Addressed This Visit None Visit Diagnoses Urinary frequency - Primary Relevant Orders POCT Urinalysis (Completed) Bacterial Vaginosis Panel Culture, Urine, Routine Await urine culture and BV panel results Follow Up: per PCP recall or sooner prn Allergies[2] Current Medications[3] Luxembourger Translation: Patient is bilingual and declines translation services [1] Past Surgical History: Procedure Laterality Date TUBAL LIGATION Bilateral [2] No Known Allergies [3] Current Outpatient Medications: Multiple Vitamin (Multivitamin) tablet, Take 1 tablet by mouth Once per day., Disp: , Rfl: amitriptyline (Elavil) 10 MG tablet, TAKE 1 TABLET(10 MG) BY MOUTH AT BEDTIME, Disp: 30 tablet, Rfl: 2 Blood Pressure Monitoring (Omron 3 Series BP Monitor) device, USE TO CHECK BLOOD PRESSURE DAILY DIRECTED, Disp: , Rfl: Citrucel 500 MG tablet, Take 1 tablet by mouth 3 times daily., Disp: , Rfl: Diclofenac Sodium (Voltaren) 1 % gel, Apply 2 g topically if needed in the morning and at bedtime (muscle pain)., Disp: 100 g, Rfl: 3 docusate sodium (Colace) 100 MG capsule, Take 2 capsules by mouth at bedtime., Disp: , Rfl: fluticasone furoate (Arnuity Ellipta) 100 MCG/ACT inhaler, Inhale 1 puff Once per day. Rinse mouth with water after use to reduce aftertaste and incidence of candidiasis. Do not swallow., Disp: 1 each, Rfl: 11 gabapentin (Neurontin) 100 MG capsule, Take 1 capsule (100 mg) by mouth at bedtime for 3 days, THEN1 capsule (100 mg) 2 times daily for 7 days, THEN 1 capsule (100 mg) 3 times daily., Disp: 107 capsule, Rfl: 2 lactulose (Chronulac) 10 GM/15ML solution, Take 15 mL (10 g) by mouth Once per day., Disp: 473 mL, Rfl: 11 lidocaine (Lidoderm) 5 % patch, Apply 1 patch topically in the morning. Remove & discard patch within 12 hours or as directed by ., Disp: 30 patch, Rfl: 3 ondansetron ODT (Zofran-ODT) 4 MG disintegrating tablet, DISSOLVE 1 TABLET ON THE TONGUE EVERY 8 HOURS NEEDED FOR NAUSEA OR VOMITING, Disp: , Rfl: pantoprazole (ProtoNix) 40 MG EC tablet, Take 40 mg by mouth Once per day., Disp: , Rfl: polyethylene glycol, PEG, 3350 (Glycolax) 17 GM/SCOOP powder, MIX AND TAKE 17 GRAMS BY MOUTH EVERY DAY NEEDED FOR LAXATIVE EFFECT. USE FOR ONE WEEK PRIOR TO PREP DAY, Disp: , Rfl: senna-docusate sodium (Senokot-S) 8.6-50 MG tablet, Take 1 tablet by mouth Once per day., Disp: 30 tablet, Rfl: 11 sucralfate (Carafate) 1 GM/10ML suspension, Take 10 mL by mouth 2 times daily., Disp: , Rfl: SUMAtriptan (Imitrex) 50 MG tablet, TAKE 1 TABLET(50 MG) BY MOUTH 1 TIME AT EARLY ONSET OF HEADACHE. MAY REPEAT IN 2 HOURS 1 TIME IF NOT IMPROVED. DO NOT EXCEED 200 MG IN 24 HOURS, Disp: 10 tablet, Rfl: 2 traZODone (Desyrel) 50 MG tablet, TAKE 1 TABLET(50 MG) BY MOUTH AT BEDTIME, Disp: 30 tablet, Rfl: 11 Ventolin HFA 108 (90 Base) MCG/ACT inhaler, INHALE 2 PUFFS EVERY 6 HOURS NEEDED WHEEZING, Disp: 18 g, Rfl: 11 documented in this encounter Plan of Treatment Upcoming Encounters Date Type Department Care Team (Late st Contact Info) Description 12/25/2024 11:30 AM EST Telemedicine [facility] [address] [place] [address] 03/12/2025 9:15 AM EST Office Visit [address] [address] Name, MD Ulises [address] [place] [address] [phone] Scheduled Orders Name Type Priority Associated Diagnoses Orde r Schedule Bacterial Vaginosis Panel Microbiology Routine Urinary frequency Ordered: 12/19/2024 Culture, Urine, Routine Microbiology Routine Urinary frequency Expected: 12/19/2024 (Approximate), Expires: 12/19/2025 documented as of this encounter Goals Goal Patient Goal Type Associated Problems Recent Progress Patient-Stated? Author Blood Pressure < 140/90 Blood Pressure 136/94( 025 6:33 PM EDT) No Puia, Tanya, PharmD Record your blood pressure once per day Blood Pressure On track(08/07/19 23 4:38 PM EDT) No Puia, Tanya, PharmD documented as of this encounter Procedures Procedure Name Priority Date/Time Associated Diagnosis Comments POCT URINALYSIS DIPSTICK Routine 12/19/2024 7:01 PM EDT Urinary frequency documented in this encounter Results * POCT Urinalysis (12/19/2024 7:01 PM EDT) Color, UA Yellow Clarity, UA Clear Glucose, UA Negative Bilirubin, UA Negative Ketones, UA Negative Spec Grav, UA 1.010 Blood, UA Negative Negative, None Detected pH, UA 6.0 Protein, UA Negative Urobilinogen, UA 0.2 Leukocytes, UA Negative Negative, Rare, Trace Nitrite, UA Negative Negative, None Detected Appearance, UA clear QC Media Lot # [id number] Lot# Expiration Date Urine (Urine, Random) 12/19/2024 7:01 PM EDT Mariann Sneed MD POINT OF CARE TEST ENTER/EDIT ORDERABLES Final Result documented in this encounter Visit Diagnoses Diagnosis Urinary frequency- Primary documented in this encounter Additional Health Concerns Assessment Noted Time PHQ-9 Depression Total Score: 1 05/05/19 25 1:19 PM EDT documented as of this encounter Care Teams Colored Leather Setter Relationship Specialty Start Date End Date Name, MD Ulises [address] [place] [address] PCP - General Family Medicine 11/26/15 Tanya Lopez, StasD [address] [place] [phone] Pharmacist Internal Medicine 08/06/22 documented as of this encounter
--- OUTSIDE RECORDS SUMMARY | 2024-12-20 15:07 | XMS_ITS | Encounter Summary ---
Author Organization [employer] Address [address] [facility] 7t [place] [address] Care Team Providers Care Videogame Designer Name Role Phone Name, Ulises YATES Primary Care Provider [phone] Tanya Lopez PharmD Unavailable [phone] Encounter Details Date Type Department Care Team (Latest Contact Info) Description 12/19/2024 Travel Social History Tobacco Use Types Packs/Day Years [...] Info) Description 12/25/2024 11:30 AM EST Telemedicine [address] [address] 03/12/2025 9:15 AM EST Office Visit [facility] [address] [place] [address] Name, MD Ulises [address] [place] [address] documented as of this encounter Goals Goal [...] documented as of this encounter Care Teams Videogame Designer Relationship Specialty Start Date End Date Ulises Mcmillan MD [address] [place] [address] PCP - General Family Medicine 11/26/15 Puia, Tanya, PharmD [address] [place] [phone] Pharmacist Internal Medicine 08/06/22 documented as of this encounter
--- OUTSIDE RECORDS SUMMARY | 2024-12-20 15:07 | XMS_ITS | Encounter Summary ---
Author Organization [employer] Address [address] [place] [address] 7t [place] [address] Care Team Providers Care Checkroom Attendant Name Role Phone Name, Ulises YATES Primary Care Provider [phone] Tanya Lopez PharmD Unavailable [phone] Reason for Visit * Reason Comments Med Refill Encounter Details Date Type Department Care Team ([facility] st Contact Info) Description 09/21/2023 Refill [facility] [address] [place], [place] [phone] Tanya Lopez, PharmD [address] [place] [address] Primary hypertension Social History Tobacco Use Types [...] Info) Description 12/25/2024 11:30 AM EST Telemedicine [address] [address] 03/12/2025 9:15 AM EST Office Visit [facility] [address] [place] [address] Name, MD Ulises [address] [place] [phone] documented as of this encounter Goals Goal [...] documented as of this encounter Care Teams Checkroom Attendant Relationship Specialty Start Date End Date Ulises Mcmillan MD [address] [place] [phone] PCP - General Family Medicine 11/26/15 Puia, Tanya, PharmD [address] [place] [phone] Pharmacist Internal Medicine 08/06/22 documented as of this encounter
--- OUTSIDE RECORDS SUMMARY | 2024-12-20 15:07 | XMS_ITS | Encounter Summary ---
Author Organization [employer] Address [address] [place] [address] 7t [place] [address] Care Team Providers Care Center Maker Hand Name Role Phone Name, Ulises YATES Primary Care Provider [phone] Anita Skinner CLINIC BUSINESS MANAGER Unavailable [phone] Tanya Lopez PharmD Unavailable [phone] Reason for Visit * Reason Comments Med Refill Encounter Details Date Type Department Care Team (Late st Contact Info) Description 03/26/2022 Refill [facility] [address] [place] [address] Leisa Daugherty FNP [address] [place], [place] [phone] Other acute back pain Social History Tobacco [...] Info) Description 12/25/2024 11:30 AM EST Telemedicine [facility] [address] [place] [address] 03/12/2025 9:15 AM EST Office Visit [address] [address] Name, [place] [address] documented as of this encounter Visit Diagnoses Diagnosis Other acute back pain documented in this encounter Additional Health Concerns Assessment Noted Time PHQ-9 Depression Total Score: 0 01/28/20 11:25 AM EST documented as of this encounter Care Teams Center Maker Hand Relationship Specialty Start Date End Date Name, MD Ulises [address] [place] [address] PCP - General Family Medicine 11/26/15 NavarreAnita FNP [address] [place] [address] Nurse Practitioner Family Medicine 01/19/22 08/05/22 Tanya Lopez PharmD [address] [place] [address] Pharmacist Internal Medicine 08/06/22 documented as of this encounter
--- OUTSIDE RECORDS SUMMARY | 2024-12-20 15:07 | XMS_ITS | Encounter Summary ---
Author Organization [employer] Address [address] [place] [address] 7t [place] [address] Care Team Providers Care Composite Layup Worker Name Role Phone Name, Ulises YATES Primary Care Provider [phone] Tanya Lopez PharmD Unavailable [phone] Reason for Visit * Reason Comments Med Refill Encounter Details Date Type Department Care Team ([facility] st Contact Info) Description 01/23/2024 Refill [facility] 230 [place], [place] [phone] Name, MD Ulises [address] [place] [address] Social History Tobacco Use Types Packs/Day Years [...] 12/25/2024 11:30 AM EST Telemedicine [facility] MED[facility]INE [address] [place] [address] 03/12/2025 9:15 AM EST Office Visit [facility] [address] [place] [address] Ulises Mcmillan MD [address] [place] [address] documented as of this encounter Goals Goal [...] documented as of this encounter Care Teams Composite Layup Worker Relationship Specialty Start Date End Date Ulises Mcmillan MD [address] [place] [address] [place] [address] PCP - General Family Medicine 11/26/15 Tanya Lopez PharmD [address] [place] [address] Pharmacist Internal Medicine 08/06/22 documented as of this encounter
--- OUTSIDE RECORDS SUMMARY | 2024-12-20 15:07 | XMS_ITS | Encounter Summary ---
Author Organization [employer] Address [address] [place] [address] 7t [place] [address] Care Team Providers Care Imcu Specialist Name Role Phone Name, Ulises YATES Primary Care Provider [phone] Tanya Lopez PharmD Unavailable [phone] Reason for Visit * Reason Comments Med Refill Encounter Details Date Type Department Care Team ([facility] st Contact Info) Description 02/12/2024 Refill [facility] 230 [place], [place] [phone] Park Hernandez NP 230 [place] [address] Chronic left shoulder pain Social History Tobacco [...] Info) Description 12/25/2024 11:30 AM EST Telemedicine [facility] [address] [place] [address] 03/12/2025 9:15 AM EST Office Visit [facility] [address] [place] [address] Deyanira, MD Ulises [address] [place] [address] documented as of this encounter Goals Goal Patient Goal Type Associated Problems Recent Progress Patient-Stated? Author Blood Pressure < 140/90 Blood Pressure 136/94( 025 6:33 PM EDT) No Tanya Lopez, PharmD Record your [...] documented as of this encounter Care Teams Imcu Specialist Relationship Specialty Start Date End Date Name, MD Ulises 230 [place] [address] PCP - General Family Medicine 11/26/15 Tanya Lopez, PharmD [address] [place] [address] Pharmacist Internal Medicine 08/06/22 documented as of this encounter
--- OUTSIDE RECORDS SUMMARY | 2024-12-20 15:07 | XMS_ITS | Encounter Summary ---
Author Organization [employer] Address [address] [place] [address] 7t [place] [address] Care Team Providers Care Assistant Distribution Manager Name Role Phone Name, Ulises YATES Primary Care Provider [place] Anita [facility] Unavailable [phone] Tanya Lopez PharmD Unavailable [phone] Encounter Details Date Type Department Care Team ([facility] st Contact Info) Description 03/31/2022 Orders Only [facility] 230 [place], [place] [phone] Ledy Woo, KAMINI [address] [place] [address] Screening for tuberculosis (Primary Dx) Social History [...] Info) Description 12/25/2024 11:30 AM EST Telemedicine [facility] [place] [address] 03/12/2025 9:15 AM EST Office Visit [facility] [place] [address] Name, MD [facility]ises [facility] [place] [address] documented as of this encounter Procedures Procedure [...] EDT) Sodium 137 135 - 145 mmol/L [facility] Potassium 3.8 3.3 - 5.1 mmol/L [facility] Chloride 106 96 - 108 mmol/L [facility] Carbon Dioxide 24 22 - 29 mmol/L [facility] Anion Gap 11(L) 12 - 20 [facility] Urea Nitrogen (BUN) 12 9 - 16 mg/dL [facility] Creatinine, Serum 0.76 0.5 - 1.4 mg/dL [facility] Estimated Glomerular Filt Rate >60 [facility] Comment:NOTE: For -Am erican individuals, multiply the result by 1.210.Chronic Kidney Disease: Estimated GFR < 60 mL/min/1.22u0Lcriim Kidney Disease: Estimated GFR < 15 mL/min/1.73m2 Glucose 95 60 - 115 mg/dL [facility] Calcium 9.5 8.4 - 10.2 mg/dL [facility] 09/10/2022 11:5 8 AM EDT 09/10/2022 2:34 PM EDT Ulises Mcmillan MD LAB BLOOD ORDERABLES Final Resul t Performing Organization Address [facility] Co de Phone Number [facility] [address] [place] [phone] * Helicobacter pylori, Urea Breath Test (07/27/2022 11:24 AM EDT) H. pylori Breath Test Negative Negative [facility] Comment:Antimicrobials, prot on pump inhibitors and bismuthpreparations are known to suppress H. pylori. Ingestingthese medications within two weeks prior to performing thebreath test may produce negative test results. A positiveresult is still clinically valid. 07/27/2022 11:2 4 AM EDT 07/27/2022 6:15 PM EDT [facility] Exter nal Provider LAB BODY FLUIDS AND STOOLS ORDERABLES Final Result Performing Organization Address [facility] Co de Phone Number [facility] [address] [place] [phone] * Sed Rate by Torres Sahni (05/24/2022 10:17 AM EDT) Erythrocyte Sedimentation Rate 6 0 - 20 MM/HR [facility] Comment:Patients with polycy themia and many hemoglobin abnormalitiesmay have depressed sed rates whereas patients with anemiamay have elevated sed rates. 05/24/2022 10:1 7 AM EDT 05/24/2022 10:17 AM EDT [facility] External Provider LAB BLO OD ORDERABLES Final Result Performing Organization Address [facility] Co de Phone Number [facility] [address] [place] [phone] * TSH (05/24/2022 10:17 AM EDT) Thyroid Stimulating Hormone 1.38 0.32 - 4.0 uIU/mL [facility] Comment:TSH 3rd Generation ( [facility]) 05/24/2022 10:1 7 AM EDT 05/24/2022 10:17 AM EDT [facility] External Provider LAB BLO OD ORDERABLES Final Result Performing Organization Address [facility] de Phone Number [facility] [address] [place] [phone] * (ABNORMAL) C-reactive Protein (05/24/2022 10:17 AM EDT) C Reactive Protein 0.76(H) < or = 0.50 mg/dL [facility] 05/24/2022 10:1 7 AM EDT 05/24/2022 10:17 AM EDT [facility] External Provider LAB BLO OD ORDERABLES Final Result Performing Organization Address [facility] de Phone Number [facility] [address] [place] [phone] * (ABNORMAL) Comprehensive Metabolic Panel (05/24/2022 10:17 AM EDT) Sodium 139 135 - 145 mmol/L [facility] Potassium 4.5 3.3 - 5.1 mmol/L [facility] Chloride 110(H) 96 - 108 mmol/L [facility] Carbon Dioxide 24 22 - 29 mmol/L [facility] Anion Gap 10(L) 12 - 20 [facility] Urea Nitrogen (BUN) 12 9 - 16 mg/dL [facility] Creatinine, Serum 0.75 0.5 - 1.4 mg/dL [facility] Estimated Glomerular Filt Rate >60 [facility] Comment:NOTE: For -Am erican individuals, multiply the result by 1.210.Chronic Kidney Disease: Estimated GFR < 60 mL/min/1.70e8Umyjpf Kidney Disease: Estimated GFR < 15 mL/min/1.73m2 Glucose 141(H) 60 - 115 mg/dL [facility] Calcium 9.0 8.4 - 10.2 mg/dL [facility] Bilirubin, Total 0.6 0.0 - 1.0 mg/dL [facility] Aspartate Amino Transferase 21 5 - 31 U/L [facility] Alanine Aminotransferase 43(H) 0 - 31 U/L [facility] Total Protein 7.2 6.5 - 8.0 g/dL [facility] Albumin Level 4.3 3.5 - 5.0 g/dL [facility] Alkaline Phosphatase 70 39 - 117 U/L [facility] 05/24/2022 10:1 7 AM EDT 05/24/2022 10:17 AM EDT [facility] External Provider LAB BLO OD ORDERABLES Final Result [facility] [address] [place] [address] [phone] * (ABNORMAL) CBC auto differential (05/24/2022 10:17 AM EDT) White Blood Count 4.2(L) 4.8 - 10.8 X10*3/uL [facility] Red Blood Count 3.81(L) 4.20 - 5.50 X10*6/uL [facility] Hemoglobin 12.9 12.0 - 16.0 g/dl [facility] Hematocrit 36.9(L) 37.0 - 47.0 % [facility] Mean Corpuscular Volume 96.9 80.0 - 98.0 fL [facility] Mean Corpuscular Hemoglobin 33.9(H) 27.0 - 33.0 pg [facility] Mean Corpuscular HGB Conc 35.0 31.0 - 35.0 g/dl [facility] Red Cell Distribution Width 11.9 11.0 - 16.0 % [facility] Platelet Count 283 160 - 400 X10*3/uL [facility] Mean Platelet Volume 10.4 9.4 - 12.3 fL [facility] Neutrophils Percent Auto 47.8 45 - 73 % [facility] Imm Gran Pct Auto 0.2 0.0 - 0.4 % [facility] Lymphocytes Percent Auto 38.1 20 - 40 % [facility] Monocytes Percent Auto 7.4 2 - 11 % [facility] Eosinophils Percent Auto 4.8(H) 0 - 4 % [facility] Basophils Percent Auto 1.7 0 - 2 % [facility] NRBC Pct Auto 0.0 0.0 - 0.2 /100WBC [facility] Neutrophils Absolute Auto 2.0 2.0 - 8.3 x10*3/uL [facility] Imm Gran Abs Auto 0.01 0.00 - 0.03 X10*3/uL [facility] Lymphocytes Absolute Auto 1.6 1.2 - 4.9 X10*3/uL [facility] Monocytes Absolute Auto 0.3 0.1 - 1.2 X10*3/uL [facility] Eosinophils Absolute Auto 0.2 0.0 - 0.4 X10*3/uL [facility] Basophils Absolute Auto 0.1 0.0 - 0.2 X10*3/uL [facility] NRBC Abs Auto 0.000 0.0 - 0.012 X10*3/uL [facility] 05/24/2022 10:1 7 AM EDT 05/24/2022 10:17 AM EDT Result [facility] External Provider LAB BLO OD ORDERABLES Final Result [facility] [address] [place] [address] [phone] * QuantiFERON??-TB Gold Plus, 1 Tube (04/01/2022 4:33 PM EST) [facility] Quantiferon -TB Gold Plus, 1 Tube NEGATIVE NEGATIVE [email or web address] [place] [facility] Comment: Negative test result. M. tuberculosis complex infection unlikely. NIL 0.04 IU/mL [email or web address] [place] [facility] MITOGEN-NIL >10.00 IU/mL [email or web address] [place] [facility] TB1-NIL <0.00 IU/mL [facility] [place] [facility] TB2-NIL 0.01 IU/mL [facility] [place] [facility] Comment: The Nil tube value reflects the [...] T-lymphocytes. For additional information, please refer to https://education.[employer].INDOM/faq/RVJ934 (This link is being provided for informational/ educational purposes only.) Blood Venous blood specimen / Unknown 04/01/2022 4:33 PM EST 04/01/2022 4:33 PM EST Narrative [facility] - 04/07/2022 10:57 PM EST FASTING:NO FASTING: NO Ulises Name LAB BLOOD ORDERABLES Final Resul t [facility] [address] [facility] [place] [address] [facility] [address] [facility], ([address]) [place] [address] documented in this encounter Visit Diagnoses Diagnosis Screening for tuberculosis- Primary Screening examination for pulmonary tuberculosis documented in this encounter Additional Health Concerns Assessment Noted Time PHQ-9 Depression Total Score: 0 01/28/20 22 11:25 AM EST documented as of this encounter Care Teams Assistant Distribution Manager Relationship Specialty Start Date End Date Name, MD Ulises [address] [place] [phone] PCP - General Family Medicine 11/26/15 [place] FNP [address] [place] [address] Nurse Practitioner Family Medicine 01/19/22 08/05/22 Tanya Lopez, StasD [address] [place] [address] Pharmacist Internal Medicine 08/06/22 documented as of this encounter
--- OUTSIDE RECORDS SUMMARY | 2024-12-20 15:07 | XMS_ITS | Encounter Summary ---
Author Organization [employer] Address [address] [place] [address] 7t [place] [address] Care Team Providers Care Visual Merchandiser Name Role Phone Name, Ulises YATES Primary Care Provider [phone] Tanya Lopez PharmD Unavailable [phone] Reason for Visit * Reason Comments Med Refill Encounter Details Date Type Department Care Team ([facility] st Contact Info) Description 01/23/2024 Refill [facility] [address] [place], [place] [phone] Name, MD Ulises [address] [place] [address] Social History Tobacco Use Types Packs/Day Years [...] Info) Description 12/25/2024 11:30 AM EST Telemedicine [facility] [address] [place] [address] 03/12/2025 9:15 AM EST Office Visit [facility] [address] [place] [address] Ulises Mcmillan MD [address] [place] [address] documented as of this encounter Goals Goal [...] documented as of this encounter Care Teams Visual Merchandiser Relationship Specialty Start Date End Date Ulises Mcmillan MD [address] [place] [address] [place] [address] PCP - General Family Medicine 11/26/15 Tanya Lopez PharmD [address] [place] [address] Pharmacist Internal Medicine 08/06/22 documented as of this encounter
--- OUTSIDE RECORDS SUMMARY | 2024-12-20 15:07 | XMS_ITS | Encounter Summary ---
Author Organization [employer] Address [address] [place] [address] 7t [place] [address] Care Team Providers Care Art Supervisor Name Role Phone Name, Ulises YATES Primary Care Provider [phone] Tanya Lopez PharmD Unavailable [phone] Reason for Visit * Reason Comments Med Refill Encounter Details Date Type Department Care Team ([facility] st Contact Info) Description 02/17/2023 Refill [facility] 230 [place], [place] [phone] Edwina Shepard DO [address] [place] [address] Migraine without status migrainosus, not intractable, unspecified [...] Info) Description 12/25/2024 11:30 AM EST Telemedicine [facility] [address] [place] [address] 03/12/2025 9:15 AM EST Office Visit [facility] [address] [place] [address] NameUlises MD [address] [place] [address] documented as of this encounter Goals Goal [...] documented as of this encounter Care Teams Art Supervisor Relationship Specialty Start Date End Date Ulises Mcmillan MD [address] [place] [address] PCP - General Family Medicine 11/26/15 Puia, Tanya, PharmD [address] [place] [address] Pharmacist Internal Medicine 08/06/22 documented as of this encounter
--- OUTSIDE RECORDS SUMMARY | 2024-12-20 15:07 | XMS_ITS | Encounter Summary ---
Author Organization [employer] Address [address] [place] [address] 7t [place] [address] Care Team Providers Care Manager Access Name Role Phone Name, Ulises YATES Primary Care Provider [phone] Tanya Lopez PharmD Unavailable [phone] Reason for Visit * Reason Comments Med Refill Encounter Details Date Type Department Care Team ([facility] st Contact Info) Description 11/24/2023 Refill [facility] 230 [place], [place] [phone] Name, MD Ulises [address] [place] [address] Social History Tobacco Use Types Packs/Day Years [...] Info) Description 12/25/2024 11:30 AM EST Telemedicine [facility] [address] [place] [address] 03/12/2025 9:15 AM EST Office Visit [facility] [address] [place] [address] Ulises Mcmillan MD [address] [place] [address] documented as of this encounter Goals Goal [...] as of this encounter Care Teams Manager Access Relationship Specialty Start Date End Date Ulises Mcmillan MD [address] [place] [address] [place] [address] PCP - General Family Medicine 11/26/15 Tanya Lopez PharmD [address] [place] [address] Pharmacist Internal Medicine 08/06/22 documented as of this encounter
--- OUTSIDE RECORDS SUMMARY | 2024-12-20 15:07 | XMS_ITS | Encounter Summary ---
Author Organization [employer] Address [address] [place] [address] 7t [place] [address] Care Team Providers Care Mergers And Acquisitions Banker Name Role Phone Name, Ulises YATES Primary Care Provider [phone] Tanya Lopez PharmD Unavailable [phone] Reason for Visit * Reason Comments Med Refill Encounter Details Date Type Department Care Team ([facility] Contact Info) Description 09/21/2022 Refill [facility] [address] [place] [address] [phone] Name, MD Ulises [address] [place] [address] Social History Tobacco Use Types Packs/Day Years [...] Department Care Team (Late Contact Info) Description 12/25/2024 11:30 AM EST Telemedicine [address] [phone] 03/12/2025 9:15 AM EST Office Visit [facility] [address] [place] [address] Name, MD Ulises [address] [place] [address] documented as of this encounter Goals Goal Patient Goal Type Associated Problems Recent Progress Patient-Stated? Author Blood Pressure < 140/90 Blood Pressure 136/94( 025 6:33 PM EDT) No Puia, Tanya, PharmD Record your blood pressure once per day Blood Pressure On track(08/07/19 4:38 PM EDT) No LorraineiaTanya, PharmD documented as of this encounter Visit Diagnoses Not on filedocumented in this encounter Additional Health Concerns Assessment Noted Time PHQ-9 Depression Total Score: 0 01/28/20 22 11:25 AM EST documented as of this encounter Care Teams Mergers And Acquisitions Banker Relationship Specialty Start Date End Date Name, MD Ulises [address] [place] [address] PCP - General Family Medicine 11/26/15 Tanya Lopez, PharmD [address] [place] [address] Pharmacist Internal Medicine 08/06/22 documented as of this encounter
--- OUTSIDE RECORDS SUMMARY | 2024-12-20 15:07 | XMS_ITS | Encounter Summary ---
Author Organization [employer] Address [address] [place] [address] 7t [place] [address] Care Team Providers Care Supervisor Grower Name Role Phone Name, Ulises YATES Primary Care Provider [phone] Tanya Lopez PharmD Unavailable [phone] Reason for Visit * Reason Comments Med Refill Encounter Details Date Type Department Care Team ([facility] st Contact Info) Description 04/25/2024 Refill [facility] 230 [place], [place] [phone] Alicia Lowry FNP [address] [place] [address] Social History Tobacco Use Types Packs/Day Years [...] Info) Description 12/25/2024 11:30 AM EST Telemedicine [facility] [address] [place] [address] 03/12/2025 9:15 AM EST Office Visit [facility] [address] [place] [address] Name, MD Ulises [address] [place] [phone] documented as of this encounter Goals Goal Patient Goal Type Associated Problems Recent Progress Patient-Stated? Author Blood Pressure < 140/90 Blood Pressure 136/94( 025 6:33 PM EDT) No Puia, Tanya, PharmD Record your blood pressure once per day Blood Pressure On track(08/07/19 23 4:38 PM EDT) No Puia Tanya, PharmD documented as of this encounter Visit Diagnoses Not on filedocumented in this encounter Additional Health Concerns Assessment Noted Time PHQ-9 Depression Total Score: 0 03/28/19 24 9:31 AM EST documented as of this encounter Care Teams Supervisor Grower Relationship Specialty Start Date End Date Name, MD Ulises [address] [place] [address] PCP - General Family Medicine 11/26/15 Tanya Lopez, Joaquim [address] [place] [address] Pharmacist Internal Medicine 08/06/22 documented as of this encounter
--- OUTSIDE RECORDS SUMMARY | 2024-12-20 15:07 | XMS_ITS | Clinical Summary ---
Author Organization [employer] Address [address] [place] [address] 7[address] [place] [address] Care Team Providers Care Care Transition Mgr Name Role Phone Name, Ulises YATES Primary Care Provider [phone] Tanya Lopez PharmD Unavailable [phone] Allergies No known active allergies Medications lidocaine (Lidoderm) 5 % patchIndications: Other acute back pain Apply 1 patch topically in the morning. Remove & discard patch within 12 hours or as directed by . 30 patch 3 023 Active docusate sodium (Colace) 100 MG capsule Take 2 capsules by mouth at bedtime. 023 Active polyethylene glycol, PEG, 3350 (Glycolax) 17 GM/SCOOP powder MIX AND TAKE 17 GRAMS BY MOUTH EVERY DAY NEEDED FOR LAXATIVE EFFECT. USE FOR ONE WEEK PRIOR TO PREP DAY 023 Active Citrucel 500 MG tablet Take 1 tablet by mouth 3 times daily. 023 Active Diclofenac Sodium (Voltaren) 1 % gelIndications:Ch ronic left shoulder pain Apply 2 g topically if needed in the morning and at bedtime (muscle pain). 100 g 3 023 Active ondansetron ODT (Zofran-ODT) 4 MG disintegrating tablet DISSOLVE 1 TABLET ON THE TONGUE EVERY 8 HOURS NEEDED FOR NAUSEA OR VOMITING 024 Active Blood Pressure Monitoring (Omron 3 Series BP Monitor) device USE TO CHECK BLOOD PRESSURE DAILY DIRECTED 024 Active fluticasone furoate (Arnuity Ellipta) 100 MCG/ACT inhaler Inhale 1 puff Once per day. Rinse mouth with water after use to reduce aftertaste and incidence of candidiasis. Do not swallow. 1 each Active pantoprazole (ProtoNix) 40 MG EC tablet Take 40 mg by mouth Once per day. Active sucralfate (Carafate) 1 GM/10ML suspension Take 10 mL by mouth 2 times daily. Active senna-docusate sodium (Senokot-S) 8.6-50 MG tablet Take 1 tablet by mouth Once per day. 30 tablet 11 024 2024 Active lactulose (Chronulac) 10 GM/15ML solution Take 15 mL (10 g) by mouth Once per day. 473 mL 2024 Active amitriptyline (Elavil) 10 MG tabletIndications :Migraine without status migrainosus, not intractable, unspecified migraine type TAKE 1 TABLET(10 MG) BY MOUTH AT BEDTIME 30 tablet 2 Active gabapentin (Neurontin) 100 MG capsule Take 1 capsule (100 mg) by mouth at bedtime for 3 days, THEN 1 capsule (100 mg) 2 times daily for 7 days, THEN 1 capsule (100 mg) 3 times daily. 107 capsule 2 Active Ventolin HFA 108 (90 Base) MCG/ACT inhaler INHALE 2 PUFFS EVERY 6 HOURS NEEDED WHEEZING 18 g Active SUMAtriptan (Imitrex) 50 MG tabletIndications :Migraine without status migrainosus, not intractable, unspecified migraine type TAKE 1 TABLET(50 MG) BY MOUTH 1 TIME AT EARLY ONSET OF HEADACHE. MAY REPEAT IN 2 HOURS 1 TIME IF NOT IMPROVED. DO NOT EXCEED 200 MG IN 24 HOURS 10 tablet 2 Active traZODone (Desyrel) 50 MG tablet TAKE 1 TABLET(50 MG) BY MOUTH AT BEDTIME 30 tablet 11 Active Multiple Vitamin (Multivitamin) tablet Take 1 tablet by mouth Once per day. Active traZODone (Desyrel) 50 MG tablet Take 1 tablet (50 mg) by mouth at bedtime. 30 tablet 11 024 2024 Discontinued SUMAtriptan (Imitrex) 50 MG tabletIndications :Migraine without status migrainosus, not intractable, unspecified migraine type TAKE 1 TABLET(50 MG) BY MOUTH 1 TIME AT EARLY ONSET OF HEADACHE. MAY REPEAT IN 2 HOURS 1 TIME IF NOT IMPROVED. DO NOT EXCEED 200 MG IN 24 HOURS 10 tablet 2 025 2024 Discontinued Multiple Vitamin (multivitamin) capsule Take 1 capsule by mouth Once per day. 30 capsule 11 025 2024 Discontinued(D ose adjustment) Active Problems Problem Noted Date Diagnosed Date Uncomplicated asthma, unspec ified asthma severity, unspecified whether persistent 12/19/2024 Bariatric [...] Encounters Date Type Department Care Team Description 12/19/2024 6:40 PM EDT Office Visit [facility] [address] [place] [phone] Mariann Sneed MD Urinary frequency (Primary Dx) 12/19/2024 Travel 12/10/2024 11:30 AM EDT Office Visit [facility] [address] [place] [address] Ulises Mcmillan MD Hypertension, unspecified type (Primary Dx); Cervical radicular pain; Chronic left shoulder pain; Encounter for immunization 12/10/2024 Travel 12/07/2024 Telephone [facility] [address] [place] [address] Ulises Mcmillan MD chart prep 12/03/2024 Refill [facility] [address] [place] [address] Ulises Mcmillan MD Migraine without status migrainosus, not intractable, unspecified migraine type 12/03/2024 Travel 11/29/2024 Orders Only GENERIC EXTERNAL DATA DEPARTMENT Provider, Generic External Data 10/16/[address] [address] Ulises Mcmillan MD 09/28/2024 9:15 AM EDT Office Visit [facility] [address] [place] [address] Ulises Mcmillan MD Chronic left shoulder pain (Primary Dx); Encounter for screening mammogram for malignant neoplasm of breast 09/28/2024 Travel 09/27/2024 Telephone [facility] [place] [address] Manuel Carter MA CHARTPREP 09/21/2024 Travel from Last 3 Months Immunizations Immunization Administration Dates Next Due HepB-CpG 09/10/2022,08/06/2022 Influenza Injectable Quadriv alant Preservative Free IIV4 MDCK 12/19/2016 Influenza injectable quadriv alent IIV4 with preservative 11/10/2022,11/26/2015 Influenza injectable quadrivalent preservative f ree 03/26/2021 Influenza, IIV3, injectable 01/27/2022 Influenza, seasonal, injectable, preservative fr ee 12/10/2024,11/22/2023 Pfizer Covid-19 Vaccine 12+ 09/18/2020 Tdap 08/06/2022,06/12/2012 [...] 16 12/19/2024 6:33 PM EDT Oxygen Saturation 98% 12/10/2024 11:37 AM EDT Inhaled Oxygen Concentration - - Weight 46.3 kg (102 lb) 12/19/2024 6:33 PM EDT Height 152.4 cm (5') 12/10/2024 11:37 AM EDT Body Mass Index 19.92 12/10/2024 11:37 AM EDT Plan of Treatment Upcoming Encounters Date Type Department Care Team (Late st Contact Info) Description 12/25/2024 11:30 AM EST Telemedicine [facility] [address] [place] [phone] 03/12/2025 9:15 AM EST Office Visit [facility] [address] [place] [phone] Name, MD Ulises [address] [place] [phone] Health Maintenance Due Date Last Done Comments HIV Screening 1985 Alcohol/Substance Use Screening 1996 Family Planning (PISQ) 07/29/1999 HPV Vaccines (1 - 3-dose series) 07/29/1999 Hepatitis A Vaccines (1 of 2 - Risk 2-dose series) 07/29/2003 Pneumococcal Vaccine: Pediatrics (0 to 5 Years) and At-Risk Patients (6 to 49) Years (1 of 2 - PCV) 07/29/2003 COVID-19 Vaccine ( season) 2024 03/26/2021, 10/09/2020, 09/18/2020 SDOH Screening 04/26/2025 04/26/2024 Depression Screening 05/04/2025 05/04/2024, 05/05/19 25 Disability Screening 09/28/2025 09/28/2024 Tobacco Screening 12/19/2025 12/19/2024 Mammogram 10/25/2026 10/25/2024 Cervical Cancer Screening 04/19/2028 HPV/Cotest 04/19/2028 Pap Smear 04/19/2028 04/19/2023 Lipid Panel 11/29/2029 11/29/2024, 03/05/2024, 11/02/2023, Additional history exists DTaP/Tdap/Td Vaccines (3 - Td or Tdap) 08/06/2032 08/06/2022, 06/12/2012 Zoster Vaccines (1 of 2) 2034 RSV Patients and Patients Aged 60 years or older (1 - 1-dose 75+ series) 07/29/2059 Hepatitis B Vaccines Completed 09/10/2022, 08/07/19 Hepatitis C Screening Completed 04/07/2023 Influenza Vaccine Completed 12/10/2024, , 11/10/2022, Additional history exists HIB Vaccines Aged Out [...] 23 4:38 PM EDT) No Tanya Lopez, PharmSterling Procedures Procedure Name Priority Date/Time Associated Diagnosis Comments POCT URINALYSIS DIPSTICK Routine 12/19/2024 7:01 PM EDT Urinary frequency VITAMIN B1 Routine 11/29/2024 10:43 AM EDT VITAMIN A Routine 11/29/2024 10:43 AM EDT ZINC Routine 11/29/2024 10:43 AM EDT INSULIN Routine 11/29/2024 10:43 AM EDT HEMOGLOBIN A1C Routine 11/29/2024 10:43 AM EDT VITAMIN B12/FOLATE, SERUM PANEL Routine 11/29/2024 10:43 AM EDT TSH W/REFLEX TO FT4 Routine 11/29/2024 1 0:43 AM EDT VITAMIN D,25-OH,TOTAL,IA Routine 11/29/2024 10:43 AM EDT FERRITIN Routine 11/29/2024 10:43 AM EDT LIPID PANEL, STANDARD Routine 11/29/2024 10:43 AM EDT C-REACTIVE PROTEIN Routine 11/29/2024 10 :43 AM EDT IRON AND TOTAL IRON BINDING CAPACITY Routine 11/29/2024 10:43 AM EDT COMPREHENSIVE METABOLIC PANEL Routine 11/29/2024 10:43 AM EDT CBC WITH AUTO DIFFERENTIAL Routine 11/29/2024 10:43 AM EDT BI MAMMOGRAM SCREENING TOMOSYNTHESIS BILATERAL Routine 10/25/2024 10:00 AM EDT Encounter for screening mammogram for malignant neoplasm of breast PAP SMEAR Routine 04/19/2023 3:00 PM EST HEPATITIS PANEL, GENERAL Routine 04/07/2023 1:06 PM EST Abdominal pain, chronic, left lower quadrant from Last 3 Months or Most Recently Relevant to Health Maintenance Results * POCT Urinalysis (12/19/2024 7:01 PM [...] OF CARE TEST ENTER/EDIT ORDERABLES Final Result * (ABNORMAL) Vitamin D, 25-Hydroxy, Total, Immunoassay (11/29/2024 10:43 AM EDT) Vitamin D 25-OH Total 26.1(L) >30 ng/mL [facility] Comment: Health Based Reference Values*< 20 ng/mL Gseptnwzv60-53 ng/mL Insufficient> 30 ng/mL Sufficient*Deb KING. N Engl J Med. 2007;357:266-280There is [...] Vitamin D results fromdifferent laboratories and methodologies. Published datademonstrated that results from patients undergoinghemodialysis may show a negative bias when tested withvarious automated 25-OH vitamin D assays when compared toLC-MS/MS.When testing samples from patients whose predominant form ofVitamin D is Vitamin D2, such as patients receiving VitaminD2 supplementation, results that are subtherapeutic shouldbe confirmed with another method such as LC-MS/MS. 11/29/2024 10:4 3 AM EDT 11/29/2024 10:43 AM EDT Generic External Data Provider LAB BLOOD ORDERAB LES Final Result Performing Organization Address [facility] Co de Phone Number [facility] [address] [place] [phone] * Vitamin B12 (Cobalamin) and Folate Panel, Serum (11/29/2024 10:43 AM EDT) Pathologist [facility] Vitamin B12 241 200 - 900 pg/mL [facility] Comment:NORMAL 200-900 PG/ML INDETERMINATE 160-199 PG/ML DEFICIENT < 160 PG/ML Folate 6.7 > or = 4.0 ng/mL [facility] Comment:Reference Values:> o r = 4.0 ng/mL< 4.0 ng/mL suggests folate deficiency Methotrexate, aminopterin and folinic acid(leucovorin) are chemotherapeutic agents whose molecularstructures are similar to folate; therefore, the Architectfolate assay cannot be used for patients using these drugs. 11/29/2024 10:4 3 AM EDT 11/29/2024 10:43 AM EDT Generic External Data Provider LAB BLOOD ORDERAB LES Final Result Performing Organization Address [facility] Co de Phone Number [facility] [address] [place] [phone] * TSH with Reflex to Free T4 (11/29/2024 10:43 AM EDT) Pathologist [facility] TSH reflex Free T4 1.52 0.32 - 4.0 uIU/mL [facility] 11/29/2024 10:4 3 AM EDT 11/29/2024 10:43 AM EDT Generic External Data Provider LAB BLOOD ORDERAB LES Final Result Performing Organization Address [facility] Co de Phone Number [facility] [address] [place] [phone] * (ABNORMAL) CBC auto differential (11/29/2024 10:43 AM EDT) White Blood Count 5.0 4.8 - 10.8 X10*3/uL [facility] Red Blood Count 4.06(L) 4.20 - 5.50 X10*6/uL [facility] Hemoglobin 13.5 12.0 - 16.0 g/dl [facility] Hematocrit 38.7 37.0 - 47.0 % [facility] Mean Corpuscular Volume 95.3 80.0 - 98.0 fL [facility] Mean Corpuscular Hemoglobin 33.3(H) 27.0 - 33.0 pg [facility] Mean Corpuscular HGB Conc 34.9 31.0 - 35.0 g/dl [facility] Red Cell Distribution Width 11.6 11.0 - 16.0 % [facility] Platelet Count 297 160 - 400 X10*3/uL [facility] Mean Platelet Volume 10.0 9.4 - 12.3 fL [facility] Neutrophils Percent Auto 56.0 45 - 73 % [facility] Imm Gran Pct Auto 0.2 0.0 - 0.4 % [facility] Lymphocytes Percent Auto 33.7 20 - 40 % [facility] Monocytes Percent Auto 6.9 2 - 11 % [facility] Eosinophils Percent Auto 1.8 0 - 4 % [facility] Basophils Percent Auto 1.4 0 - 2 % [facility] NRBC Pct Auto 0.0 0.0 - 0.2 /100WBC [facility] Neutrophils Absolute Auto 2.8 2.0 - 8.3 x10*3/uL [facility] Imm Gran Abs Auto 0.01 0.00 - 0.03 X10*3/uL [facility] Lymphocytes Absolute Auto 1.7 1.2 - 4.9 X10*3/uL [facility] Monocytes Absolute Auto 0.4 0.1 - 1.2 X10*3/uL [facility] Eosinophils Absolute Auto 0.1 0.0 - 0.4 X10*3/uL [facility] Basophils Absolute Auto 0.1 0.0 - 0.2 X10*3/uL [facility] NRBC Abs Auto 0.000 0.0 - 0.012 X10*3/uL [facility] 11/29/2024 10:4 3 AM EDT 11/29/2024 10:43 AM EDT Generic External Data Provider LAB BLOOD ORDERAB LES Final Result Performing Organization Address [facility] de Phone Number [facility] [address] [place] [phone] * (ABNORMAL) Iron And Total Iron Binding Capacity (11/29/2024 10:43 AM EDT) Iron 167(H) 30 - 160 mcg/dL [facility] Total Iron Binding Capacity 285 228 - 428 mcg/dL [facility] Percent Iron Saturation 59(H) 15 - 50 % [facility] Unsaturated Iron Binding 118 ug/dL [facility] 11/29/2024 10:4 3 AM EDT 11/29/2024 10:43 AM EDT Generic External Data Provider LAB BLOOD ORDERAB LES Final Result Performing Organization Address [facility] de Phone Number [facility] [address] [place] [phone] * (ABNORMAL) Insulin (11/29/2024 10:43 AM EDT) Insulin <2(L) 2 - 29 uU/mL [facility] Comment:This test was perfor med using the Hoffman chemiluminescentmethod. Values obtained from different assay methods cannot beused interchangeably. This insulin assay shows a possiblecross-reactivity with antibodies generated against insulin(immunoreactive insulin and some patients treated withbovine or porcine insulin). Insulin levels may be measuredlower in patients with insulin autoimmune syndrome orfamilial high pro-insulinemia. 11/29/2024 10:4 3 AM EDT 11/29/2024 10:43 AM EDT us Generic External Data Provider LAB BLOOD ORDERAB LES Final Result Performing Organization Address [facility]/ZIP Co de Phone Number [facility] [address] [place] [phone] * Zinc (11/29/2024 10:43 AM EDT) Zinc 90 60 - 130 mcg/dL [facility] Comment:This test was develo ped and its analytical performancecharacteristics have been determined by [employer] [place], [place]. It hasnot been cleared or approved by the U.S. Food and DrugAdministration. This assay has been validated pursuantto the CLIA regulations and is used for clinicalpurposes.THIS TEST WAS PERFORMED AT:[employer] [id number] NIX MD,PHD 11/29/2024 10:4 3 AM EDT 11/29/2024 10:43 AM EDT Generic External Data Provider LAB BLOOD ORDERAB LES Final Result Performing Organization Address [facility] de Phone Number [facility] [address] [place] [phone] * Vitamin A (11/29/2024 10:43 AM EDT) Vitamin A (Retinol) 42 38 - 98 mcg/dL [facility] Comment:Vitamin supplementat ion within 24 hours prior toblood draw may affect the accuracy of the results.This test was developed and its analytical performancecharacteristics have been determined by [employer], [place]. It hasnot been cleared or approved by the U.S. Food and DrugAdministration. This assay has been validated pursuantto the CLIA regulations and is used for clinicalpurposes.THIS TEST WAS PERFORMED AT:[employer] [place] [address]CPGPZPFLOLY NIX MD,PHD 11/29/2024 10:4 3 AM EDT 11/29/2024 10:43 AM EDT us Generic External Data Provider LAB BLOOD ORDERAB LES Final Result Performing Organization Address [facility] Co de Phone Number [facility] [address] [place] [phone] * C-reactive Protein (11/29/2024 10:43 AM EDT) C Reactive Protein <0.10 < or = 0.50 mg/dL [facility] 11/29/2024 10:4 3 AM EDT 11/29/2024 10:43 AM EDT Generic External Data Provider LAB BLOOD ORDERAB LES Final Result Performing Organization Address [facility] de Phone Number [facility] [address] [place] [phone] * Vitamin B1 (11/29/2024 10:43 AM EDT) Vitamin B1 9 8 - 30 nmol/L [facility] Comment:Vitamin supplementat ion within 24 hours prior toblood draw may affect the accuracy of the results.This test was developed and its analytical performancecharacteristics have been determined by [employer] [place], [place]. It hasnot been cleared or approved by the U.S. Food and DrugAdministration. This assay has been validated pursuantto the CLIA regulations and is used for clinicalpurposes.THIS TEST WAS PERFORMED AT:[facility] [place] [address]NVZANTKLOLY NIX MD,PHD 11/29/2024 10:4 3 AM EDT 11/29/2024 10:43 AM EDT Generic External Data Provider LAB BLOOD ORDERAB LES Final Result Performing Organization Address [facility] Co de Phone Number [facility] [address] [place] [phone] * Hemoglobin A1c (11/29/2024 10:43 AM EDT) Hemoglobin A1c 4.8 <6.0 % [facility] Comment:Hemoglobin A1C Refer ence Range Adults: 4.8 - 6.0 % Non diabetic: < 6.0 % Goal: < 7.0 %Additional Action Suggested: > 8.0 %Note: Hemoglobin A1c results are invalid for patients with abnormal amounts of HbF. Blood transfusions may impact the HbA1c concentration in the patient sample. Estimated Average Glucose 91 mg/dL [facility] Comment:eAG = Estimated ave rage glucose which is %A1C expressed asaverage glucose, using the formula of the F6Z-[id number] Glucose study (ADAG), Diabetes Care, Vol.31,#8,Sep. 2007 11/29/2024 10:4 3 AM EDT 11/29/2024 10:43 AM EDT us Generic External Data Provider LAB BLOOD ORDERAB LES Final Result Performing Organization Address [facility] Co de Phone Number [facility] [address] [place] [phone] * Ferritin (11/29/2024 10:43 AM EDT) Ferritin 135 10 - 250 ng/mL [facility] 11/29/2024 10:4 3 AM EDT 11/29/2024 10:43 AM EDT us Generic External Data Provider LAB BLOOD ORDERAB LES Final Result Performing Organization Address [facility] Co de Phone Number [facility] [address] [place] [phone] * Lipid Panel, Standard (11/29/2024 10:43 AM EDT) Triglycerides 43 <150 mg/dL [facility] Comment:Desirable Triglyceri de: less than 150 mg/dLBorderline High Triglyceride 150-199 mg/dLHigh Triglyceride: 200-499 mg/dLVery High Triglyceride: greater than or equal to 5OO mg/dL Cholesterol 131 <200 mg/dL [facility] Comment:Desirable Cholestero l: less than 200 mg/dLBorderline High Cholesterol: 200-239 mg/dLHigh Cholesterol: greater than 239 mg/dL LDL Cholesterol Calculated 64 <100 mg/dL [facility] Comment:Desirable LDL: less than 100 mg/dLNear Optimal/Above Optimal LDL: 110- 129 mg/dLBorderline High LDL: 130-159 mg/dLHigh LDL: 160-189 mg/dLVery High LDL: greater than or equal to 190 mg/dL HDL Cholesterol 59 >40 mg/dL [facility] Comment:Desirable HDL: great er than 40 mg/dL Note: This HDL assay may give artificially low results in patients with liver disease. 11/29/2024 10:4 3 AM EDT 11/29/2024 10:43 AM EDT us Generic External Data Provider LAB BLOOD ORDERAB LES Final Result [facility] [address] [place] [phone] * (ABNORMAL) Comprehensive Metabolic Panel (11/29/2024 10:43 AM EDT) Sodium 143 135 - 145 mmol/L [facility] Potassium 3.8 3.3 - 5.1 mmol/L [facility] Chloride 105 96 - 108 mmol/L [facility] Carbon Dioxide 31(H) 22 - 29 mmol/L [facility] Anion Gap 11(L) 12 - 20 [facility] Urea Nitrogen (BUN) 9 9 - 16 mg/dL [facility] Creatinine, Serum 0.57 0.5 - 1.4 mg/dL [facility] Estimated Glomerular Filt Rate >60 [facility] Comment:Chronic Kidney Disea se: Estimated GFR < 60 mL/min/1.75y8Czanhz Kidney Disease: Estimated GFR < 15 mL/min/1.73m2 Glucose 83 60 - 115 mg/dL [facility] Calcium 9.3 8.4 - 10.2 mg/dL [facility] Bilirubin, Total 1.3(H) 0.0 - 1.0 mg/dL [facility] Aspartate Amino Transferase 18 5 - 31 U/L [facility] Alanine Aminotransferase 17 0 - 31 U/L [facility] Total Protein 7.5 6.5 - 8.0 g/dL [facility] Albumin Level 4.7 3.5 - 5.0 g/dL [facility] Alkaline Phosphatase 72 39 - 117 U/L [facility] 11/29/2024 10:4 3 AM EDT 11/29/2024 10:43 AM EDT us Generic External Data Provider LAB BLOOD ORDERAB LES Final Result Performing Organization Address City/State/[facility] Co de Phone Number [facility] [address] [place] [phone] * BI Mammogram Screening Tomosynthesis Bilateral (10/25/2024 10:00 AM EDT) Anatomical Region Laterality Modality Breast Bilateral Mammography 10/25/2024 10:0 0 AM EDT Narrative 10/29/2024 9:40 AM EDT [facility] [address] [place] [address] Mammography Report Signed Patient: Gaye Arriaga MR#: [id number] : 1985 Acct:[id number] Age/Sex: 39 / F ADM Date: 10/25/24 Loc: [facility] Attending Dr: Ulises Mcmillan MD Ordering Physician: Ulises Mcmillan MD Results: 1Negative Date of Service: 10/25/24 Follow Up: 1 Year From Orig inal Mammogram Procedure(s): MM tomosynthesis screening BI Accession Number(s): [id number] cc: Ulises Mcmillan MD EXAMINATION: MM SCREENING [...] 10/29/24 0937 DD/ 1000 TD/TT: 10/25/24 1010 It Application Support Analyst: Procedure Note Donotuseinterpreter, Image - 10/29/2024 [facility] [address] [place] [address] Mammography Report Signed Patient: Gaye Arriaga YMR#: [id number] : 1985Acct:[id number] Age/Sex: 39 / FADM Date: 10/25/24 Loc: [facility] Attending Dr: Ulises Mcmillan MD Ordering Physician: Ulises Mcmillan MDResults: 1Negative Date of Service: 10/25/24Follow Up: 1 Year From Orig inal Mammogram Procedure(s): MM tomosynthesis screening BI Accession Number(s): [id number] cc: Ulises Mcmillan MD EXAMINATION: MM SCREENING [...] 10/29/24 0937 DD/ 1000 TD/TT: 10/25/24 1010 It Application Support Analyst: us Ulises Name MD MORRIS BI PROCEDURES Edited Result - Final * Pap Smear (04/19/2023 3:00 PM EST) 04/19/2023 3:00 PM EST 04/20/2023 7:45 AM EST [facility] - 05/02/2023 9:15 AM EDT ----- ------- Name: Vinay GuillenGaye christianson Meche Age/Sex: 37/F : 1985 Unit#: [id number] Attend Dr: Allyn Pulido CNM Re04/19/23 Status: DEP REF Location: .LAB Disch: ----- ------- SPEC : [id number] RECD: 04/20/23 STATUS: ANTHONY POLANCO NUM: [id number] REGGIE: 04/19/23-[address]: 04/20/23 SP TYPE: Pap Smr OT DR: Ulises Mcmillan MD ORDERED: Pap Smear Interpretation Satisfactory for evaluation. Negative for intraepithelial lesion or malignancy. HPV mRNA E6/E7: NOT DETECTED This assay detects E6/E7 viral messenger RNA (mRNA) from 14 high-risk HPV types (16, 18, 31, 33, 35, 39, 45, 51, 52, 56, 58, 59, 66, 68) HPV testing performed by [employer], [place], [place]. See reference laboratory portion of the EMR for entire report. Clinical Information LMP: 03/30/23 Previous PAP test: 2017, WNL Material Received ThinPrep-Cervical Copies To: Ulises Mcmillan MD [address] [place] [phone] Ceron [address] [place] [phone] ----- ------- Signed (signature on file) LEIGH Fajardo (ASCP) 05/02/23 0915 ----- ------- END OF REPORT us Generic External Data Provider LAB CYTOLOGY JIMMY SANABRIA Final Result Performing Organization Address City/[facility]/ZIP Co de Phone Number [facility] [address] [place] [address] [phone] * Hepatitis Panel, General (04/07/2023 1:06 PM EST) Hepatitis A IgM Nonreactive Nonreactive [facility] Comment:IgM antibodies to JEFFRIES V not detected; does not exclude earlyacute or recovered HAV infection. ~Hepatitis B Surface Antibody REACTIVE Nonreactive [facility] Comment:REACTIVE: > 11.99 mI U/mL Hepatitis B Core Antibody Nonreactive Nonreactive [facility] Hepatitis C Antibody Nonreactive Nonreactive [facility] Comment:Antibodies to HCV no t detected; does not exclude early acuteHCV infection. Hepatitis B Surface Ag Negative Negative [facility] Blood 04/07/2023 1:06 PM EST 04/07/2023 3:58 PM EST Leisa FRAGAP LAB BLOOD ORDERABLES Final Res ult Performing Organization Address [facility]/ZIP Co de Phone Number [facility] [address] [place] [address] [phone] from Last 3 Months or Most Recently Relevant to Health Maintenance Insurance [facility] C[employer] [place] Care Teams Care Transition Mgr Relationship Specialty Start Date End Date Name, MD Ulises [address] [place] [address] PCP - General Family Medicine 11/26/15 Tanya Lopez, Joaquim [address] [place] [address] Pharmacist Internal Medicine 08/06/22
[2024-12-21 01:01] LABS: Bacterial Vaginosis PCR POSITIVE (Negative); Candida Group PCR NOT DETECTED (Not Detect); Candida glab krusei PCR NOT DETECTED (Not Detect); Trichomonas vaginalis PCR NOT DETECTED (Not Detect)
== END 2024-12-19 12:13 | disposition home or self-care (01) ==
LOC: HO.HHCLNP 12:12
PROVIDERS: Visit Provider General Practice
DX: R35.0 Frequency of micturition (principal); Z20.2 Contact with and (suspected) exposure to infections with a predominantly sexual mode of transmission
CPT/HCPCS: 81515; 87086; 87088; 87186

== ENCOUNTER 2025-01-02 08:27 | Outpatient (REF) | payer MEDICAID, SELFPAY ==
--- OUTSIDE RECORDS SUMMARY | 2025-01-02 08:40 | XMS_ITS | Encounter Summary ---
Author Organization [employer] Address [address] [place] [address] 7t [place] [address] Care Team Providers Care Orange Picking Supervisor Name Role Phone Name, Ulises YATES Primary Care Provider [phone] Tanya Lopez PharmD Unavailable [phone] Reason for Visit * Reason Comments Med Refill Encounter Details Date Type Department Care Team ([facility] st Contact Info) Description 09/21/2023 Refill [facility] [address] [place], [place] [phone] Tanya Lopez, PharmD [address] [place] [address] Primary hypertension Social History Tobacco Use Types [...] Care Team (Late st Contact Info) Description 01/02/2025 11:00 AM EST Telemedicine [address] [address] 03/12/2025 9:15 AM EST Office Visit [facility] [address] [place] [address] Name, MD Ulises [address] [place] [address] documented as of this encounter Goals Goal [...] documented as of this encounter Care Teams Orange Picking Supervisor Relationship Specialty Start Date End Date Ulises Mcmillan MD [address] [place] [address] PCP - General Family Medicine 11/26/15 Puia, Tanya, PharmD [address] [place] [address] Pharmacist Internal Medicine 08/06/22 documented as of this encounter
--- OUTSIDE RECORDS SUMMARY | 2025-01-02 08:40 | XMS_ITS | Encounter Summary ---
Author Organization [employer] Address [address] [place] [address] 7t [place] [address] Care Team Providers Care Perinatal Educator Name Role Phone Name, Ulises YATES Primary Care Provider [phone] Tanya Lopez PharmD Unavailable [phone] Encounter Details Date Type Department Care Team (Late st Contact Info) Description 12/21/[address] [facility] [address] [place], [place] [phone] Mariann Sneed MD [address] [place], [place] [phone] Social History Tobacco Use Types Packs/Day Years [...] Info) Description 01/02/2025 11:[address] [facility] [address] [place] [address] 03/12/2025 9:15 AM EST Office [facility] [address] [place] [address] Name, MD Ulises [address] [place] [address] documented as of this encounter Goals Goal [...] documented as of this encounter Care Teams Perinatal Educator Relationship Specialty Start Date End Date Name, MD Ulises [address] [place] [address] PCP - General Family Medicine 11/26/15 Tanya Lopez, Joaquim [address] [place] [address] Pharmacist Internal Medicine 08/06/22 documented as of this encounter
--- OUTSIDE RECORDS SUMMARY | 2025-01-02 08:40 | XMS_ITS | Encounter Summary ---
Author Organization [employer] Address [address] [place] [address] 7t [place] [address] Care Team Providers Care Brake Repair Supervisor Name Role Phone Name, Ulises YATES Primary Care Provider [phone] Tanya Lopez PharmD Unavailable [phone] Encounter Details Date Type Department Care Team (Late st Contact Info) Description 12/21/2024 Results Follow-Up [facility] [address] [place], [place] [phone] Mariann Sneed MD [address] [place], [place] [phone] POCT Urinalysis, Bacterial Vaginosis Panel Social History Tobacco Use Types Packs/Day Years [...] encounter Miscellaneous Notes * Telephone Encounter - Lilly Morales RN - 12/21/2024 1:44 PM EDT Tc to pt per covering provider to let you know Please let patient know that BV is positive, wouldshe like treatment orally or intravaginally . Pt advised this is not an sti but just the abnormal growth of good and bad bacteria. Pt advised this can be cause by multiple sex partners, stress, usingscented body products and stress. Pt reports they prefer oral medication instead. Pt advised that a message will be sent to the provider and we'll call them back to let them know. Pt verbalized understanding and message sent to covering provider for review. * Telephone Encounter - Lilly Morales RN - 12/21/2024 1:44 PM EDT ----- Message from Mariann Sneed MD sent at 12/21/2024 12:10 PM EDT ----- Please let patient know that BV is positive, would she like treatment orally or intravaginally ----- Message ----- From: Dorinda Flaherty MA Sent: 12/19/2024 7:02 PM EDT To: Mariann Sneed MD * Result Encounter Note - Marainn Sneed MD - 12/21/2024 12:10 PM EDT Please let patient know that BV is positive, would she like treatment orally or intravaginally documented in this encounter Plan of Treatment Upcoming Encounters Date Type Department Care Team (Late st Contact Info) Description 01/02/2025 11:00 AM EST Telemedicine [address] [address] 03/12/2025 9:15 AM EST Office Visit [address] [address] Name, MD Ulises [address] [place] [address] documented as of this encounter Goals Goal Patient Goal Type Associated Problems Recent Progress Patient-Stated? Author Blood Pressure < 140/90 Blood Pressure 136/94( 025 6:33 PM EDT) No Puia, Tanya, PharmD Record your blood pressure once per day Blood Pressure On track(08/07/19 23 4:38 PM EDT) No Puia, Tanya, PharmD documented as of this encounter Visit Diagnoses Diagnosis Bacterial vaginosis Unspecified vaginitis and vulvovaginitis documented in this encounter Additional Health Concerns Assessment Noted Time PHQ-9 Depression Total Score: 1 05/05/19 25 1:19 PM EDT documented as of this encounter Care Teams Brake Repair Supervisor Relationship Specialty Start Date End Date Ulises Mcmillan MD [address] [place] [address] PCP - General Family Medicine 11/26/15 Puia, Tanya, PharmD [address] [place] [address] Pharmacist Internal Medicine 08/06/22 documented as of this encounter
--- OUTSIDE RECORDS SUMMARY | 2025-01-02 08:40 | XMS_ITS | Encounter Summary ---
Author Organization [employer] Address [address] [place] [address] 7t [place] [address] Care Team Providers Care Gunner'S Mate M Name Role Phone Name, Ulises YATES Primary Care Provider [phone] Tanya Lopez PharmD Unavailable [phone] Reason for Visit * Reason Comments Med Refill Encounter Details Date Type Department Care Team ([facility] st Contact Info) Description 01/23/2024 Refill [facility] [address] [place], [place] [phone] Name, MD Ulises [address] [place] [address] Social History Tobacco Use Types Packs/Day Years [...] Info) Description 01/02/2025 11:00 AM EST Telemedicine [facility] [address] [place] [address] 03/12/2025 9:15 AM EST Office Visit [facility] [address] [place] [address] Ulises Mcmillan MD [address] [place] [address] documented as of this encounter Goals Goal [...] documented as of this encounter Care Teams Gunner'S Mate M Relationship Specialty Start Date End Date Ulises Mcmillan MD [address] [place] [address] [place] [address] PCP - General Family Medicine 11/26/15 Tanya Lopez PharmD [address] [place] [address] Pharmacist Internal Medicine 08/06/22 documented as of this encounter
--- OUTSIDE RECORDS SUMMARY | 2025-01-02 08:40 | XMS_ITS | Encounter Summary ---
Author Organization [employer] Address [address] [place] [address] 7t [place] [address] Care Team Providers Care Technical Solutions Engineer Name Role Phone Name, Ulises YATES Primary Care Provider Jefferson Anita BEAN PICKER MACHINE OPERATOR Unavailable [phone] Tanya Lopez PharmD Unavailable [phone] Encounter Details Date Type Department Care Team ([facility] st Contact Info) Description 03/31/2022 Orders Only [facility] [address] [place], [place] [phone] Ledy Woo, KAMINI [address] [place] [address] Screening for tuberculosis (Primary Dx) Social History [...] Info) Description 01/02/2025 11:00 AM EST Telemedicine [facility] [place] [address] 03/12/2025 9:15 AM EST Office Visit [facility] [place] [address] Name, MD [facility] [place] [address] documented as of this encounter Procedures Procedure [...] EDT) Sodium 137 135 - 145 mmol/L [facility] Potassium 3.8 3.3 - 5.1 mmol/L [facility] Chloride 106 96 - 108 mmol/L [facility] Carbon Dioxide 24 22 - 29 mmol/L [facility] Anion Gap 11(L) 12 - 20 [facility] Urea Nitrogen (BUN) 12 9 - 16 mg/dL [facility] Creatinine, Serum 0.76 0.5 - 1.4 mg/dL [facility] Estimated Glomerular Filt Rate >60 [facility] Comment:NOTE: For -Am erican individuals, multiply the result by 1.210.Chronic Kidney Disease: Estimated GFR < 60 mL/min/1.53y1Vuwrjx Kidney Disease: Estimated GFR < 15 mL/min/1.73m2 Glucose 95 60 - 115 mg/dL [facility] Calcium 9.5 8.4 - 10.2 mg/dL [facility] 09/10/2022 11:5 8 AM EDT 09/10/2022 2:34 PM EDT Ulises Mcmillan MD LAB BLOOD ORDERABLES Final Resul t Performing Organization Address [facility] Co de Phone Number [facility] [address] [place] [phone] * Helicobacter pylori, Urea Breath Test (07/27/2022 11:24 AM EDT) H. pylori Breath Test Negative Negative [facility] Comment:Antimicrobials, prot on pump inhibitors and bismuthpreparations are known to suppress H. pylori. Ingestingthese medications within two weeks prior to performing thebreath test may produce negative test results. A positiveresult is still clinically valid. 07/27/2022 11:2 4 AM EDT 07/27/2022 6:15 PM EDT [facility] Exter nal Provider LAB BODY FLUIDS AND STOOLS ORDERABLES Final Result Performing Organization Address [facility] Co de Phone Number [facility] [address] [place] [phone] * Sed Rate by Torres Sahni (05/24/2022 10:17 AM EDT) Erythrocyte Sedimentation Rate 6 0 - 20 MM/HR [facility] Comment:Patients with polycy themia and many hemoglobin abnormalitiesmay have depressed sed rates whereas patients with anemiamay have elevated sed rates. 05/24/2022 10:1 7 AM EDT 05/24/2022 10:17 AM EDT [facility] External Provider LAB BLO OD ORDERABLES Final Result Performing Organization Address [facility] Co de Phone Number [facility] [address] [place] [phone] * TSH (05/24/2022 10:17 AM EDT) Thyroid Stimulating Hormone 1.38 0.32 - 4.0 uIU/mL [facility] Comment:TSH 3rd Generation ( [facility]) 05/24/2022 10:1 7 AM EDT 05/24/2022 10:17 AM EDT [facility] External Provider LAB BLO OD ORDERABLES Final Result Performing Organization Address [facility] de Phone Number [facility] [address] [place] [phone] * (ABNORMAL) C-reactive Protein (05/24/2022 10:17 AM EDT) C Reactive Protein 0.76(H) < or = 0.50 mg/dL [facility] 05/24/2022 10:1 7 AM EDT 05/24/2022 10:17 AM EDT [facility] External Provider LAB BLO OD ORDERABLES Final Result Performing Organization Address [facility] de Phone Number [facility] [address] [place] [phone] * (ABNORMAL) Comprehensive Metabolic Panel (05/24/2022 10:17 AM EDT) Sodium 139 135 - 145 mmol/L [facility] Potassium 4.5 3.3 - 5.1 mmol/L [facility] Chloride 110(H) 96 - 108 mmol/L [facility] Carbon Dioxide 24 22 - 29 mmol/L [facility] Anion Gap 10(L) 12 - 20 [facility] Urea Nitrogen (BUN) 12 9 - 16 mg/dL [facility] Creatinine, Serum 0.75 0.5 - 1.4 mg/dL [facility] Estimated Glomerular Filt Rate >60 [facility] Comment:NOTE: For -Am erican individuals, multiply the result by 1.210.Chronic Kidney Disease: Estimated GFR < 60 mL/min/1.06p6Qefmax Kidney Disease: Estimated GFR < 15 mL/min/1.73m2 Glucose 141(H) 60 - 115 mg/dL [facility] Calcium 9.0 8.4 - 10.2 mg/dL [facility] Bilirubin, Total 0.6 0.0 - 1.0 mg/dL [facility] Aspartate Amino Transferase 21 5 - 31 U/L [facility] Alanine Aminotransferase 43(H) 0 - 31 U/L [facility] Total Protein 7.2 6.5 - 8.0 g/dL [facility] Albumin Level 4.3 3.5 - 5.0 g/dL [facility] Alkaline Phosphatase 70 39 - 117 U/L [facility] 05/24/2022 10:1 7 AM EDT 05/24/2022 10:17 AM EDT [facility] External Provider LAB BLO OD ORDERABLES Final Result [facility] [address] [place] [address] [phone] * (ABNORMAL) CBC auto differential (05/24/2022 10:17 AM EDT) White Blood Count 4.2(L) 4.8 - 10.8 X10*3/uL [facility] Red Blood Count 3.81(L) 4.20 - 5.50 X10*6/uL [facility] Hemoglobin 12.9 12.0 - 16.0 g/dl [facility] Hematocrit 36.9(L) 37.0 - 47.0 % [facility] Mean Corpuscular Volume 96.9 80.0 - 98.0 fL [facility] Mean Corpuscular Hemoglobin 33.9(H) 27.0 - 33.0 pg [facility] Mean Corpuscular HGB Conc 35.0 31.0 - 35.0 g/dl [facility] Red Cell Distribution Width 11.9 11.0 - 16.0 % [facility] Platelet Count 283 160 - 400 X10*3/uL [facility] Mean Platelet Volume 10.4 9.4 - 12.3 fL [facility] Neutrophils Percent Auto 47.8 45 - 73 % [facility] Imm Gran Pct Auto 0.2 0.0 - 0.4 % [facility] Lymphocytes Percent Auto 38.1 20 - 40 % [facility] Monocytes Percent Auto 7.4 2 - 11 % [facility] Eosinophils Percent Auto 4.8(H) 0 - 4 % [facility] Basophils Percent Auto 1.7 0 - 2 % [facility] NRBC Pct Auto 0.0 0.0 - 0.2 /100WBC [facility] Neutrophils Absolute Auto 2.0 2.0 - 8.3 x10*3/uL [facility] Imm Gran Abs Auto 0.01 0.00 - 0.03 X10*3/uL [facility] Lymphocytes Absolute Auto 1.6 1.2 - 4.9 X10*3/uL [facility] Monocytes Absolute Auto 0.3 0.1 - 1.2 X10*3/uL [facility] Eosinophils Absolute Auto 0.2 0.0 - 0.4 X10*3/uL [facility] Basophils Absolute Auto 0.1 0.0 - 0.2 X10*3/uL [facility] NRBC Abs Auto 0.000 0.0 - 0.012 X10*3/uL [facility] 05/24/2022 10:1 7 AM EDT 05/24/2022 10:17 AM EDT Result [facility] External Provider LAB BLO OD ORDERABLES Final Result [facility] [address] [place] [address] [phone] * QuantiFERON??-TB Gold Plus, 1 Tube (04/01/2022 4:33 PM EST) [facility] Quantiferon -TB Gold Plus, 1 Tube NEGATIVE NEGATIVE [facility] [place] [facility] Comment: Negative test result. M. tuberculosis complex infection unlikely. NIL 0.04 IU/mL [facility] [place] [facility] MITOGEN-NIL >10.00 IU/mL [facility] [place] [facility] TB1-NIL <0.00 IU/mL [facility] [place] [facility] TB2-NIL 0.01 IU/mL [facility] Comment: The Nil tube value reflects the [...] T-lymphocytes. For additional information, please refer to https://education.[employer]/faq/GVW659 (This link is being provided for informational/ educational purposes only.) Blood Venous blood specimen / Unknown 04/01/2022 4:33 PM EST 04/01/2022 4:33 PM EST Narrative [facility] - 04/07/2022 10:57 PM EST FASTING:NO FASTING: NO Ulises Name LAB BLOOD ORDERABLES Final Resul t [facility] [address] [facility] [place] [address] [facility] [address] [facility], ([address]) [place] [address] documented in this encounter Visit Diagnoses Diagnosis Screening for tuberculosis- Primary Screening examination for pulmonary tuberculosis documented in this encounter Additional Health Concerns Assessment Noted Time PHQ-9 Depression Total Score: 0 01/28/20 22 11:25 AM EST documented as of this encounter Care Teams Technical Solutions Engineer Relationship Specialty Start Date End Date Name, MD Ulises [address] [place] [address] PCP - General Family Medicine 11/26/15 JeffersonAnita FNP [address] [place] [address] Nurse Practitioner Family Medicine 01/19/22 08/05/22 Tanya Lopez, StasD [address] [place] [phone] Pharmacist Internal Medicine 08/06/22 documented as of this encounter
--- OUTSIDE RECORDS SUMMARY | 2025-01-02 08:40 | XMS_ITS | Encounter Summary ---
Author Organization [employer] Address [address] [place] [address] 7t [place] [address] Care Team Providers Care Global Product Manager Name Role Phone Name, Ulises YATES Primary Care Provider [phone] Tanya Lopez PharmD Unavailable [phone] Reason for Visit * Reason Comments Med Refill Encounter Details Date Type Department Care Team ([facility] st Contact Info) Description 02/12/2024 Refill [facility] [address] [place], [place] [phone] Park Hernandez NP [address] [place] [address] Chronic left shoulder pain Social History Tobacco [...] Info) Description 01/02/2025 11:00 AM EST Telemedicine [facility] [address] [place] [address] 03/12/2025 9:15 AM EST Office Visit [facility] [address] [place] [phone] Deyanira, MD Ulises [address] [place] [address] documented as of this encounter Goals Goal [...] documented as of this encounter Care Teams Global Product Manager Relationship Specialty Start Date End Date Name, MD Ulises [address] [place] [address] PCP - General Family Medicine 11/26/15 Tanya Lopez, PharmD [address] [place] [address] Pharmacist Internal Medicine 08/06/22 documented as of this encounter
--- OUTSIDE RECORDS SUMMARY | 2025-01-02 08:40 | XMS_ITS | Encounter Summary ---
Author Organization [employer] Address [address] [place] [address] 7t [place] [address] Care Team Providers Care Tool Coordinator Name Role Phone Name, Ulises YATES Primary Care Provider [phone] Tanya Lopez PharmD Unavailable [phone] Reason for Visit * Reason Comments Med Refill Encounter Details Date Type Department Care Team ([facility] st Contact Info) Description 01/23/2024 Refill [facility] [address] [place], [place] [phone] Name, MD Ulises [address] [place] [address] Social History Tobacco Use Types Packs/Day Years [...] Info) Description 01/02/2025 11:00 AM EST Telemedicine [facility] [address] [place] [address] 03/12/2025 9:15 AM EST Office Visit [facility] [address] [place] [address] Ulises Mcmillan MD [address] [place] [address] documented as of this encounter Goals Goal [...] documented as of this encounter Care Teams Tool Coordinator Relationship Specialty Start Date End Date Ulises Mcmillan MD [address] [place] [address] [place] [address] PCP - General Family Medicine 11/26/15 Tanya Lopez PharmD [address] [place] [address] Pharmacist Internal Medicine 08/06/22 documented as of this encounter
--- OUTSIDE RECORDS SUMMARY | 2025-01-02 08:40 | XMS_ITS | Encounter Summary ---
Author Organization [employer] Address [address] [place] [address] 7t [place] [address] Care Team Providers Care Community Recreation Programmer Name Role Phone Name, Ulises YATES Primary Care Provider [phone] Tanya Lopez PharmD Unavailable [phone] Reason for Visit * Reason Comments Med Refill Encounter Details Date Type Department Care Team ([facility] st Contact Info) Description 02/17/2023 Refill [facility] 230 [place], [place] [phone] Edwina Shepard DO [address] [place] [address] Migraine without status migrainosus, not intractable, unspecified [...] Info) Description 01/02/2025 11:00 AM EST Telemedicine [facility] [address] [place] [address] 03/12/2025 9:15 AM EST Office Visit [facility] [address] [place] [address] NameUlises MD [address] [place] [address] documented as of this encounter Goals Goal [...] documented as of this encounter Care Teams Community Recreation Programmer Relationship Specialty Start Date End Date Ulises Mcmillan MD [address] [place] [address] PCP - General Family Medicine 11/26/15 Puia, Tanya, PharmD [address] [place] [address] Pharmacist Internal Medicine 08/06/22 documented as of this encounter
--- OUTSIDE RECORDS SUMMARY | 2025-01-02 08:40 | XMS_ITS | Encounter Summary ---
Author Organization [employer] Address [address] [place] [address] 7[address] [place] [address] Care Team Providers Care Leather Grainer Name Role Phone Name, Ulises YATES Primary Care Provider [phone] Anita Skinner SETTER [employer]ING [employer] Unavailable [phone] Tanya Lopez PharmD Unavailable [phone] Reason for Visit * Reason Comments Med Refill Encounter Details Date Type Department Care Team (Late st Contact Info) Description 03/26/2022 Refill [facility] MED[facility]INE [address] [place] [address] Leisa Daugherty FNP [address] [place], [place] [phone] Other acute back pain Social History Tobacco [...] Info) Description 01/02/2025 11:00 AM EST Telemedicine [facility] MEDICINE [address] [place] [phone] 03/12/2025 9:15 AM EST Office Visit [address] [address] Name, [place] [address] documented as of this encounter Visit Diagnoses Diagnosis Other acute back pain documented in this encounter Additional Health Concerns Assessment Noted Time PHQ-9 Depression Total Score: 0 01/28/20 11:25 AM EST documented as of this encounter Care Teams Leather Grainer Relationship Specialty Start Date End Date Name, MD Ulises [address] [place] [phone] PCP - General Family Medicine 11/26/15 DavenportAnita FNP [address] [place] [phone] Nurse Practitioner Family Medicine 01/19/22 08/05/22 Tanya Lopez PharmD [address] [place] [phone] Pharmacist Internal Medicine 08/06/22 documented as of this encounter
--- OUTSIDE RECORDS SUMMARY | 2025-01-02 08:40 | XMS_ITS | Encounter Summary ---
Author Organization [employer] Address [address] [place] [address] 7[address] [place] [address] Care Team Providers Care Hogshead Mat Inspector Name Role Phone Name, Ulises YATES Primary Care Provider [phone] Tanya Lopez PharmD Unavailable [phone] Reason for Visit * Reason Comments Med Refill Encounter Details Date Type Department Care Team ([facility] Contact Info) Description 09/21/2022 Refill [facility] MEDICINE [address] [place] [address] [phone] Name, MD Ulises [address] [place] [phone] Social History Tobacco Use Types Packs/Day Years [...] Department Care Team (Late Contact Info) Description 01/02/2025 11:00 AM EST Telemedicine [address] [phone] 03/12/2025 9:15 AM EST Office Visit [facility] [address] [place] [phone] Name, MD Ulises [address] [place] [address] documented as of this encounter Goals Goal [...] documented as of this encounter Care Teams Hogshead Mat Inspector Relationship Specialty Start Date End Date Name, MD Ulises [address] [place] [phone] PCP - General Family Medicine 11/26/15 Tanya Lopez, PharmD [address] [place] [phone] Pharmacist Internal Medicine 08/06/22 documented as of this encounter
--- OUTSIDE RECORDS SUMMARY | 2025-01-02 08:40 | XMS_ITS | Encounter Summary ---
Author Organization [employer] Address [address] [place] [address] 7[address] [place] [address] Care Team Providers Care Social Media Specialist Name Role Phone Name, Ulises YATES Primary Care Provider [phone] Tanya Lopez PharmD Unavailable [phone] Reason for Visit * Reason Comments Med Refill Encounter Details Date Type Department Care Team ([facility] st Contact Info) Description 04/25/2024 Refill [facility] [address] [place], [place] [phone] Alicia Lowry FNP [address] [place] [address] Social History Tobacco Use Types Packs/Day Years [...] Info) Description 01/02/2025 11:00 AM EST Telemedicine [facility]INE [address] [place] [phone] 03/12/2025 9:15 AM EST Office Visit [facility] [address] [place] [phone] Name, MD Ulises [address] [place] [phone] documented as of this encounter Goals Goal [...] documented as of this encounter Care Teams Social Media Specialist Relationship Specialty Start Date End Date Name, MD Ulises [address] [place] [address] PCP - General Family Medicine 11/26/15 Tanya Lopez, Joaquim [address] [place] [address] Pharmacist Internal Medicine 08/06/22 documented as of this encounter
--- OUTSIDE RECORDS SUMMARY | 2025-01-02 08:40 | XMS_ITS | Encounter Summary ---
Author Organization [employer] Address [address] [place] [address] [address] [place] [address] Care Team Providers Care Packager Or Packer And Weigher Name Role Phone Name, Ulises YATES Primary Care Provider [phone] Tanya Lopez PharmD Unavailable [phone] Reason for Visit * Reason Comments Med Refill Encounter Details Date Type Department Care Team ([facility] st Contact Info) Description 11/24/2023 Refill [facility] MEDICINE [address] [place], [place] [phone] Name, MD Ulises [address] [place] [address] Social History Tobacco Use Types Packs/Day Years [...] 01/02/2025 11:00 AM EST Telemedicine [facility] MEDICINE [address] [place] [phone] 03/12/2025 9:15 AM EST Office Visit [facility] MEDICINE [address] [place] [address] Ulises Mcmillan MD [address] [place] [phone] documented as of this encounter Goals Goal [...] documented as of this encounter Care Teams Packager Or Packer And Weigher Relationship Specialty Start Date End Date Ulises Mcmillan MD [address] [place] [address] [place] [address] PCP - General Family Medicine 11/26/15 Tanya Lopez PharmD [address] [place] [address] Pharmacist Internal Medicine 08/06/22 documented as of this encounter
--- OUTSIDE RECORDS SUMMARY | 2025-01-02 08:40 | XMS_ITS | Clinical Summary ---
Author Organization [facility] Address [address] [place] [address] Care Team Providers Care Tele Rn Name Role Phone Name, Ulises YATES Primary Care Provider [phone] Medical History Medical History Date Comments Preeclampsia [...] Depression Screening 02/22/2024 COVID-19 Vaccine ( - 2024-2 6 season) 2024 Influenza Vaccine (#1) 2024 RSV [...] age to complete this topic Care Teams Tele Rn Relationship Specialty Start Date End Date Name, MD Ulises [address] [place] [address] PCP - General Internal Medicine 05/09/12
--- OUTSIDE RECORDS SUMMARY | 2025-01-02 08:41 | XMS_ITS | Clinical Summary ---
Author Organization [employer] Address [address] [place] [address] [address] [place] [address] Care Team Providers Care Benzene Washer Operator Name Role Phone Name, Ulises YATES Primary Care Provider [phone] Tanya Lopez PharmD Unavailable [phone] Allergies No known active allergies Medications [...] tablet by mouth Once per day. Active metroNIDAZOLE (Flagyl) 500 MG tablet Take 500 mg by mouth in the morning and 500 mg in the evening. Active losartan-hydroCHL OROthiazide (Hyzaar) 50-12.5 MG tabletIndications :Primary hypertension Take 1 tablet by mouth Once per day. 30 tablet 11 025 2025 Active traZODone (Desyrel) 50 MG tablet Take [...] capsule 11 025 2024 Discontinued(D ose adjustment) metroNIDAZOLE (Flagyl) 500 MG tablet Take 1 tablet (500 mg) by mouth 2 times daily for 7 days. 14 tablet 025 2024 Active Problems Problem Noted Date Diagnosed Date [...] Encounters Date Type Department Care Team Description 12/25/2024 11:30 AM EST Telemedicine [address] [address] Yudi Grissom RN Primary hypertension 12/25/[address] [address] Ulises Mcmillan MD Med Refill 12/25/2024 Travel 12/24/2024 Travel 12/21/2024 Orders Only [address] [address] Mariann Sneed MD 12/21/2024 Results Follow-Up [address] [address] Mariann Sneed MD POCT Urinalysis, Bacterial Vaginosis Panel 12/21/[address] [address] Mariann Sneed MD 12/19/2024 6:40 PM EDT Office Visit [facility] [address] [place] [phone] Mariann Sneed MD Urinary frequency (Primary Dx) 12/19/2024 Travel 12/10/2024 11:30 AM EDT Office Visit [address] [address] Ulises Mcmillan MD Hypertension, unspecified type (Primary Dx); Cervical radicular pain; Chronic left shoulder pain; Encounter for immunization 12/10/2024 Travel 12/07/2024 Telephone [facility] [place] [address] Ulises Mcmillan MD chart prep 12/03/[address] [address] Ulises Mcmillan MD Migraine without status migrainosus, not intractable, unspecified migraine type 12/03/2024 Travel 11/29/2024 Orders Only GENERIC EXTERNAL DATA DEPARTMENT Provider, Generic External Data 10/16/2024 Refill [facility] [address] [place] [phone] Name, MD Ulises from Last 3 Months Immunizations Immunization Administration [...] Info) Description 01/02/2025 11:00 AM EST Telemedicine [facility] [address] [place] [address] 03/12/2025 9:15 AM EST Office Visit [facility] [address] [place] [phone] Name, MD Ulises [address] [place] [phone] Health Maintenance Due Date Last Done Comments HIV Screening 1985 Alcohol/Substance Use Screening 1996 Family Planning (PISQ) 07/29/1999 HPV Vaccines (1 - 3-dose series) 07/29/1999 Hepatitis A Vaccines (1 of 2 - Risk 2-dose series) 07/29/2003 Pneumococcal Vaccine: Pediatrics (0 to 5 Years) and At-Risk Patients (6 to 49) Years (1 of 2 - PCV) 07/29/2003 COVID-19 Vaccine ( - season) 2024 03/26/2021, 10/09/2020, 09/18/2020 SDOH Screening 04/26/2025 04/26/2024 Depression Screening 05/04/2025 05/04/2024, 05/05/19 25 Disability Screening 09/28/2025 09/28/2024 Tobacco Screening 12/19/2025 12/19/2024 Mammogram 10/25/2026 10/25/2024 Cervical Cancer Screening 04/19/2028 HPV/Cotest 04/19/2028 Pap Smear 04/19/2028 04/19/2023 Lipid Panel 11/29/2029 11/29/2024, 04/22, 11/02/2023, Additional history exists DTaP/Tdap/Td Vaccines (3 - Td or Tdap) 08/06/2032 08/06/2022, 06/12/2012 Zoster Vaccines (1 of 2) 2034 RSV Patients and Patients Aged 60 years or older (1 - 1-dose 75+ series) 07/29/2059 Hepatitis B Vaccines Completed 09/10/2022, 08/07/19 23 Hepatitis C Screening Completed 04/07/2023 Influenza Vaccine [...] Routine 12/19/2024 7:01 PM EDT Urinary frequency CULTURE, URINE, ROUTINE Routine 12/19/2024 5:56 PM EDT Urinary frequency BACTERIAL VAGINOSIS PANEL Routine 12/19/2024 5:56 PM EDT Urinary frequency VITAMIN B1 Routine [...] Media Lot # [id number] Lot# Expiration Date 24 Urine (Urine, Random) 12/19/2024 7:01 PM EDT Mariann Sneed MD POINT OF CARE TEST ENTER/EDIT ORDERABLES Final Result * (ABNORMAL) Bacterial Vaginosis Panel (12/19/2024 5:56 PM EDT) TRICHOMONAS VAGINALIS DETECTION BY PCR NOT DETECTED Not Detect [facility] BACTERIAL VAGINOSIS DETECTION BY PCR POSITIVE(A) Negative [facility] Comment:The BV organism targ ets of the Xpert Xpress MVP test can becommensal in women; Xpert Xpress MVP positive results forbacterial vaginosis should be considered in conjunction withother clinical and patient information to determine thedisease status. Organisms that are not detected by the XpertXpress MVP test have also been reported to be associatedwith BV and aerobic vaginitis.The Xpert Xpress MVP test performance has not been evaluatedin patients under the age of 14. LYDIA GROUP DETECTION BY PCR NOT DETECTED Not Detect [facility] Lydia glab krusei PCR NOT DETECTED Not Detect [facility] Swab Vaginal structure / Unknown 12/19/2024 5:56 PM EDT 12/20/2024 12:12 PM EDT Mariann Sneed MD LAB MICROBIOLOGY - GENERAL ORD ERABLES Final Result Performing Organization Address [facility] Co de Phone Number [facility] [address] [place] [phone] * Culture, Urine, Routine (12/19/2024 5:56 PM EDT) Urine Urine specimen obtained by clean catch procedure / Unknown 12/19/2024 5:56 PM EDT 12/20/2024 12:12 PM EDT Comment:UACC Narrative [facility] - 12/22/2024 8:18 AM EDT Escherichia coli Quant 10,000 to 50,000 cfu/mL Escherichia coli: Ampicillin >=32(R) Escherichia coli: Cefazolin (Urine) 4(S) Escherichia coli: Cefepime <=0.12(S) Escherichia coli: Ceftriaxone <=0.25(S) Escherichia coli: Ciprofloxacin <=0.06(S) Escherichia coli: Gentamicin <=1(S) Escherichia coli: Nitrofurantoin <=16(S) Escherichia coli: Trimethoprim/Sulfamethoxazole <=20(S) Specimen Source: Urine clean catch Mariann Sneed MD LAB MICROBIOLOGY - GENERAL ORD ERABLES Final Result Performing Organization Address City/[facility]/ZIP Co de Phone Number [facility] [address] [place] [address] [phone] * (ABNORMAL) Vitamin D, 25-Hydroxy, Total, Immunoassay (11/29/2024 10:43 AM EDT) Vitamin D 25-OH Total 26.1(L) >30 ng/mL [facility] Comment: Health Based Reference Values*< 20 ng/mL Mfhkuleyx76-39 ng/mL Insufficient> 30 ng/mL Sufficient*Deb KING. N [...] Provider LAB BLOOD ORDERAB LES Final Result [facility] [address] [place] [phone] * Vitamin B12 (Cobalamin) and Folate Panel, Serum (11/29/2024 10:43 AM EDT) Vitamin B12 241 200 - 900 pg/mL [facility] Comment:NORMAL 200-900 PG/ML INDETERMINATE 160-199 PG/ML DEFICIENT < 160 PG/ML Folate 6.7 > or = 4.0 ng/mL [facility] Comment:Reference Values:> o r = 4.0 ng/mL< 4.0 ng/mL suggests folate deficiency Methotrexate, aminopterin and folinic acid(leucovorin) are chemotherapeutic agents whose molecularstructures are similar to folate; therefore, the Architectfolate assay cannot be used for patients using these drugs. 11/29/2024 10:4 3 AM EDT 11/29/2024 10:43 AM EDT Generic External Data Provider LAB BLOOD ORDERAB LES Final Result Performing Organization Address [facility] de Phone Number [facility] [address] [place] [phone] * TSH with Reflex to Free T4 (11/29/2024 10:43 AM EDT) Pathologist [facility] TSH reflex Free T4 1.52 0.32 - 4.0 uIU/mL [facility] 11/29/2024 10:4 3 AM EDT 11/29/2024 10:43 AM EDT Generic External Data Provider LAB BLOOD ORDERAB LES Final Result Performing Organization Address [facility] Phone Number [facility] [address] [place] [phone] * (ABNORMAL) CBC auto differential (11/29/2024 10:43 AM EDT) White Blood Count 5.0 4.8 - 10.8 X10*3/uL [facility] Red Blood Count 4.06(L) 4.20 - 5.50 X10*6/uL [facility] Hemoglobin 13.5 12.0 - 16.0 g/dl [facility] Hematocrit 38.7 37.0 - 47.0 % [facility] Mean Corpuscular Volume 95.3 80.0 - 98.0 fL [facility] Mean Corpuscular Hemoglobin 33.3(H) 27.0 - 33.0 pg [facility] Mean Corpuscular HGB Conc 34.9 31.0 - 35.0 g/dl [facility] Red Cell Distribution Width 11.6 11.0 - 16.0 % [facility] Platelet Count 297 160 - 400 X10*3/uL [facility] Mean Platelet Volume 10.0 9.4 - 12.3 fL [facility] Neutrophils Percent Auto 56.0 45 - 73 % [facility] Imm Gran Pct Auto 0.2 0.0 - 0.4 % [facility] Lymphocytes Percent Auto 33.7 20 - 40 % [facility] Monocytes Percent Auto 6.9 2 - 11 % [facility] Eosinophils Percent Auto 1.8 0 - 4 % [facility] Basophils Percent Auto 1.4 0 - 2 % [facility] NRBC Pct Auto 0.0 0.0 - 0.2 /100WBC [facility] Neutrophils Absolute Auto 2.8 2.0 - 8.3 x10*3/uL [facility] Imm Gran Abs Auto 0.01 0.00 - 0.03 X10*3/uL [facility] Lymphocytes Absolute Auto 1.7 1.2 - 4.9 X10*3/uL [facility] Monocytes Absolute Auto 0.4 0.1 - 1.2 X10*3/uL [facility] Eosinophils Absolute Auto 0.1 0.0 - 0.4 X10*3/uL [facility] Basophils Absolute Auto 0.1 0.0 - 0.2 X10*3/uL [facility] NRBC Abs Auto 0.000 0.0 - 0.012 X10*3/uL [facility] 11/29/2024 10:4 3 AM EDT 11/29/2024 10:43 AM EDT us Generic External Data Provider LAB BLOOD ORDERAB LES Final Result [facility] [address] [place] [phone] * (ABNORMAL) Iron And Total Iron Binding Capacity (11/29/2024 10:43 AM EDT) Iron 167(H) 30 - 160 mcg/dL [facility] Total Iron Binding Capacity 285 228 - 428 mcg/dL [facility] Percent Iron Saturation 59(H) 15 - 50 % [facility] Unsaturated Iron Binding 118 ug/dL [facility] 11/29/2024 10:4 3 AM EDT 11/29/2024 10:43 AM EDT Generic External Data Provider LAB BLOOD ORDERAB LES Final Result Performing Organization Address [facility] de Phone Number [facility] [address] [place] [phone] * (ABNORMAL) Insulin (11/29/2024 10:43 AM EDT) Pathologist [facility] Insulin <2(L) 2 - 29 uU/mL [facility] Comment:This test was perfor med using the Encap chemiluminescentmethod. Values obtained from different assay methods [...] ORDERAB LES Final Result Performing Organization Address [facility] Co de Phone Number [facility] [address] [place] [address] [phone] * Zinc (11/29/2024 10:43 AM EDT) Zinc 90 60 - 130 mcg/dL [facility] Comment:This test was develo ped and its analytical performancecharacteristics have been determined by [employer] [place]. It hasnot been cleared or approved by the U.S. Food and DrugAdministration. This assay has been validated pursuantto the CLIA regulations and is used for clinicalpurposes.THIS TEST WAS PERFORMED AT:[employer] [id number] [place] [id number] NIX MD,PHD 11/29/2024 10:4 3 AM EDT 11/29/2024 10:43 AM EDT Generic External Data Provider LAB BLOOD ORDERAB LES Final Result Performing Organization Address [facility] Co de Phone Number [facility] [address] [place] [address] [phone] * Vitamin A (11/29/2024 10:43 AM EDT) [facility] Vitamin A (Retinol) 42 38 - 98 mcg/dL [facility] Comment:Vitamin supplementat ion within 24 hours prior toblood draw may affect the accuracy of the results.This test was developed and its analytical performancecharacteristics have been determined by [employer] [place], [place]. It hasnot been cleared or approved by the U.S. Food and DrugAdministration. This assay has been validated pursuantto the CLIA regulations and is used for clinicalpurposes.THIS TEST WAS PERFORMED AT:[employer] [id number] [place] [address]CPBDIQWLOLY NIX MD,PHD 11/29/2024 10:4 3 AM EDT 11/29/2024 10:43 AM EDT Generic External Data Provider LAB BLOOD ORDERAB LES Final Result Performing Organization Address [facility] Co de Phone Number [facility] [address] [place] [phone] * C-reactive Protein (11/29/2024 10:43 AM EDT) [facility] C Reactive Protein <0.10 < or = 0.50 mg/dL [facility] 11/29/2024 10:4 3 AM EDT 11/29/2024 10:43 AM EDT Generic External Data Provider LAB BLOOD ORDERAB LES Final Result Performing Organization Address [facility] Co de Phone Number [facility] [address] [place] [phone] * Vitamin B1 (11/29/2024 10:43 AM EDT) Pathologist [facility] Vitamin B1 9 8 - 30 nmol/L [facility] Comment:Vitamin supplementat ion within 24 hours prior toblood draw may affect the accuracy of the results.This test was developed and its analytical performancecharacteristics have been determined by [employer] [place], [place]. It hasnot been cleared or approved by the U.S. Food and DrugAdministration. This assay has been validated pursuantto the CLIA regulations and is used for clinicalpurposes.THIS TEST WAS PERFORMED AT:[employer]/[id number] [place] [address]AVAPDTDLOLY NIX MD,PHD 11/29/2024 10:4 3 AM EDT 11/29/2024 10:43 AM EDT Generic External Data Provider LAB BLOOD ORDERAB LES Final Result Performing Organization Address [facility] Co de Phone Number [facility] [address] [place] [phone] * Hemoglobin A1c (11/29/2024 10:43 AM EDT) Pathologist [facility] Hemoglobin A1c 4.8 <6.0 % [facility] Comment:Hemoglobin A1C Refer ence Range Adults: 4.8 - 6.0 % Non diabetic: < 6.0 % Goal: < 7.0 %Additional Action Suggested: > 8.0 %Note: Hemoglobin A1c results are invalid for patients with abnormal amounts of HbF. Blood transfusions may impact the HbA1c concentration in the patient sample. Estimated Average Glucose 91 mg/dL [facility] Comment:eAG = Estimated ave rage glucose which is %A1C expressed asaverage glucose, using the formula of the X8N-XuhitesYrbjkkx Glucose study (ADAG), Diabetes Care, Vol.31,#8,2007 11/29/2024 10:4 3 AM EDT 11/29/2024 10:43 AM EDT us Generic External Data Provider LAB BLOOD ORDERAB LES Final Result Performing Organization Address City/[facility]/ZIP Co de Phone Number [facility] [address] [place] [phone] * Ferritin (11/29/2024 10:43 AM EDT) Ferritin 135 10 - 250 ng/mL [facility] 11/29/2024 10:4 3 AM EDT 11/29/2024 10:43 AM EDT Generic External Data Provider LAB BLOOD ORDERAB LES Final Result Performing Organization Address [facility] Co de Phone Number [facility] [address] [place] [phone] * Lipid Panel, Standard (11/29/2024 10:43 AM EDT) Triglycerides 43 <150 mg/dL [facility] Comment:Desirable Triglyceri de: less than 150 mg/dLBorderline High Triglyceride 150-199 mg/dLHigh Triglyceride: 200-499 mg/dLVery High Triglyceride: greater than or equal to 5OO mg/dL Cholesterol 131 <200 mg/dL [facility] Comment:Desirable Cholestero l: less than 200 mg/dLBorderline High Cholesterol: 200-239 mg/dLHigh Cholesterol: greater than 239 mg/dL LDL Cholesterol Calculated 64 <100 mg/dL [facility] Comment:Desirable LDL: less than 100 mg/dLNear Optimal/Above Optimal LDL: 110- 129 mg/dLBorderline High LDL: 130-159 mg/dLHigh LDL: 160-189 mg/dLVery High LDL: greater than or equal to 190 mg/dL HDL Cholesterol 59 >40 mg/dL [facility] Comment:Desirable HDL: great er than 40 mg/dL Note: This HDL assay may give artificially low results in patients with liver disease. 11/29/2024 10:4 3 AM EDT 11/29/2024 10:43 AM EDT us Generic External Data Provider LAB BLOOD ORDERAB LES Final Result [facility] [address] [place] [phone] * (ABNORMAL) Comprehensive Metabolic Panel (11/29/2024 10:43 AM EDT) Sodium 143 135 - 145 mmol/L [facility] Potassium 3.8 3.3 - 5.1 mmol/L [facility] Chloride 105 96 - 108 mmol/L [facility] Carbon Dioxide 31(H) 22 - 29 mmol/L [facility] Anion Gap 11(L) 12 - 20 [facility] Urea Nitrogen (BUN) 9 9 - 16 mg/dL [facility] Creatinine, Serum 0.57 0.5 - 1.4 mg/dL [facility] Estimated Glomerular Filt Rate >60 [facility] Comment:Chronic Kidney Disea se: Estimated GFR < 60 mL/min/1.30e6Cibkbf Kidney Disease: Estimated GFR < 15 mL/min/1.73m2 Glucose 83 60 - 115 mg/dL [facility] Calcium 9.3 8.4 - 10.2 mg/dL [facility] Bilirubin, Total 1.3(H) 0.0 - 1.0 mg/dL [facility] Aspartate Amino Transferase 18 5 - 31 U/L [facility] Alanine Aminotransferase 17 0 - 31 U/L [facility] Total Protein 7.5 6.5 - 8.0 g/dL [facility] Albumin Level 4.7 3.5 - 5.0 g/dL [facility] Alkaline Phosphatase 72 39 - 117 U/L [facility] 11/29/2024 10:4 3 AM EDT 11/29/2024 10:43 AM EDT us Generic External Data Provider LAB BLOOD ORDERAB LES Final Result [facility] [address] [place] [phone] * BI Mammogram Screening Tomosynthesis Bilateral (10/25/2024 10:00 AM EDT) Anatomical Region Laterality Modality Breast Bilateral Mammography 10/25/2024 10:0 0 AM EDT Narrative 10/29/2024 9:40 AM EDT [address] [place] [address] Mammography Report Signed Patient: Gaye Arriaga MR#: [id number] : 1985 Acct:[id number] Age/Sex: 39 / F ADM Date: 10/25/24 Loc: HO.MAMMO Attending Dr: Ulises Mcmillan MD Ordering Physician: Ulises Mcmillan MD Results: 1Negative Date of Service: 10/25/24 Follow Up: 1 Year From [facility] Mammogram Procedure(s): MM tomosynthesis screening BI Accession Number(s): [id number] cc: Ulises Mcmillan MD EXAMINATION: MM SCREENING [...] 10/29/24 0937 DD/ 1000 TD/TT: 10/25/24 1010 Plastic Welder: Procedure Note Donotuseinterpreter, Image - 10/29/[facility] [address] [place], [place] [address] Mammography Report Signed Patient: Gaye Arriaga YMR#: [id number] : 1985Acct:[id number] Age/Sex: 39 / FADM Date: 10/25/24 Loc: HO.MAMMO Attending Dr: Ulises Mcmillan MD Ordering Physician: Ulises Mcmillanults: 1Negative Date of Service: 10/25/24Follow Up: 1 Year From Orig inal Mammogram Procedure(s): MM tomosynthesis screening BI Accession Number(s): [id number] cc: Ulises Mcmillan MD EXAMINATION: MM SCREENING [...] 10/29/24 0937 DD/ 1000 TD/TT: 10/25/24 1010 Plastic Welder: Ulises MORRIS PROCEDURES Edited Result - Final * Pap Smear (04/19/2023 3:00 PM EST) 04/19/2023 3:00 PM EST 04/20/2023 7:45 AM EST [facility] - 05/02/2023 9:15 AM EDT ----- ------- Name: Gaye Arriaga Age/Sex: 37/F : 1985 Unit#: [id number] Attend Dr: Allyn Pulido CNM Re04/19/23 Status: DEP REF Location: .LAB Disch: ----- ------- SPEC : [id number] RECD: 04/20/23 STATUS: ANTHONY POLANCO NUM: [id number] REGGIE: 04/19/23-[address]: Allyn Pulido CNM [...] 59, 66, 68) HPV testing performed by [employer], [place], [place]. See reference laboratory portion of the EMR for entire report. Clinical Information LMP: 03/30/23 Previous PAP test: 2017, WN Material Received ThinPrep-Cervical Copies To: Name,Ulises YATES [address] [place] [address] Ceron [address] [place] [phone] ----- ------- Signed (signature on file) LEIGH Fajardo (ASCP) 05/02/23 0915 ----- ------- END OF REPORT us Generic External Data Provider LAB CYTOLOGY JIMMY SANABRIA Final Result [facility] [address] [place] [phone] * Hepatitis Panel, General (04/07/2023 1:06 PM EST) Hepatitis A IgM Nonreactive Nonreactive [facility] Comment:IgM antibodies to JEFFRIES V not detected; does not exclude earlyacute or recovered HAV infection. ~Hepatitis B Surface Antibody REACTIVE Nonreactive [facility] Comment:REACTIVE: > 11.99 mI U/mL Hepatitis B Core Antibody Nonreactive Nonreactive [facility] Hepatitis C Antibody Nonreactive Nonreactive [facility] Comment:Antibodies to HCV no t detected; does not exclude early acuteHCV infection. Hepatitis B Surface Ag Negative Negative [facility] Blood 04/07/2023 1:0 6 PM EST 04/07/2023 3:58 PM EST us Leisa Loja CIRCULATION CREW LEADER LAB BLOOD ORDERABLES Final Res ult [facility] [address] [place] [phone] from Last 3 Months or Most Recently Relevant to Health Maintenance [facility] [place] Care Teams Benzene Washer Operator Relationship Specialty Start Date End Date Name, MD Ulises [address], [place] [phone] PCP - General Family Medicine 11/26/15 Tanya Lopez, St[employer]D [address], [place] [phone] Pharmacist Internal Medicine 08/06/22
[2025-01-02 13:24] LABS: Anion Gap 12 (12-20); Blood Urea Nitrogen 10 mg/dL (9-16); Calcium 9.2 mg/dL (8.4-10.2); Carbon Dioxide 29 mmol/L (22-29); Chloride 103 mmol/L (96-108); Estimated Glomerular Filt Rate > 60; Potassium 3.5 mmol/L (3.3-5.1); Sodium 140 mmol/L (135-145)
== END 2025-01-02 08:28 | disposition home or self-care (01) ==
LOC: HO.HHCL 08:27
PROVIDERS: Nurse Practitioner; PCP Internal Medicine Geriatric Medicine; Visit Provider Internal Medicine Geriatric Medicine
DX: M25.512 Pain in left shoulder (principal); G89.29 Other chronic pain; I10 Essential (primary) hypertension
CPT/HCPCS: 36415; 80048